=== PATIENT | female | born 1950 | race Caucasian/White ===

== ENCOUNTER 2016-07-26 16:26 | Emergency (ER) | payer MEDICARE ==
[2016-07-26 16:56] VITALS: BP 145/79
--- NOTE | 2016-07-26 18:33 | RAD ---
INDICATION: Nose abrasions after a fall TECHNIQUE: 3 views of the nasal bones were obtained including lateral and Murphy views. FINDINGS: No fracture is seen. Paranasal sinuses appear clear by radiographic standards. IMPRESSION: No evidence of acute fracture.
--- NOTE | 2016-07-26 19:14 | UC ---
Head Injury HPI - HPI Summary HPI Summary: YESTERDAY SLIPPED ON STEPS AND STRUCK LEFT SIDE OF FACE IN GRAVEL, ABRASION TO NOSE, TODAY SWELLING OF NOSE AND BRUISING UNDER LEFT EYE. NO FEVER. NO LOC. NO FACIAL PAIN. NO NECK PAIN. NO DENTAL PAIN. NO VISION CHANGES OR PAIN WITH EYE MOVEMENT. - History Of Current Complaint Chief Complaint: UCHeadInjury Stated Complaint: FACIAL INJURIES FROM FALL Time Seen by Provider: 07/26/16 17:14 Hx Obtained From: Patient Onset/Duration: Sudden Onset, Lasting Hours, Still Present Severity Currently: Moderate Severity Initially: Moderate Pain Intensity: 0 Pain Scale Used: 0-10 Numeric Associated Signs And Symptoms: Negative: LOC (Time In Secs./Mins/Hrs), LOC Duration Unknown, Confusion, Memory Loss, Epistaxis, Dental Malocclusion, Neck Pain, Nausea, Vomiting - Risk Factors SDH Risk Factor: Recent Trauma - Allergies/Home Medications Allergies/Adverse Reactions: Allergies Allergy/AdvReac Type Severity Reaction Status Date / Time Fentanyl Allergy See Comment Verified 02/12/16 13:44 Penicillins Allergy Unknown Verified 07/26/16 16:56 Reaction Details Mirtazapine [From Remeron] AdvReac Severe Hallucinati Verified 02/12/16 13:44 ons Dronabinol [From Marinol] AdvReac Hallucinati Verified 02/12/16 13:44 ons PMH/Surg Hx/FS Hx/Imm Hx Previously Healthy: Yes Endocrine History Of: Denies: Diabetes, Thyroid Disease Cardiovascular History Of: Reports: Hypertension Denies: Cardiac Disorders, Pacemaker/ICD Respiratory History Of: Denies: COPD, Asthma GI/ History Of: Denies: Ulcer, Renal Disease Psychological History Of: Reports: Anxiety, Depression - Surgical History Surgical History: Yes Surgery Procedure, Year, and Place: Right upper lobe of lung removed 2013 in [facility]. - Family History Known Family History: Negative: Blood Disorder - Social History Occupation: Retired Lives: With Family Alcohol Use: None Substance Use Type: None Smoking Status (MU): Former Smoker Type: Cigarettes Have You Smoked in the Last Year: No When Did the Patient Quit Smoking/Using Tobacco: 3 years ago - Immunization History Most Recent Influenza Vaccination: 2015/2016 season Most Recent Tetanus Shot: 2010 Most Recent Pneumonia Vaccination: 2014 Review of Systems Constitutional: Negative Skin: Bruising - LEFT MAXILLARY ASPECT ABRASIONS AND BRUISING, Other - ABRASIONS AND SWELLING TO BRIDGE OF NOSE Eyes: Negative ENT: Negative Respiratory: Negative Cardiovascular: Negative Gastrointestinal: Negative Genitourinary: Negative Motor: Negative Neurovascular: Negative Musculoskeletal: Negative Neurological: Negative Psychological: Negative All Other Systems Reviewed And Are Negative: Yes Physical Exam Triage Information Reviewed: Yes Appearance: Well-Appearing, No Pain Distress, Well-Nourished Vital Signs: Initial Vital Signs Temp 98.7 F 07/26/16 16:44 Pulse 82 07/26/16 16:44 Resp 16 07/26/16 16:44 BP 145/79 07/26/16 16:44 Pulse Ox 99 07/26/16 16:44 Vital Signs Reviewed: Yes Eye Exam: Normal Eyes: Positive: Conjunctiva Clear ENT Exam: Normal ENT: Positive: Normal ENT inspection, Hearing grossly normal, Pharynx normal, TMs normal Dental Exam: Normal Dental: Negative: Percussion Tenderness @, Gross Decay/Caries @, Dental Fracture @ Neck exam: Normal Neck: Positive: Supple, Nontender, No Lymphadenopathy. Negative: Nuchal Rigidity, Tenderness @, Enlarged Nodes @ Respiratory Exam: Normal Respiratory: Positive: Chest non-tender, Lungs clear, Normal breath sounds, No respiratory distress, No accessory muscle use Cardiovascular Exam: Normal Cardiovascular: Positive: RRR, No Murmur, Pulses Normal Abdominal Exam: Normal Abdomen Description: Positive: Nontender, No Organomegaly Musculoskeletal Exam: Normal Musculoskeletal: Positive: Strength Intact, ROM Intact. Negative: Strength Limited @, ROM Limited @ Neurological Exam: Normal Psychological Exam: Normal Psychological: Positive: Normal Response To Family Skin: Positive: Other - BRUISING LEFT MAXILLA/ABRASIONS; ABRASIONS AND EDEMA OF NOSE Head Injury Course/Dx - Differential Dx/Diagnosis Differential Diagnosis/HQI/PQRI: Concussion Without LOC, Contusion, Hematoma, Nasal Fracture Provider Diagnoses: ABRASION TO NOSE. FACIAL CONTUSION RIGHT MAXILLA. HEAD INJURY Discharge - Discharge Plan Condition: Stable Disposition: HOME Prescriptions: Azithromycin TAB* [Zithromax TAB (Z-CARY) 250 mg #6 tabs] 250 mg PO DAILY #6 tab Patient Education Materials: Contusion in Adults (ED), Abrasion (ED) Referrals: Daren Chawla MD [Primary Care Provider] -
== END 2016-07-26 18:51 | disposition home or self-care (01) ==
LOC: UCEAST 16:26
DX: S00.31XA Abrasion of nose, initial encounter (principal); S00.83XA Contusion of other part of head, initial encounter; S09.90XA Unspecified injury of head, initial encounter; W10.9XXA Fall (on) (from) unspecified stairs and steps, initial encounter; Y93.9 Activity, unspecified; Y92.9 Unspecified place or not applicable; Z88.0 Allergy status to penicillin; Z88.8 Allergy status to other drugs, medicaments and biological substances; Z87.891 Personal history of nicotine dependence
CPT/HCPCS: 70160; 99212; G0463

== ENCOUNTER 2017-09-20 22:21 | Inpatient (IN) | payer MEDICARE ==
[2017-09-20] MEDS ORDERED: cefTRIAXone(*) 1 GM in NS 0.9% 50 ML* 50 ML IVPB ONE (22:47)
[2017-09-20] MEDS ORDERED: methylPREDNISolone 125 MG* 2 ML VIAL IV ONE (22:47)
[2017-09-20 23:35] LABS: ABS Basophils 0.1 10^3/ul (0-0.2); ABS Eosinophils 0.1 10^3/ul (0-0.6); ABS Lymphocytes 2.4 10^3/ul (1.0-4.8); ABS Monocytes 0.6 10^3/ul (0-0.8); ABS Neutrophils 2.3 10^3/ul (1.5-7.7); ABS Nucleated RBC 0 10^3/ul; Eosinophil % 1.3 % (0-6); Hematocrit 32 % (35-47); Hemoglobin 10.7 g/dl (12.0-16.0); Lymphocyte % 44.3 % (25-47); Mean Corpuscular HGB Conc 34 g/dl (31-36); Mean Corpuscular Hemoglobin 29 pg (27-31); Mean Corpuscular Volume 86 fL (80-97); Mean Platelet Volume 6.6 um3 (7.4-10.4); Nucleated Red Blood Cells % 0.2; Platelet Count 243 10^3/ul (150-450); Red Blood Count 3.66 10^6/ul (4.0-5.4); Red Cell Distribution Width 17 % (10.5-15); White Blood Count 5.5 10^3/ul (3.5-10.8)
[2017-09-20] MEDS ORDERED: cefTRIAXone(*) 1 GM ADVAN/BAG ONE (23:55)
[2017-09-20 23:56] LABS: EGFR Non-African American 90.6 (>60)
[2017-09-21] MEDS ORDERED: Albuterol 0.5% CONC NEB.SOL* 5 MG/ML 20 ml BOT INH ONE (01:37)
--- NOTE | 2017-09-21 03:58 | ED ---
Faisal Sanchez Julia, scribed for Dar Goss MD on 09/20/17 at 2249 . Shortness of Breath - HPI Summary HPI Summary: This patient is a 67 year old M presenting to [facility] accompanied by her daughter with a chief complaint of the sensation of someone is sitting on chest for the past week with gradually worsening with SOB, mildly productive cough, and wheezing today. Patient denies decreased PO intake, and fever. She used 1.5L of at home O2 at night. She uses albuterol as needed. PMHx of COPD. - History of Current Complaint Chief Complaint: EDShortnessOfBreath Time Seen by Provider: 09/20/17 22:41 Hx Obtained From: Patient Onset/Duration: Gradual Onset, Lasting Weeks Timing: Constant Associated Signs & Symptoms: Cough (Productive), Wheezing Related History: Similar Episode - COPD - Allergy/Home Medications Allergies/Adverse Reactions: Allergies Allergy/AdvReac Type Severity Reaction Status Date / Time dronabinol [From Marinol] Allergy Hallucinati Verified 09/20/17 22:26 ons fentanyl Allergy panic Verified 09/20/17 22:26 attacks, shortness of breath, heart racing mirtazapine [From Remeron] Allergy Hallucinati Verified 09/20/17 22:26 ons Penicillins Allergy Unknown Verified 09/20/17 22:26 Reaction Details Home Medications: Home Medications Metoprolol Tartrate 100 mg PO DAILY 09/21/17 [History Confirmed 09/21/17] PMH/Surg Hx/FS Hx/Imm Hx Endocrine/Hematology History: Denies: Hx Diabetes, Hx Thyroid Disease Cardiovascular History: Reports: Hx Hypertension Denies: Hx Pacemaker/ICD Respiratory History: Reports: Hx Chronic Obstructive Pulmonary Disease (COPD), Other Respiratory Problems/Disorders - Hx of lung cancer Denies: Hx Asthma GI History: Reports: Hx Gastroesophageal Reflux Disease, Other GI Disorders Denies: Hx Ulcer History: Reports: Other Problems/Disorders Denies: Hx Dialysis, Hx Renal Disease Musculoskeletal History: Reports: Hx Back Problems Sensory History: Denies: Hx Contacts or Glasses, Hx Hearing Aid Opthamlomology History: Denies: Hx Contacts or Glasses Psychiatric History: Reports: Hx Anxiety, Hx Depression Denies: Hx Panic Disorder - Cancer History Cancer Type, Location and Year: Esophageal cancer Stage #, chemo and radiation, Right Upper lobe lung removed, Stage 1 Hx Chemotherapy: Yes - ESOPHOGEAL Hx Radiation Therapy: Yes - ESOPHOGEAL Hx Palliative Cancer Treatment: No - Surgical History Surgery Procedure, Year, and Place: Right upper lobe of lung removed [address] [facility]. - Immunization History Immunizations Up to Date: Yes Infectious Disease History: No Infectious Disease History: Denies: Hx Clostridium Difficile, Hx Hepatitis, Hx Human Immunodeficiency Virus (HIV), Hx of Known/Suspected MRSA, Hx Shingles, Hx Tuberculosis, Hx Known/ Suspected VRE, Hx Known/Suspected VRSA, History Other Infectious Disease, Traveled Outside the in Last 30 Days - Family History Known Family History: Negative: Blood Disorder - Social History Alcohol Use: None Substance Use Type: Reports: None Hx Tobacco Use: No Smoking Status (MU): Former Smoker Type: Cigarettes Have You Smoked in the Last Year: No Review of Systems Negative: Fever Positive: Chest Pain Positive: Shortness Of Breath, Cough Positive: Other - decreased PO intake All Other Systems Reviewed And Are Negative: Yes Physical Exam - Summary Physical Exam Summary: Appearance: Well-appearing, Well-nourished, lying in bed comfortably, though tachypneic she can speak in full sentences. Skin: Warm, dry, no obvious rash Eyes: sclera anicteric, no conjunctiva pallor ENT: mucous membranes moist, pharynx appears normal Neck: Supple, nontender Respiratory: Clear to auscultation, no signs of respiratory distress, mild tachypnea, asymmetric lung sounds, possible consolidation with e to a changes on the right lower lung field. Cardiovascular: Normal S1, S2. No murmurs. Normal distal pulses in tibial and radial bilaterally. No tachycardia Abdomen: Soft, nontender, normal active bowel sounds present Musculoskeletal: Normal, Strength/ROM Intact Neurological: A&Ox3, awake and alert, mentation is normal, speech is fluent and appropriate Psychiatric: affect is normal, does not appear anxious or depressed Triage Information Reviewed: Yes Vital Signs On Initial Exam: Initial Vitals Temp Pulse Resp BP Pulse Ox 97.9 F 89 22 153/86 96 09/20/17 22:23 09/20/17 22:23 09/20/17 22:23 09/20/17 22:23 09/20/17 22:23 Vital Signs Reviewed: Yes Diagnostics - Vital Signs Vital Signs Temp Pulse Resp BP Pulse Ox 09/20/17 22:34 84 23 130/86 100 09/20/17 22:23 97.9 F 89 22 153/86 96 - Laboratory Lab Results: Lab Results 09/20/17 09/20/17 09/20/17 Range/Units 23:28 23:28 23:28 WBC 5.5 (3.5-10.8) 10^3/ul RBC 3.66 L (4.0-5.4) 10^6/ul Hgb 10.7 L (12.0-16.0) g/dl Hct 32 L (35-47) % MCV 86 (80-97) fL MCH 29 (27-31) pg MCHC 34 (31-36) g/dl RDW 17 H (10.5-15) % Plt Count 243 (150-450) 10^3/ul MPV 6.6 L (7.4-10.4) um3 Neut % (Auto) 42.3 (38-83) % Lymph % (Auto) 44.3 (25-47) % Bibb % (Auto) 11.0 H (0-7) % Eos % (Auto) 1.3 (0-6) % Baso % (Auto) 1.1 (0-2) % Absolute Neuts (auto) 2.3 (1.5-7.7) 10^3/ul Absolute Lymphs (auto) 2.4 (1.0-4.8) 10^3/ul Absolute Monos (auto) 0.6 (0-0.8) 10^3/ul Absolute Eos (auto) 0.1 (0-0.6) 10^3/ul Absolute Basos (auto) 0.1 (0-0.2) 10^3/ul Absolute Nucleated RBC 0 10^3/ul Nucleated RBC % 0.2 Sodium 131 L (139-145) mmol/L Potassium 4.5 (3.5-5.0) mmol/L Chloride 99 L (101-111) mmol/L Carbon Dioxide 25 (22-32) mmol/L Anion Gap 7 (2-11) mmol/L BUN 11 (6-24) mg/dL Creatinine 0.65 (0.51-0.95) mg/dL Est GFR ( Amer) 116.6 (>60) Est GFR (Non-Af Amer) 90.6 (>60) BUN/Creatinine Ratio 16.9 (8-20) Glucose 85 (70-100) mg/dL Lactic Acid 1.4 (0.5-2.0) mmol/L Calcium 9.2 (8.6-10.3) mg/dL Total Bilirubin 0.40 (0.2-1.0) mg/dL AST 19 (13-39) U/L ALT 10 (7-52) U/L Alkaline Phosphatase 83 (34-104) U/L Troponin I 0.01 (<0.04) ng/mL Total Protein 6.8 (6.4-8.9) g/dL Albumin 3.7 (3.2-5.2) g/dL Globulin 3.1 (2-4) g/dL Albumin/Globulin Ratio 1.2 (1-3) Result Diagrams: 09/20/17 23:28 09/20/17 23:28 Lab Statement: Any lab studies that have been ordered have been reviewed, and results considered in the medical decision making process. - Radiology CXR Xray Interpretation: No Acute Changes Radiology Interpretation Completed By: ED Physician - EKG 2312 Cardiac Rate: NL EKG Rhythm: Sinus Rhythm - at 85 BPM EKG Interpretation: see comparison EKG Comparison: Other - P waves, QRS complex, and T waves are within normal limits, T waves and intervals are normal, no ischemic changes. This is a normal EKG Re-Evaluation - Re-Evaluation First Eval Re-Evaluation Time: 03:43 Change: Unchanged Course/Dx - Course Assessment/Plan: 67 y/o woman with COPD, previously fairly mild, presents with worsening dyspnea and cough typical of COPD flare. She has not improved with usual treatment and will require admission for further treatment. Pt amenable. - Diagnoses Provider Diagnoses: COPD with acute lower respiratory infection, Pneumonia Discharge - Sign-Out/Discharge Documenting (check all that apply): Discharge/Admit/Transfer - Discharge Plan Condition: Guarded Disposition: ADMITTED TO [facility] Referrals: Daren Chawla MD [Primary Care Provider] - - Billing Disposition and Condition Condition: GUARDED [place]position[place] [facility] [place] The documentation as recorded by the Faisal houser Julia accurately reflects the service I personally performed and the decisions made by , Dar Goss MD.
[2017-09-21] MEDS ORDERED: oxyCODONE/Acetamin 5/325 MG* TAB PO PRN (04:24)
[2017-09-21] MEDS ORDERED: Al Hydrox/Mg Hydrox/Simet LIQ* 30 ML UDC PO PRN (04:24)
[2017-09-21] MEDS ORDERED: Senna TAB PO PRN (04:24)
[2017-09-21] MEDS ORDERED: Docusate CAP* 100 MG PO PRN (04:24)
[2017-09-21] MEDS ORDERED: Simethicone TAB* 80 MG TAB.CHEW PO PRN (04:27)
[2017-09-21] MEDS ORDERED: Albuterol 2.5 MG/3 ML NEB.SOL* (0.083%) INH PRN (04:27)
[2017-09-21] MEDS ORDERED: CMCS: Melatonin (NF) 3 MG TAB PO PRN (04:30)
[2017-09-21] MEDS: HYDROmorphone TAB* 2 MG PO PRN ×2 (04:58→10:59)
[2017-09-21] MEDS ORDERED: metroNIDAZOLE IV 500 MG/100ML* 500 MG/100 ML BAG IVPB SCH ×2 (05:00→15:00)
[2017-09-21] MEDS ORDERED: diPHENhydraMINE PO* 25 MG PO ONE (05:01)
[2017-09-21] MEDS ORDERED: Iohexol 350* (CONTRAST) 500 ML MDV IV ONE (05:19)
[2017-09-21] MEDS: NS 0.9% 1000 ML* 1,000 ML IV SCH ×2 (06:47→18:05)
[2017-09-21] MEDS: Heparin VIAL(*) 5000 UNITS/ML VIAL (FIVE THOUSAND) SUBCUT SCH ×3 (06:47→20:51)
--- NOTE | 2017-09-21 07:54 | RAD ---
INDICATION: COPD COMPARISON: May 28, 2016 TECHNIQUE: PA and lateral dual-energy views were obtained. FINDINGS: Bones/Soft Tissues: There are no acute bony findings. Cardiomediastinal: The cardiomediastinal silhouette is normal. Lungs: There is hyperinflation. There is right basilar scarring with tenting of right hemidiaphragm. There are chronic appearing interstitial changes Pleura: There are no pleural effusions. There is right apical scarring Other: None IMPRESSION: HYPERINFLATION WITH CHRONIC INTERSTITIAL CHANGES
--- NOTE | 2017-09-21 08:41 | HP ---
CC: Dr. Chawla HISTORY AND PHYSICAL: DATE OF ADMISSION: 09/21/17 TIME OF EVALUATION: 0400 PRIMARY CARE PHYSICIAN: Dr. Chawla CHIEF COMPLAINT: Chest discomfort and shortness of breath. HISTORY OF PRESENT ILLNESS: This is a 67-year-old female with past medical history of COPD who is on oxygen at bedtime with a recent esophagectomy secondary to esophageal cancer who presents to the emergency room with worsening shortness of breath and stating she has had constant weight on her chest. The patient states she had esophagectomy at [facility] back in April 2017. She has been recovering in her daughter's home in [place], [place]. She states she has had progressively worsening shortness of breath over the past few weeks. It started several weeks ago and has gotten progressively worse over the past week. She had a persistent dry cough and she has a constant feeling of weight on her chest. She does state at night when she lies down, puts the oxygen on, it does feel better. She denies any fevers or chills. She has had abdominal discomfort off and on. She has had diarrhea for the past several weeks up to 4 to 5 times a day. She does have frequent nausea episodes which has been since her surgery and she has lot of issues with swallowing and states she needs her stomaphagus to be dilated. She denies any lower extremity swelling. She just returned back home on , 09/17/17. She states she has been getting around okay. She has lost about 20 pounds since her surgery back in April. She has not followed up with oncology yet. She is not clear if she is considered in remission from her esophageal cancer. Otherwise, review of system is negative. In the emergency room, the patient had labs and imaging. She was given Solu-Medrol 25 mg, ceftriaxone 1 g , and albuterol neb was referred to the hospitalist service for further evaluation. PAST MEDICAL HISTORY: 1. COPD on 1.5 L at bedtime. 2. Hypertension. 3. Chronic pain. 4. History of esophageal cancer, recurrent, had chemo and radiation 5 years ago and then had esophagectomy in April 2017 at [facility], followed by Dr. Vance. 5. History of lung cancer of right lobectomy. 6. History of aspiration pneumonia. 7. History of microscopic colitis. 8. History of stricture of the esophagus. MEDICATIONS: 1. Clonazepam 1 mg at bedtime. 2. Periactin 4 mg p.o. daily. 3. Metoprolol tartrate 100 mg p.o. daily. 4. Albuterol inhaler 2 puffs inhaled q. 6 hours as needed. 5. Calcium carbonate 600 mg p.o. daily as needed. 6. Lexapro 10 mg daily. 7. Lactase 3000 units daily as needed. 8. Hydromorphone 2 mg as needed. 9. Simethicone 80 mg t.i.d. as needed. 10. Lyrica 30 mg p.o. b.i.d. as needed. 11. Multivitamin daily. 12. Melatonin 5 mg at bedtime as needed. ALLERGIES: 1. MARINOL, hallucinations. 2. FENTANYL, shortness of breath. 3. MIRTAZAPINE, hallucinations. 4. PENICILLIN, unknown. FAMILY HISTORY: Father at age 52 from complications of alcohol. Mother at age 90 from congestive heart failure SOCIAL HISTORY: As mentioned the patient has been staying with her daughter in [place], [place], since her surgery in April recently, came home in the past few days. She quit smoking 5 years ago. She states she smokes short amount of time prior to her surgery in April a [id number] history. No alcohol use. No illicit drug use. Her healthcare proxy are her daughters, Urmila Britt and Lenore Crews. Code status is full code. REVIEW OF SYSTEMS: A 14-point review of systems as mentioned in the HPI, otherwise negative. PHYSICAL EXAMINATION GENERAL: In no acute distress. She is tachypneic with some conversational dyspnea. VITAL SIGNS: Temperature 97.9, pulse rate 128, respiratory rate 31, oxygen saturation 98% on room air, and blood pressure 122/71. HEENT: Head is normocephalic. Pupils are equal and reactive. Anicteric. Oropharynx, mucous membranes moist. NECK: Supple. No lymphadenopathy. RESPIRATORY: Rhonchi heard throughout the right lung. No wheezes, rhonchi, and some tachypnea noted with mild increased work of breathing. CARDIAC: Tachycardia. Soft systolic murmur heard throughout. ABDOMEN: Soft, nontender, and nondistended. EXTREMITIES: No clubbing or cyanosis. Possibly some asymmetry with more swelling in her right lower extremity, +2 DPs. NEUROLOGIC: Alert and oriented x3. No gross focal neurologic deficits. LABORATORY DATA: White count 5.5, hemoglobin 10.7, hematocrit 32, and platelets 243. Sodium 131, potassium 4.5, chloride 99, bicarb 25, BUN 11, creatinine 0.65, glucose 85, troponin 0.01. RADIOGRAPHIC DATA: Question of increased opacifications in the right middle lobe. EKG shows sinus rhythm. ASSESSMENT: This is a 67-year-old female with past medical history of chronic obstructive pulmonary disease and recent treatment for esophageal cancer with esophagectomy who presents to the emergency room with progressively worsening shortness of breath and chest discomfort. 1. Shortness of breath and chest discomfort. Assessment: The patient is now tachypneic and tachycardic. Her chest x-ray is concerning for possible aspiration pneumonia given her history. The other possibility is pulmonary embolism with aspiration pneumonia. Less likely healthcare associated pneumonia. She has no white count, no fever. Plan: We will admit her for further evaluation. The patient warrants a CTA of the chest. We will continue on antibiotics. We will add Flagyl for aspiration coverage and continue on ceftriaxone, followup on her troponins. We will also order speech therapy, swallow evaluation. She states she needs to see Dr. Costello for dilation of her stomaphagus, consider follow up with GI while she is here if she is running into abnormalities on her workup. We will follow up on her CTA of the chest. 2. Chronic medical problems: Hypertension. The patient's blood pressure is normal. Metoprolol tartrate will lower this for now to 25 mg b.i.d. as opposed to 100 daily. 3. Chronic pain. Continue on her Dilaudid. Continue Lexapro. Continue on albuterol and switch her to a nebulizer. 4. FEN. Placed her on a regular diet as mentioned with a swallow eval pending with gentle IV fluids. 5. DVT prophylaxis. The patient scores high risk. Place her on heparin subcu t.i.d. 6. Code status. Full code. PATIENT TIME: Greater than 50 minutes spent doing the history and physical, more than half the time spent with patient contact. [id number]/[facility] #: [id number] MARILYNN
--- NOTE | 2017-09-21 08:47 | RAD ---
INDICATION: Chest pain. Short of breath. Evaluate for pulmonary embolus. COMPARISON: PET scan January 01, 2017 TECHNIQUE: Axial source images were obtained from the thoracic inlet to the hemidiaphragms following administration of [address] angiographic technique was utilized. Coronal and sagittal reconstructed images were acquired. CHEST FINDINGS: Neck/thyroid: The visualized neck to include the thyroid appear normal. Chest wall: There are no acute abnormalities of the bony thorax or chest wall. There are thoracotomy changes there is osteopenia with kyphosis and mild compression deformities of the upper thoracic spine There is no supraclavicular, infraclavicular, or axillary lymphadenopathy. Lungs : There is cortical scarring the right upper lobe with volume loss/postsurgical change.. There are small left-sided parenchymal nodules on axial reference images 16, 20, and 26/64 which appear new. These measure up to 6 mm. These are nonspecific and could be inflammatory or neoplastic. There are extensive underlying emphysematous changes. Cardiomediastinal structures: There is no CT evidence of acute pulmonary embolic disease. The heart is normal in size. There is no pericardial effusion. There is no evidence of aortic aneurysm or dissection. There is no mediastinal or hilar adenopathy. There is no overall increase in radiodensity mediastinum which could be related to radiation therapy. There esophagus appears unchanged. There is presumed partial esophagectomy. Pleura : Pleural reactive change or scarring right lung apex is noted above. Other: None. IMPRESSION: 1. No CT evidence of acute pulmonary embolic disease. 2. Right upper lobe lobectomy. Right apical scarring. Underlying emphysema. 3. Subcentimeter left pulmonary parenchymal nodules are nonspecific. Suggest follow-up imaging in 3 months. 4. Stable appearance of the esophagus.
[2017-09-21] MEDS: Pregabalin CAP(*) 50 MG PO SCH ×2 (09:09→20:50)
[2017-09-21] MEDS: Metoprolol Tartrate TAB* 25 MG PO SCH ×2 (09:09→20:49)
[2017-09-21] MEDS: Citalopram TAB* 20 MG PO SCH (09:09)
[2017-09-21] MEDS: Cyproheptadine TAB* 4 MG PO SCH (09:09)
[2017-09-21 10:26] LABS: ABS Basophils 0 10^3/ul (0-0.2); ABS Eosinophils 0 10^3/ul (0-0.6); ABS Lymphocytes 0.3 10^3/ul (1.0-4.8); ABS Monocytes 0.1 10^3/ul (0-0.8); ABS Neutrophils 5.2 10^3/ul (1.5-7.7); ABS Nucleated RBC 0 10^3/ul; Eosinophil % 0 % (0-6); Hematocrit 28 % (35-47); Hemoglobin 9.6 g/dl (12.0-16.0); Lymphocyte % 5.3 % (25-47); Mean Corpuscular HGB Conc 34 g/dl (31-36); Mean Corpuscular Hemoglobin 30 pg (27-31); Mean Corpuscular Volume 88 fL (80-97); Mean Platelet Volume 6.9 um3 (7.4-10.4); Nucleated Red Blood Cells % 0; Platelet Count 192 10^3/ul (150-450); Red Blood Count 3.24 10^6/ul (4.0-5.4); Red Cell Distribution Width 17 % (10.5-15); White Blood Count 5.6 10^3/ul (3.5-10.8)
[2017-09-21] MEDS: methylPREDNISolone 125 MG* 2 ML VIAL IV SCH ×2 (10:54→18:07)
[2017-09-21] MEDS ORDERED: clonazePAM TAB(*) 0.5 MG PO ONE (11:51)
[2017-09-21] MEDS ORDERED: Albuterol/Ipratropium NEB.SOL* Albuterol 2.5 MG/Ipratropium 0.5 MG 3 ML INH SCH (12:00)
[2017-09-21] MEDS: Albuterol/Ipratropium NEB.SOL* Albuterol 2.5 MG/Ipratropium 0.5 MG 3 ML INH SCH ×2 (15:20→18:21)
--- NOTE | 2017-09-21 18:37 | PN ---
Hospitalist Progress Note Date of Service: 09/21/17 Pt seen and examined. Meds and labs reviewed. ROS: Denied LOUIS/dizziness, F/C, N/V, CP, SOB, increased cough, sputum production , abd pain, diarrhea, constipation, dysuria, myalgias, arthralgias, throat pain , and new skin lesions. The rest of the 14 point ROS are unremarkable. PHYSICAL EXAM: GEN APPEARANCE: Awake, not in acute distress HEENT: NC/AT, PERRLA, moist oral mucosa, (-) throat erythema NECK: Soft, supple, (-) cervical LAD, (-)JVD HEART: S1S2 WNL, RRR, No MRG CHEST: Slight wheezing in mid to lower lung field, poor air entry at bases, No R/R ABD: Soft, ND/NT, NABS 4x Q EXT: No C/C/E SKIN: Warm to touch PSYCH: No active psychosis, hallucinations, depression, SI/HI ASSESSMENT AND PLAN: #COPD exacerbation, severe: -Continue Rocephin per GOLD criteria despite absence of PNA -Will D/C Flagyl given absence of infiltrates on imaging and at best may have some pneumonitis but no evidence of nuzhat pneumonia -Will place pt on Solumedrol -Added duonebs to her regimen -R/O for PE #Dysphagia, chronic (S/P esophagectomy in 04/2017): -Will await swallow eval result #Insomnia: -Continue Melatonin #DVTp: -Continue Heparin SQ #Dispo: -For PT eval -As above
[2017-09-21] MEDS: clonazePAM TAB(*) 1 MG PO SCH (20:48)
[2017-09-21] MEDS: cefTRIAXone(*) 1 GM in NS 0.9% 50 ML* 50 ML IVPB SCH (23:25)
[2017-09-22] MEDS: Albuterol/Ipratropium NEB.SOL* Albuterol 2.5 MG/Ipratropium 0.5 MG 3 ML INH SCH ×3 (01:51→13:40)
[2017-09-22] MEDS: methylPREDNISolone 125 MG* 2 ML VIAL IV SCH ×2 (02:03→09:47)
[2017-09-22] MEDS: NS 0.9% 1000 ML* 1,000 ML IV SCH ×3 (04:48→23:35)
[2017-09-22] MEDS: Heparin VIAL(*) 5000 UNITS/ML VIAL (FIVE THOUSAND) SUBCUT SCH ×3 (04:49→21:57)
[2017-09-22 07:40] LABS: Hematocrit 26 % (35-47); Hemoglobin 8.9 g/dl (12.0-16.0); Mean Corpuscular HGB Conc 34 g/dl (31-36); Mean Corpuscular Hemoglobin 30 pg (27-31); Mean Corpuscular Volume 87 fL (80-97); Mean Platelet Volume 6.8 um3 (7.4-10.4); Platelet Count 196 10^3/ul (150-450); Red Blood Count 3.02 10^6/ul (4.0-5.4); Red Cell Distribution Width 17 % (10.5-15)
[2017-09-22 08:01] LABS: EGFR Non-African American 128.6 (>60)
[2017-09-22] MEDS: Metoprolol Tartrate TAB* 25 MG PO SCH ×2 (09:46→21:54)
[2017-09-22] MEDS: Citalopram TAB* 20 MG PO SCH (09:46)
[2017-09-22] MEDS: Pregabalin CAP(*) 50 MG PO SCH ×2 (09:46→21:56)
[2017-09-22] MEDS: Cyproheptadine TAB* 4 MG PO SCH (09:46)
[2017-09-22] MEDS: Acetaminophen TAB* 325 MG PO PRN (09:46)
--- NOTE | 2017-09-22 15:14 | PN ---
Subjective Date of Service: 09/22/17 Interval History: Pt is feeling a little better than compared to admission. She has a minimal cough. No significant sputum. Objective Active Medications: Acetaminophen (Tylenol Tab*) 650 mg PO Q4H PRN PRN Reason: FEVER/PAIN Last Admin: 09/22/17 09:46 Dose: 650 mg Al Hydrox/Mg Hydrox/Simethicone (Maalox Plus*) 30 ml PO Q6H PRN PRN Reason: INDIGESTION Albuterol (Ventolin 2.5 Mg/3 Ml Neb.Cait*) 2.5 mg INH Q4H PRN PRN Reason: SOB/WHEEZING Citalopram Hydrobromide (Celexa Tab*) 20 mg PO DAILY [facility] Last Admin: 09/22/17 09:46 Dose: 20 mg Clonazepam (Klonopin Tab(*)) 1 mg PO BEDTIME [facility] Last Admin: 09/21/17 20:48 Dose: 1 mg Cyproheptadine HCl (Periactin Tab*) 4 mg PO DAILY [facility] Last Admin: 09/22/17 09:46 Dose: 4 mg Docusate Sodium (Colace Cap*) 100 mg PO BID PRN PRN Reason: CONSTIPATION Heparin Sodium (Porcine) (Heparin Vial(*)) 5,000 units SUBCUT Q8HR [facility] Last Admin: 09/22/17 14:17 Dose: 5,000 units Hydromorphone HCl (Dilaudid Tab*) 2 mg PO Q6H PRN PRN Reason: PAIN Last Admin: 09/21/17 10:59 Dose: 2 mg Sodium Chloride (Ns 0.9% 1000 Ml*) 1,000 mls @ 100 mls/hr IV PER RATE [facility] Last Admin: 09/22/17 04:48 Dose: 100 mls/hr Ceftriaxone Sodium 1 gm/ (Sodium Chloride) 50 mls @ 200 mls/hr IVPB Q24H [facility] Last Admin: 09/21/17 23:25 Dose: 200 mls/hr Melatonin (Melatonin (Nf)) 3 mg PO BEDTIME PRN PRN Reason: SLEEP Methylprednisolone Sodium Succinate (Solu-Medrol 125mg *) 60 mg IV Q8H [facility] Last Admin: 09/22/17 09:47 Dose: 60 mg Metoprolol Tartrate (Lopressor Tab*) 25 mg PO BID [facility] Last Admin: 09/22/17 09:46 Dose: 25 mg Ondansetron HCl (Zofran 40 Mg Vial*) 4 mg IV Q4H PRN PRN Reason: NAUSEA/VOMITING Pregabalin (Lyrica Cap(*)) 50 mg PO BID [facility] Last Admin: 09/22/17 09:46 Dose: 50 mg Senna (Senokot Tab*) 1 tab PO BID PRN PRN Reason: CONSTIPATION Simethicone (Mylicon Tab*) 80 mg PO TID PRN PRN Reason: gas Vital Signs - 8 hr 09/22/17 09/22/17 09/22/17 07:16 07:51 07:56 Temperature 98.6 F Pulse Rate 78 77 Respiratory 16 16 16 Rate Blood Pressure 125/61 (mmHg) O2 Sat by Pulse 100 98 Oximetry 09/22/17 09/22/17 09/22/17 09:46 11:27 11:45 Temperature 98.8 F Pulse Rate 77 Respiratory 16 16 16 Rate Blood Pressure 106/46 (mmHg) O2 Sat by Pulse Oximetry Oxygen Devices in Use Now: Nasal Cannula Appearance: Middle aged female lying in bed, NAD Eyes: No Scleral Icterus Ears/Nose/Mouth/Throat: Mucous Membranes Moist Respiratory: Symmetrical Chest Expansion and Respiratory Effort, Clear to Auscultation - few RLL crackles Cardiovascular: NL Sounds; No Murmurs; No JVD, RRR, No Edema Abdominal: NL Sounds; No Tenderness; No Distention Extremities: No Clubbing, Cyanosis Skin: No Nodules or Sclerosis Neurological: Alert and Oriented x 3 Result Diagrams: 09/22/17 07:02 09/22/17 07:02 Additional Lab and Data: Lab Results 09/20/17 09/20/17 09/20/17 Range/Units 23:28 23:28 23:28 WBC 5.5 (3.5-10.8) 10^3/ul RBC 3.66 L (4.0-5.4) 10^6/ul Hgb 10.7 L (12.0-16.0) g/dl Hct 32 L (35-47) % MCV 86 (80-97) fL MCH 29 (27-31) pg MCHC 34 (31-36) g/dl RDW 17 H (10.5-15) % Plt Count 243 (150-450) 10^3/ul MPV 6.6 L (7.4-10.4) um3 Neut % (Auto) 42.3 (38-83) % Lymph % (Auto) 44.3 (25-47) % Bland % (Auto) 11.0 H (0-7) % Eos % (Auto) 1.3 (0-6) % Baso % (Auto) 1.1 (0-2) % Absolute Neuts (auto) 2.3 (1.5-7.7) 10^3/ul Absolute Lymphs (auto) 2.4 (1.0-4.8) 10^3/ul Absolute Monos (auto) 0.6 (0-0.8) 10^3/ul Absolute Eos (auto) 0.1 (0-0.6) 10^3/ul Absolute Basos (auto) 0.1 (0-0.2) 10^3/ul Absolute Nucleated RBC 0 10^3/ul Nucleated RBC % 0.2 Sodium 131 L (139-145) mmol/L Potassium 4.5 (3.5-5.0) mmol/L Chloride 99 L (101-111) mmol/L Carbon Dioxide 25 (22-32) mmol/L Anion Gap 7 (2-11) mmol/L BUN 11 (6-24) mg/dL Creatinine 0.65 (0.51-0.95) mg/dL Est GFR ( Amer) 116.6 (>60) Est GFR (Non-Af Amer) 90.6 (>60) BUN/Creatinine Ratio 16.9 (8-20) Glucose 85 (70-100) mg/dL Lactic Acid 1.4 (0.5-2.0) mmol/L Calcium 9.2 (8.6-10.3) mg/dL Total Bilirubin 0.40 (0.2-1.0) mg/dL AST 19 (13-39) U/L ALT 10 (7-52) U/L Alkaline Phosphatase 83 (34-104) U/L Troponin I 0.01 (<0.04) ng/mL Total Protein 6.8 (6.4-8.9) g/dL Albumin 3.7 (3.2-5.2) g/dL Globulin 3.1 (2-4) g/dL Albumin/Globulin Ratio 1.2 (1-3) Assess/Plan/Problems-Billing Ms Crews is a 67 yo F who has a h/o esophageal cancer s/p esophagectomy 04/2017 , R upper lobe lung cancer s/p lobectomy, COPD, HTN and microscopic colitis who presented to the ER with c/o SOB. - Patient Problems (1) Aspiration pneumonitis Current Visit: Yes Status: Acute Code(s): J69.0 - PNEUMONITIS DUE TO INHALATION OF FOOD AND VOMIT SNOMED Code(s): 306795777 Comment: The patient's dyspnea may be secondary to aspiration pneumonitis. Unlikely pneumonia given no fever, no significant sputum, and no infiltrates on imaging. Continue ceftriaxone for now. Decrease steroids to prednisone 40mg daily starting tomorrow. (2) History of esophagectomy Current Visit: Yes Status: Acute Code(s): Z98.890 - OTHER SPECIFIED POSTPROCEDURAL STATES; Z90.49 - ACQUIRED ABSENCE OF OTHER SPECIFIED PARTS OF DIGESTIVE TRACT SNOMED Code(s): 35357544366123366 Comment: Pt c/o dysphagia. Swallow evaluation done and no change to diet consistency. Follow up with GI office. (3) HTN (hypertension) Current Visit: Yes Status: Acute Code(s): I10 - ESSENTIAL (PRIMARY) HYPERTENSION SNOMED Code(s): 86898909 Comment: BP is under good control. Continue metoprolol. (4) Chronic pain Current Visit: Yes Status: Acute Code(s): G89.29 - OTHER CHRONIC PAIN SNOMED Code(s): 08623293 Comment: Continue hyrdromorphone and lyrica. (5) DVT prophylaxis Current Visit: Yes Status: Acute Code(s): ZFI8016 - SNOMED Code(s): 373797662 Comment: SQ heparin (6) Full code status Current Visit: Yes Status: Acute Code(s): Z78.9 - OTHER SPECIFIED HEALTH STATUS SNOMED Code(s): 722103285
[2017-09-22] MEDS: HYDROmorphone TAB* 2 MG PO PRN ×2 (15:23→22:11)
[2017-09-22] MEDS: clonazePAM TAB(*) 1 MG PO SCH (21:55)
[2017-09-22] MEDS: cefTRIAXone(*) 1 GM in NS 0.9% 50 ML* 50 ML IVPB SCH (23:35)
[2017-09-23] MEDS: Heparin VIAL(*) 5000 UNITS/ML VIAL (FIVE THOUSAND) SUBCUT SCH ×3 (05:51→21:33)
[2017-09-23] MEDS: Ondansetron 40 MG VIAL* 2 MG/ML 20 ML VIAL IV PRN ×2 (07:53→16:25)
[2017-09-23] MEDS: Acetaminophen TAB* 325 MG PO PRN ×2 (08:43→13:56)
[2017-09-23] MEDS: Metoprolol Tartrate TAB* 25 MG PO SCH ×2 (08:43→21:35)
[2017-09-23] MEDS: predniSONE TAB* 20 MG PO SCH (08:44)
[2017-09-23] MEDS: Pregabalin CAP(*) 50 MG PO SCH ×2 (08:44→21:34)
[2017-09-23] MEDS: Cyproheptadine TAB* 4 MG PO SCH (08:44)
[2017-09-23] MEDS: Citalopram TAB* 20 MG PO SCH (08:44)
--- NOTE | 2017-09-23 10:43 | PN ---
Subjective Date of Service: 09/23/17 Interval History: Ms. Crews reports that she is not feeling quite as well yesterday. She reports feeling more short of breath with mobility and having a worsening cough. She denies other complaint at this point though she did have some nausea this morning. Objective Active Medications: Acetaminophen (Tylenol Tab*) 650 mg PO Q4H PRN Al Hydrox/Mg Hydrox/Simethicone (Maalox Plus*) 30 ml PO Q6H PRN Albuterol (Ventolin 2.5 Mg/3 Ml Neb.Cait*) 2.5 mg INH Q4H PRN Citalopram Hydrobromide (Celexa Tab*) 20 mg PO DAILY [facility] Clonazepam (Klonopin Tab(*)) 1 mg PO BEDTIME [facility] Cyproheptadine HCl (Periactin Tab*) 4 mg PO DAILY [facility] Docusate Sodium (Colace Cap*) 100 mg PO BID PRN Heparin Sodium (Porcine) (Heparin Vial(*)) 5,000 units SUBCUT Q8HR [facility] Hydromorphone HCl (Dilaudid Tab*) 2 mg PO Q6H PRN Sodium Chloride (Ns 0.9% 1000 Ml*) 1,000 mls @ 100 mls/hr IV PER RATE [facility] Ceftriaxone Sodium 1 gm/ (Sodium Chloride) 50 mls @ 200 mls/hr IVPB Q24H [facility] Melatonin (Melatonin (Nf)) 3 mg PO BEDTIME PRN Metoprolol Tartrate (Lopressor Tab*) 25 mg PO BID [facility] Ondansetron HCl (Zofran 40 Mg Vial*) 4 mg IV Q4H PRN Prednisone (Deltasone Tab*) 40 mg PO DAILY [facility] Pregabalin (Lyrica Cap(*)) 50 mg PO BID [facility] Senna (Senokot Tab*) 1 tab PO BID PRN Simethicone (Mylicon Tab*) 80 mg PO TID PRN Vital Signs: Temp Pulse Resp BP Pulse Ox 98.7 F 84 16 173/81 96 09/23/17 07:39 09/23/17 07:49 09/23/17 08:44 09/23/17 07:39 09/23/17 07:49 Oxygen Devices in Use Now: Nasal Cannula Appearance: Female lying in bed in NAD Eyes: No Scleral Icterus Ears/Nose/Mouth/Throat: Mucous Membranes Moist Neck: Trachea Midline Respiratory: Symmetrical Chest Expansion and Respiratory Effort, Clear to Auscultation Cardiovascular: NL Sounds; No Murmurs; No JVD, No Edema Abdominal: NL Sounds; No Tenderness; No Distention Extremities: No Edema Skin: No Rash or Ulcers Neurological: Alert and Oriented x 3, NL Muscle Strength and Tone Nutrition: Taking PO's Result Diagrams: 09/22/17 07:02 09/22/17 07:02 Additional Lab and Data: Vital Signs: Temp Pulse Resp BP Pulse Ox 98.7 F 84 16 173/81 96 09/23/17 07:39 09/23/17 07:49 09/23/17 08:44 09/23/17 07:39 09/23/17 07:49 Assess/Plan/Problems-Billing Assessment: Ms Crews is a 67 yo F who has a h/o esophageal cancer s/p esophagectomy 04/2017 , R upper lobe lung cancer s/p lobectomy, COPD, HTN and microscopic colitis who presented to the ER with c/o SOB with concern for aspiration pneumonitis. - Patient Problems (1) Aspiration pneumonitis Comment: - Now on 2L NC (wears 1.5L only at bedtime at home), episode of SOB this AM, now resolved. Reports cough but but lungs CTAB. - The patient's dyspnea may be secondary to aspiration pneumonitis. Unlikely pneumonia given no fever, no significant sputum, and no infiltrates on imaging. - Continue ceftriaxone for now. Decrease steroids to prednisone 40mg daily. (2) Anemia Comment: - Hgb 8.9, normocytic. - Check iron studies, stool occult blood, vit B12, folate. (3) HTN (hypertension) Comment: - BP is under good control. Continue metoprolol. (4) Chronic pain Comment: - Continue hyrdromorphone and lyrica. (5) History of esophagectomy Comment: - Pt c/o dysphagia. Swallow evaluation done and no change to diet consistency. Follow up with GI office. (6) DVT prophylaxis Comment: - SQ heparin (7) Full code status Comment: Status and Disposition: Inpatient. Anticipate discharge to home when medically stable.
[2017-09-23] MEDS: NS 0.9% 1000 ML* 1,000 ML IV SCH (11:25)
[2017-09-23] MEDS: HYDROmorphone TAB* 2 MG PO PRN ×2 (14:03→21:36)
[2017-09-23] MEDS: clonazePAM TAB(*) 1 MG PO SCH (21:35)
[2017-09-24] MEDS: cefTRIAXone(*) 1 GM in NS 0.9% 50 ML* 50 ML IVPB SCH ×2 (00:20→23:38)
[2017-09-24] MEDS: Heparin VIAL(*) 5000 UNITS/ML VIAL (FIVE THOUSAND) SUBCUT SCH ×3 (05:37→21:26)
[2017-09-24 07:13] LABS: ABS Basophils 0 10^3/ul (0-0.2); ABS Eosinophils 0 10^3/ul (0-0.6); ABS Lymphocytes 1.5 10^3/ul (1.0-4.8); ABS Monocytes 0.4 10^3/ul (0-0.8); ABS Neutrophils 3.9 10^3/ul (1.5-7.7); ABS Nucleated RBC 0 10^3/ul; Eosinophil % 0.3 % (0-6); Hematocrit 27 % (35-47); Hemoglobin 9.2 g/dl (12.0-16.0); Lymphocyte % 25.7 % (25-47); Mean Corpuscular HGB Conc 35 g/dl (31-36); Mean Corpuscular Hemoglobin 30 pg (27-31); Mean Corpuscular Volume 87 fL (80-97); Mean Platelet Volume 6.6 um3 (7.4-10.4); Nucleated Red Blood Cells % 0.1; Platelet Count 209 10^3/ul (150-450); Red Blood Count 3.07 10^6/ul (4.0-5.4); Red Cell Distribution Width 18 % (10.5-15); White Blood Count 5.8 10^3/ul (3.5-10.8)
[2017-09-24] MEDS: Cyproheptadine TAB* 4 MG PO SCH (08:28)
[2017-09-24] MEDS: HYDROmorphone TAB* 2 MG PO PRN ×3 (08:29→23:38)
[2017-09-24] MEDS: Metoprolol Tartrate TAB* 25 MG PO SCH ×2 (08:29→21:27)
[2017-09-24] MEDS: predniSONE TAB* 20 MG PO SCH (08:29)
[2017-09-24] MEDS: Citalopram TAB* 20 MG PO SCH (08:29)
[2017-09-24] MEDS: Pregabalin CAP(*) 50 MG PO SCH ×2 (08:29→21:27)
--- NOTE | 2017-09-24 11:29 | PN ---
Subjective Date of Service: 09/24/17 Interval History: Ms. Crews continues to have dyspnea with exertion and is requiring 4L NC with ambulation. She denies other complaint. Objective Active Medications: Acetaminophen (Tylenol Tab*) 650 mg PO Q4H PRN Al Hydrox/Mg Hydrox/Simethicone (Maalox Plus*) 30 ml PO Q6H PRN Albuterol (Ventolin 2.5 Mg/3 Ml Neb.Cait*) 2.5 mg INH Q4H PRN Citalopram Hydrobromide (Celexa Tab*) 20 mg PO DAILY [facility] Clonazepam (Klonopin Tab(*)) 1 mg PO BEDTIME [facility] Cyproheptadine HCl (Periactin Tab*) 4 mg PO DAILY [facility] Docusate Sodium (Colace Cap*) 100 mg PO BID PRN Heparin Sodium (Porcine) (Heparin Vial(*)) 5,000 units SUBCUT Q8HR [facility] Hydromorphone HCl (Dilaudid Tab*) 2 mg PO Q6H PRN Ceftriaxone Sodium 1 gm/ (Sodium Chloride) 50 mls @ 200 mls/hr IVPB Q24H [facility] Melatonin (Melatonin (Nf)) 3 mg PO BEDTIME PRN Metoprolol Tartrate (Lopressor Tab*) 25 mg PO BID [facility] Ondansetron HCl (Zofran 40 Mg Vial*) 4 mg IV Q4H PRN Prednisone (Deltasone Tab*) 40 mg PO DAILY [facility] Pregabalin (Lyrica Cap(*)) 50 mg PO BID [facility] Senna (Senokot Tab*) 1 tab PO BID PRN Simethicone (Mylicon Tab*) 80 mg PO TID PRN Vital Signs: Temp Pulse Resp BP Pulse Ox 98.7 F 70 20 143/64 99 09/24/17 07:50 09/24/17 08:42 09/24/17 08:42 09/24/17 07:50 09/24/17 08:42 Oxygen Devices in Use Now: Nasal Cannula Appearance: Female sitting up in chair in NAD Eyes: No Scleral Icterus Ears/Nose/Mouth/Throat: Mucous Membranes Moist Respiratory: Symmetrical Chest Expansion and Respiratory Effort, Clear to Auscultation Cardiovascular: NL Sounds; No Murmurs; No JVD, No Edema Abdominal: NL Sounds; No Tenderness; No Distention Extremities: No Edema Skin: No Rash or Ulcers Neurological: Alert and Oriented x 3, NL Muscle Strength and Tone Nutrition: Taking PO's Result Diagrams: 09/24/17 06:59 09/22/17 07:02 Additional Lab and Data: . Assess/Plan/Problems-Billing Assessment: Ms Crews is a 67 yo F who has a h/o esophageal cancer s/p esophagectomy 04/2017 , R upper lobe lung cancer s/p lobectomy, COPD, HTN and microscopic colitis who presented to the ER with c/o SOB with concern for aspiration pneumonitis. - Patient Problems (1) Aspiration pneumonitis Comment: - Improving slowly. Now on 2L NC (wears 1.5L only at bedtime at home), but requires 4L with mobility. - The patient's dyspnea may be secondary to aspiration pneumonitis. Unlikely pneumonia given no fever, no significant sputum, and no infiltrates on imaging. - Continue ceftriaxone for now. Decrease steroids to prednisone 40mg daily. (2) Anemia Comment: - Hgb 9.2, normocytic. - Chronic, worsened by hydration. - Iron studies,vit B12, and folate normal. - Needs close follow up with PCP. (3) HTN (hypertension) Comment: - BP is under good control. Continue metoprolol. (4) Chronic pain Comment: - Continue hyrdromorphone and lyrica. (5) History of esophagectomy Comment: - Pt c/o dysphagia. Swallow evaluation done and no change to diet consistency. Follow up with GI office. (6) DVT prophylaxis Comment: - SQ heparin (7) Full code status Comment: Status and Disposition: Inpatient. Anticipate discharge to home when medically stable.
[2017-09-24] MEDS: clonazePAM TAB(*) 1 MG PO SCH (21:27)
[2017-09-25] MEDS: Heparin VIAL(*) 5000 UNITS/ML VIAL (FIVE THOUSAND) SUBCUT SCH (05:23)
[2017-09-25 07:30] VITALS: BP 141/61
[2017-09-25] MEDS: Citalopram TAB* 20 MG PO SCH (09:03)
[2017-09-25] MEDS: Cyproheptadine TAB* 4 MG PO SCH (09:03)
[2017-09-25] MEDS: Metoprolol Tartrate TAB* 25 MG PO SCH (09:03)
[2017-09-25] MEDS: Pregabalin CAP(*) 50 MG PO SCH (09:03)
[2017-09-25] MEDS: predniSONE TAB* 20 MG PO SCH (09:03)
--- NOTE | 2017-09-25 09:35 | PN ---
Subjective Date of Service: 09/25/17 Interval History: Ms. Crews reports that she continues to have some shortness of breath with ambulation but she was able to ambulate the entire unit today with 4L NC. She reports some diarrhea this morning but states this has been a chronic issue for her. Objective Active Medications: Acetaminophen (Tylenol Tab*) 650 mg PO Q4H PRN Al Hydrox/Mg Hydrox/Simethicone (Maalox Plus*) 30 ml PO Q6H PRN Albuterol (Ventolin 2.5 Mg/3 Ml Neb.Cait*) 2.5 mg INH Q4H PRN Citalopram Hydrobromide (Celexa Tab*) 20 mg PO DAILY [facility] Clonazepam (Klonopin Tab(*)) 1 mg PO BEDTIME [facility] Cyproheptadine HCl (Periactin Tab*) 4 mg PO DAILY [facility] Docusate Sodium (Colace Cap*) 100 mg PO BID PRN Heparin Sodium (Porcine) (Heparin Vial(*)) 5,000 units SUBCUT Q8HR [facility] Hydromorphone HCl (Dilaudid Tab*) 2 mg PO Q6H PRN Ceftriaxone Sodium 1 gm/ (Sodium Chloride) 50 mls @ 200 mls/hr IVPB Q24H [facility] Melatonin (Melatonin (Nf)) 3 mg PO BEDTIME PRN Metoprolol Tartrate (Lopressor Tab*) 25 mg PO BID [facility] Ondansetron HCl (Zofran 40 Mg Vial*) 4 mg IV Q4H PRN Prednisone (Deltasone Tab*) 40 mg PO DAILY [facility] Pregabalin (Lyrica Cap(*)) 50 mg PO BID [facility] Senna (Senokot Tab*) 1 tab PO BID PRN Simethicone (Mylicon Tab*) 80 mg PO TID PRN Vital Signs: Temp Pulse Resp BP Pulse Ox 98.1 F 74 18 141/61 99 09/25/17 07:30 09/25/17 07:30 09/25/17 09:03 09/25/17 07:30 09/25/17 07:30 Oxygen Devices in Use Now: Nasal Cannula Appearance: Female sitting up in chair in NAD Eyes: No Scleral Icterus Ears/Nose/Mouth/Throat: Mucous Membranes Moist Neck: Trachea Midline Respiratory: Symmetrical Chest Expansion and Respiratory Effort, Clear to Auscultation Cardiovascular: NL Sounds; No Murmurs; No JVD, No Edema Abdominal: NL Sounds; No Tenderness; No Distention Lymphatic: No Cervical Adenopathy Extremities: No Edema Skin: No Rash or Ulcers Neurological: Alert and Oriented x 3, NL Muscle Strength and Tone Nutrition: Taking PO's Result Diagrams: 09/24/17 06:59 09/22/17 07:02 Additional Lab and Data: . Assess/Plan/Problems-Billing Assessment: Ms Crews is a 67 yo F who has a h/o esophageal cancer s/p esophagectomy 04/2017 , R upper lobe lung cancer s/p lobectomy, COPD, HTN and microscopic colitis who presented to the ER with c/o SOB with concern for aspiration pneumonitis. - Patient Problems (1) Aspiration pneumonitis Comment: - Improving slowly. Now on 2L NC (wears 1.5L only at bedtime at home), but requires 4L with mobility. - The patient's dyspnea may be secondary to aspiration pneumonitis. Unlikely pneumonia given no fever, no significant sputum, and no infiltrates on imaging. Has significant emphysematous changes on CT chest as well as pulmonary nodules which will need follow up outpatient. - Switch to azithromycin and start prednisone taper. (2) Anemia Comment: - Hgb 9.2, normocytic. - Chronic, worsened by hydration. - Iron studies,vit B12, and folate normal. - Needs close follow up with PCP. (3) HTN (hypertension) Comment: - BP is under good control. Continue metoprolol. (4) Chronic pain Comment: - Continue hyrdromorphone and lyrica. (5) History of esophagectomy Comment: - Pt c/o dysphagia. Swallow evaluation done and no change to diet consistency. Follow up with GI office. (6) DVT prophylaxis Comment: - SQ heparin (7) Full code status Comment: Status and Disposition: Inpatient. Discharge to home.
--- NOTE | 2017-09-26 03:12 | DS ---
AMENDED REPORT NOW INCLUDES COSIGNER DESIGNATION CC: Dr. Chawla; Dr. Vance * DISCHARGE SUMMARY: DATE OF ADMISSION: 09/21/17 DATE OF DISCHARGE: 09/25/17 PRIMARY CARE PHYSICIAN: Dr. Chawla. ATTENDING PHYSICIAN: Chetna West MD * (dictation provided by Brittany Sanders NP ) PRIMARY DIAGNOSIS: Suspected aspiration pneumonitis. SECONDARY DIAGNOSES: 1. History of chronic obstructive pulmonary disease, previously on 1.5 L oxygen at bedtime, now on 2 L at rest and 4 L with ambulation. 2. Hypertension. 3. Chronic pain. 4. History of esophageal cancer, recurrent with chemo and radiation 5 years ago and then esophagectomy in April 2017 at [facility], followed by Dr. Vance. 5. History of lung cancer of right lobectomy. 6. History of aspiration pneumonia. 7. History of microscopic colitis. 8. History of stricture of the esophagus. MEDICATIONS AT THE TIME OF DISCHARGE: 1. Prednisone, starting at 40 mg via taper. 2. Clonazepam 1 mg p.o. at bedtime. 3. Periactin 4 mg p.o. daily. 4. Metoprolol tartrate 25 mg p.o. b.i.d. 5. Albuterol 2 puffs inhaled q.6 p.r.n. 6. Calcium carbonate 600 mg p.o. daily as needed. 7. Lexapro 10 mg p.o. daily. 8. Lactase 3000 units daily as needed. 9. Hydromorphone 2 mg as needed. 10. Simethicone 80 mg t.i.d. as needed. 11. Lyrica 30 mg p.o. b.i.d. as needed. 12. Multivitamin daily. 13. Melatonin 5 mg as needed at bedtime. HOSPITAL COURSE: Ms. Crews is a 67-year-old female with a past medical history of esophageal cancer, status post esophagectomy in April 2017 as well as lung cancer with upper right lobectomy, who presented to the hospital on 09/21/17 with shortness of breath. Please see the dictated H and P from Danielle Sands MD for complete details. In brief, the patient had reported progressively worsening shortness of breath over the past few weeks with dry cough and feeling of constant weight on her chest. She also reported episodes of diarrhea up to 4 to 5 times a day with some nausea. She reported that she lost about 20 pounds since her surgery back in April. In the emergency room, Ms. Crews had a chest x-ray, hyperinflation with chronic interstitial changes. She had a chest, thorax CTA, which showed "no CT evidence of acute pulmonary embolic disease, right upper lobe lobectomy, right apical scarring, underlying emphysema, subcentimeter left pulmonary parenchymal nodules are nonspecific, suggest followup imaging in 3 months, stable appearance of the esophagus." The patient's labs showed no leukocytosis. Her C -reactive protein was 9.86. She was afebrile. Ms. Crews was admitted to the hospital with concern perhaps that she had aspiration pneumonitis. She has been treated with ceftriaxone and Solu-Medrol and then transitioned over to prednisone. The other change we made is to decrease her metoprolol from 100 mg daily to 25 mg p.o. b.i.d. and she has tolerated this well with her blood pressure running systolically in the 130s. Ms. Crews is doing well today. She has ambulated around the entire unit. She requires 2 L of oxygen at rest and 4 L with ambulation. She again tolerated full mobility on the unit and is therefore medically stable for discharge. Again, we suspect that her symptoms are perhaps due to aspiration pneumonitis, in the setting of significant chronic underlying emphysematous changes noted on CT scan. Ms. Crews is medically stable for discharge to home. She will need to follow up with Dr. Chawla and Dr. Vance. DISPOSITION: To home. DIET: Regular. ACTIVITY: As tolerated. FOLLOWUP PLANS: 1. Please follow up with Dr. Vance regarding pulmonary nodules noted on CT scan as noted above. 2. Please follow up with Dr. Chawla within the next week regarding ongoing treatment of chronic medical problems. TIME SPENT: Approximately 60 minutes were spent on the discharge of this patient, more than half the time spent with the patient at the bedside reviewing the events leading up to this hospitalization and during this hospitalization, performing the physical examination, and reviewing my plan of care. BRITTANY SANDERS NP [id number]/[facility] #: [id number] MARILYNN
== END 2017-09-25 11:08 | disposition home health service (06) | DRG 179 ==
LOC: ED 22:21 → MEDTELE 09-21 04:24
PROVIDERS: ADMIT Pediatrics; ATTEND Internal Medicine
DX: J69.0 Pneumonitis due to inhalation of food and vomit (principal); J44.9 Chronic obstructive pulmonary disease, unspecified; I10 Essential (primary) hypertension; R91.8 Other nonspecific abnormal finding of lung field; F41.9 Anxiety disorder, unspecified; F32.9 Major depressive disorder, single episode, unspecified; K52.9 Noninfective gastroenteritis and colitis, unspecified; D64.9 Anemia, unspecified; R11.0 Nausea; R13.10 Dysphagia, unspecified; K21.9 Gastro-esophageal reflux disease without esophagitis; G47.00 Insomnia, unspecified; G89.29 Other chronic pain; Z85.01 Personal history of malignant neoplasm of esophagus; Z92.21 Personal history of antineoplastic chemotherapy; Z92.3 Personal history of irradiation; Z85.118 Personal history of other malignant neoplasm of bronchus and lung; Z90.49 Acquired absence of other specified parts of digestive tract; Z90.2 Acquired absence of lung [part of]; Z99.81 Dependence on supplemental oxygen; Z88.8 Allergy status to other drugs, medicaments and biological substances; Z88.0 Allergy status to penicillin; Z88.5 Allergy status to narcotic agent; Z81.1 Family history of alcohol abuse and dependence; Z82.49 Family history of ischemic heart disease and other diseases of the circulatory system; Z87.891 Personal history of nicotine dependence
CPT/HCPCS: 36415; 71046; 71275; 80053; 82272; 82607; 82728; 82746; 83540; 83550; 83605; 83735; 84484; 85025; 85027; 86140; 87040; 93005; 94640; 99285; A9270-GY; G8978-GP-CI; G8979-GP-CI; G8980-GP-CI; J0696; J1644; J2930; J3490; J7512; J7611; Q9967

== ENCOUNTER 2018-01-18 21:29 | Inpatient (IN) | payer MEDICARE ==
[2018-01-18] MEDS ORDERED: NS 0.9% 1000 ML* 1,000 ML IV ONE ×2 (21:36→22:42)
--- OUTSIDE RECORDS SUMMARY | 2018-01-18 21:48 | XMS REPORT ---
:1950 External Reference #:[id number] Author Organization [facility] Address [address] [place] [address] Phone [phone] Care Team Providers Name Role Phone Daren Chalwa MD Primary Care Physician Unavailable Payers Type Date Identification Numbers Payment Provider Subscriber Medicare Primary Policy Number: [id number] Medicare Shanta Rocha PayID: [id number] [address] [place] [address] Medigap Part B Policy Number: [id number] [facility] Shanta Rocha PayID: [id number] [address] [place] [address] Medigap Part B Expires: 2014 Policy Number: [facility] Shanta Rocha [id number] Ppo/Epo PayID: [id number] [address] [place] [address] Problems Date Description Provider Status Onset: 03/27/2014 Benign essential hypertension Daren Chawla M.D. Active Onset: 03/27/2014 Gastroesophageal reflux disease Daren Chawla M.D. Active Onset: 03/27/2014 Generalized anxiety disorder Daren Chawla M.D. Active Onset: 03/27/2014 Disorder of lumbar disc Daren Chawla M.D. Active Onset: 03/27/2014 Anemia Daren Chawla M.D. Active Onset: 03/27/2014 Neoplasm of respiratory tract Daren Chawla M.D. Active Onset: 04/21/2014 Neutropenia Daren Chawla M.D. Active Onset: 07/24/2014 Depressive disorder Daren Chawla M.D. 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 Active Onset: 10/25/2014 Hypo-osmolality and or hyponatremia Daren Chawla M.D. Active Onset: 02/15/2015 Essential hypertension Daren Chawla M.D. Active Onset: 02/15/2015 Thoracic and lumbosacral neuritis Daren Chawla M.D. Active Onset: 10/17/2015 Pain in limb Daren Chawla M.D. Active Onset: 10/17/2015 Disorder of skin AND/OR Daren Chawla M.D. Active subcutaneous tissue Onset: 10/31/2015 Anxiety state Daren Chawla M.D. Active Onset: 05/28/2016 Herpesviral infection, unspecified Daren Chawla M.D. Active Onset: 12/09/2016 Insomnia Daren Chawla M.D. Active Onset: 12/09/2016 Mixed hyperlipidemia Daren Chawla M.D. Active Onset: 02/27/2017 Mild recurrent major depression Daren Chawla M.D. Active Onset: 10/08/2017 Chronic obstructive lung disease Daren Chawla M.D. Active Onset: 09/22/2017 Pneumonitis due to inhalation of Madhuri Buzz, D.O. Active food or vomitus Onset: 09/22/2017 History of malignant neoplasm of Madhuri Buzz, D.O. Active esophagus Onset: 03/27/2014 Diarrhea Daren hCawla M.D. Resolved Resolved: 01/02/2016 Onset: 07/10/2014 Leukopenia Yousuf Cottrell M.D. Resolved Resolved: 01/02/2016 Onset: 07/10/2014 Immunologic Yousuf Cottrell M.D. Resolved Resolved: 01/02/2016 Onset: 07/24/2014 Simple chronic bronchitis Daren Chawla M.D. Resolved Resolved: 01/02/2016 Onset: 04/21/2014 Systemic lupus erythematosus Daren Chawla M.D. Resolved Resolved: 01/02/2016 Onset: 05/31/2014 Urinary tract infectious disease Daren Chawla M.D. Resolved Resolved: 01/02/2016 Onset: 07/10/2014 Cervical disc disorder Yousuf Cottrell M.D. Resolved Resolved: 01/02/2016 Family History Date Family Member(s) Problem(s) Comments General Heart Disease Father Alcoholism Father due to Alcohol Related () Mother Congestive Heart Failure (CHF) Mother due to CHF () Siblings None Social History Type Date Description Comments Marital Status Lives With Alone Occupation Retired Cigarette Use Former Cigarette Smoker ETOH Use Denies alcohol use Smoking quit smoking 05/2013 Recreational Drug Use Denies Drug Use Smoking 05/05 PPD for 40yrs Daily Caffeine Consumes on average 1 cup of regular coffee per day Exercise Type/Frequency Exercises sporadically Allergies, Adverse Reactions, Alerts Date Description Reaction Status Severity Comments 03/27/2014 Penicillin active 05/31/2014 Fentanyl active 09/13/2015 Doxycycline Nausea and Vomiting active Severe 12/31/2015 Remeron Nightmares active 07/18/2016 Marinol active Mild to Moderate Medications Medication Date Status Form Strength Qnty SIG Indications Ordering Provider Dilaudid 11/19 Active Tablets 2mg 60tab 1 tab twice M51.16 s a day Zac Chawla Clonazepam 11/19 Active Tablets 1mg 90tab one tab F41.9 s three times Pachika daily Zac lam needed Escitalopram 11/19 Active Tablets 20mg 30tab 1 by mouth F41.9 [place] Oxalate s every day Zac Chawla Anoro Ellipta 11/12 Active Aerosol 62.5-25mc 60uni 1 Abbey g/Inh ts inhalation Muriel, daily Lyrica 11/09 Active Capsules 50mg 60cap 1 by mouth s twice a day Zac Chawla Cyproheptadine 11/09 Active Tablets 4mg 30tab 1 tab daily Daren HCL s with food Zac Chawla Prednisone 10/27 Active Tablets 5mg 30tab 1 tab by Abbey s mouth every Muriel, day every MD morning Proair HFA 10/08 Active Aerosol 108(90Bas 8.5un 2 puffs ih J44.9 e) its every 4 [place] mcg/Act hours Zac lam needed Lactaid Active Chewtabs 100un 3000units-- Unknown / its 1 tab tid prn Acetaminophen Active Tablets 325mg 2 tablets Unknown by mouth every 6 hours as needed for pain/fever Ipratropium Active Solution 0.5-2.5(3 90ml 1 vial in J44.9 [place]/Albuterol / )mg/3ML nebulizer Muriel, Sulfate q6 hours as MD needed for wheezing Oxygen Active Misc please use R09.02 Abbey / o2 at 2 L Muriel, at rest and MD 4L with ambulation. pls provide with portable o2 concentrato r Multi Vitamin Active Tablets 1 by mouth Unknown every day Melatonin Active Capsules 5mg 1 tablets at bed time as needed Simethicone Active Chewtabs 80mg 1 tab three Unknown times a day as needed bloating Calcium Carb Active Tablets 600 1 by mouth Unknown every day CBD Cream Active Cream Apply topically two times per day Clonazepam 11/02 Hx Tablets 1mg 90tab one tab F41.9 s three times Pachikara - daily as , M.D. 11/22 needed Escitalopram 10/08 Hx Tablets 10mg 30tab 1 by mouth F41.9 Ballwin s every day [place] - ElbaDOpal 11/19 Metoprolol 09/30 Hx Tablets 25mg 1 by mouth [place] Tartrate twice a day [place] Crowley M.D. 10/12 Prednisone 09/25 Hx TBPK 10mg (21) taper - 10/05 Lyrica 09/25 Hx Capsules 25mg 60cap 1 tab twice s a day as Pachikara - needed , M.D. 11/09 Alprazolam 08/10 Hx Tablets 0.5mg 60tab take 1 F41.9 s tablet two Pachikara - times a day , M.D. 10/08 as needed /2017 for anxiety Hydromorphone HCL 07/27 Hx Tablets 2mg 120ta one tab by bs mouth by Pachikara - mouth every , M.D. 11/19 4-6 hours /2017 as needed pain Alprazolam 06/30 Hx Tablets 0.25mg 60tab one by F41.9 s mouth up to Pachikara - two times , M.DOpal 08/10 daily needed for anxiety Escitalopram 06/30 Hx Tablets 5mg 30tab 1 by mouth F32.9 Oxalate s every day Pachjackie - MOpalDOpal 09/30 Oxycodone HCL 06/28 Hx Solution 5mg/5ML 45ml 2.5 mg by Unknown mouth every - 4 hours as 08/03 needed pain Alprazolam 02/27 Hx Tablets 1mg 60tab take 1 F41.9 s tablet 3 Pachikara - times daily , M.DOpal 06/30 as needed Levofloxacin 02/27 Hx Tablets 500mg 14tab once daily J01.10 s [place] - Zac 03/31 Azithromycin 02/27 Hx Tablets 250mg 6tabs 2 tab today and then Pachikara - 1tab daily , M.D. 03/31 Escitalopram 01/15 Hx Tablets 10mg 30tab 1 by mouth F32.9 [place] Oxalate s every day [place] Crowley M.D. 06/30 Sulfamethoxazole/ 01/01 Hx Tablets 800-160mg 20tab 1 by mouth Daren Trimethoprim DS s twice a day [place] Crowley M.D. 03/31 Eszopiclone 12/10 Hx Tablets 2mg 14tab 1 tablet at s bedtime as Pachikara - needed , M.D. 06/30 Escitalopram 12/09 Hx Tablets 5mg 60tab 1 by mouth F32.9 Daren Oxalate s every day x Pachikara - 1 week then , M.D. 01/15 2 tab daily Zolpidem Tartrate 12/09 Hx Tablets 10mg 30tab 1/2 to 1 G47.00 s tab by Pachikara - mouth every , M.D. 12/10 night at bedtime as needed Alprazolam 12/03 Hx Tablets 0.5mg 30tab take 05/05 F41.9 s tablet 12 h Pachikara - as needed , M.D. 02/27 Levofloxacin 10/03 Hx Tablets 500mg 7tabs one by K08.Chen Ronak mouth daily GENIE Pedro - for 7 days 10/10 Chlorhexidine 10/03 Hx Solution 0.12% 473ml swish and K08.Chen Simons Gluconate spit 15 GENIE Pedro - milliliters 06/30 twice a day until resolution of symptoms Clonazepam 08/05 Hx Tablets 1mg 60tab 1 by mouth F41.9 s 12 h as Pachikara - needed , M.DOpal 03/31 Azithromycin 06/09 Hx Tablets 250mg 6tabs 2 tab today J01.90 and then Pachikara - 1tab daily , M.D. 07/18 Alprazolam 06/09 Hx Tablets 0.5mg 30tab take 05/05 F41.9 s tablet 12 h Pachikara - as needed , M.DOpal 08/05 Reclast 01/02 Hx Solution 5mg/100ML Pachikara - MOpalDOpal 06/30 Clonazepam 10/30 Hx Tablets 1mg 60tab 1 tab q12 F41.9 s hours as Pachikara - needed , M.DOpal 11/02 Clindamycin HCL 09/12 Hx Capsules 150mg 28cap 1 cap every s 6 hours Pachjackie - M.DOpal 10/16 Cyproheptadine 09/09 Hx Tablets 4mg 30tab 1 tab by R63.4 Daren HCL s mouth daily Pachikara - M.DOpal 03/31 Doxycycline 09/09 Hx Capsules 100mg 14cap 1 cab twice [place] Hyclate s a day Pachika - ElbaDOpal 09/12 Doxycycline 09/09 Hx Capsules 100mg 14cap 1 cab twice [place] Hyclate s a day Pachjackie - MOpalDOpal 09/12 Xanax 07/11 Hx Tablets 0.5mg 30tab 1/2 tab F41.9 s twice a day [place] - as needed , Zac 10/30 Sertraline HCL 03/02 Hx Tablets 100mg 90tab take 1 s tablet by [place] - mouth every , M.DOpal Remeron 15 Hx Tablets 15mg 30tab 1 tab at F32.9 Jeremy s bedtime [facility] Sutton M.[facility].,[facility] 03/15 Medrol (Parrish) 01/03 Hx Tablets 4mg 21tab take 6 tabs 724.3 s day 1, 5 GENIE Pedro - tabs day 2, 01/12 4 tabs 3, 3 tabs day 4, 2 tabs day 5, and 1 tab day 6. Colace 10/25 Hx Capsules 100mg 60cap 2 cap at bedtime prdebbie Crowley M.D. 06/30 Sertraline HCL 08/17 Hx Tablets 100mg 90tab 1 by mouth s every day [place] Crowley M.D. 02/15 Levofloxacin 06/29 Hx Tablets 500mg 10tab one by 788.1 s mouth daily GENIE Pedro - for 10 days 07/10 Fluconazole 06/29 Hx Tablets 150mg 2tabs one by 465.9 mouth september GENIE Pedro - repeat in 3 07/10 days needed Bactrim DS 06/06 Hx Tablets 800-160mg 20tab twice a day ana Crowley M.D. 06/04 Celebrex 05/31 Hx Capsules 200mg 30cap 1 by mouth 722.93 ana every day [place] Crowley M.D. 07/10 Ciprofloxacin HCL 05/31 Hx Tablets 500mg 14tab twice a day 599.0 ana Crowley M.D. 06/04 Celecoxib 04/21 Hx Tab 100 2 x day [place] Crowley M.D. 01/03 Tarceva Hx Tablets 25mg 4 times Unknown /0000 daily - 04/21 Amlodipine Hx Tablets 5mg 90tab 1 by mouth [place] Besylate /0000 s every day [place] Crowley M.D. 06/[address] 20mg 30tab 2 by mouth Unknown Sodium /0000 s every day - 07/11 Zoloft Hx Tablets 100mg 90tab 1 by mouth [place] /0000 s every day [place] Crowley M.D. 08/17 Clonazepam Hx Tablets 0.25mg 1 by mouth Unknown /0000 Dispers once a day - as needed 10/25 Dilaudid Hx Tablets 2mg 120ta 1 by mouth [place] / bs every 4-6 Pachikara - hours as , Zac 06/30 needed Macrobid Hx Capsules 100mg 90cap 1 tab by [place] /0000 s mouth once Pachikara - a day , Zac 07/24 Ventolin HFA Hx Aerosol 108(90Bas 1unit 2 puffs by [place] /0000 e) s mouth four Pachikara - mcg/Act times a day , Zac 06/30 as needed /2017 Chlordiazepoxide Hx Capsules 5-2.5mg 45cap take 1 Unknown HCL/Clidinium / s capsule by [place] - mouth up to 04/21 8 times day if needed Zofran Hx Tablets 8mg 30tab every 8 Unknown /0000 s hours as - needed 06/30 Carafate Hx Tablets 1gm 120ta 1 by mouth Unknown /0000 bs four times - a day 05/31 Lidoderm Hx Patches 5% 30uni topical 10 Unknown /0000 ts hours - 10/25 Probiotic Hx Gummies 1 by mouth Unknown /0000 every day - prn 06/09 L40-Kqltgx Hx Chewtabs 1mg daily Unknown /0000 - 01/03 Multivitamin Hx Chewtabs 60uni 2 by mouth Unknown Gummies Adult /0000 ts daily - 09/30 Calcium Hx Capsules qd Unknown /0000 - 06/30 Imodium A-D 00/00 Hx Chewtabs 2mg 2 tabs by Unknown /0000 mouth as - needed 07/10 Pepto-Bismol Hx Chewtabs as needed Unknown /0000 - 05/31 Midnight Herbal Hx once a day Unknown /0000 as needed - 06/30 Gas-X Prevention Hx Capsules as needed Unknown /0000 - 06/30 Cyanocobalamin Hx Solution 1000mcg/M 1ml 1 mL Unknown /0000 L intramuscul - ar every Zenpep Hx Caps DR 2012-3723 3 times Unknown /0000 Part 0Unit daily - 05/31 Budesonide ER Hx Caps ER 3mg 2 q am alt Unknown /0000 24HR with 2 q am - 01/03 Vesicare Hx Tablets 5mg 1 by mouth Unknown /0000 every day - 08/21 Estrace Hx Cream 2mg use twice Unknown /0000 weekly - 01/03 Toviaz Hx Tablets ER 4mg 1 by mouth Unknown /0000 24HR every day - 01/03 Tramadol HCL ER 00 Hx Tablets ER 100mg 1 by mouth Unknown (Biphasic) /0000 24HR in evening - 02/15 Gabapentin Hx Capsules 100mg 1-2 po prn Unknown /0000 pain - 01/03 Lidocaine Hx Patches 5% apply patch Unknown /0000 up to 12 - hours once 06/30 a day prn /2017 Lyrica Hx Capsules 50mg 1 capsule Unknown /0000 bid - 03/31 Budesonide ER 00 Hx Caps ER 3mg 3 by mouth Unknown /0000 24HR daily - 05/31 Marinol 0000 Hx Capsules 2.5mg Unknown /0000 - 05/31 Toviaz 00 Hx Tablets ER 4mg 1 by mouth Unknown /0000 24HR every day - 06/30 Estrace 00 Hx Cream 0.1mg/GM 1 Unknown /0000 application - two times 09/09 Klonopin Hx Tablets 1mg 14tab 1/2 by Daren /0000 s mouth daily Pachikara - as needed , M.D. 07/11 Prevacid Hx Capsules 15mg 1 twice a Unknown /0000 DR day per va - 09/09 Budesonide ER Hx Caps ER 3mg 3 tab by Unknown /0000 24HR mouth in - the morning 06/30 Omeprazole Hx Capsules 40mg 1 by mouth Unknown /0000 DR every day - 08/[address] 81mg 1 by mouth Unknown /0000 every day - 03/31 Atorvastatin Hx Tablets 20mg 90tab take 1 Daren Calcium /0000 s tablet at [facility] - bedtime , M.Annette 03/31 Lyrica Hx Capsules 25mg 1 by mouth Unknown /0000 at noon Estrace Hx Cream 4mg using once Unknown /0000 weekly. 1/2 - applicator 06/30 weekly Vitamin D Hx Tablets 2000Unit 1 by mouth Unknown /0000 every day - 06/30 Eye Vitamins Hx Capsules 1 capsule Unknown /0000 a-reds - formula 06/30 Turmeric Hx Capsules 750mg 2 by mouth Unknown /0000 once daily - 06/30 Dexilant Hx Capsules 30mg 1 by mouth Unknown /0000 DR every day - 12/09 Potassium Hx Tablets ER 10Meq 1 by mouth Unknown Chloride Valerie ER /0000 every day - 06/30 Albuterol Sulfate Hx Nebulizer (2.5mg/3M take 3ml Unknown /0000 L) 0.083% via - nebulizer 08/03 tid Cyproheptadine Hx Tablets 4mg 30tab 1 tab daily [place] HCL /0000 s with food [place] - MBrendon 09/30 Diphenhydramine Hx Cream 2-0.1% apply Unknown HCL/Zinc Acetate /0000 topically - tid prn 11/23 itching Guaifenesin Hx Syrup 100mg/5ML take 10ml Unknown /0000 by mouth - every 8 11/23 hours needed for congestion Sodium Chloride Hx Nebulizer 0.9% 3ml via Unknown /0000 nebulizer - tid 08/03 Spiriva Hx Capsules 18mcg 1 unit Unknown Handihaler /0000 inhalation - daily 08/03 Aspirin 00/ Hx Chewtabs 81mg 1 by mouth Unknown / every day - 08/03 Furosemide 00 Hx Tablets 20mg 30tab 1 by mouth [place] /0000 s every day [place] Crowley M.D. 08/18 Melatonin ER 00/ Hx Tablets ER 5mg 1 by mouth Unknown / every night - at bedtime 09/30 Metoprolol Hx Tablets 100mg 60tab take 1 [place] Tartrate /0000 s tablet by [place] - mouth twice , M.DOpal 09/30 a /2017 Lyrica Hx Capsules 50mg 90cap 1 by mouth Zsofia /0000 s three times Michael, - a day [employer] 09/28 Quetiapine Hx Tablets 25mg 30tab 1/2 tabs by Daren Fumarate /0000 s mouth every [place] - night at , Zac 08/03 bedtime Sodium Chloride Hx Tablets 1gm 90tab 1 by mouth Daren /0000 s tid with [place] - Zac roy 08/18 Atorvastatin Hx Tablets 80mg 30tab 1 by mouth [place] Calcium /0000 s every day [place] Crowley M.D. 08/03 Hydromorphone HCL Hx Solution 2mg/ml Unknown / - 07/27 Lexapro 00 Hx Tablets 10mg 1 by mouth Unknown / every day - 10/08 Periactin Hx 4mg 30uni by mouth [place] /0000 ts every day [place] Crowley M.D. 11/09 Immunizations CPT Code Status Date Vaccine Reaction Lot # [id number] Given 02/18/2017 Influenza Virus Vaccine, no immediate reaction, [id number] Quadrivalent, Split, pt tolerated well Preservative Free [id number] Given 03/04/2016 Influenza Virus Vaccine, [id number] Quadrivalent, Split Virus, [place] Use [address] Given 03/15/2015 Influenza Virus Vaccine, no reaction noted [id number] Quadrivalent, Split, Preservative Free 50596 Given 03/15/2015 Pneumococcal Conjugate no reaction noted [id number] Vaccine 13 Valent For Intramuscular Use Vital Signs Date Vital Result Comment 01/13/2018 Height 63 inches 5'3" Weight 114.00 lb Heart Rate 107 /min BP Systolic 131 mmHg BP Diastolic 78 mmHg O2 % BldC Oximetry 99 % BMI (Body Mass Index) 20.2 kg/m2 12/22/2017 Height 63 inches 5'3" Weight 111.00 lb Heart Rate 106 /min BP Systolic Sitting 140 mmHg BP Diastolic Sitting 68 mmHg Body Temperature 96.9 F O2 % BldC Oximetry 99 % BMI (Body Mass Index) 19.7 kg/m2 11/23/2017 Height 63 inches 5'3" Weight 107.00 lb Heart Rate 96 /min BP Systolic Sitting 104 mmHg Lue regular cuff BP Diastolic Sitting 64 mmHg Lue regular cuff Respiratory Rate 16 /min O2 % BldC Oximetry 99 % On 2 LPM BMI (Body Mass Index) 19.0 kg/m2 11/19/2017 Height 63 inches 5'3" Weight 104.00 lb Heart Rate 117 /min BP Systolic Sitting 98 mmHg BP Diastolic Sitting 62 mmHg Body Temperature 97.8 F Pain Level 4 lower back O2 % BldC Oximetry 98 % 2L/min. BMI (Body Mass Index) 18.4 kg/m2 10/23/2017 Height 63 inches 5'3" Weight 105.38 lb Heart Rate 96 /min BP Systolic Sitting 130 mmHg Lue reg cuff BP Diastolic Sitting 80 mmHg Lue reg cuff Respiratory Rate 36 /min O2 % BldC Oximetry 97 % On O2 at 2L, varying between 93 and 97 BMI (Body Mass Index) 18.7 kg/m2 10/19/2017 Height 63 inches 5'3" Weight 105.00 lb Heart Rate 100 /min BP Systolic 110 mmHg BP Diastolic 64 mmHg O2 % BldC Oximetry 98 % BMI (Body Mass Index) 18.6 kg/m2 10/08/2017 Weight 105.00 lb Heart Rate 83 /min BP Systolic Sitting 112 mmHg BP Diastolic Sitting 60 mmHg Body Temperature 97.0 F O2 % BldC Oximetry 99 % On 2L Of O2 08/18/2017 Weight 111.00 lb BP Systolic 110 mmHg BP Diastolic 60 mmHg Body Temperature 97.3 F 08/04/2017 Height 63.5 inches 5'3.50" Weight 114.00 lb Heart Rate 56 /min BP Systolic Sitting 118 mmHg BP Diastolic Sitting 84 mmHg Respiratory Rate 14 /min BMI (Body Mass Index) 19.9 kg/m2 Neck Circumference in inches 13.5 07/07/2017 Weight 118.00 lb Heart Rate 71 /min BP Systolic 123 mmHg BP Diastolic 62 mmHg Body Temperature 97.3 F O2 % BldC Oximetry 99 % 03/31/2017 Weight 119.38 lb Heart Rate 80 /min BP Systolic Sitting 138 mmHg BP Diastolic Sitting 76 mmHg O2 % BldC Oximetry 98 % 02/27/2017 Height 63 inches 5'3" Weight 123.38 lb Heart Rate 97 /min BP Systolic 148 mmHg BP Diastolic 80 mmHg Body Temperature 97.9 F O2 % BldC Oximetry 98 % BMI (Body Mass Index) 21.9 kg/m2 01/15/2017 Height 63 inches 5'3" Weight 125.12 lb Heart Rate 94 /min BP Systolic 132 mmHg BP Diastolic 70 mmHg Body Temperature 97.5 F O2 % BldC Oximetry 97 % BMI (Body Mass Index) 22.2 kg/m2 12/09/2016 Height 63 inches 5'3" Weight 121.00 lb Heart Rate 51 /min BP Systolic 152 mmHg BP Diastolic 80 mmHg Body Temperature 97.8 F O2 % BldC Oximetry 95 % BMI (Body Mass Index) 21.4 kg/m2 10/03/2016 Weight 124.00 lb Heart Rate 82 /min BP Systolic Sitting 138 mmHg BP Diastolic Sitting 70 mmHg Body Temperature 97.9 F O2 % BldC Oximetry 99 % 08/05/2016 Weight 121.25 lb Heart Rate 89 /min BP Systolic Sitting 142 mmHg BP Diastolic Sitting 80 mmHg Body Temperature 97.5 F O2 % BldC Oximetry 98 % 07/18/2016 Weight 121.50 lb Heart Rate 77 /min BP Systolic Sitting 162 mmHg BP Diastolic Sitting 80 mmHg Body Temperature 97.0 F O2 % BldC Oximetry 97 % 06/09/2016 Weight 122.00 lb Heart Rate 121 /min BP Systolic Sitting 148 mmHg BP Diastolic Sitting 78 mmHg Body Temperature 96.2 F O2 % BldC Oximetry 94 % 05/28/2016 Weight 122.00 lb Heart Rate 90 /min BP Systolic Sitting 132 mmHg BP Diastolic Sitting 72 mmHg Body Temperature 96.9 F O2 % BldC Oximetry 97 % 04/07/2016 Height 63 inches 5'3" Weight 119.00 lb Heart Rate 92 /min BP Systolic Sitting 178 mmHg BP Diastolic Sitting 80 mmHg Body Temperature 97.5 F BMI (Body Mass Index) 21.1 kg/m2 03/04/2016 Weight 119.00 lb Heart Rate 91 /min BP Systolic Sitting 178 mmHg BP Diastolic Sitting 82 mmHg Body Temperature 97.3 F O2 % BldC Oximetry 97 % 12/31/2015 Weight 112.50 lb Heart Rate 86 /min BP Systolic Sitting 130 mmHg BP Diastolic Sitting 70 mmHg Body Temperature 97.8 F O2 % BldC Oximetry 98 % 10/31/2015 Height 63 inches 5'3" Weight 107.12 lb Heart Rate 88 /min BP Systolic Sitting 128 mmHg BP Diastolic Sitting 70 mmHg Body Temperature 97.9 F BMI (Body Mass Index) 19.0 kg/m2 10/17/2015 Height 63 inches 5'3" Weight 105.00 lb Heart Rate 94 /min BP Systolic Sitting 142 mmHg BP Diastolic Sitting 78 mmHg Body Temperature 98.0 F O2 % BldC Oximetry 96 % BMI (Body Mass Index) 18.6 kg/m2 09/10/2015 Height 63 inches 5'3" Weight 101.00 lb Heart Rate 100 /min BP Systolic Sitting 128 mmHg BP Diastolic Sitting 68 mmHg Body Temperature 97.0 F O2 % BldC Oximetry 96 % BMI (Body Mass Index) 17.9 kg/m2 07/12/2015 Height 63 inches 5'3" Weight 104.00 lb Heart Rate 74 /min BP Systolic Sitting 132 mmHg BP Diastolic Sitting 79 mmHg Body Temperature 96.5 F O2 % BldC Oximetry 96 % BMI (Body Mass Index) 18.4 kg/m2 05/31/2015 Height 63 inches 5'3" Weight 106.25 lb Heart Rate 104 /min BP Systolic Sitting 138 mmHg BP Diastolic Sitting 88 mmHg Body Temperature 96.7 F O2 % BldC Oximetry 97 % BMI (Body Mass Index) 18.8 kg/m2 03/23/2015 Height 63 inches 5'3" Weight 105.00 lb Pain Level 0 BMI (Body Mass Index) 18.6 kg/m2 03/23/2015 Height 63 inches 5'3" Weight 104.00 lb BMI (Body Mass Index) 18.4 kg/m2 03/15/2015 Height 63 inches 5'3" Weight 104.50 lb Heart Rate 80 /min BP Systolic Sitting 144 mmHg BP Diastolic Sitting 72 mmHg Respiratory Rate 14 /min Body Temperature 97.3 F tympanic Pain Level 2 BMI (Body Mass Index) 18.5 kg/m2 03/02/2015 Height 63 inches 5'3" Weight 105.00 lb Heart Rate 83 /min BP Systolic Sitting 95 mmHg BP Diastolic Sitting 67 mmHg BMI (Body Mass Index) 18.6 kg/m2 02/15/2015 Height 63 inches 5'3" Weight 105.00 lb Heart Rate 79 /min BP Systolic Sitting 134 mmHg BP Diastolic Sitting 76 mmHg Body Temperature 98.3 F O2 % BldC Oximetry 96 % BMI (Body Mass Index) 18.6 kg/m2 01/03/2015 Weight 103.00 lb Heart Rate 91 /min BP Systolic Sitting 147 mmHg BP Diastolic Sitting 82 mmHg Body Temperature 97.6 F 10/25/2014 Height 64 inches 5'4" Weight 105.00 lb Heart Rate 68 /min BP Systolic Sitting 140 mmHg BP Diastolic Sitting 82 mmHg O2 % BldC Oximetry 96 % BMI (Body Mass Index) 18.0 kg/m2 08/21/2014 Height 64 inches 5'4" Weight 109.50 lb Heart Rate 90 /min BP Systolic Sitting 150 mmHg BP Diastolic Sitting 82 mmHg Pain Level 7 O2 % BldC Oximetry 98 % BMI (Body Mass Index) 18.8 kg/m2 07/24/2014 Weight 109.38 lb Heart Rate 96 /min BP Systolic Sitting 140 mmHg BP Diastolic Sitting 70 mmHg Body Temperature 97.0 F O2 % BldC Oximetry 99 % 07/10/2014 Height 64 inches 5'4" Weight 109.00 lb Heart Rate 88 /min BP Systolic Sitting 140 mmHg BP Diastolic Sitting 74 mmHg Pain Level 6 BMI (Body Mass Index) 18.7 kg/m2 06/29/2014 Weight 107.00 lb Heart Rate 82 /min BP Systolic Sitting 116 mmHg BP Diastolic Sitting 68 mmHg Body Temperature 97.5 F 05/31/2014 Weight 106.25 lb Heart Rate 86 /min BP Systolic Sitting 128 mmHg BP Diastolic Sitting 72 mmHg Body Temperature 96.6 F O2 % BldC Oximetry 98 % 04/21/2014 Weight 107.75 lb Heart Rate 72 /min BP Systolic Sitting 124 mmHg BP Diastolic Sitting 66 mmHg 03/27/2014 Weight 105.00 lb Heart Rate 76 /min BP Systolic Sitting 122 mmHg BP Diastolic Sitting 60 mmHg Results Test Date Test Result H/L Range Note CBC Auto Diff 10/09/2017 White Blood Count 7.7 10^3/uL 3.5-10.8 Red Blood Count 4.00 10^6/uL 4.0-5.4 Hemoglobin 12.0 g/dL 12.0-16.0 Hematocrit 35 % 35-47 Mean Corpuscular Volume 89 fL 80-97 Mean Corpuscular Hemoglobin 30 pg 27-31 Mean Corpuscular HGB Conc 34 g/dL 31-36 Red Cell Distribution Width 18 % High 10.5-15 Platelet Count 282 10^3/uL 150-450 Mean Platelet Volume 6.5 um3 Low 7.4-10.4 Abs Neutrophils 6.2 10^3/uL 1.5-7.7 Abs Lymphocytes 1.0 10^3/uL 1.0-4.8 Abs Monocytes 0.4 10^3/uL 0-0.8 Abs Eosinophils 0 10^3/uL 0-0.6 Abs Basophils 0 10^3/uL 0-0.2 Abs Nucleated RBC 0 10^3/uL Granulocyte % 81.0 % 38-83 Lymphocyte % 13.0 % Low 25-47 Monocyte % 5.6 % 0-7 Eosinophil % 0.2 % 0-6 Basophil % 0.2 % 0-2 Nucleated Red Blood Cells % 0.1 Retic Count 10/09/2017 Retic Count 1.3 % 0.5-1.5 Corrected Retic Count 1.0 % 0.5-1.5 Maturation Factor Retic 1.5 Retic Index 0.70 Mean Retic Volume 112.2 Immature Retic Fraction 0.39 RBC Retic Count 4.00 10^6/uL Low 4.6-6.2 Hematocrit for Retic CNT 35 % 35-47 Laboratory test finding 10/09/2017 Erythropoietin 16.9 mIU/mL 2.6 - 18.5 1 Protein Electrophoresis 10/09/2017 Total Protein(Pep) 6.5 g/dL 6.3 - 7.9 Albumin 3.3 g/dL 3.4-4.7 Alpha-1 Globulin 0.2 g/dL 0.1-0.3 Alpha-2 Globulin 1.2 g/dL 0.6-1.0 Beta Globulin 0.9 g/dL 0.7-1.2 Gamma Globulin 1.0 g/dL 0.6-1.6 Albumin/Globulin Ratio 1.00 Impression See Comment 2 Laboratory test finding 10/09/2017 Methylmalonic Acid Mma 1.24 nmol/mL <= 0.40 3 CBC Auto Diff 09/20/2017 White Blood Count 5.5 10^3/uL 3.5-10.8 Red Blood Count 3.66 10^6/uL Low 4.0-5.4 Hemoglobin 10.7 g/dL Low 12.0-16.0 Hematocrit 32 % Low 35-47 Mean Corpuscular Volume 86 fL 80-97 Mean Corpuscular Hemoglobin 29 pg 27-31 Mean Corpuscular HGB Conc 34 g/dL 31-36 Red Cell Distribution Width 17 % High 10.5-15 Platelet Count 243 10^3/uL 150-450 Mean Platelet Volume 6.6 um3 Low 7.4-10.4 Abs Neutrophils 2.3 10^3/uL 1.5-7.7 Abs Lymphocytes 2.4 10^3/uL 1.0-4.8 Abs Monocytes 0.6 10^3/uL 0-0.8 Abs Eosinophils 0.1 10^3/uL 0-0.6 Abs Basophils 0.1 10^3/uL 0-0.2 Abs Nucleated RBC 0 10^3/uL Granulocyte % 42.3 % 38-83 Lymphocyte % 44.3 % 25-47 Monocyte % 11.0 % High 0-7 Eosinophil % 1.3 % 0-6 Basophil % 1.1 % 0-2 Nucleated Red Blood Cells % 0.2 Laboratory test finding 09/20/2017 Lactic Acid 1.4 mmol/L 0.5-2.0 4 Comp Metabolic Panel 09/20/2017 Sodium 131 mmol/L Low 139-145 Potassium 4.5 mmol/L 3.5-5.0 Chloride 99 mmol/L Low 101-111 Co2 Carbon Dioxide 25 mmol/L 22-32 Anion Gap 7 mmol/L 2-11 Glucose 85 mg/dL 70-100 Blood Urea Nitrogen 11 mg/dL 6-24 Creatinine 0.65 mg/dL 0.51-0.95 BUN/Creatinine Ratio 16.9 8-20 Calcium 9.2 mg/dL 8.6-10.3 Total Protein 6.8 g/dL 6.4-8.9 Albumin 3.7 g/dL 3.2-5.2 Globulin 3.1 g/dL 2-4 Albumin/Globulin Ratio 1.2 1-3 Total Bilirubin 0.40 mg/dL 0.2-1.0 Alkaline Phosphatase 83 U/L 34-104 Alt 10 U/L 7-52 Ast 19 U/L 13-39 Egfr Non- 90.6 >60 Egfr 116.6 >60 5 Laboratory test finding 09/20/2017 Troponin-I (TnI) 0.01 ng/mL <0.04 C Reactive Protein 9.86 mg/L High < 5.00 6 Blood Culture SEE RESULT BELOW 7 Lipid Profile (Trig/Chol/HDL) 08/04/2017 Triglycerides 125 mg/dL 8, 9 Cholesterol 143 mg/dL 8, 10 HDL Cholesterol 39.3 mg/dL 8, 11 LDL Cholesterol 79 mg/dL 8, 12 CBC Auto Diff 03/30/2017 White Blood Count 7.9 10^3/uL 3.5-10.8 Red Blood Count 4.23 10^6/uL 4.0-5.4 Hemoglobin 11.9 g/dL Low 12.0-16.0 Hematocrit 36 % 35-47 Mean Corpuscular Volume 85 fL 80-97 Mean Corpuscular Hemoglobin 28 pg 27-31 Mean Corpuscular HGB Conc 33 g/dL 31-36 Red Cell Distribution Width 16 % High 10.5-15 Platelet Count 344 10^3/uL 150-450 Mean Platelet Volume 6 um3 Low 7.4-10.4 Abs Neutrophils 5.6 10^3/uL 1.5-7.7 Abs Lymphocytes 1.5 10^3/uL 1.0-4.8 Abs Monocytes 0.8 10^3/uL 0-0.8 Abs Eosinophils 0 10^3/uL 0-0.6 Abs Basophils 0.1 10^3/uL 0-0.2 Abs Nucleated RBC 0 10^3/uL Granulocyte % 70.4 % 38-83 Lymphocyte % 19.2 % Low 25-47 Monocyte % 9.5 % High 1-9 Eosinophil % 0.1 % 0-6 Basophil % 0.8 % 0-2 Nucleated Red Blood Cells % 0 Inr/Protime 03/30/2017 Inr 0.82 Low 0.89-1.11 Laboratory test finding 03/30/2017 Partial Thrombo Time 35.1 seconds 26.0 -36.3 PTT Fibrinogen 467 mg/dL High 110.8-404.3 Factor 11 Activity 69 % 55 - 150 13 Thrombin Time 14 sec 15 - 23 14 Factor 8 Profile 03/30/2017 Coagulation Factor VIII Activi 165 % 55 - 200 15 von Willebrand Factor Antigen 119 % 55 - 200 16 VonWillibrand Factor Activity 120 % 55 - 200 17 von Willebrand Panel Interp See Comment 18 Factor 13 Qualitative/Reflex 03/30/2017 Coagulation Factor No Lysis No Lysis XIII Factor XIII 1:1 Mix Not Applicable 19 Laboratory test finding 01/01/2017 Point of Care Glucose 83 mg/dL 70-100 20 Urinalysis Profile 12/24/2016 Urine Color [place] Urine Appearance Cloudy Urine Specific [place] 1.017 1.010-1.030 Urine pH 7.0 5-9 Urine Urobilinogen Negative Negative Urine Ketones Trace Negative Urine Protein 1+(30 mg/dL) Negative Urine Leukocytes Trace Negative Urine Blood Negative Negative * * Negative 21 Urine Nitrite Negative Negative Urine Bilirubin Negative Negative Urine Glucose Negative Negative Urine White Blood Cell Trace(0-5/hpf) Absent Urine Red Blood Cell Trace(0-2/hpf) Absent Urine Bacteria 1+ Absent Urine Squamous Epithelial Cell Present Absent Urine Culture And Sensitivities 12/24/2016 Urine Culture SEE RESULT BELOW 22 Lipid Profile (Trig/Chol/HDL) 12/24/2016 Triglycerides 151 mg/dL 23 Cholesterol 194 mg/dL 24 HDL Cholesterol 90.6 mg/dL 25 LDL Cholesterol 73 mg/dL 26 Inr/Protime 12/24/2016 Inr 0.79 Low 0.89-1.11 Laboratory test finding 12/24/2016 Partial Thrombo Time 31.1 seconds 26.0 -36.3 PTT CBC Auto Diff 12/24/2016 White Blood Count 6.6 10^3/uL 3.5-10.8 Red Blood Count 4.15 10^6/uL 4.0-5.4 Hemoglobin 11.8 g/dL Low 12.0-16.0 Hematocrit 35 % 35-47 Mean Corpuscular Volume 85 fL 80-97 Mean Corpuscular Hemoglobin 28 pg 27-31 Mean Corpuscular HGB Conc 33 g/dL 31-36 Red Cell Distribution Width 16 % High 10.5-15 Platelet Count 293 10^3/uL 150-450 Mean Platelet Volume 6 um3 Low 7.4-10.4 Abs Neutrophils 4.1 10^3/uL 1.5-7.7 Abs Lymphocytes 1.7 10^3/uL 1.0-4.8 Abs Monocytes 0.7 10^3/uL 0-0.8 Abs Eosinophils 0 10^3/uL 0-0.6 Abs Basophils 0 10^3/uL 0-0.2 Abs Nucleated RBC 0 10^3/uL Granulocyte % 63.0 % 38-83 Lymphocyte % 26.0 % 25-47 Monocyte % 10.0 % High 1-9 Eosinophil % 0.3 % 0-6 Basophil % 0.7 % 0-2 Nucleated Red Blood Cells % 0 Laboratory test finding 12/24/2016 Erythrocyte Sed Rate 19 mm/Hr 0-40 Rheumatoid Factor <15 IU/mL <15 27 Anti Nuclear Antibody 5.4 U 28 Laboratory test finding 12/12/2016 Fungal Cult Other SEE RESULT BELOW 29, 30 Sources Laboratory test finding 12/12/2016 Fungal Cult Other SEE RESULT BELOW 29, 31 Sources Laboratory test finding 12/12/2016 Fungal Cult Other SEE RESULT BELOW 29, 32 Sources Laboratory test finding 12/12/2016 Fungal Cult Other SEE RESULT BELOW 29, 33 Sources Laboratory test finding 12/12/2016 Surgical Interface SEE RESULT BELOW 34, 35 Order Laboratory test finding 12/12/2016 Surgical Pathology SEE RESULT BELOW 34, 36 Urinalysis Profile 12/09/2016 Urine Color Yellow 37 Urine Appearance Clear 37 Urine Specific [place] 1.005 Low 1.010-1.030 37 Urine pH 7.0 5-9 37 Urine Urobilinogen Negative Negative 37 Urine Ketones Negative Negative 37 Urine Protein Negative Negative 37 Urine Leukocytes Negative Negative 37 Urine Blood Negative Negative 37 Urine Nitrite Negative Negative 37 Urine Bilirubin Negative Negative 37 Urine Glucose Negative Negative 37 Inr/Protime 11/11/2016 Inr 0.81 Low 0.89-1.11 Laboratory test finding 11/11/2016 Partial Thrombo Time 33.4 seconds 26.0 -36.3 PTT CBC Auto Diff 11/11/2016 White Blood Count 3.9 10^3/uL 3.5-10.8 Red Blood Count 3.72 10^6/uL Low 4.0-5.4 Hemoglobin 10.7 g/dL Low 12.0-16.0 Hematocrit 32 % Low 35-47 Mean Corpuscular Volume 87 fL 80-97 Mean Corpuscular Hemoglobin 29 pg 27-31 Mean Corpuscular HGB Conc 33 g/dL 31-36 Red Cell Distribution Width 15 % 10.5-15 Platelet Count 200 10^3/uL 150-450 Mean Platelet Volume 6 um3 Low 7.4-10.4 Abs Neutrophils 2.1 10^3/uL 1.5-7.7 Abs Lymphocytes 1.3 10^3/uL 1.0-4.8 Abs Monocytes 0.4 10^3/uL 0-0.8 Abs Eosinophils 0 10^3/uL 0-0.6 Abs Basophils 0 10^3/uL 0-0.2 Abs Nucleated RBC 0 10^3/uL Granulocyte % 55.1 % 38-83 Lymphocyte % 32.4 % 25-47 Monocyte % 11.5 % High 1-9 Eosinophil % 0.4 % 0-6 Basophil % 0.6 % 0-2 Nucleated Red Blood Cells % 0 Comp Metabolic Panel 11/11/2016 Sodium 130 mmol/L Low 133-145 Potassium 3.3 mmol/L Low 3.5-5.0 Chloride 98 mmol/L Low 101-111 Co2 Carbon Dioxide 27 mmol/L 22-32 Anion Gap 5 mmol/L 2-11 Glucose 96 mg/dL 70-100 Blood Urea Nitrogen 6 mg/dL 6-24 Creatinine 0.69 mg/dL 0.51-0.95 BUN/Creatinine Ratio 8.7 8-20 Calcium 8.9 mg/dL 8.6-10.3 Total Protein 6.5 g/dL 6.4-8.9 Albumin 3.9 g/dL 3.2-5.2 Globulin 2.6 g/dL 2-4 Albumin/Globulin Ratio 1.5 1-3 Total Bilirubin 0.30 mg/dL 0.2-1.0 Alkaline Phosphatase 49 U/L 34-104 Alt 8 U/L 7-52 Ast 14 U/L 13-39 Egfr Non- 84.9 >60 Egfr 109.1 >60 38 Inr/Protime 10/03/2016 Inr 0.83 Low 0.89-1.11 Laboratory test finding 10/03/2016 Erythrocyte Sed Rate 24 mm/Hr 0-40 C Reactive Protein 2.46 mg/L < 5.00 39 CBC Auto Diff 09/17/2016 White Blood Count 5.1 10^3/uL 3.5-10.8 Red Blood Count 3.96 10^6/uL Low 4.0-5.4 Hemoglobin 11.1 g/dL Low 12.0-16.0 Hematocrit 34 % Low 35-47 Mean Corpuscular Volume 85 fL 80-97 Mean Corpuscular Hemoglobin 28 pg 27-31 Mean Corpuscular HGB Conc 33 g/dL 31-36 Red Cell Distribution Width 15 % 10.5-15 Platelet Count 217 10^3/uL 150-450 Mean Platelet Volume 7 um3 Low 7.4-10.4 Abs Neutrophils 2.8 10^3/uL 1.5-7.7 Abs Lymphocytes 1.7 10^3/uL 1.0-4.8 Abs Monocytes 0.5 10^3/uL 0-0.8 Abs Eosinophils 0 10^3/uL 0-0.6 Abs Basophils 0 10^3/uL 0-0.2 Abs Nucleated RBC 0.01 10^3/uL Granulocyte % 55.5 % 38-83 Lymphocyte % 32.6 % 25-47 Monocyte % 10.4 % High 1-9 Eosinophil % 0.5 % 0-6 Basophil % 1.0 % 0-2 Nucleated Red Blood Cells % 0.1 Comp Metabolic Panel 09/17/2016 Sodium 129 mmol/L Low 133-145 Potassium 3.5 mmol/L 3.5-5.0 Chloride 97 mmol/L Low 101-111 Co2 Carbon Dioxide 26 mmol/L 22-32 Anion Gap 6 mmol/L 2-11 Glucose 114 mg/dL High 70-100 Blood Urea Nitrogen 7 mg/dL 6-24 Creatinine 0.75 mg/dL 0.51-0.95 BUN/Creatinine Ratio 9.3 8-20 Calcium 8.8 mg/dL 8.6-10.3 Total Protein 6.8 g/dL 6.4-8.9 Albumin 3.9 g/dL 3.2-5.2 Globulin 2.9 g/dL 2-4 Albumin/Globulin Ratio 1.3 1-3 Total Bilirubin 0.40 mg/dL 0.2-1.0 Alkaline Phosphatase 47 U/L 34-104 Alt 8 U/L 7-52 Ast 13 U/L 13-39 Egfr Non- 77.1 >60 Egfr 99.1 >60 40 Laboratory test finding 09/17/2016 Magnesium 1.8 mg/dL Low 1.9-2.7 Thyroxine 6.48 g/mL 6.09-12.23 TSH (Thyroid Stim Horm) 1.46 mcIU/mL 0.34-5.60 Ferritin 10.2 ng/mL Low 11-307 T3 Total 0.74 ng/mL Low 0.87-1.78 CBC Auto Diff 05/28/2016 White Blood Count 6.1 10^3/uL 3.5-10.8 Red Blood Count 3.76 10^6/uL Low 4.0-5.4 Hemoglobin 10.6 g/dL Low 12.0-16.0 Hematocrit 32 % Low 35-47 Mean Corpuscular Volume 85 fL 80-97 Mean Corpuscular Hemoglobin 28 pg 27-31 Mean Corpuscular HGB Conc 33 g/dL 31-36 Red Cell Distribution Width 14 % 10.5-15 Platelet Count 224 10^3/uL 150-450 Mean Platelet Volume 7 um3 Low 7.4-10.4 Abs Neutrophils 4.1 10^3/uL 1.5-7.7 Abs Lymphocytes 1.1 10^3/uL 1.0-4.8 Abs Monocytes 0.8 10^3/uL 0-0.8 Abs Eosinophils 0 10^3/uL 0-0.6 Abs Basophils 0 10^3/uL 0-0.2 Abs Nucleated RBC 0 10^3/uL Granulocyte % 68.2 % 38-83 Lymphocyte % 17.7 % Low 25-47 Monocyte % 13.2 % High 1-9 Eosinophil % 0.4 % 0-6 Basophil % 0.5 % 0-2 Nucleated Red Blood Cells % 0 Comp Metabolic Panel 05/28/2016 Sodium 129 mmol/L Low 133-145 Potassium 3.9 mmol/L 3.5-5.0 Chloride 93 mmol/L Low 101-111 Co2 Carbon Dioxide 27 mmol/L 22-32 Anion Gap 9 mmol/L 2-11 Glucose 92 mg/dL 70-100 Blood Urea Nitrogen 8 mg/dL 6-24 Creatinine 0.70 mg/dL 0.51-0.95 BUN/Creatinine Ratio 11.4 8-20 Calcium 9.2 mg/dL 8.6-10.3 Total Protein 6.7 g/dL 6.4-8.9 Albumin 4.0 g/dL 3.2-5.2 Globulin 2.7 g/dL 2-4 Albumin/Globulin Ratio 1.5 1-3 Total Bilirubin 0.40 mg/dL 0.2-1.0 Alkaline Phosphatase 51 U/L 34-104 Alt 7 U/L 7-52 Ast 13 U/L 13-39 Egfr Non- 83.5 >60 Egfr 107.3 >60 41 Laboratory test finding 05/28/2016 TSH (Thyroid Stim Horm) 1.60 mcIU/mL 0.34-5.60 Urinalysis Profile 05/28/2016 Urine Color Yellow Urine Appearance Clear Urine Specific [place] 1.012 1.010-1.030 Urine pH 7.0 5-9 Urine Urobilinogen Negative Negative Urine Ketones Negative Negative Urine Protein Negative Negative Urine Leukocytes Negative Negative Urine Blood Negative Negative * * Negative 42 Urine Nitrite Negative Negative Urine Bilirubin Negative Negative Urine Glucose Negative Negative Laboratory test finding 05/28/2016 Lyme Disease Serology Negative Negative 43 Comp Metabolic Panel 03/01/2016 Sodium 132 mmol/L Low 133-145 Potassium 3.4 mmol/L Low 3.5-5.0 Chloride 96 mmol/L Low 101-111 Co2 Carbon Dioxide 30 mmol/L 22-32 Anion Gap 6 mmol/L 2-11 Glucose 90 mg/dL 70-100 Blood Urea Nitrogen 6 mg/dL 6-24 Creatinine 0.66 mg/dL 0.51-0.95 BUN/Creatinine Ratio 9.1 8-20 Calcium 8.8 mg/dL 8.6-10.3 Total Protein 6.8 g/dL 6.4-8.9 Albumin 4.2 g/dL 3.2-5.2 Globulin 2.6 g/dL 2-4 Albumin/Globulin Ratio 1.6 1-3 Total Bilirubin 0.50 mg/dL 0.2-1.0 Alkaline Phosphatase 50 U/L 34-104 Alt 8 U/L 7-52 Ast 16 U/L 13-39 Egfr Non- 89.6 >60 Egfr 115.2 >60 44 Lipid Profile (Trig/Chol/HDL) 03/01/2016 Triglycerides 74 mg/dL 45 Cholesterol 176 mg/dL 46 HDL Cholesterol 100.2 mg/dL 47 LDL Cholesterol 61 mg/dL 48 Laboratory test 01/10/2016 Surgical Pathology SEE RESULT BELOW 49 finding Laboratory test 01/10/2016 Fungal Cult Other SEE RESULT BELOW 50, 51 finding Sources CBC Auto Diff 11/22/2015 White Blood Count 5.2 10^3/uL 3.5-10.8 Red Blood Count 3.77 10^6/uL Low 4.0-5.4 Hemoglobin 11.1 g/dL Low 12.0-16.0 Hematocrit 33 % Low 35-47 Mean Corpuscular Volume 89 fL 80-97 Mean Corpuscular Hemoglobin 30 pg 27-31 Mean Corpuscular HGB Conc 33 g/dL 31-36 Red Cell Distribution Width 14 % 10.5-15 Platelet Count 197 10^3/uL 150-450 Mean Platelet Volume 7 um3 Low 7.4-10.4 Abs Neutrophils 3.5 10^3/uL 1.5-7.7 Abs Lymphocytes 1.1 10^3/uL 1.0-4.8 Abs Monocytes 0.6 10^3/uL 0-0.8 Abs Eosinophils 0 10^3/uL 0-0.6 Abs Basophils 0 10^3/uL 0-0.2 Abs Nucleated RBC 0 10^3/uL Granulocyte % 66.7 % 38-83 Lymphocyte % 20.8 % Low 25-47 Monocyte % 11.7 % High 1-9 Eosinophil % 0.3 % 0-6 Basophil % 0.5 % 0-2 Nucleated Red Blood Cells % 0.1 Comp Metabolic Panel 11/22/2015 Sodium 128 mmol/L Low 133-145 Chloride 95 mmol/L Low 101-111 Co2 Carbon Dioxide 26 mmol/L 22-32 Glucose 95 mg/dL 70-100 Blood Urea Nitrogen 6 mg/dL 6-24 Creatinine 0.62 mg/dL 0.51-0.95 BUN/Creatinine Ratio 9.7 8-20 Calcium 9.2 mg/dL 8.6-10.3 Total Protein 6.7 g/dL 6.4-8.9 Albumin 3.9 g/dL 3.2-5.2 Globulin 2.8 g/dL 2-4 Albumin/Globulin Ratio 1.4 1-3 Total Bilirubin 0.40 mg/dL 0.2-1.0 Alkaline Phosphatase 54 U/L 34-104 Alt 9 U/L 7-52 Egfr Non- 96.3 >60 Egfr 123.9 >60 52 Potassium 3.8 mmol/L 3.5-5.0 Anion Gap 7 mmol/L 2-11 Ast 18 U/L 13-39 Laboratory test finding 11/22/2015 Magnesium 1.7 mg/dL Low 1.9-2.7 Vitamin D, 1,25 Dihydroxy 54 pg/mL 18-78 53 CBC Auto Diff 11/07/2015 White Blood Count 4.4 10^3/uL 3.5-10.8 Red Blood Count 3.80 10^6/uL Low 4.0-5.4 Hemoglobin 11.4 g/dL Low 12.0-16.0 Hematocrit 34 % Low 35-47 Mean Corpuscular Volume 89 fL 80-97 Mean Corpuscular Hemoglobin 30 pg 27-31 Mean Corpuscular HGB Conc 34 g/dL 31-36 Red Cell Distribution Width 13 % 10.5-15 Platelet Count 230 10^3/uL 150-450 Mean Platelet Volume 6 um3 Low 7.4-10.4 Abs Neutrophils 2.4 10^3/uL 1.5-7.7 Abs Lymphocytes 1.3 10^3/uL 1.0-4.8 Abs Monocytes 0.6 10^3/uL 0-0.8 Abs Eosinophils 0 10^3/uL 0-0.6 Abs Basophils 0 10^3/uL 0-0.2 Abs Nucleated RBC 0 10^3/uL Granulocyte % 55.9 % 38-83 Lymphocyte % 29.3 % 25-47 Monocyte % 13.8 % High 1-9 Eosinophil % 0.1 % 0-6 Basophil % 0.9 % 0-2 Nucleated Red Blood Cells % 0.1 Comp Metabolic Panel 11/07/2015 Sodium 129 mmol/L Low 133-145 Potassium 3.7 mmol/L 3.5-5.0 Chloride 96 mmol/L Low 101-111 Co2 Carbon Dioxide 27 mmol/L 22-32 Anion Gap 6 mmol/L 2-11 Glucose 79 mg/dL 70-100 Blood Urea Nitrogen 8 mg/dL 6-24 Creatinine 0.66 mg/dL 0.51-0.95 BUN/Creatinine Ratio 12.1 8-20 Calcium 9.3 mg/dL 8.6-10.3 Total Protein 7.0 g/dL 6.4-8.9 Albumin 3.8 g/dL 3.2-5.2 Globulin 3.2 g/dL 2-4 Albumin/Globulin Ratio 1.2 1-3 Total Bilirubin 0.40 mg/dL 0.2-1.0 Alkaline Phosphatase 63 U/L 34-104 Alt 9 U/L 7-52 Ast 16 U/L 13-39 Egfr Non- 89.6 >60 Egfr 115.2 >60 54 Laboratory test finding 11/07/2015 Magnesium 1.8 mg/dL Low 1.9-2.7 Drug Abuse 20 Urine 09/10/2015 Urine Amphetamine Negative ng/mL 55 Urine Barbiturates Negative ng/mL 56 Urine Benzodiazepines Negative ng/mL 57 Urine Cocaine Negative ng/mL 58 Urine Methadone Negative ng/mL 59 Urine Opiates Presumptive Posi <SEE NOTE> ng/mL 60 Urine Phencyclidine Negative ng/mL Cutoff: 25 Urine Tetrahydrocannabinol Negative ng/mL Cutoff: 50 61 Urine Oxycodone Negative ng/mL 62 Confirm Opiates (GC/MS) 09/10/2015 Urine Codeine Confirmation Negative ng/ mL 63 Urine Hydrocodone Confirm Negative ng/mL 64 Urine Hydromorphone Confirm 4827 ng/mL 65 Urine Morphine Confirm Negative ng/mL 66 Urine Oxymorphone Confirm Negative ng/mL 67 Urine Oxycodone Confirm Negative ng/mL 68 Urine Opiates Interpretation Positive. 69 Inr/Protime 08/17/2015 Inr 0.95 0.89-1.11 CBC Auto Diff 08/17/2015 White Blood Count 4.0 10^3/uL 3.5-10.8 Red Blood Count 3.66 10^6/uL Low 4.0-5.4 Hemoglobin 11.2 g/dL Low 12.0-16.0 Hematocrit 34 % Low 35-47 Mean Corpuscular Volume 94 fL 80-97 Mean Corpuscular Hemoglobin 31 pg 27-31 Mean Corpuscular HGB Conc 33 g/dL 31-36 Red Cell Distribution Width 14 % 10.5-15 Platelet Count 197 10^3/uL 150-450 Mean Platelet Volume 7 um3 Low 7.4-10.4 Abs Neutrophils 3.2 10^3/uL 1.5-7.7 Abs Lymphocytes 0.5 10^3/uL Low 1.0-4.8 Abs Monocytes 0.3 10^3/uL 0-0.8 Abs Eosinophils 0 10^3/uL 0-0.6 Abs Basophils 0 10^3/uL 0-0.2 Abs Nucleated RBC 0 10^3/uL Granulocyte % 78.7 % 38-83 Lymphocyte % 13.5 % Low 25-47 Monocyte % 7.1 % 1-9 Eosinophil % 0.1 % 0-6 Basophil % 0.6 % 0-2 Nucleated Red Blood Cells % 0 Laboratory test finding 08/17/2015 Troponin-I (TnI) 0.00 ng/mL <0.03 70 Comp Metabolic Panel 08/17/2015 Sodium 130 mmol/L Low 133-145 Potassium 3.7 mmol/L 3.5-5.0 Chloride 97 mmol/L Low 101-111 Co2 Carbon Dioxide 28 mmol/L 22-32 Anion Gap 5 mmol/L 2-11 Glucose 126 mg/dL High 70-100 Blood Urea Nitrogen 10 mg/dL 6-24 Creatinine 0.74 mg/dL 0.51-0.95 BUN/Creatinine Ratio 13.5 8-20 Calcium 8.9 mg/dL 8.6-10.3 Total Protein 6.6 g/dL 6.4-8.9 Albumin 4.1 g/dL 3.2-5.2 Globulin 2.5 g/dL 2-4 Albumin/Globulin Ratio 1.6 1-3 Total Bilirubin 0.40 mg/dL 0.2-1.0 Alkaline Phosphatase 51 U/L 34-104 Alt 6 U/L Low 7-52 Ast 13 U/L 13-39 Egfr Non- 78.5 >60 Egfr 101.0 >60 71 Comp Metabolic Panel 07/04/2015 Sodium 129 mmol/L Low 133-145 Potassium 3.7 mmol/L 3.5-5.0 Chloride 92 mmol/L Low 101-111 Co2 Carbon Dioxide 31 mmol/L 22-32 Anion Gap 6 mmol/L 2-11 Glucose 88 mg/dL 70-100 Blood Urea Nitrogen 6 mg/dL 6-24 Creatinine 0.65 mg/dL 0.51-0.95 BUN/Creatinine Ratio 9.2 8-20 Calcium 9.2 mg/dL 8.6-10.3 Total Protein 6.7 g/dL 6.4-8.9 Albumin 4.2 g/dL 3.2-5.2 Globulin 2.5 g/dL 2-4 Albumin/Globulin Ratio 1.7 1-3 Total Bilirubin 0.40 mg/dL 0.2-1.0 Alkaline Phosphatase 59 U/L 34-104 Alt 5 U/L Low 7-52 Ast 13 U/L 13-39 Egfr Non- 91.2 >60 Egfr 117.3 >60 72 CBC Auto Diff 01/10/2015 White Blood Count 4.2 10^3/uL Low 4.8-10.8 Red Blood Count 3.74 10^6/uL Low 4.0-5.4 Hemoglobin 11.2 g/dL Low 12.0-16.0 Hematocrit 35 % 35-47 Mean Corpuscular Volume 94 fL 80-97 Mean Corpuscular Hemoglobin 30 pg 27-31 Mean Corpuscular HGB Conc 32 g/dL 31-36 Red Cell Distribution Width 13 % 10.5-15 Platelet Count 303 10^3/uL 150-450 Mean Platelet Volume 7 um3 Low 7.4-10.4 Abs Neutrophils 2.7 10^3/uL 1.5-7.7 Abs Lymphocytes 0.8 10^3/uL Low 1.0-4.8 Abs Monocytes 0.7 10^3/uL 0-0.8 Abs Eosinophils 0 10^3/uL 0-0.6 Abs Basophils 0 10^3/uL 0-0.2 Abs Nucleated RBC 0 10^3/uL Granulocyte % 64.5 % 38-83 Lymphocyte % 18.9 % Low 25-47 Monocyte % 15.5 % High 1-9 Eosinophil % 0.1 % 0-6 Basophil % 1.0 % 0-2 Nucleated Red Blood Cells % 0 Laboratory test finding 01/10/2015 Vitamin B12 500 pg/mL 180-914 73 Laboratory test finding 10/25/2014 Osmolality Serum 277 mOsm/kg 275-295 Urine Osmolality 243 mOsm/kg 150-1150 Urine Random Sodium 47 mmol/L Comp Metabolic Panel 10/25/2014 Sodium 132 mmol/L Low 133-145 Potassium 3.5 mmol/L 3.5-5.0 Chloride 97 mmol/L Low 101-111 Co2 Carbon Dioxide 29 mmol/L 22-32 Anion Gap 6 mmol/L 2-11 Glucose 89 mg/dL 70-100 Blood Urea Nitrogen 6 mg/dL 6-24 Creatinine 0.60 mg/dL 0.51-0.95 BUN/Creatinine Ratio 10.0 8-20 Calcium 9.2 mg/dL 8.6-10.3 Total Protein 6.9 g/dL 6.4-8.9 Albumin 4.5 g/dL 3.2-5.2 Globulin 2.4 g/dL 2-4 Albumin/Globulin Ratio 1.9 1-3 Total Bilirubin 0.50 mg/dL 0.2-1.0 Alkaline Phosphatase 57 U/L 34-104 Alt 5 U/L Low 7-52 Ast 14 U/L 13-39 Egfr Non- 100.3 >60 Egfr 129.0 >60 74 Urinalysis Profile 10/23/2014 Urine Color Yellow Urine Appearance Clear Urine Specific [place] 1.012 1.010-1.030 Urine pH 7.0 5-9 Urine Urobilinogen Negative Negative Urine Ketones Negative Negative Urine Protein Negative Negative Urine Leukocytes Negative Negative Urine Blood Negative Negative Urine Nitrite Negative Negative Urine Bilirubin Negative Negative Urine Glucose Negative Negative Laboratory test finding 10/23/2014 Lipase 8 U/L Low 11.0-82.0 C Reactive Protein < 1.00 mg/L < 5.00 75 Lactic Acid 1.4 mmol/L 0.5-2.2 CBC Auto Diff 10/23/2014 White Blood Count 10.0 10^3/uL 4.8-10.8 Red Blood Count 4.12 10^6/uL 4.0-5.4 Hemoglobin 12.9 g/dL 12.0-16.0 Hematocrit 39 % 35-47 Mean Corpuscular Volume 94 fL 80-97 Mean Corpuscular Hemoglobin 31 pg 27-31 Mean Corpuscular HGB Conc 34 g/dL 31-36 Red Cell Distribution Width 14 % 10.5-15 Platelet Count 230 10^3/uL 150-450 Mean Platelet Volume 7 um3 Low 7.4-10.4 Abs Neutrophils 8.8 10^3/uL High 1.5-7.7 Abs Lymphocytes 0.5 10^3/uL Low 1.0-4.8 Abs Monocytes 0.6 10^3/uL 0-0.8 Abs Eosinophils 0 10^3/uL 0-0.6 Abs Basophils 0 10^3/uL 0-0.2 Abs Nucleated RBC 0 10^3/uL Granulocyte % 88.2 % High 38-83 Lymphocyte % 5.3 % Low 25-47 Monocyte % 6.1 % 1-9 Eosinophil % 0 % 0-6 Basophil % 0.4 % 0-2 Nucleated Red Blood Cells % 0 Comp Metabolic Panel 10/23/2014 Sodium 126 mmol/L Low 133-145 Potassium 3.2 mmol/L Low 3.5-5.0 Chloride 90 mmol/L Low 101-111 Co2 Carbon Dioxide 27 mmol/L 22-32 Anion Gap 9 mmol/L 2-11 Glucose 112 mg/dL High 70-100 Blood Urea Nitrogen 12 mg/dL 6-24 Creatinine 0.77 mg/dL 0.51-0.95 BUN/Creatinine Ratio 15.6 8-20 Calcium 9.8 mg/dL 8.6-10.3 Total Protein 7.6 g/dL 6.4-8.9 Albumin 4.8 g/dL 3.2-5.2 Globulin 2.8 g/dL 2-4 Albumin/Globulin Ratio 1.7 1-3 Total Bilirubin 0.60 mg/dL 0.2-1.0 Alkaline Phosphatase 61 U/L 34-104 Alt 7 U/L 7-52 Ast 15 U/L 13-39 Egfr Non- 75.2 >60 Egfr 96.8 >60 76 Sharon Hep-2 07/11/2014 Sharon Pattern Centromere Negative Sharon Titer 1:5120 <1:80 Sharon Reviewed By MD Chioma Valdivia 77 Laboratory test finding 07/11/2014 Reference Lab Test See Comment 78 Comp Metabolic Panel 07/11/2014 Sodium 134 mmol/L 133-145 Potassium 3.4 mmol/L Low 3.5-5.0 Chloride 98 mmol/L Low 101-111 Co2 Carbon Dioxide 30 mmol/L 22-32 Anion Gap 6 mmol/L 2-11 Glucose 61 mg/dL Low 70-100 Blood Urea Nitrogen 11 mg/dL 6-24 Creatinine 0.71 mg/dL 0.51-0.95 BUN/Creatinine Ratio 15.5 8-20 Calcium 9.4 mg/dL 8.6-10.3 Total Protein 6.6 g/dL 6.4-8.9 Albumin 4.2 g/dL 3.2-5.2 Globulin 2.4 g/dL 2-4 Albumin/Globulin Ratio 1.8 1-3 Total Bilirubin 0.50 mg/dL 0.2-1.0 Alkaline Phosphatase 54 U/L 34-104 Alt 4 U/L Low 7-52 Ast 12 U/L Low 13-39 Egfr Non- 82.6 >60 Egfr 106.3 >60 79 Urinalysis Profile 07/11/2014 Urine Color Yellow Urine Appearance Clear Urine Specific [place] 1.014 1.010-1.030 Urine pH 6.0 5-9 Urine Urobilinogen Negative Negative Urine Ketones Negative Negative Urine Protein Negative Negative Urine Leukocytes Negative Negative Urine Blood Negative Negative * * Negative 80 Urine Nitrite Negative Negative Urine Bilirubin Negative Negative Urine Glucose Negative Negative Laboratory test finding 07/11/2014 C Reactive Protein 1.80 mg/L < 5.00 81 Erythrocyte Sed Rate 18 mm/Hr 0-40 Sharon (Anti-Nuclear AB) Screen Reflexed to FA Negative Cristal Screen Negative Negative 82 Anti Double Stranded Dna Positive Negative CBC Auto Diff 07/11/2014 White Blood Count 2.8 10^3/uL Low 4.8-10.8 Red Blood Count 3.77 10^6/uL Low 4.0-5.4 Hemoglobin 12.0 g/dL 12.0-16.0 Hematocrit 36 % 35-47 Mean Corpuscular Volume 95 fL 80-97 Mean Corpuscular Hemoglobin 32 pg High 27-31 Mean Corpuscular HGB Conc 34 g/dL 31-36 Red Cell Distribution Width 14 % 10.5-15 Platelet Count 202 10^3/uL 150-450 Mean Platelet Volume 6 um3 Low 7.4-10.4 Abs Neutrophils 1.7 10^3/uL 1.5-7.7 Abs Lymphocytes 0.6 10^3/uL Low 1.0-4.8 Abs Monocytes 0.4 10^3/uL 0-0.8 Abs Eosinophils 0 10^3/uL 0-0.6 Abs Basophils 0 10^3/uL 0-0.2 Abs Nucleated RBC 0 10^3/uL Granulocyte % 62.6 % 38-83 Lymphocyte % 20.5 % Low 25-47 Monocyte % 16.0 % High 1-9 Eosinophil % 0.2 % 0-6 Basophil % 0.7 % 0-2 Nucleated Red Blood Cells % 0.1 Ua Routine 06/29/2014 Ua Specific [place] 1.030 Ua PH 5.0 Ua Color yellow Ua Appera clear Ua WBC trace Ua Protein 30 Ua Glucose neg Ua Ketones neg Ua Urobilinogen neg Ua Nitrite pos Ua Occult Blood small Urine Culture And Sensitivities 06/27/2014 Urine Culture (SEE NOTE) 83 Ua Routine 05/31/2014 Ua Specific [place] 1.005 Ua PH 5 Ua Color dark yellow/orae Ua Appera clear Ua WBC trace Ua Protein ++ Ua Glucose neg Ua Ketones trace Ua Bilirubin small Ua Urobilinogen normal Ua Nitrite + Ua Occult Blood ++ Urine Culture And 05/31/2014 Urine Culture (SEE NOTE) 84 Sensitivities Surgical Pathology 04/18/2014 S RUN DATE: <SEE NOTE> CBC Auto Diff 04/13/2014 White Blood Count 2.8 10^3/uL Low 4.8-10.8 Red Blood Count 3.82 10^6/uL Low 4.0-5.4 Hemoglobin 11.7 g/dL Low 12.0-16.0 Hematocrit 35 % 35-47 Mean Corpuscular Volume 92 fL 80-97 Mean Corpuscular Hemoglobin 31 pg 27-31 Mean Corpuscular HGB Conc 33 g/dL 31-36 Red Cell Distribution Width 14 % 10.5-15 Platelet Count 241 10^3/uL 150-450 Mean Platelet Volume 7 um3 Low 7.4-10.4 Abs Neutrophils 1.7 10^3/uL 1.5-7.7 Abs Lymphocytes 0.7 10^3/uL Low 1.0-4.8 Abs Monocytes 0.3 10^3/uL 0-0.8 Abs Eosinophils 0 10^3/uL 0-0.6 Abs Basophils 0 10^3/uL 0-0.2 Abs Nucleated RBC 0.01 10^3/uL Granulocyte % 62.0 % 38-83 Lymphocyte % 25.6 % 25-47 Monocyte % 11.3 % High 1-9 Eosinophil % 0.3 % 0-6 Basophil % 0.8 % 0-2 Nucleated Red Blood Cells % 0.2 Iron & Iron Binding Capacity 04/13/2014 Iron 61 g/dL 50-212 Unsaturated Iron Binding 295 g/dL Total Iron Binding Capacity 356 g/dL 250-450 % Iron Saturation 17 % 15-55 Laboratory test finding 04/13/2014 Pathologist Review (SEE NOTE) 86 Erythrocyte Sed Rate 18 mm/Hr 0-30 Sharon (Anti-Nuclear AB) Screen Reflexed to FA Negative Laboratory test finding 04/13/2014 Ferritin 36.5 ng/mL 11-307 Vitamin B12 963 pg/mL High 180-914 87 Sharon Hep-2 04/13/2014 Sharon Pattern Centromere Negative Sharon Titer 1:2560 <1:80 Sharon Reviewed By MD Chioma Valdivia 88 Comp Metabolic Panel 04/13/2014 Sodium 135 mmol/L 133-145 Potassium 4.1 mmol/L 3.5-5.0 Chloride 101 mmol/L 101-111 Co2 Carbon Dioxide 28 mmol/L 22-32 Anion Gap 6 mmol/L 2-11 Glucose 101 mg/dL High 70-100 Blood Urea Nitrogen 9 mg/dL 6-24 Creatinine 0.68 mg/dL 0.51-0.95 BUN/Creatinine Ratio 13.2 8-20 Calcium 9.2 mg/dL 8.6-10.3 Total Protein 6.7 g/dL 6.4-8.9 Albumin 4.2 g/dL 3.2-5.2 Globulin 2.5 g/dL 2-4 Albumin/Globulin Ratio 1.7 1-3 Total Bilirubin 0.60 mg/dL 0.2-1.0 Alkaline Phosphatase 65 U/L 34-104 Alt 6 U/L Low 7-52 Ast 15 U/L 13-39 Egfr Non- 87.1 >60 Egfr 112.0 >60 89 Laboratory test finding 04/13/2014 Anti Double Stranded Dna Negative Negative Comp Metabolic Panel 03/27/2014 Sodium 135 mmol/L 133-145 Potassium 4.2 mmol/L 3.5-5.0 90 Chloride 101 mmol/L 101-111 Co2 Carbon Dioxide 29 mmol/L 22-32 Anion Gap 5 mmol/L 2-11 Glucose 80 mg/dL 70-100 Blood Urea Nitrogen 11 mg/dL 6-24 Creatinine 0.69 mg/dL 0.51-0.95 BUN/Creatinine Ratio 15.9 8-20 Calcium 9.2 mg/dL 8.6-10.3 Total Protein 6.6 g/dL 6.4-8.9 Albumin 4.4 g/dL 3.2-5.2 Globulin 2.2 g/dL 2-4 Albumin/Globulin Ratio 2.0 1-3 Total Bilirubin 0.50 mg/dL 0.2-1.0 Alkaline Phosphatase 69 U/L 34-104 Alt 7 U/L 7-52 Ast 16 U/L 13-39 Egfr Non- 85.7 >60 Egfr 110.2 >60 91 Laboratory test finding 03/27/2014 TSH (Thyroid 1.25 IU/mL 0.34-5.60 Stimulating Horm) CBC Auto Diff 03/27/2014 White Blood Count 2.6 10^3/uL Low 4.8-10.8 Red Blood Count 3.82 10^6/uL Low 4.0-5.4 Hemoglobin 11.7 g/dL Low 12.0-16.0 Hematocrit 35 % 35-47 Mean Corpuscular Volume 91 fL 80-97 Mean Corpuscular Hemoglobin 31 pg 27-31 Mean Corpuscular HGB Conc 34 g/dL 31-36 Red Cell Distribution Width 14 % 10.5-15 Platelet Count 231 10^3/uL 150-450 Mean Platelet Volume 7 um3 Low 7.4-10.4 Abs Neutrophils 1.5 10^3/uL 1.5-7.7 Abs Lymphocytes 0.7 10^3/uL Low 1.0-4.8 Abs Monocytes 0.3 10^3/uL 0-0.8 Abs Eosinophils 0 10^3/uL 0-0.6 Abs Basophils 0 10^3/uL 0-0.2 Abs Nucleated RBC 0 10^3/uL Granulocyte % 59.0 % 38-83 Lymphocyte % 27.5 % 25-47 Monocyte % 12.2 % High 1-9 Eosinophil % 0.3 % 0-6 Basophil % 1.0 % 0-2 Nucleated Red Blood Cells % 0.1 Vitamin B12 And Folate Serum 03/27/2014 Vitamin B12 683 pg/mL 180-914 92 Folate > 20.00 ng/mL >3.99 Laboratory test finding 12/02/2011 Surgical Pathology SEE RESULT BELOW 93 1 Test Performed by: [facility] [address] [id number] RESULT: No apparent monoclonal protein on serum electrophoresis. Test Performed by: [facility] - [place] [id number] 3 In this sample, the concentration of methylmalonic acid (MMA) was elevated. This finding is likely related to vitamin B12 deficiency. ADDITIONAL INFORMATION This test was developed and its performance characteristics determined by [facility] in a manner consistent with CLIA requirements. This test has not been cleared or approved by the U.S. Food and Drug Administration. Test Performed by: [facility] - [place] [id number] 4 [facility] Severe Sepsis and Septic Shock Management Bundle Measure requires all lactic acids initially measuring >2.0 mmol/L be repeated. 5 Because ethnic data is not always readily available, this report includes an eGFR for both -Americans and non- Americans. The National Kidney Disease Education Program (NKDEP) does not endorse the use of the MDRD equation for patients that are not between the ages of 18 and 70, are , have extremes of body size, muscle mass, or nutritional status, or are non- or non-. According to the National Kidney Foundation, irrespective of diagnosis, the stage of the disease is based on the level of kidney function: Stage Description GFR(mL/min/1.73 m(2)) 1 Kidney damage with normal or decreased GFR 90 2 Kidney damage with mild decrease in GFR 60-89 3 Moderate decrease in GFR 30-59 4 Severe decrease in GFR 15-29 5 Kidney failure <15 (or dialysis) 6 Acute inflammation: >10.00 7 SEE RESULT BELOW Name: SHANTA ROCHA : [address]: Chetna Mohr MD Acct: [id number] Unit: [id number] AGE: 67 Location: [place] [address] Re09/21/17 Dis: 09/25/17 SEX: F Status: DIS IN SPEC: [id number] BARB: 09/20/17-[address] [facility] [address]: Dar Goss MD REQ: [id number] RECD: 09/20/17 STATUS: BERNARDA DE JESUS DR: Daren Chawla MD _ SOURCE: BLOOD,VENO SPDESC: ORDERED: Blood Cult Procedure Result Reported Site Aerobic Culture Bottle Final 09/25/17- 2302 ML No Growth Day 5 Anaerobic Culture Bottle Final 09/25/17- 2302 ML No Growth Day 5 * ML - Main Lab . END OF REPORT DEPARTMENT OF PATHOLOGY, [address] [place] [address] Martín Garcia M.D. Director [facility] # [id number] PT NOT FASTING AND WANTED TESTING TO BE DONE [id number] Desirable: <150 Borderline High: 150-199 High: 200-499 Very High: >500 10 Desirable: <200 Borderline High: 200-239 High: >239 11 Low: <40 Desirable: 40-60 High: >60 12 Desirable: <100 Near Optimal: 100-129 Borderline High: 130-159 High: 160-189 Very High: >189 13 ADDITIONAL INFORMATION This test has been modified from the site leasing agent's instructions. Its performance characteristics were determined by [facility] in a manner consistent with CLIA requirements. This test has not been cleared or approved by the U.S. Food and Drug Administration. Test Performed by: [facility] - [address] [address] 14 ADDITIONAL INFORMATION This test has been modified from the site leasing agent's instructions. Its performance characteristics were determined by [facility] in a manner consistent with CLIA requirements. This test has not been cleared or approved by the U.S. Food and Drug Administration. Test Performed by: [facility] [address] [place] [address] 15 ADDITIONAL INFORMATION This test has been modified from the site leasing agent's instructions. Its performance characteristics were determined by [facility] in a manner consistent with CLIA requirements. This test has not been cleared or approved by the U.S. Food and Drug Administration. 16 ADDITIONAL INFORMATION This test has been modified from the site leasing agent's instructions. Its performance characteristics were determined by [facility] in a manner consistent with CLIA requirements. This test has not been cleared or approved by the U.S. Food and Drug Administration. 17 ADDITIONAL INFORMATION This test has been modified from the site leasing agent's instructions. Its performance characteristics were determined by [facility] in a manner consistent with CLIA requirements. This test has not been cleared or approved by the U.S. Food and Drug Administration. 18 No laboratory evidence of von Willebrand's disease based on normal results of factor VIII activity, von Willebrand factor activity, and von Willebrand factor antigen. Note: von Willebrand factor antigen and activity and/or factor VIII may be increased above baseline levels by acute or chronic inflammation, stress or adrenergic stimuli, or estrogen and oral contraceptive therapy, or liver disease. Recent administration of desmopressin or von Willebrand factor concentrate may mask the diagnosis of von Willebrand's disease. Suggest clinical correlation. Interpretation not reviewed by physician. Test Performed by: [facility] - [address] [id number] 19 Clot lysis was not observed in the qualitative factor XIII screening test. This pattern suggests that severe factor XIII deficiency is not present. However, this test does not identify mild or moderate deficiency, treated deficient patients, or patients with weak inhibitors that do not decrease factor XIII activity to less than 1% of normal. In this test, clot lysis only occurs in samples with severe factor XIII deficiency (less than approximately 1% of normal activity). Severe deficiency may be inherited or acquired (typically due to a factor XIII antibody). Performed by [facility], [address] [place], [place] [id number] [email or web address], Jass Camp MD - Lab. Director Test Performed by: [facility] [address] [place] [address] 20 Coal Tower Operator: [id number] 21 *Ascorbic acid is present which may interfere with detection of blood. 22 SEE RESULT BELOW Name: SHANTA ROCHA : [address]: Serafin Vance MD Acct: [id number] Unit: [id number] AGE: 66 Location: LAB Re12/24/16 SEX: F Status: REG REF SPEC: [id number] BARB: 12/24/[address]: Daren Chawla MD REQ: [id number] RECD: 12/24/16 STATUS: COMP [facility] DR: Serafin Vance MD _ SOURCE: URINE SPDESC: ORDERED: Urine Culture Procedure Result Reported Site Urine Culture Final 12/25/16- 1411 ML Few Enterobacteriacae; possible contamination. * ML - MAIN LAB ([facility]) . END OF REPORT * ML=Testing performed at Main Lab DEPARTMENT OF PATHOLOGY, [address] [place] [address] Martín Garcia M.D. Director [facility] # [id number] 23 Desirable <150 Borderline high 150-199 High 200-499 Very High >500 24 Desirable <200 Borderline high 200-239 High >239 25 Low <40 Desirable: 40-60 High: >60 26 Desirable: <100 mg/dL Near Optimal: 100-129 mg/dL Borderline High: 130-159 mg/dL High: 160-189 mg/dL Very High: >189 mg/dL 27 Test Performed by: [address] [id number] 28 Interpretation: Positive (3.0-5.9) REFERENCE VALUE <=1.0 (Negative) Test Performed by: [place] [address] [facility], [place] [address] 29 [id number] 30 SEE RESULT BELOW Name: SHANTA ROCHA : [address]: Damon Webb MD Acct: [id number] Unit: [id number] AGE: 66 Location: [facility] Re12/12/16 SEX: F Status: DEP REF SPEC: [id number] BARB: 12/12/16-1240 [facility] [address]: Damon Webb MD REQ: [id number] RECD: 12/12/16-160 STATUS: RES OTHR DR: Daren Chawla MD _ SOURCE: [facility] [place] [place] SPDESC:OTHER ORDERED: Fungal - Other COMMENTS: [id number] Procedure Result Reported Site Fungal Cult - Other Sources Preliminary 12/16/16- 1342 ML Organism 1 JENNIE ALBICANS * ML - MAIN LAB ([facility]) . END OF REPORT * ML=Testing performed at Main Lab DEPARTMENT OF PATHOLOGY, [address] [place] [address] Martín Garcia M.D. Director [facility] # [id number] 31 SEE RESULT BELOW Name: SHANTA ROCHA : [address]: Damon Webb MD Acct: [id number] Unit: [id number] AGE: 66 Location: [facility] Re12/12/16 SEX: F Status: DEP REF SPEC: [id number] BARB: 12/12/16-1240 [facility] [address]: Damon Webb MD REQ: [id number] RECD: 12/12/16 STATUS: RES OTHR DR: Daren Chawla MD _ SOURCE: [facility] [place] [place] SPDESC:OTHER ORDERED: Fungal - Other COMMENTS: [id number] Procedure Result Reported Site Fungal Cult - Other Sources Preliminary 12/30/16- 1348 ML Organism 1 JENNIE ALBICANS * ML - MAIN LAB ([facility]) . END OF REPORT * ML=Testing performed at Main Lab DEPARTMENT OF PATHOLOGY, [address] [place] [address] Martín Garcia M.D. Director [facility] # [id number] 32 SEE RESULT BELOW Name: SHANTA ROCHA : [address]: Damon Webb MD Acct: [id number] Unit: [id number] AGE: 66 Location: [facility] Re12/12/16 SEX: F Status: DEP REF SPEC: [id number] BARB: 12/12/16-[address] [facility] [address]: Damon Webb MD REQ: [id number] RECD: 12/12/16160 STATUS: RES DANIELHR DR: Daren Chawla MD _ SOURCE: [facility] SPDESC:OTHER ORDERED: Fungal - Other COMMENTS: [id number] Procedure Result Reported Site Fungal Cult - Other Sources Preliminary 01/05/17- 1403 ML Organism 1 JENNIE ALBICANS * ML - MAIN LAB ([facility]) . END OF REPORT * ML=Testing performed at Main Lab DEPARTMENT OF PATHOLOGY, [address] [place] [address] Martín Garcia M.D. Director [facility] # [id number] 33 SEE RESULT BELOW Name: SHANTA ROCHA : [address]: Damon Webb MD Acct: [id number] Unit: [id number] AGE: 66 Location: [facility] Re12/12/16 SEX: F Status: DEP REF SPEC: [id number] BARB: 12/12/16-[address]: Damon Webb MD REQ: [id number] RECD: 12/12/161616 STATUS: BERNARDA DE JESUS DR: Daren Chawla MD _ SOURCE: [facility] [place] [place] SPDESC:OTHER ORDERED: Fungal - Other COMMENTS: [id number] Procedure Result Reported Site Fungal Cult - Other Sources Final 01/12/17- 1026 ML Organism 1 JENNIE ALBICANS * ML - MAIN LAB ([facility]) . END OF REPORT * ML=Testing performed at Main Lab DEPARTMENT OF PATHOLOGY, [address] [place] [address] Martín Garcia M.D. Director [facility] # [id number] 34 [id number] 35 SEE RESULT BELOW Name: SHANTA ROCHA : [address]: Damon Webb MD Acct: [id number] Unit: [id number] AGE: 66 Location: ENDOC Re12/12/16 SEX: F Status: DEP REF SPEC: [id number] BARB: 12/12/16-[address]: Damon Webb MD REQ: [id number] RECD: 12/12/16-1549 STATUS: AMY DE JESUS DR: Daren Vance MD _ ORDERED: LEVEL 4, SPEC STAIN ORG COMMENTS: [id number] FINAL DIAGNOSIS Esophagus, mid, biopsy: -- Well-differentiated squamous cell carcinoma, at least superficially invasive. See comment. -- Secondary superficial candidiasis. Comment: The biopsies demonstrate 2 fragments and squamous debris. One well oriented fragments demonstrates a well-differentiated squamous proliferation with marked cytologic atypia and exuberant mitotic rate. The tumor appears to be proliferating into the underlying soft tissue in the form of angulated projections with accompanying stromal reaction indicative of invasion. There is some acute inflammation in the superficial layers of the tumor with degenerated squamous cells. A fungal stain (GMS) performed with appropriate controls demonstrates some superficial candidiasis also involving the detached fragment of squamous debris. The morphologic features seen here are similar, if not more atypical than that seen in the patient's original diagnostic material from [facility] from 2011 (please see [facility] case S1 7-7 8 2 8). While a history of prior resection and radiation therapy is noted, we feel that the degree of morphologic atypia, architectural features indicative of invasion and active proliferation rate is not consistent with radiation change and is indicative of recurrent carcinoma. Dr. Valdivia has reviewed this case and concurs. CONTINUED ON NEXT PAGE * ML=Testing performed at Main Lab DEPARTMENT OF PATHOLOGY, [address] [place] [address] Martín Garcia M.D. Director [facility] # [id number] RUN DATE: 12/31/16 [facility] LAB LIVE PAGE 2 Patient: SHANTA ROCHA [id number] (Continued) CLINICAL HISTORY (Continued) CLINICAL HISTORY History of esophageal carcinoma/status post resection POST-OPERATIVE DIAGNOSIS Esophagus - biopsied. Radiation stricture (dilated), exudate (brushed), nodular changes in mid-distal. Gastric mucosa - normal, Duodenum bulb to 2nd portion. Conclusion : nodular changes (biopsied), probable Jennie esophagitis, radiation stricture - dilated GROSS DESCRIPTION The specimen is received in formalin labeled, Biopsy Mid Esophagus, and consists of a 0.6 x 0.4 x 0.2 cm aggregate of blanc-pink irregular soft tissue fragments which is submitted entirely in one cassette. Signed (signature on file) Martín Garcia MD 1559 END OF REPORT * ML=Testing performed at Main Lab DEPARTMENT OF PATHOLOGY, [address] [place] [address] Martín Garcia M.D. Director [facility] # [id number] 36 SEE RESULT BELOW Name: SHANTA ROCHA : [address]: Damon Webb MD Acct: [id number] Unit: [id number] AGE: 66 Location: ENDOC Re12/12/16 SEX: F Status: DEP REF SPEC: [id number] BARB: 12/12/16-[address]: Damon Webb MD REQ: [id number] RECD: 12/12/165509 STATUS: AMY DE JESUS DR: Daren Vance MD _ ORDERED: [facility], LEVEL 4, SPEC STAIN ORG COMMENTS: [id number] Addendum: This case was reviewed and outside consultation by [facility] ( see separate report). The reviewers felt that the material in this biopsy represented reactive rather than neoplastic material. We however, based on reviewed not only of this biopsy in isolation but having examined the patient's original diagnostic material ( see original comment) as well as several subsequent clearly benign biopsies feels strongly that the current biopsy represents a neoplastic squamous proliferation morphologically identical to the patient's initial well-differentiated squamous cell carcinoma. The outside material from [facility] as well as the additional intervening biopsies from [facility] were not available to the [facility] pathologists for review. In isolation this represents a very challenging case and a reactive diagnosis can be entertained, however in the context of the historical material we still feel strongly that this represents recurrent neoplasm. Should additional consultation be pursued it would be prudent that such consults evidence be given access to all of the prior materials including the original diagnostic case. Addendum Signed (signature on file) Martín Garcia MD 1611 FINAL DIAGNOSIS Esophagus, mid, biopsy: -- Well-differentiated squamous cell carcinoma, at least superficially invasive. See comment. -- Secondary superficial candidiasis. Comment: The biopsies demonstrate 2 fragments and squamous debris. One well oriented fragments demonstrates a well-differentiated squamous proliferation with marked cytologic atypia and exuberant mitotic rate. The tumor appears to be proliferating into the underlying soft tissue in the form of angulated projections with accompanying stromal reaction indicative of invasion. There is some acute CONTINUED ON NEXT PAGE * ML=Testing performed at Main Lab DEPARTMENT OF PATHOLOGY, [address] [place] [address] Martín Garcia M.D. Director [facility] # [id number] RUN DATE: 01/15/17 [facility] LAB LIVE PAGE 2 Patient: SHANTA ROCHA [id number] (Continued) SPECIMEN COMMENTS (Continued) inflammation in the superficial layers of the tumor with degenerated squamous cells. A fungal stain (GMS) performed with appropriate controls demonstrates some superficial candidiasis also involving the detached fragment of squamous debris. The morphologic features seen here are similar, if not more atypical than that seen in the patient's original diagnostic material from [facility] from 2011 (please see [facility] case S1 7-7 8 2 8). While a history of prior resection and radiation therapy is noted, we feel that the degree of morphologic atypia, architectural features indicative of invasion and active proliferation rate is not consistent with radiation change and is indicative of recurrent carcinoma. Dr. Valdivia has reviewed this case and concurs. CLINICAL HISTORY History of esophageal carcinoma/status post resection POST-OPERATIVE DIAGNOSIS Esophagus - biopsied. Radiation stricture (dilated), exudate (brushed), nodular changes in mid-distal. Gastric mucosa - normal, Duodenum bulb to 2nd portion. Conclusion : nodular changes (biopsied), probable Jennie esophagitis, radiation stricture - dilated GROSS DESCRIPTION The specimen is received in formalin labeled, Biopsy Mid Esophagus, and consists of a 0.6 x 0.4 x 0.2 cm aggregate of blanc-pink irregular soft tissue fragments which is submitted entirely in one cassette. Signed (signature on file) Martín Garcia MD 1559 END OF REPORT * ML=Testing performed at Main Lab DEPARTMENT OF PATHOLOGY, [address] [place] [address] Martín Garcia M.D. Director [facility] # [id number] 37 [id number] 38 Because ethnic data is not always readily available, this report includes an eGFR for both -Americans and non- Americans. The National Kidney Disease Education Program (NKDEP) does not endorse the use of the MDRD equation for patients that are not between the ages of 18 and 70, are , have extremes of body size, muscle mass, or nutritional status, or are non- or non-. According to the National Kidney Foundation, irrespective of diagnosis, the stage of the disease is based on the level of kidney function: Stage Description GFR(mL/min/1.73 m(2)) 1 Kidney damage with normal or decreased GFR 90 2 Kidney damage with mild decrease in GFR 60-89 3 Moderate decrease in GFR 30-59 4 Severe decrease in GFR 15-29 5 Kidney failure <15 (or dialysis) 39 Acute inflammation: >10.00 40 Because ethnic data is not always readily available, this report includes an eGFR for both -Americans and non- Americans. The National Kidney Disease Education Program (NKDEP) does not endorse the use of the MDRD equation for patients that are not between the ages of 18 and 70, are , have extremes of body size, muscle mass, or nutritional status, or are non- or non-. According to the National Kidney Foundation, irrespective of diagnosis, the stage of the disease is based on the level of kidney function: Stage Description GFR(mL/min/1.73 m(2)) 1 Kidney damage with normal or decreased GFR 90 2 Kidney damage with mild decrease in GFR 60-89 3 Moderate decrease in GFR 30-59 4 Severe decrease in GFR 15-29 5 Kidney failure <15 (or dialysis) 41 Because ethnic data is not always readily available, this report includes an eGFR for both -Americans and non- Americans. The National Kidney Disease Education Program (NKDEP) does not endorse the use of the MDRD equation for patients that are not between the ages of 18 and 70, are , have extremes of body size, muscle mass, or nutritional status, or are non- or non-. According to the National Kidney Foundation, irrespective of diagnosis, the stage of the disease is based on the level of kidney function: Stage Description GFR(mL/min/1.73 m(2)) 1 Kidney damage with normal or decreased GFR 90 2 Kidney damage with mild decrease in GFR 60-89 3 Moderate decrease in GFR 30-59 4 Severe decrease in GFR 15-29 5 Kidney failure <15 (or dialysis) 42 *Ascorbic acid is present which may interfere with detection of blood. 43 Serologic response to B. burgdorferi infection is not detected, but cannot rule out early infection during which low or undetectable antibody levels to B. burgdorferi may be present. If clinically indicated, a new serum specimen should be submitted in 7-14 days. Test Performed by: [place] [address] Mining Detail Draftsperson: Sixto Barragan II, M.D., Ph.D. 44 Because ethnic data is not always readily available, this report includes an eGFR for both -Americans and non- Americans. The National Kidney Disease Education Program (NKDEP) does not endorse the use of the MDRD equation for patients that are not between the ages of 18 and 70, are , have extremes of body size, muscle mass, or nutritional status, or are non- or non-. According to the National Kid[employer] Foundation, irrespective of diagnosis, the stage of the disease is based on the level of kidney function: Stage Description GFR(mL/min/1.73 m(2)) 1 Kidney damage with normal or decreased GFR 90 2 Kidney damage with mild decrease in GFR 60-89 3 Moderate decrease in GFR 30-59 4 Severe decrease in GFR 15-29 5 Kidney failure <15 (or dialysis) 45 Desirable <150 Borderline high 150-199 High 200-499 Very High >500 46 Desirable <200 Borderline high 200-239 High >239 47 Low <40 Desirable: 40-60 High: >60 48 Desirable: <100 mg/dL Near Optimal: 100-129 mg/dL Borderline High: 130-159 mg/dL High: 160-189 mg/dL Very High: >189 mg/dL 49 SEE RESULT BELOW Name: SHANTA ROCHA Batsheva : [address]: Damon Webb MD Acct: [id number] Unit: [id number] AGE: 65 Location: ENDO Re01/10/16 SEX: F Status: REG REF SPEC: [id number] BARB: 01/10/16-1113 [facility] [address]: Damon Webb MD REQ: [id number] RECD: 01/10/16-2995 STATUS: AMY DE JESUS DR: Daren Vance MD _ ORDERED: GMSS, LEVEL IV FINAL DIAGNOSIS Esophagus, 32 cm, biopsy: -- Fungal esophagitis with marked acute inflammation. COMMENT: A GMS stain, with appropriately reacting controls, is positive for budding yeast with pseudohyphae, morphologically compatible with Jennie species. Dr. Garcia reviewed this case in intradepartmental consultation and agrees with the diagnosis. CLINICAL HISTORY Esophageal cancer/history of radiation stricture; history of dysphagia POST-OPERATIVE DIAGNOSIS Esophagus - stricture at 2.5 cm. (smooth) dilated, exudate in distal esophagus brushed, thickening/nodular changes in distal esophagus biopsied; stomach - normal, no gastritis/ulcer; duodenum - normal bulb to third portion. Conclusions/Plan: Esophageal stricture, dilated. ? Jennie esophagitis; thickening in distal esophagus biopsied GROSS DESCRIPTION The specimen is received in formalin labeled, Biopsy Esophagus at 32 Cm, and consists of a 0.7 x 0.6 x 0.2 cm aggregate of blanc-white irregular soft tissue fragments, which is submitted entirely in one cassette. Signed (signature on file) Bettina Valdivia MD 0913 END OF REPORT * ML=Testing performed at Main Lab DEPARTMENT OF PATHOLOGY, [address] [place] [address] Martín Garcia M.D. Director [facility] # [id number] 50 Comment: ESOPHAGEAL BRUSHING 51 SEE RESULT BELOW Name: AJWINSOME RAMIREZRA Herman : [address]: Damon Webb MD Acct: [id number] Unit: [id number] AGE: 65 Location: ENDO Re01/10/16 SEX: F Status: DEP REF SPEC: [id number] BARB: 01/10/16 [facility] [address]: Damon Webb MD REQ: [id number] RECD: 01/10/16 STATUS: COMP [facility] DR: Daren Vance MD _ SOURCE: [facility] SPDESC: ORDERED: Fungal - Other COMMENTS: Comment: ESOPHAGEAL BRUSHING Procedure Result Reported Site Fungal Cult - Other Sources Final 02/04/16- 1218 ML Organism 1 JENNIE ALBICANS * ML - MAIN LAB ([facility]) . END OF REPORT * ML=Testing performed at Main Lab DEPARTMENT OF PATHOLOGY, [address] [place] [address] Martín Garcia M.D. Director [facility] # [id number] 52 Because ethnic data is not always readily available, this report includes an eGFR for both -Americans and non- Americans. The National Kidney Disease Education Program (NKDEP) does not endorse the use of the MDRD equation for patients that are not between the ages of 18 and 70, are , have extremes of body size, muscle mass, or nutritional status, or are non- or non-. According to the National Kidney Foundation, irrespective of diagnosis, the stage of the disease is based on the level of kidney function: Stage Description GFR(mL/min/1.73 m(2)) 1 Kidney damage with normal or decreased GFR 90 2 Kidney damage with mild decrease in GFR 60-89 3 Moderate decrease in GFR 30-59 4 Severe decrease in GFR 15-29 5 Kidney failure <15 (or dialysis) 53 Test Performed by: [place] [address] [employer] Draftsperson: Sixto Barragan II, M.D., Ph.D. 54 Because ethnic data is not always readily available, this report includes an eGFR for both -Americans and non- Americans. The National Kidney Disease Education Program (NKDEP) does not endorse the use of the MDRD equation for patients that are not between the ages of 18 and 70, are , have extremes of body size, muscle mass, or nutritional status, or are non- or non-. According to the National Kidney Foundation, irrespective of diagnosis, the stage of the disease is based on the level of kidney function: Stage Description GFR(mL/min/1.73 m(2)) 1 Kidney damage with normal or decreased GFR 90 2 Kidney damage with mild decrease in GFR 60-89 3 Moderate decrease in GFR 30-59 4 Severe decrease in GFR 15-29 5 Kidney failure <15 (or dialysis) 55 REFERENCE VALUE Cutoff: 500 56 REFERENCE VALUE Cutoff: 200 57 REFERENCE VALUE Cutoff: 100 58 REFERENCE VALUE Cutoff: 150 59 REFERENCE VALUE Cutoff: 300 60 Presumptive Positive Drug confirmation to follow. Presumptive Positive means that the screening method is positive, but the test needs to be run by a confirmatory method before being finalized. REFERENCE VALUE Cutoff: 300 61 ADDITIONAL INFORMATION This report is intended for use in clinical monitoring or management of patients. It is not intended for use in employment-related testing. 62 REFERENCE VALUE Cutoff: 100 ADDITIONAL INFORMATION This report is intended for use in clinical monitoring or management of patients. It is not intended for use in employment-related testing. Test Performed by: [facility] [address] [address] [employer] Draftsperson: Sixto Barragan II, M.D., Ph.D. 63 REFERENCE VALUE Cutoff: 100 64 REFERENCE VALUE Cutoff: 100 65 REFERENCE VALUE Cutoff: 100 66 REFERENCE VALUE Cutoff: 100 67 REFERENCE VALUE Cutoff: 100 68 REFERENCE VALUE Cutoff: 100 69 ADDITIONAL INFORMATION This report is intended for use in clinical monitoring and management of patients. It is not intended for use in employment-related testing. Test Performed by: [facility] [place] [address] [employer] Draftsperson: Sixto Barragan II, M.D., Ph.D. 70 Reference Range and Interpretation: TnI (ng/mL) Interpretation Less Than 0.03 ng/mL Not supportive of diagnosis of MS 0.03 - 0.50 ng/mL Indeterminate: suggest serial studies if clinically indicated. Greater than 0.5 ng/mL Consistent with diagnosis of MS 71 Because ethnic data is not always readily available, this report includes an eGFR for both -Americans and non- Americans. The National Kidney Disease Education Program (NKDEP) does not endorse the use of the MDRD equation for patients that are not between the ages of 18 and 70, are , have extremes of body size, muscle mass, or nutritional status, or are non- or non-. According to the National Kidney Foundation, irrespective of diagnosis, the stage of the disease is based on the level of kidney function: Stage Description GFR(mL/min/1.73 m(2)) 1 Kidney damage with normal or decreased GFR 90 2 Kidney damage with mild decrease in GFR 60-89 3 Moderate decrease in GFR 30-59 4 Severe decrease in GFR 15-29 5 Kidney failure <15 (or dialysis) 72 Because ethnic data is not always readily available, this report includes an eGFR for both -Americans and non- Americans. The National Kidney Disease Education Program (NKDEP) does not endorse the use of the MDRD equation for patients that are not between the ages of 18 and 70, are , have extremes of body size, muscle mass, or nutritional status, or are non- or non-. According to the National Kidney Foundation, irrespective of diagnosis, the stage of the disease is based on the level of kidney function: Stage Description GFR(mL/min/1.73 m(2)) 1 Kidney damage with normal or decreased GFR 90 2 Kidney damage with mild decrease in GFR 60-89 3 Moderate decrease in GFR 30-59 4 Severe decrease in GFR 15-29 5 Kidney failure <15 (or dialysis) 73 Normal Range 180 to 914 Indeterminate Range 145 to 180 Deficient Range <145 74 Because ethnic data is not always readily available, this report includes an eGFR for both -Americans and non- Americans. The National Kidney Disease Education Program (NKDEP) does not endorse the use of the MDRD equation for patients that are not between the ages of 18 and 70, are , have extremes of body size, muscle mass, or nutritional status, or are non- or non-. According to the National Kidney Foundation, irrespective of diagnosis, the stage of the disease is based on the level of kidney function: Stage Description GFR(mL/min/1.73 m(2)) 1 Kidney damage with normal or decreased GFR 90 2 Kidney damage with mild decrease in GFR 60-89 3 Moderate decrease in GFR 30-59 4 Severe decrease in GFR 15-29 5 Kidney failure <15 (or dialysis) 75 Acute inflammation: >10.00 76 Because ethnic data is not always readily available, this report includes an eGFR for both -Americans and non- Americans. The National Kidney Disease Education Program (NKDEP) does not endorse the use of the MDRD equation for patients that are not between the ages of 18 and 70, are , have extremes of body size, muscle mass, or nutritional status, or are non- or non-. According to the National Kidney Foundation, irrespective of diagnosis, the stage of the disease is based on the level of kidney function: Stage Description GFR(mL/min/1.73 m(2)) 1 Kidney damage with normal or decreased GFR 90 2 Kidney damage with mild decrease in GFR 60-89 3 Moderate decrease in GFR 30-59 4 Severe decrease in GFR 15-29 5 Kidney failure <15 (or dialysis) 77 Chioma Valdivia 78 Test Result Flag Unit RefValue DNA Double-Stranded Ab, <12.3 IU/mL IgG, S REFERENCE VALUE <30.0 (Negative) Test Performed by: [address] [address] [employer] Draftsperson: Sixto Barragan II, M.D., Ph.D. 79 Because ethnic data is not always readily available, this report includes an eGFR for both -Americans and non- Americans. The National Kidney Disease Education Program (NKDEP) does not endorse the use of the MDRD equation for patients that are not between the ages of 18 and 70, are , have extremes of body size, muscle mass, or nutritional status, or are non- or non-. According to the National Kidney Foundation, irrespective of diagnosis, the stage of the disease is based on the level of kidney function: Stage Description GFR(mL/min/1.73 m(2)) 1 Kidney damage with normal or decreased GFR 90 2 Kidney damage with mild decrease in GFR 60-89 3 Moderate decrease in GFR 30-59 4 Severe decrease in GFR 15-29 5 Kidney failure <15 (or dialysis) 80 *Ascorbic acid is present which may interfere with detection of blood. 81 Acute inflammation: >10.00 82 The above CRISTAL screen is designed for the detection of antibodies to extractable nuclear antigen (CRISTAL) in human serum. It is a combination test for the detection of antibodies to ACID RETORT OPERATOR, Sm, SS-A (Ro), and SS-B (La) nuclear antigens. 83 RUN DATE: 07/02/14 [facility] LAB LIVE PAGE 1 RUN TIME: 1041 [address] [place], [place] [address] Specimen Inquiry Name: SHANTA ROCHA : [address]: Ronak Pedro NP Acct: [id number] Unit: [id number] AGE: 64 Location: [facility] Re06/27/14 SEX: F Status: REG REF SPEC: [id number] BARB: 06/27/14-[address]: Ronak Pedro NP REQ: [id number] RECD: 02 STATUS: COMP _ SOURCE: URINE SPDESC: ORDERED: Urine Culture QUERIES: Provider Requisition # [id number] Procedure Result Verified Site Urine Culture Final 07/02/14- 1041 ML No Growth Day 2 (<1,000 CFU/mL) END OF REPORT * ML=Testing performed at Main Lab DEPARTMENT OF PATHOLOGY, [facility] [employer] [place], [place] [address] Martín Garcia M.D. Director [facility] # [id number] 84 RUN DATE: 06/02/14 [facility] LAB LIVE PAGE 1 RUN TIME: 5850 [facility] [employer] [place], [place] [address] Specimen Inquiry Name: SHANTA ROCHA : [address]: Daren Chawla MD Acct: [id number] Unit: [id number] AGE: 64 Location: [facility] Re05/31/14 SEX: F Status: REG REF SPEC: [id number] BARB: 05/31/14-[address]: Daren Chawla MD REQ: [id number] RECD: 05/31/14 STATUS: COMP _ SOURCE: URINE SPDESC: ORDERED: Urine Culture QUERIES: Provider Requisition # [id number] Procedure Result Verified Site Urine Culture Final 06/02/14- 1115 ML No Growth Day 2 (<1,000 CFU/mL) END OF REPORT * ML=Testing performed at Main Lab DEPARTMENT OF PATHOLOGY, [employer] [place], [place] [address] Martín Garcia M.D. Director [facility] # [id number] 85 RUN DATE: 04/19/14 [facility] LAB LIVE PAGE 1 RUN TIME: 1505 [employer] [place], [place] [address] Specimen Inquiry Name: SHANTA ROCHA : [address]: Joe Velasquez MD Acct: [id number] Unit: [id number] AGE: 63 Location: ENDO Re04/18/14 SEX: F Status: REG REF SPEC: [id number] BARB: 04/18/[address]: Joe Velasquez MD REQ: [id number] RECD: 04/18/14-1229 STATUS: AMY DE JESUS DR: Daren Chawla MD _ ORDERED: LEVEL IV/5 FINAL DIAGNOSIS 1. Colon, random, biopsies: -- Lymphocytic colitis. 2. Duodenum, second portion, biopsy: -- Benign duodenal mucosa with no significant pathologic abnormalities. -- No evidence of villous blunting or increased intraepithelial lymphocytes. 3. Duodenum, bulb, biopsy: -- Benign duodenal mucosa with no significant pathologic abnormalities. -- No evidence of villous blunting or increased intraepithelial lymphocytes. 4. Esophagus, distal, biopsy: -- Benign squamous mucosa with chronic inflammation and reactive epithelial changes, including parakeratosis. -- No columnar component present for evaluation. -- No evidence of malignancy. 5. Esophagus, at 25 cm, biopsy: -- Benign squamous mucosa with no significant pathologic abnormalities. -- No columnar component present for evaluation. CLINICAL HISTORY Esophageal carcinoma for EGD, Chronic diarrhea for screening colonoscopy. POST-OPERATIVE DIAGNOSIS EGD - U.C. crico negative, body of esophagus - radiation effect, mild esophageal stricture, dilated to 12 mm x 90. The scope passed, distal esophageal inflammatory exudate - biopsy mild distal stricture. Stomach normal, pylorus and duodenum normal. Duodenal biopsy. Esophageal biopsy - distal and at 25 cm. CONTINUED ON NEXT PAGE * ML=Testing performed at Main Lab DEPARTMENT OF PATHOLOGY, [facility] [employer] [place] [address] Martín Garcia M.D. Director [facility] # [id number] RUN DATE: 04/19/14 [facility] LAB LIVE PAGE 2 RUN TIME: 1505 [facility] [employer] [place], [place] [address] Specimen Inquiry Patient: SHANTA ROCHA Batsheva [id number] (Continued) POST-OPERATIVE DIAGNOSIS (Continued) POST-OPERATIVE DIAGNOSIS (Continued) Screening colonoscopy to terminal ileum, very good prep. Mild to moderate sigmoid diverticulosis with nonspecific superficial inflammation. No IBD, polyps, mass, ICU, appy orifice normal. Photo, random colon biopsy above sigmoid. Hemorrhoid tags only. GROSS DESCRIPTION 1. The specimen is received in formalin labeled, Random Colon Biopsies, and consists of a 0.7 x 0.5 x 0.2 cm aggregate of multiple blanc irregular soft tissue fragments , which is submitted entirely in one cassette. 2. The specimen is received in formalin labeled, Second Portion Duodenal Biopsy, and consists of a 0.7 x 0.5 x 0.2 cm aggregate of multiple blanc irregular soft tissue fragments, which is submitted entirely in one cassette. 3. The specimen is received in formalin labeled, Biopsies Duodenal Bulb, and consists of two blanc-white irregular soft tissue fragments averaging 0.3 x 0.2 x 0.2 cm, which are submitted entirely in one cassette. 4. The specimen is received in formalin labeled, Distal Esophagus Biopsies , and consists of a 1.1 x 0.9 x 0.2 cm aggregate of multiple blanc-white irregular soft tissue fragments, which is submitted entirely in one cassette. 5. The specimen is received in formalin labeled, Esophageal at 25 cm Biopsies, and consists of a 0.5 x 0.4 x 0.1 cm aggregate of multiple barnes-white irregular soft tissue fragments, which is submitted entirely in one cassette. Signed (signature on file) Bettina Valdivia MD 1505 END OF REPORT * ML=Testing performed at Main Lab DEPARTMENT OF PATHOLOGY, [address] [place] [address] Martín Garcia M.D. Director [facility] # [id number] 86 Reviewed by Bettina Valdivia MD RARE SCHISTOCYTES 87 Normal Range 180 to 914 Indeterminate Range 145 to 180 Deficient Range <145 88 Chioma Valdivia 89 Because ethnic data is not always readily available, this report includes an eGFR for both -Americans and non- Americans. The National Kidney Disease Education Program (NKDEP) does not endorse the use of the MDRD equation for patients that are not between the ages of 18 and 70, are , have extremes of body size, muscle mass, or nutritional status, or are non- or non-. According to the National Kidney Foundation, irrespective of diagnosis, the stage of the disease is based on the level of kidney function: Stage Description GFR(mL/min/1.73 m(2)) 1 Kidney damage with normal or decreased GFR 90 2 Kidney damage with mild decrease in GFR 60-89 3 Moderate decrease in GFR 30-59 4 Severe decrease in GFR 15-29 5 Kidney failure <15 (or dialysis) 90 Potassium reference range changed effective 03/05/14 91 Because ethnic data is not always readily available, this report includes an eGFR for both -Americans and non- Americans. The National Kidney Disease Education Program (NKDEP) does not endorse the use of the MDRD equation for patients that are not between the ages of 18 and 70, are , have extremes of body size, muscle mass, or nutritional status, or are non- or non-. According to the National Kidney Foundation, irrespective of diagnosis, the stage of the disease is based on the level of kidney function: Stage Description GFR(mL/min/1.73 m(2)) 1 Kidney damage with normal or decreased GFR 90 2 Kidney damage with mild decrease in GFR 60-89 3 Moderate decrease in GFR 30-59 4 Severe decrease in GFR 15-29 5 Kidney failure <15 (or dialysis) 92 Normal Range 180 to 914 Indeterminate Range 145 to 180 Deficient Range <145 93 SEE RESULT BELOW Name: SHANTA ROCHA : [address]: Martín Garcia MD Acct: [id number] Unit: [id number] AGE: 66 Location: [facility] Re12/31/16 SEX: F Status: REG REF SPEC: [id number] BARB: 12/02/11- SUBM DR: Martín Garcia MD REQ: [id number] RECD: 12/31/16-1146 STATUS: AMY DE JESUS DR: Daren Chawla MD _ ORDERED: CONSULT SLIDES Comment: Dr. Valdivia has reviewed this case and concurs. Addendum Signed (signature on file) Martín Garcia MD 1011 FINAL DIAGNOSIS 1. Esophagus, fine-needle aspiration biopsy: -- Keratinizing well-differentiated squamous cell carcinoma. 2. Esophagus, mid, mass, biopsy: -- Well-differentiated squamous cell carcinoma, at least superficially invasive. PRE-OPERATIVE DIAGNOSIS Well differentiated keratinizing squamous cell carcinoma GROSS DESCRIPTION Received are 3 glass slides labeled with the patient's name. 2 slides are labeled C 48-2 542 (1 Pap stain ThinPrep and 1 H E stain cell block) and 1 labeled S 10-5 4876. Accompanying the slides are pathology reports with corresponding accession number as both from [facility] Department of laboratories, [place] [address] [address] D[address]. Jose Rafael Donohue and Fany Llanos respectively. Signed (signature on file) Martín Garcia MD 1604 END OF REPORT * ML=Testing performed at Main Lab DEPARTMENT OF PATHOLOGY, [address] [place] [address] Martín Garcia M.D. Director [facility] # [id number] Procedures Date CPT Code Description Status Comment 12/28/2017 Bone Mineral Density Test Completed 12/24/2017 14876 Diffusing Capacity Completed 12/24/2017 56237 Plethysmography Determination Completed Lung Volumes & Per Airway Resist 12/24/2017 88551 Pulmonary Stress Testing[facility] Inc Completed Measurement Heart Rate, Oximetry 02/18/2016 Diabetic Retinal Eye Exam Completed Document: 02/18/16 - Consult Ophthalmology/[place] 08/19/2015 53938 ECHO Transthorasic Realtime 2D W Completed Doppler & Color Flow Hosp 08/18/2015 39049 EKG, Interpretation Only Completed 06/05/2015 35087 Pulmonary Function><Bronchodil Completed 09/13/2014 Bone Mineral Density Test Completed 04/20/2014 Colonoscopy Completed 04/18/2014 Colonoscopy Completed Encounters Type Date Location Provider CPT E/M Dx Office Visit 12/22/2017 1:40p [facility] Internal Medicine Daren Chawla, [address] F41.9 - [place] Ez[place]iel Frank N95.9 Office Visit 11/23/2017 2:00p [facility] Nelda Yang, 09790 J44.9 [facility] N.P. Z99.81 Office Visit 11/19/2017 1:20p [facility] Internal Medicine Daren Chawla M.D. [address] [address] [address] F41.9 J44.9 M51.16 Office Visit 10/23/2017 2:30p [facility] [place] [address] R06.02 [facility] JPlacido.9 R09.02 Z85.01 C34.90 Office Visit 10/19/2017 4:20p [facility] Internal Daren Chawla, 85810 K52.832 Medicine - [place] Ezequiel Frank Office Visit 10/08/2017 1:20p [facility] Internal Daren Chawla, 98845 M51.16 Medicine - [place] Ezequiel Frank F41.9 J44.9 Office Visit 09/25/2017 12:11p [facility], Brittany Sanders, N.P. 03500 J69.0 Hospitalists I10 J44.9 Z85.01 Office Visit 09/24/2017 12:11p [facility], Brittany Sanders, N.P. 84894 J69.0 Hospitalists I10 J44.9 Z85.01 Office Visit 09/23/2017 12:10p [facility], Brittany Sanders N.P. 39235 J69.0 Hospitalists I10 J44.9 Z85.01 Office Visit 09/22/2017 12:08p [facility], Madhuri Gerber, 46200 J44.9 Hospitalists D.O. J69.0 I10 Z85.01 Office Visit 09/21/2017 12:09p [facility], [place] [address] J44.9 Hospitalists J69.0 I10 Z85.01 Office Visit 08/18/2017 3:00p [facility] Internal Daren Chawla M.D. 77649 E87.1 Medicine - [address] E78.2 M51.16 Office Visit 08/04/2017 2:30p [facility] [place] [address] J44.9 [facility] R09.02 C34.90 Office Visit 07/07/2017 3:00p [facility] Internal Medicine Daren Chawla M.D. 70253 [address] - [address] G47.00 F33.0 E87.1 Office Visit 03/31/2017 1:00p [facility] Internal Medicine Daren Chawla M.D. 47757 I[address] - [address] K21.9 E78.2 Office Visit 02/27/2017 1:20p [facility] Internal Daren Chawla 66015 J01.10 Medicine - [place]equ[place] Frank F41.9 F33.0 Office Visit 01/15/2017 1:40p [facility] Internal Daren Chawla M.D. 96300 F32.9 Medicine - [address] Office Visit 12/09/2016 1:20p [facility] Rosie Chawla M.D. 61357 F32.9 Medicine - [address] G47.00 E78.2 N39.0 Office Visit 10/03/2016 2:00p [facility] [place] [address] F41.9 Isaiah R23.3 R51 K08.89 Office Visit 08/05/2016 1:20p [facility] Internal Medicine Daren Chawla M.D. 66912 [address] - [address] K21.9 F41.9 E87.1 Office Visit 07/18/2016 1:00p [facility] [place] [address] J06.9 - [address] Office Visit 06/09/2016 1:40p [facility] Internal Medicine Daren Chawla [address] I10 - [place] Ezequiel Frank J01.90 E87.1 K21.9 F41.9 Office Visit 05/28/2016 4:00p [facility] Internal Daren Chawla 75220 R53.83 Jazz Colon M.D. R06.02 B00.9 Office Visit 04/07/2016 1:40p [facility] Internal Daren Chawla 11371 M50.10 Medicine - [place] Ezequiel Frank I10 Office Visit 03/04/2016 1:20p [facility] Internal Jazz Chawla M.D. 37722 Z23 - [address] M50.10 R63.4 M51.16 Office Visit 12/31/2015 3:00p [facility] Internal Medicine Daren Chawla M.D. 21379 I[address] - [address] M51.16 F41.9 E78.2 Office Visit 10/31/2015 3:40p [facility] Internal Daren Chawla, 45378 M51.16 Medicine - [address] Zac M79.671 F41.9 Office Visit 10/17/2015 1:40p [facility] Internal Daren Chawla, 12879 M79.671 Medicine - [address] Zac L98.9 M51.16 Office Visit 09/10/2015 1:40p [facility] Internal Medicine Daren Chawla M.D. 58776 [address] - [address] M51.16 K21.9 R63.4 G45.3 Office Visit 08/19/2015 9:29a [facility] [facility], Narayan Ko, [address]14[address] G45.9 Hospitalists M.DOpal C34.90 I10 Office Visit 08/17/2015 3:18p [facility] Zuly Grayson, 50071 G45.3 M.DOpal Office Visit 08/17/2015 9:28a [facility], Torsten Castano, 98306 G45.9 Hospitalists N.P. C34.90 I10 Office Visit 08/16/2015 3:16p [facility] Zuly Grayson, 14838 G45.3 M.DOpal C34.90 R63.4 Office Visit 05/31/2015 2:40p [facility] Internal Medicine Daren Chawla M.D. 00078 I10 - [address] K21.9 F32.9 M51.16 E87.1 J44.9 Office Visit 03/23/2015 2:50p Orthopedic Services Eran Abernathy, 88505 S93.402D Of Silvio Frank Office Visit 03/15/2015 1:00p [facility] Internal Medicine Daren Chawla 05175 F33.0 - [address] Zac Z23 E87.1 Office Visit 03/02/2015 2:20p Orthopedic Services Eran Abernathy, 60170 S93.402A Of Silvio Frank Office Visit 02/15/2015 3:00p [facility] Internal Medicine Daren Chawla 32662 I10 - [address] Ezequile Frank K21.9 F32.9 M51.16 Office Visit 01/03/2015 1:00p [facility] [place] [address] 724.3 Brandon 724.2 Office Visit 10/25/2014 1:40p [facility] Internal Medicine Daren Chawla 37640 401.1 - Isaiah Frank 530.81 311 276.1 722.93 722.10 Office Visit 08/21/2014 2:00p Rheumatology Services Yousuf Cottrell M.D. 21424 710.0 Of [facility] 288.50 373.34 722.91 722.93 Office Visit 07/24/2014 2:40p [facility] Internal Daren Chawla M.D. 89558 401.1 Medicine - [address] 722.93 530.81 311 491.0 Office Visit 07/10/2014 1:00p Rheumatology Services Yousuf Cottrell M.D. 68736 710.0 Of [facility] 288.50 795.79 722.91 722.93 Office Visit 06/29/2014 3:30p [facility] [place] [address] 465.9 Brandon 599.70 Office Visit 05/31/2014 11:20a [facility] Internal Medicine Daren Chawla 81418 599.0 - [place] Frank 788.1 722.93 Office Visit 04/21/2014 11:00a [facility] Internal Medicine Daren Chawla 88357 401.1 - Isaiah Frank 285.9 288.00 710.0 Office Visit 03/27/2014 1:00p [facility] Internal Medicine Daren Chawla 88640 401.1 - [address] Frank 530.81 300.02 722.93 787.91 285.9 239.1 Plan of Care Future Appointment(s):01/20/2018 1:20 pm - Daren Chawla M.D. at [facility] Internal Medicine - [address]93/24/2018 1:40 pm - Daren Chawla M.D. at [facility] Internal Medicine - [address]/29/2018 3:30 pm - Abbey Llamas MD at [facility]01/13/2018 - Daren Chawla M.D.R51 HeadacheNew Xrays:CT Brain W/WoFollow up:1 week/ CT brain stat hold and call
--- OUTSIDE RECORDS SUMMARY | 2018-01-18 21:50 | XMS REPORT ---
:1950 External Reference #:[id number] Author Organization [facility] Address [address] [place] [address] Phone [phone] Care Team Providers Name Role Phone Daren Chawla MD Primary Care Physician Unavailable Payers Type Date Identification Numbers Payment Provider Subscriber Medicare Primary Policy Number: [id number] Medicare Shanta Rocha PayID: [id number] [address] [place] [address] Medigap Part B Policy Number: [id number] [facility] Shanta Rocha PayID: [id number] [address] [place] [address] Medigap Part B Expires: 2014 Policy Number: [facility] Ins Shanta Rocha [id number] Ppo/Epo PayID: [id number] [address] [place] [address] Problems Date Description Provider Status Onset: 03/27/2014 [...] D.O. Active esophagus Onset: 03/27/2014 Diarrhea Daren Chawla M.D. Resolved Resolved: 01/02/2016 Onset: 07/10/2014 Leukopenia [...] 11/19 Active Tablets 2mg 60tab 1 tab bid M51.16 s Zac Chawla Clonazepam 11/19 Active Tablets 1mg 90tab one tab F41.9 s three times Pachika daily Zac lam needed Escitalopram 11/19 Active Tablets 20mg 30tab 1 by mouth F41.9 Oxalate s every day Zac Chawla Anoro [...] lam needed Lactaid Active Chewtabs 100un 3000units-- / its 1 tab tid prn Acetaminophen Active Tablets 325mg 2 tablets Unknown by mouth every 6 hours as needed for pain/fever Ipratropium Active Solution 0.5-2.5(3 90ml 1 vial in J44.9 [place]/Albuterol / )mg/3ML nebulizer Muriel, Sulfate q6 hours as MD needed for wheezing Oxygen Active Misc please use R09.02 Abbey o2 at 2 L Muriel, at rest and MD 4L with ambulation. pls provide with portable o2 concentrato r Multi Vitamin Active Tablets 1 by mouth every day Melatonin Active Capsules 5mg 1 tablets at bed time as needed Simethicone Active Chewtabs 80mg 1 tab three Unknown times a day as needed bloating Calcium Carb Active Tablets 600 1 by mouth every day CBD Cream Active Cream Apply topically two times per day Clonazepam 11/02 Hx Tablets 1mg 90tab one tab F41.9 s three times Pachikara - daily as , M.D. 11/22 needed Escitalopram 10/08 Hx Tablets 10mg 30tab 1 by mouth F41.9 [place] Oxalate s every day [place] - ElbaDOpal 11/19 Metoprolol 09/30 Hx Tablets 25mg 1 by mouth [place] Tartrate twice a day [place] - Zac 10/12 Prednisone 09/25 Hx TBPK 10mg (21) [...] mouth every , M.D. 11/19 4-6 hours /2018 as needed pain Alprazolam 06/30 Hx Tablets 0.25mg 60tab one by F41.9 s mouth up to Pachikara - two times , M.DOpal 08/10 daily needed for anxiety Escitalopram 06/30 Hx Tablets 5mg 30tab 1 by mouth F32.9 Oxalate s every day PachElba mirandaDOpal 09/30 Oxycodone HCL 06/28 Hx Solution 5mg/5ML 45ml 2.5 mg by Unknown mouth every - 4 hours as 08/03 needed pain Alprazolam 02/27 Hx Tablets 1mg 60tab take 1 F41.9 s tablet 3 Pachikara - times daily , M.DOpal 06/30 as needed Levofloxacin 02/27 Hx Tablets 500mg 14tab once daily J01.10 s Elba Da SilvaDOpal 03/31 Azithromycin 02/27 Hx Tablets 250mg 6tabs 2 tab today and then Pachikara - 1tab daily , M.D. 03/31 Escitalopram 01/15 Hx Tablets 10mg 30tab 1 by mouth F32.9 Daren Oxalate s every day [place] Crowley M.D. 06/30 Sulfamethoxazole/ 01/01 Hx Tablets 800-160mg 20tab 1 by mouth [place] Trimethoprim DS s twice a day [place] Crowley M.D. 03/31 Eszopiclone 12/10 Hx Tablets 2mg 14tab 1 tablet at s bedtime as Shaheedika - needed , M.DOpal 06/30 Escitalopram 12/09 Hx Tablets 5mg 60tab 1 by mouth F32.9 Daern Oxalate s every day x Pachikara - 1 week then , M.DOpal 01/15 2 tab daily Zolpidem Tartrate 12/09 Hx Tablets 10mg 30tab / to 1 G47.00 s tab by Pachika - mouth every , M.D. 12/10 night at bedtime as needed Alprazolam 12/03 Hx Tablets 0.5mg 30tab take 05/05 F41.9 s tablet 12 h Pachikara - as needed , M.DOpal 02/27 Levofloxacin 10/03 Hx Tablets 500mg 7tabs one by K08.Chen Silvaph mouth daily GENIE Pedro - for 7 days 10/10 Chlorhexidine 10/03 Hx Solution 0.12% 473ml swish and K08.89 Ronak Gluconate spit 15 GENIE Pedro - milliliters [...] 28cap 1 cap every s 6 hours [place]enton - MOpalDOpal 10/16 Cyproheptadine 09/09 Hx Tablets 4mg 30tab 1 tab by R63.4 Daren HCL s mouth daily Pachika - MOpalDOpal 03/31 Doxycycline 09/09 Hx Capsules 100mg 14cap 1 cab twice [place] Hyclate s a day [place] - ElbaDOpal 09/12 Doxycycline 09/09 Hx Capsules 100mg 14cap 1 cab twice [place] Hyclate s a day Pachjackie - ElbaDOpal 09/12 Xanax 07/11 Hx Tablets 0.5mg 30tab 1/2 tab F41.9 s twice a day [place] Crowley as needed , Zac 10/30 Sertraline HCL 03/02 Hx Tablets 100mg 90tab take 1 s tablet by [place] - mouth every , M.DOpal Remeron 02/15 Hx Tablets 15mg 30tab 1 tab at F32.9 Jeremy s bedtime Carline Sutton M.D.,[facility] 03/15 Medrol (Parrish) 01/03 Hx Tablets 4mg 21tab take 6 tabs 724.3 s day 1, 5 GENIE Pedro - tabs day 2, 01/12 4 tabs 3, 3 tabs day 4, 2 tabs day 5, and 1 tab day 6. Colace 10/25 Hx Capsules 100mg 60cap 2 cap at bedtime prn [place] Crowley M.D. 06/30 Sertraline HCL 08/17 Hx [...] Hx Tablets 5mg 90tab 1 by mouth Daren Besylate /0000 s every day [place] Crowley M.D. 06/[address] 20mg 30tab 2 by mouth Unknown Sodium /0000 s every day - 07/11 Zoloft Hx Tablets 100mg 90tab 1 by mouth Daren /0000 s every day [place] Crowley M.D. 08/17 Clonazepam Hx Tablets 0.25mg 1 by mouth Unknown /0000 Dispers once a day - as needed 10/25 Dilaudid Hx Tablets 2mg 120ta 1 by mouth [place] /0000 bs every 4-6 Pachikara - hours as , Zac 06/30 needed /2017 Macrobid Hx Capsules 100mg 90cap 1 tab by Daren /0000 s mouth once Pachikara - a day , Zac 07/24 Ventolin HFA Hx Aerosol 108(90Bas 1unit 2 puffs by Daren /0000 e) s mouth four Pachikara - mcg/Act times a day , MBrendon 06/30 as needed /2017 Chlordiazepoxide Hx Capsules 5-2.5mg 45cap take 1 Unknown HCL/Clidinium /0000 s capsule by [place] - mouth up to 04/21 8 times [...] Unknown /0000 every day - prn 06/09 K61-Ylmdof Hx Chewtabs 1mg daily Unknown /0000 - 01/03 Multivitamin Hx Chewtabs 60uni 2 by mouth Unknown Gummies Adult /0000 ts daily - 09/30 Calcium Hx Capsules qd Unknown /0000 - 06/30 Imodium A-D Hx Chewtabs 2mg 2 tabs by Unknown /0000 mouth as - needed 07/10 Pepto-Bismol 00 Hx Chewtabs as needed Unknown /0000 - 05/31 Midnight Herbal 00 Hx once a day Unknown /0000 as needed - 06/30 Gas-X Prevention Hx Capsules as needed Unknown /0000 - 06/30 Cyanocobalamin Hx Solution 1000mcg/M 1ml 1 mL Unknown /0000 L intramuscul - ar every Zenpep [address] 7982-3579 3 times Unknown /0000 Part 0Unit daily - 05/31 Budesonide ER 00/ Hx Caps ER 3mg 2 q am alt Unknown /0000 24HR with 2 q am - 01/03 Vesicare 00 Hx Tablets 5mg 1 by mouth Unknown /0000 every day - 08/21 Estrace 00 Hx Cream 2mg use twice Unknown /0000 weekly - 01/03 Toviaz Hx Tablets ER 4mg 1 by mouth Unknown /0000 24HR every day - 01/03 Tramadol HCL ER 0000 Hx Tablets ER 100mg 1 by mouth Unknown (Biphasic) /0000 24HR in evening - 02/15 Gabapentin Hx Capsules 100mg 1-2 po prn Unknown /0000 pain - 01/03 Lidocaine Hx Patches 5% apply patch Unknown /0000 up to 12 - hours once 06/30 a day prn /2017 Lyrica Hx Capsules 50mg 1 capsule Unknown /0000 bid - 03/31 Budesonide ER 0000 Hx Caps ER 3mg 3 by mouth Unknown /0000 24HR daily - 05/31 Marinol 0000 Hx Capsules 2.5mg Unknown /0000 - 05/31 Toviaz 00 Hx Tablets ER 4mg 1 by mouth Unknown /0000 24HR every day - 06/30 Estrace 00 Hx Cream 0.1mg/GM 1 Unknown /0000 application - two times 09/09 Klonopin 00 Hx Tablets 1mg 14tab 1/2 by Daren /0000 s mouth daily Pachikara - as needed , M.D. 07/11 Prevacid Hx Capsules 15mg 1 twice a Unknown /0000 DR day per va - 09/09 Budesonide ER 00 Hx Caps ER 3mg 3 tab by Unknown /0000 24HR mouth in - the morning 06/30 Omeprazole Hx Capsules 40mg 1 by mouth Unknown /0000 DR every day - 08/[address] 81mg 1 by mouth Unknown /0000 every day - 03/31 Atorvastatin Hx Tablets 20mg 90tab take 1 Daren Calcium /0000 s tablet at [facility] - bedvida MBrendon 03/31 Lyrica Hx Capsules 25mg 1 by [...] Hx Tablets 4mg 30tab 1 tab daily [place] HCL /0000 s with food Denton - [...] Handihaler /0000 inhalation - daily 08/03 Aspirin 00/00 Hx Chewtabs 81mg 1 by mouth Unknown /0000 every day - 08/03 Furosemide 00 Hx Tablets 20mg 30tab 1 by mouth Daren /0000 s every day [place] Crowley M.D. 08/18 Melatonin ER 00/ Hx Tablets ER 5mg 1 by mouth Unknown /0000 every night - at bedtime 09/30 Metoprolol Hx Tablets 100mg 60tab take 1 Daren Tartrate /0000 s tablet by Shaheedika - mouth twice , M.DOpal 09/30 a /2017 Lyrica Hx Capsules 50mg 90cap 1 by mouth Zsofia /0000 s three times Michael, - a day [employer] 09/28 Quetiapine Hx Tablets 25mg 30tab 1/2 tabs by [place] Fumarate /0000 s mouth every Shaheedika - night at , Zac 08/03 bed Sodium Chloride Hx Tablets 1gm 90tab 1 by mouth [place] /0000 s tid with [place]enton - Zac roy 08/18 Atorvastatin Hx Tablets 80mg 30tab 1 by mouth Daren Calcium /0000 s every day [place] Crowley M.D. 08/03 Hydromorphone HCL Hx Solution 2mg/ml Unknown / - 07/27 Lexapro 00 Hx Tablets 10mg 1 by mouth Unknown / every day - 10/08 Periactin Hx 4mg 30uni by mouth [place] /0000 ts every day [place] Crowley M.D. 11/09 Immunizations CPT Code Status Date Vaccine Reaction Lot # [id number] Given 02/18/2017 Influenza Virus Vaccine, no immediate reaction, [id number] Quadrivalent, Split, pt tolerated well Preservative Free 24555 Given 03/04/2016 Influenza Virus Vaccine, [id number] Quadrivalent, Split Virus, [place] Use [id number] Given 03/15/2015 Influenza Virus Vaccine, no reaction noted [id number] Quadrivalent, Split, Preservative Free 80788 Given 03/15/2015 Pneumococcal Conjugate no reaction noted [id number] Vaccine 13 Valent For Intramuscular Use Vital Signs Date Vital Result Comment 12/22/2017 Height 63 inches 5'3" Weight 111.00 [...] Test Date Test Result H/L Range Note Laboratory test 10/09/2017 Methylmalonic Acid Mma 1.24 nmol/mL <=0.40 1 finding CBC Auto Diff 10/09/2017 White Blood Count [...] Hematocrit for Retic CNT 35 % 35-47 Protein Electrophoresis 10/09/2017 Total Protein(Pep) 6.5 g/dL 6.3 - 7.9 Albumin 3.3 g/dL 3.4-4.7 Alpha-1 Globulin 0.2 g/dL 0.1-0.3 Alpha-2 Globulin 1.2 g/dL 0.6-1.0 Beta Globulin 0.9 g/dL 0.7-1.2 Gamma Globulin 1.0 g/dL 0.6-1.6 Albumin/Globulin Ratio 1.00 Impression See Comment 2 Laboratory test finding 10/09/2017 Erythropoietin 16.9 mIU/mL 2.6 - 18.5 3 Laboratory test finding 09/20/2017 Troponin-I (TnI) 0.01 ng/mL <0.04 C Reactive Protein 9.86 mg/L High < 5.00 4 Blood Culture SEE RESULT BELOW 5 CBC Auto Diff 09/20/2017 White Blood Count [...] finding 09/20/2017 Lactic Acid 1.4 mmol/L 0.5-2.0 6 Comp Metabolic Panel 09/20/2017 Sodium 131 mmol/L [...] Egfr Non- 90.6 >60 Egfr 116.6 >60 7 Lipid Profile (Trig/Chol/HDL) 08/04/2017 Triglycerides 125 [...] Color Nayeli Urine Appearance Cloudy Urine Specific [place] 1.017 1.010-1.030 Urine pH 7.0 5-9 Urine [...] 37 Urine Appearance Clear 37 Urine Specific [place] 1.005 Low 1.010-1.030 37 Urine pH 7.0 [...] 0-2 Nucleated Red Blood Cells % 0.1 Laboratory test finding 09/17/2016 Magnesium 1.8 mg/dL Low 1.9-2.7 Thyroxine 6.48 g/mL 6.09-12.23 TSH (Thyroid Stim Horm) 1.46 mcIU/mL 0.34-5.60 Ferritin 10.2 ng/mL Low 11-307 T3 Total 0.74 ng/mL Low 0.87-1.78 Comp Metabolic Panel 09/17/2016 Sodium 129 mmol/L [...] Non- 77.1 >60 Egfr 99.1 >60 40 Urinalysis Profile 05/28/2016 Urine Color Yellow Urine Appearance Clear Urine Specific [place] 1.012 1.010-1.030 Urine pH 7.0 5-9 Urine Urobilinogen Negative Negative Urine Ketones Negative Negative Urine Protein Negative Negative Urine Leukocytes Negative Negative Urine Blood Negative Negative * * Negative 41 Urine Nitrite Negative Negative Urine Bilirubin Negative Negative Urine Glucose Negative Negative CBC Auto Diff 05/28/2016 White Blood Count [...] Blood Cells % 0 Laboratory test finding 05/28/2016 TSH (Thyroid Stim 1.60 mcIU/mL 0.34- 5.60 Horm) Comp Metabolic Panel 05/28/2016 Sodium 129 mmol/L [...] Egfr Non- 83.5 >60 Egfr 107.3 >60 42 Laboratory test finding 05/28/2016 Lyme Disease Serology Negative Negative 43 Lipid Profile 03/01/2016 Triglycerides 74 mg/dL 44 (Trig/Chol/HDL) Cholesterol 176 mg/dL 45 HDL Cholesterol 100.2 mg/dL 46 LDL Cholesterol 61 mg/dL 47 Comp Metabolic Panel 03/01/2016 Sodium 132 mmol/L [...] Egfr Non- 89.6 >60 Egfr 115.2 >60 48 Laboratory test 01/10/2016 Surgical Pathology SEE [...] D, 1,25 Dihydroxy 54 pg/mL 18-78 53 Comp Metabolic Panel 11/07/2015 Sodium 129 mmol/L [...] Non- 89.6 >60 Egfr 115.2 >60 54 CBC Auto Diff 11/07/2015 White Blood Count [...] 0-2 Nucleated Red Blood Cells % 0.1 Laboratory test finding 11/07/2015 Magnesium 1.8 mg/dL [...] ng/mL 68 Urine Opiates Interpretation Positive. 69 Laboratory test finding 08/17/2015 Troponin-I (TnI) 0.00 [...] Non- 78.5 >60 Egfr 101.0 >60 71 Inr/Protime 08/17/2015 Inr 0.95 0.89-1.11 CBC Auto [...] Blood Cells % 0 Comp Metabolic Panel 07/04/2015 Sodium 129 mmol/L [...] Non- 100.3 >60 Egfr 129.0 >60 74 Laboratory test finding 10/23/2014 Lipase 8 U/L Low 11.0-82.0 C Reactive Protein < 1.00 mg/L < 5.00 75 Lactic Acid 1.4 mmol/L 0.5-2.2 Urinalysis Profile 10/23/2014 Urine Color Yellow Urine Appearance Clear Urine Specific [place] 1.012 1.010-1.030 Urine pH 7.0 5-9 Urine Urobilinogen Negative Negative Urine Ketones Negative Negative Urine Protein Negative Negative Urine Leukocytes Negative Negative Urine Blood Negative Negative Urine Nitrite Negative Negative Urine Bilirubin Negative Negative Urine Glucose Negative Negative CBC Auto Diff 10/23/2014 White Blood Count [...] Non- 75.2 >60 Egfr 96.8 >60 76 Urinalysis Profile 07/11/2014 Urine Color Yellow Urine Appearance Clear Urine Specific [place] 1.014 1.010-1.030 Urine pH 6.0 5-9 Urine Urobilinogen Negative Negative Urine Ketones Negative Negative Urine Protein Negative Negative Urine Leukocytes Negative Negative Urine Blood Negative Negative * * Negative 77 Urine Nitrite Negative Negative Urine Bilirubin Negative Negative Urine Glucose Negative Negative Laboratory test finding 07/11/2014 Reference Lab Test See Comment 78 Sharon Hep-2 07/11/2014 Sharon Pattern Centromere Negative Sharno Titer 1:5120 <1:80 Sharon Reviewed By MD Chioma Valdivia 79 CBC Auto Diff 07/11/2014 White Blood Count [...] Blood Cells % 0.1 Comp Metabolic Panel 07/11/2014 Sodium 134 mmol/L [...] Egfr Non- 82.6 >60 Egfr 106.3 >60 80 Laboratory test finding 07/11/2014 C Reactive Protein 1.80 mg/L < 5.00 81 Erythrocyte Sed Rate 18 mm/Hr 0-40 Sharon (Anti-Nuclear AB) Screen Reflexed to FA Negative Cristal Screen Negative Negative 82 Anti Double Stranded Dna Positive Negative Ua Routine 06/29/2014 Ua Specific [place] 1.030 Ua PH 5.0 Ua Color yellow Ua Appera clear Ua WBC trace Ua Protein 30 Ua Glucose neg Ua Ketones neg Ua Urobilinogen neg Ua Nitrite pos Ua Occult Blood small Urine Culture And Sensitivities 06/27/2014 Urine Culture (SEE NOTE) 83 Urine Culture And Sensitivities 05/31/2014 Urine Culture (SEE NOTE) 84 Ua Routine 05/31/2014 Ua Specific [place] 1.005 Ua PH 5 Ua Color dark yellow/orae Ua Appera clear Ua WBC trace Ua Protein ++ Ua Glucose neg Ua Ketones trace Ua Bilirubin small Ua Urobilinogen normal Ua Nitrite + Ua Occult Blood ++ Surgical Pathology 04/18/2014 S RUN DATE: 04/19/ <SEE NOTE> 85 Comp Metabolic Panel 04/13/2014 Sodium 135 mmol/L [...] Egfr Non- 87.1 >60 Egfr 112.0 >60 86 Iron & Iron Binding Capacity 04/13/2014 Iron 61 g/dL 50-212 Unsaturated Iron Binding 295 g/dL Total Iron Binding Capacity 356 g/dL 250-450 % Iron Saturation 17 % 15-55 Laboratory test finding 04/13/2014 Ferritin 36.5 ng/mL 11-307 Vitamin B12 963 pg/mL High 180-914 87 CBC Auto Diff 04/13/2014 White Blood Count [...] Blood Cells % 0.2 Laboratory test finding 04/13/2014 Pathologist Review (SEE NOTE) 88 Erythrocyte Sed Rate 18 mm/Hr 0-30 Sharon (Anti-Nuclear AB) Screen Reflexed to FA Negative Sharon Hep-2 04/13/2014 Sharon Pattern Centromere Negative Sharon Titer 1:2560 <1:80 Sharon Reviewed By MD Chioma Valdivia 89 Laboratory test finding 04/13/2014 Anti Double [...] Surgical Pathology SEE RESULT BELOW 93 1 In this sample, the concentration of methylmalonic acid (MMA) was elevated. This finding is likely related to vitamin B12 deficiency. ADDITIONAL INFORMATION This test was developed and its performance characteristics determined by [facility] in a manner consistent with CLIA requirements. This test has not been cleared or approved by the U.S. Food and Drug Administration. Test Performed by: [facility] [place] [address] 2 RESULT: No apparent monoclonal protein on serum electrophoresis. Test Performed by: [facility] [place] [address] 3 Test Performed by: [facility] - [facility] [address] [place] [address] 4 Acute inflammation: >10.00 5 SEE RESULT BELOW Name: SHANTA ROCHA : [address]: Chetna Mohr MD Acct: [id number] Unit: [id number] AGE: 67 Location: [place] [address] Re09/21/17 Dis: 09/25/17 SEX: F Status: DIS IN SPEC: [id number] BARB: 09/20/[address] [facility] [address]: Dar Goss MD REQ: [id number] RECD: 09/20/17 STATUS: BERNARDA DE JESUS DR: Daren Chawla MD _ SOURCE: BLOOD,VENO SPDES: ORDERED: Blood Cult Procedure Result Reported Site Aerobic Culture Bottle Final 09/25/172301 ML No Growth Day 5 Anaerobic Culture Bottle Final 09/25/172301 ML No Growth Day 5 * ML - Main Lab . END OF REPORT DEPARTMENT OF PATHOLOGY, [address] [place] [address] Martín Garcia M.D. Director [facility] # [id number] 6 [facility] Severe Sepsis and Septic Shock Management Bundle Measure requires all lactic acids initially measuring >2.0 mmol/L be repeated. 7 Because ethnic data is not always readily [...] 15-29 5 Kidney failure <15 (or dialysis) 8 PT NOT FASTING AND WANTED TESTING TO BE DONE [id number] Desirable: <150 Borderline High: 150-199 High: 200-499 Very High: >500 10 Desirable: <200 Borderline High: 200-239 High: >239 11 Low: <40 Desirable: 40-60 High: >60 12 Desirable: <100 Near Optimal: 100-129 Borderline High: 130-159 High: 160-189 Very High: >189 13 ADDITIONAL INFORMATION This test has been modified from the field representative's instructions. Its performance characteristics were determined by [facility] in a manner consistent with CLIA requirements. This test has not been cleared or approved by the U.S. Food and Drug Administration. Test Performed by: [facility] - [address] [address] 14 ADDITIONAL INFORMATION This test has been modified from the field representative's instructions. Its performance characteristics were determined by [facility] in a manner consistent with CLIA requirements. This test has not been cleared or approved by the U.S. Food and Drug Administration. Test Performed by: [facility] - [address] [address] 15 ADDITIONAL INFORMATION This test has been modified from the field representative's instructions. Its performance characteristics were determined by [facility] in a manner consistent with CLIA requirements. This test has not been cleared or approved by the U.S. Food and Drug Administration. 16 ADDITIONAL INFORMATION This test has been modified from the field representative's instructions. Its performance characteristics were determined by [facility] in a manner consistent with CLIA requirements. This test has not been cleared or approved by the U.S. Food and Drug Administration. 17 ADDITIONAL INFORMATION This test has been modified from the field representative's instructions. Its performance characteristics were determined by [facility] in a manner consistent with CLIA requirements. [...] not reviewed by physician. Test Performed by: [facility] - [address] [address] 19 Clot lysis was not observed in [...] to a factor XIII antibody). Performed by [facility], [address] [place] [address] [email or web address], Jass Camp MD - Lab. Director Test Performed by: [facility] [address] [place] [address] 20 [employer]: [id number] 21 *Ascorbic acid is present which may interfere with detection of blood. 22 SEE RESULT BELOW Name: SHANTA ROCHA : [address]: Serafin Vance MD Acct: [id number] Unit: [id number] AGE: 66 Location: LAB Re12/24/16 SEX: F Status: REG REF SPEC: [id number] BARB: 12/24/[address] [facility] [address]: Daren Chalwa MD REQ: [id number] RECD: 12/24/16 STATUS: BERNARDA DE JESUS DR: Serafin Vance MD _ [facility] ORDERED: Urine Culture Procedure Result Reported Site Urine Culture Final 12/25/16- 1411 ML Few Enterobacteriacae; possible contamination. * ML - MAIN LAB ([facility]) . END OF REPORT * ML=Testing performed at Main Lab DEPARTMENT OF PATHOLOGY, [address] [place] [address] Martín Garcia M.D. Director [facility] # [id number] 23 Desirable <150 Borderline high 150-199 High 200-499 Very High >500 24 Desirable <200 Borderline high 200-239 High >239 25 Low <40 Desirable: 40-60 High: >60 26 Desirable: <100 mg/dL Near Optimal: 100-129 mg/dL Borderline High: 130-159 mg/dL High: 160-189 mg/dL Very High: >189 mg/dL 27 Test Performed by: [address] [address] 13 Interpretation: Positive (3.0-5.9) REFERENCE VALUE <=1.0 (Negative) Test Performed by: [address] [address] 29 [id number] 30 SEE RESULT BELOW Name: SHANTA ROCHA : [address]: Damon Webb MD Acct: [id number] Unit: [id number] AGE: 66 Location: [facility] Re12/12/16 SEX: F Status: DEP REF SPEC: [id number] BARB: 12/12/16-[address] [facility] [address]: Damon Webb MD REQ: [id number] RECD: 12/12/16160 STATUS: RES NEAL DR: Daren Chawla MD _ SOURCE: [facility] [place] [facility] SPDESC:OTHER ORDERED: Fungal - Other COMMENTS: [id number] Procedure Result Reported Site Fungal Cult - Other Sources Preliminary 12/16/16- 1342 ML Organism 1 JENNIE ALBICANS * ML - MAIN LAB ([facility]) . END OF REPORT * ML=Testing performed at Main Lab DEPARTMENT OF PATHOLOGY, [address] [place] [address] Martín Garcia M.D. Director [facility] # [id number] 31 SEE RESULT BELOW Name: SHANTA ROCHA : [address]: Damon Webb MD Acct: [id number] Unit: [id number] AGE: 66 Location: [facility] Re12/12/16 SEX: F Status: DEP REF SPEC: [id number] BARB: 12/12/16-[address]: Damon Webb MD REQ: [id number] RECD: 12/12/16160 STATUS: RES [facility] DR: Daren Chawla MD _ SOURCE: [facility] SPDESC:OTHER ORDERED: Fungal - Other COMMENTS: [id number] Procedure Result Reported Site Fungal Cult - Other Sources Preliminary 12/30/16- 1346 ML Organism 1 JENNIE ALBICANS * ML - MAIN LAB ([facility]) . END OF REPORT * ML=Testing performed at Main Lab DEPARTMENT OF PATHOLOGY, [address] [place] [address] Martín Garcia M.D. Director ALANNA # [id number] 32 SEE RESULT BELOW Name: SHANTA ROCHA : [address]: Damon Webb MD Acct: [id number] Unit: [id number] AGE: 66 Location: [facility] Re12/12/16 SEX: F Status: DEP REF SPEC: [id number] BARB: 12/12/16-[address] [facility] [address]: Damon Webb MD REQ: [id number] RECD: 12/12/16 STATUS: RES NEAL DR: Daren Chawla MD _ SOURCE: [facility] SPDESC:OTHER ORDERED: Fungal - Other COMMENTS: [id number] Procedure Result Reported Site Fungal Cult - Other Sources Preliminary 01/05/17- 1403 ML Organism 1 JENNIE ALBICANS * ML - MAIN LAB ([facility]) . END OF REPORT * ML=Testing performed at Main Lab DEPARTMENT OF PATHOLOGY, [address] [place] [address] Martín Garcia M.D. Director [facility] # [id number] 33 SEE RESULT BELOW Name: SHANTA ROCHA : [address]: Damon Webb MD Acct: [id number] Unit: [id number] AGE: 66 Location: [facility] Re12/12/16 SEX: F Status: DEP REF SPEC: [id number] BARB: 12/12/16-[address] [facility] [address]: Damon Webb MD REQ: [id number] RECD: 12/12/16160 STATUS: BERNARDA DE JESUS DR: Daren Chawla MD _ SOURCE: [facility] SPDESC:OTHER ORDERED: Fungal - Other COMMENTS: [id number] Procedure Result Reported Site Fungal Cult - Other Sources Final 01/12/17- 1026 ML Organism 1 JENNIE ALBICANS * ML - MAIN LAB ([facility]) . END OF REPORT * ML=Testing performed at Main Lab DEPARTMENT OF PATHOLOGY, [address] [place] [address] Martín Garcia M.D. Director [facility] # [id number] SEE RESULT BELOW Name: AJSHANTA : [address]: Damon Webb MD Acct: [id number] Unit: [id number] AGE: 66 Location: [facility] Re12/12/16 SEX: F Status: DEP REF SPEC: [id number] BARB: 12/12/16-[address] [facility] [address]: Damon Webb MD REQ: [id number] RECD: 12/12/16-1549 STATUS: AMY DE JESUS DR: Daren Vance MD _ ORDERED: LEVEL 4, SPEC STAIN ORG COMMENTS: [id number] FINAL DIAGNOSIS Esophagus, mid, biopsy: -- Well-differentiated [...] in the patient's original diagnostic material from [facility] from 2011 (please see [facility] case S1 7-7 8 2 8). While [...] performed at Main Lab DEPARTMENT OF PATHOLOGY, [address] [place] [address] Martín Garcia M.D. Director [facility] # [id number] RUN DATE: 12/31/16 [facility] LAB LIVE PAGE 2 Patient: SHANTA ROCHA [id number] (Continued) CLINICAL HISTORY (Continued) CLINICAL HISTORY History [...] performed at Main Lab DEPARTMENT OF PATHOLOGY, [address] [place] [address] Martín Garcia M.D. Director [facility] # [id number] 36 SEE RESULT BELOW Name: SHANTA ROCHA : [address]: Damon Webb MD Acct: [id number] Unit: [id number] AGE: 66 Location: [facility] Re12/12/16 SEX: F Status: DEP REF SPEC: [id number] BARB: 12/12/16-[address] [facility] [address]: Damon Webb MD REQ: [id number] RECD: 12/12/167539 STATUS: AMY DE JESUS DR: Daren Vance MD _ ORDERED: TURK CONSULT, LEVEL 4, SPEC STAIN ORG COMMENTS: [id number] Addendum: This case was reviewed and outside consultation by [facility] ( see separate report). The reviewers felt [...] squamous cell carcinoma. The outside material from [facility] as well as the additional intervening biopsies from [facility] were not available to the [facility] pathologists for review. In isolation this represents [...] performed at Main Lab DEPARTMENT OF PATHOLOGY, [address] [place] [address] Martín Garcia M.D. Director [facility] # [id number] RUN DATE: 01/15/17 [facility] LAB LIVE PAGE 2 Patient: SHANTA ROCHA [id number] (Continued) SPECIMEN COMMENTS (Continued) inflammation in the superficial layers of the tumor with degenerated squamous cells. A fungal stain (GMS) performed with appropriate controls demonstrates some superficial candidiasis also involving the detached fragment of squamous debris. The morphologic features seen here are similar, if not more atypical than that seen in the patient's original diagnostic material from [facility] from 2011 (please see [facility] case S1 7-7 8 2 8). While [...] portion. Conclusion : nodular changes (biopsied), probable Ejnnie esophagitis, radiation stricture - dilated GROSS DESCRIPTION The specimen is received in formalin labeled, Biopsy Mid Esophagus, and consists of a 0.6 x 0.4 x 0.2 cm aggregate of blanc-pink irregular soft tissue fragments which is submitted entirely in one cassette. Signed (signature on file) Martín Garcia MD 1559 END OF REPORT * ML=Testing performed at Main Lab DEPARTMENT OF PATHOLOGY, [address] [place] [address] Martín Garcia M.D. Director [facility] # [id number] 38 Because ethnic data is not always [...] 5 Kidney failure <15 (or dialysis) 41 *Ascorbic acid is present which may interfere with detection of blood. 42 Because ethnic data is not always readily [...] 15-29 5 Kidney failure <15 (or dialysis) 43 Serologic response to B. burgdorferi infection is not detected, but cannot rule out early infection during which low or undetectable antibody levels to B. burgdorferi may be present. If clinically indicated, a new serum specimen should be submitted in 7-14 days. Test Performed by: [place] [address] [employer] Reclaimer: Sixto Barragan II, M.D., Ph.D. 44 Desirable <150 Borderline high 150-199 High 200-499 Very High >500 45 Desirable <200 Borderline high 200-239 High >239 46 Low <40 Desirable: 40-60 High: >60 47 Desirable: <100 mg/dL Near Optimal: 100-129 mg/dL Borderline High: 130-159 mg/dL High: 160-189 mg/dL Very High: >189 mg/dL 48 Because ethnic data is not always readily [...] 15-29 5 Kidney failure <15 (or dialysis) 49 SEE RESULT BELOW Name: SHANTA ROCHA : [address]: Damon Webb MD Acct: [id number] Unit: [id number] AGE: 65 Location: ENDO Re01/10/16 SEX: F Status: REG REF SPEC: [id number] BARB: 01/10/16-[address]: Damon Webb MD REQ: [id number] RECD: 01/10/162811 STATUS: AMY DE JESUS DR: Daren Vance [...] performed at Main Lab DEPARTMENT OF PATHOLOGY, [address] [place] [address] Martín Garcia M.D. Director [facility] # [id number] 50 Comment: ESOPHAGEAL BRUSHING 51 SEE RESULT BELOW Name: SHANTA ROCHA : [address]: Damon Webb MD Acct: [id number] Unit: [id number] AGE: 65 Location: ENDO Re01/10/16 SEX: F Status: DEP REF SPEC: [id number] BARB: 01/10/16-[address]: Damon Webb MD REQ: [id number] RECD: 01/10/16 STATUS: BERNARDA DE JESUS DR: Daren Vance MD _ SOURCE: [facility] SPDESC: ORDERED: Fungal - Other COMMENTS: Comment: ESOPHAGEAL BRUSHING Procedure Result Reported Site Fungal Cult - Other Sources Final 02/04/16- 1218 ML Organism 1 JENNIE ALBICANS * ML - MAIN LAB ([facility]) . END OF REPORT * ML=Testing performed at Main Lab DEPARTMENT OF PATHOLOGY, [address] [place] [address] Martín Garcia M.D. Director [facility] # [id number] 52 Because ethnic data is not always [...] <15 (or dialysis) 53 Test Performed by: [place] [address] [employer] Reclaimer: Sixto Barragan II, M.D., Ph.D. 54 Because [...] use in employment-related testing. Test Performed by: [facility] - [address] [address] [employer] Solution Reclaimer: Sixto Barragan II, M.D., Ph.D. 63 REFERENCE VALUE Cutoff: 100 64 REFERENCE VALUE Cutoff: 100 65 REFERENCE VALUE Cutoff: 100 66 REFERENCE VALUE Cutoff: 100 67 REFERENCE VALUE Cutoff: 100 68 REFERENCE VALUE Cutoff: 100 69 ADDITIONAL INFORMATION This report is intended for use in clinical monitoring and management of patients. It is not intended for use in employment-related testing. Test Performed by: [place] [address] [employer] Reclaimer: Sixto Barragan II, M.D., Ph.D. 70 Reference Range and Interpretation: TnI (ng/mL) Interpretation Less Than 0.03 ng/mL Not supportive of diagnosis of IA 0.03 - 0.50 ng/mL Indeterminate: suggest serial studies if clinically indicated. Greater than 0.5 ng/mL Consistent with diagnosis of IA 71 Because ethnic data is not always [...] 5 Kidney failure <15 (or dialysis) 77 *Ascorbic acid is present which may interfere with detection of blood. 78 Test Result Flag Unit RefValue DNA Double-Stranded Ab, <12.3 IU/mL IgG, S REFERENCE VALUE <30.0 (Negative) Test Performed by: [place] [address] [employer] Reclaimer: Sixto Barragan II, M.D., Ph.D. 79 Chioma Valdivia 80 Because ethnic data is not always readily [...] 15-29 5 Kidney failure <15 (or dialysis) 81 Acute inflammation: >10.00 82 The above CRISTAL screen is designed for the detection of antibodies to extractable nuclear antigen (CRISTAL) in human serum. It is a combination test for the detection of antibodies to PHOTOCOMPOSING MACHINE OPERATOR, Sm, SS-A (Ro), and SS-B (La) nuclear antigens. 83 RUN DATE: 07/02/14 [facility] LAB LIVE PAGE 1 RUN TIME: [address] [place] [address] Specimen Inquiry Name: SHANTA ROCHA : [address]: Ronak Pedro NP Acct: [id number] Unit: [id number] AGE: 64 Location: [facility] Re06/27/14 SEX: F Status: REG REF SPEC: [id number] BARB: 06/27/14-[address]: Ronak Pedro FOREST AIDE REQ: [id number] RECD: 06/30/14 STATUS: COMP _ SOURCE: URINE SPDESC: ORDERED: Urine Culture QUERIES: Provider Requisition # [id number] Procedure Result Verified Site Urine Culture Final 07/02/14- 1041 ML No Growth Day 2 (<1,000 CFU/mL) END OF REPORT * ML=Testing performed at Main Lab DEPARTMENT OF PATHOLOGY, [facility] [place] [address] Martín Garcia M.D. Director [facility] # [id number] 84 RUN DATE: 06/02/14 [facility] LAB LIVE PAGE 1 RUN TIME: 1903 [facility] [employer] [place], [place] [address] Specimen Inquiry Name: SHANTA ROCHA : [address]: Daren Chawla MD Acct: [id number] Unit: [id number] AGE: 64 Location: [facility] Re05/31/14 SEX: F Status: REG REF SPEC: [id number] BARB: 05/31/14-[address]: Daren Chawla MD REQ: [id number] RECD: 05/31/14 STATUS: COMP _ SOURCE: URINE SPDESC: ORDERED: Urine Culture QUERIES: Provider Requisition # [id number] Procedure Result Verified Site Urine Culture Final 06/02/14- 1115 ML No Growth Day 2 (<1,000 CFU/mL) END OF REPORT * ML=Testing performed at Main Lab DEPARTMENT OF PATHOLOGY, [facility] [place], [place] [address] Martín Garcia M.D. Director [facility] # [id number] 85 RUN DATE: 04/19/14 [facility] LAB LIVE PAGE 1 RUN TIME: 1505 [facility] [employer] [place], [place] [address] Specimen Inquiry Name: SHANTA ROCHA : [address]: Joe Velasquez MD Acct: [id number] Unit: [id number] AGE: 63 Location: ENDO Re04/18/14 SEX: F Status: REG REF SPEC: [id number] BARB: 04/18/[address] [facility] [address]: Joe Velasquez MD REQ: [id number] RECD: 04/18/141229 STATUS: AMY DE JESUS DR: Daren Chawla [...] performed at Main Lab DEPARTMENT OF PATHOLOGY, [facility] [place] [address] Martín Garcia M.D. Director [facility] # [id number] RUN DATE: 04/19/14 [facility] LAB LIVE PAGE 2 RUN TIME: 1505 [facility] [employer] [place], [place] [address] Specimen Inquiry Patient: SHANTA ROCHA Batsheva [id number] (Continued) POST-OPERATIVE DIAGNOSIS (Continued) POST-OPERATIVE DIAGNOSIS (Continued) [...] performed at Main Lab DEPARTMENT OF PATHOLOGY, [address] [place] [address] Martín Garcia M.D. Director [facility] # [id number] 86 Because ethnic data is not always readily [...] 15-29 5 Kidney failure <15 (or dialysis) 87 Normal Range 180 to 914 Indeterminate Range 145 to 180 Deficient Range <145 88 Reviewed by Bettina Valdivia MD RARE SCHISTOCYTES 89 Chioma Valdivia 90 Potassium reference range changed effective 03/05/14 [...] [address]: Martín Garcia MD Acct: [id number] Unit: [id number] AGE: 66 Location: [facility] Re12/31/16 SEX: F Status: REG REF SPEC: [id number] BARB: 12/02/11- SUBM DR: Martín Garcia MD REQ: [id number] RECD: 12/31/161146 STATUS: AMY DE JESUS DR: Daren Chawla [...] patient's name. 2 slides are labeled C [id number] (1 Pap stain ThinPrep and 1 H E stain cell block) and 1 labeled S [id number]. Accompanying the slides are pathology reports with corresponding accession number as both from [facility] Department of laboratories, [place] [address] signed by Drs. Jose Rafael Donohue and Fany Llanos respectively. Signed (signature on file) Martín Garcia MD 1604 END OF REPORT * ML=Testing performed at Main Lab DEPARTMENT OF PATHOLOGY, [address] [place] [address] Martín Garcia M.D. Director [facility] # [id number] Procedures Date CPT Code Description Status Comment 02/18/2016 Diabetic Retinal Eye Exam Completed Document: 02/18/16 - Consult Ophthalmology/[place] 08/19/2015 05396 ECHO Transthorasic Realtime 2D Completed W Doppler & Color Flow Hosp 08/18/2015 63484 EKG, Interpretation Only Completed 06/05/2015 49218 Pulmonary Function><Bronchodil Completed 09/13/2014 Bone Mineral Density Test Completed 04/20/2014 Colonoscopy Completed 04/18/2014 Colonoscopy Completed Encounters Type Date Location Provider CPT E/M Dx Office Visit 11/23/2017 Pulmonology And Sleep Nelda Yang, [address] J44.9 2:00p [facility] N.POpal Z99.81 Office Visit 11/19/2017 1:20p [facility] Internal Medicine Daren Chawla M.D. [address] F41.9 J44.9 M51.16 Office Visit 10/23/2017 2:30p [facility] [place] [address] R06.02 [facility] J44.9 R09.02 Z85.01 C34.90 Office Visit 10/19/2017 4:20p [facility] Internal Daren Chawla, 98243 K52.832 Medicine - [address] Zac Office Visit 10/08/2017 1:20p [facility] Internal Daren Chawla, 61403 M51.16 Medicine - [address] Zac F41.9 J44.9 Office Visit 09/25/2017 12:11p [facility], Brittany Sanders, N.P. 63923 J69.0 Hospitalists I10 J44.9 Z85.01 Office Visit 09/24/2017 12:11p [facility],pc Brittany Sanders, N.P. 31864 J69.0 Hospitalists I10 J44.9 Z85.01 Office Visit 09/23/2017 12:10p [facility], Brittany Sanders, N.P. 66452 J69.0 Hospitalists I10 J44.9 Z85.01 Office Visit 09/22/2017 12:08p [facility], Madhuri Gerber, [address]80 J44.9 Hospitalists D.O. J69.0 I10 Z85.01 Office Visit 09/21/2017 12:09p [facility],[place] [address] J44.9 Hospitalists J69.0 I10 Z85.01 Office Visit 08/18/2017 3:00p [facility] Internal Daren Chawla M.D. 29266 E87.1 Medicine - [address] E78.2 M51.16 Office Visit 08/04/2017 2:30p Pulmonology [place] [address] J44.9 [facility] R09.02 C34.90 Office Visit 07/07/2017 3:00p [facility] Internal Medicine Daren Chawla M.D. [address] [address] G47.00 F33.0 E87.1 Office Visit 03/31/2017 1:00p [facility] Internal Medicine Daren Chawla M.D. 72368 [address] K21.9 E78.2 Office Visit 02/27/2017 1:20p [facility] Internal Daren Chawla, 65402 J01.10 Medicine - [place] Ezequiel Frank F41.9 F33.0 Office Visit 01/15/2017 1:40p [facility] Internal Daren Chawla M.D. 12123 F32.9 Medicine - [address] Office Visit 12/09/2016 1:20p [facility] Internal Daren Chawla M.D. 07215 F32.9 Medicine - [address] G47.00 E78.2 N39.0 Office Visit 10/03/2016 2:00p [facility] [place] [address] F41.9 [place] R23.3 R51 K08.89 Office Visit 08/05/2016 1:20p [facility] Internal Medicine Daren Chawla M.D. 60266 [address] K21.9 F41.9 E87.1 Office Visit 07/18/2016 1:00p [facility] [place] [address] J06.9 - [address] Office Visit 06/09/2016 1:40p [facility] Internal Medicine Daren Chawla 14463 I[address] - [address] Zac J01.90 E87.1 K21.9 F41.9 Office Visit 05/28/2016 4:00p [facility] Internal Daren Chawla 72141 R53.83 Jazz Colon M.D. R06.02 B00.9 Office Visit 04/07/2016 1:40p [facility] Internal Daren Chawla 60090 M50.10 Medicine - [address] Zac I10 Office Visit 03/04/2016 1:20p [facility] Internal Medicine Daren Chawla M.D. 84111 Z23 - [address] M50.10 R63.4 M51.16 Office Visit 12/31/2015 3:00p [facility] Internal Medicine Daren Chawla M.D. 43030 I[address] - [address] M51.16 F41.9 E78.2 Office Visit 10/31/2015 3:40p [facility] Internal Daren Chawla 85921 M51.16 Medicine - [address] Zac M79.671 F41.9 Office Visit 10/17/2015 1:40p [facility] Internal Daren Chawla 78914 M79.671 Medicine - [address] Zac L98.9 M51.16 Office Visit 09/10/2015 1:40p [facility] Internal Medicine Daren Chawla M.D. 28635 [address] - [address] M51.16 K21.9 R63.4 G45.3 Office Visit 08/19/2015 9:29a [facility], Narayan Ko, 67810 G45.9 Hospitalists M.DOpal C34.90 I10 Office Visit 08/17/2015 3:18p [facility] Zuly Grayson, 09050 G45.3 M.D. Office Visit 08/17/2015 9:28a [facility], Torsten Eyad, 72458 G45.9 Hospitalists N.P. C34.90 I10 Office Visit 08/16/2015 3:16p [facility] Zuly Grayson, 28724 G45.3 M.DOpal C34.90 R63.4 Office Visit 05/31/2015 2:40p [facility] Internal Medicine Daren Chawla M.D. 11264 [address] K21.9 F32.9 M51.16 E87.1 J44.9 Office Visit 03/23/2015 2:50p Orthopedic Services Eran Abernathy 60787 S93.402D Of Silvio Frank Office Visit 03/15/2015 1:00p [facility] Internal Medicine Daren Chawla 40105 F33.0 - [place] Ezequiel Frank Z23 E87.1 Office Visit 03/02/2015 2:20p Orthopedic Services Eran Abernathy 24325 S93.402A Of Silvio Frank Office Visit 02/15/2015 3:00p [facility] Internal Medicine Daren Chawla 82127 I10 - [place] Ezequiel Frank K21.9 F32.9 M51.16 Office Visit 01/03/2015 1:00p [facility] [place] [address] 724.3 [place] 724.2 Office Visit 10/25/2014 1:40p [facility] Internal Medicine Daren Chawla 34014 401.1 - Isaiah Frank 530.81 311 276.1 722.93 722.10 Office Visit 08/21/2014 2:00p Rheumatology Services Yousuf Cottrell M.D. 04385 710.0 [facility] 288.50 373.34 722.91 722.93 Office Visit 07/24/2014 2:40p [facility] Internal Daren Chawla M.D. 97593 401.1 Medicine - [address] 722.93 530.81 311 491.0 Office Visit 07/10/2014 1:00p Rheumatology Services Yousuf Cottrell M.D. 56682 710.0 [facility] 288.50 795.79 722.91 722.93 Office Visit 06/29/2014 3:30p [facility] [place] [address] 465.9 [place] 599.70 Office Visit 05/31/2014 11:20a [facility] Internal Medicine Daren Chawla 53297 599.0 - Isaiah Frank 788.1 722.93 Office Visit 04/21/2014 11:00a [facility] Internal Medicine Daren Chawla 39307 401.1 - Isaiah Frank 285.9 288.00 710.0 Office Visit 03/27/2014 1:00p [facility] Internal Medicine Daren Chawla 10915 401.1 - Isaiah Frank 530.81 300.02 722.93 787.91 285.9 239.1 Plan of Care Future Appointment(s):01/25/2018 1:40 pm - Daren Chawla M.D. at [facility] Internal Medicine - [address]03/29/2018 3:30 pm - Abbey Llamas MD at [facility]ology [facility]12/22/2017 - Daren Chawla M.D.F41.9 Anxiety disorder, unspecifiedFollow up:1 jrspwH98.9 Unspecified menopausal and perimenopausal disorder
[2018-01-18 22:12] LABS: ABS Basophils 0 10^3/ul (0-0.2); ABS Eosinophils 0 10^3/ul (0-0.6); ABS Monocytes 0.5 10^3/ul (0-0.8); ABS Neutrophils 4.9 10^3/ul (1.5-7.7); ABS Nucleated RBC 0 10^3/ul; Eosinophil % 0.1 % (0-6); Hematocrit 38 % (35-47); Lymphocyte % 15.1 % (25-47); Mean Corpuscular HGB Conc 34 g/dl (31-36); Mean Corpuscular Hemoglobin 30 pg (27-31); Mean Corpuscular Volume 88 fL (80-97); Mean Platelet Volume 6.6 um3 (7.4-10.4); Nucleated Red Blood Cells % 0.1; Platelet Count 379 10^3/ul (150-450); Red Blood Count 4.31 10^6/ul (4.00-5.40); Red Cell Distribution Width 14 % (10.5-15); White Blood Count 6.4 10^3/ul (3.5-10.8)
[2018-01-18 22:20] LABS: INR 0.92 (0.77-1.02)
--- NOTE | 2018-01-18 22:30 | ED ---
Altered Mental Status - HPI Summary HPI Summary: Pt is a 67 y/o female BIBA who presents to the ED c/o CP. As per EMS, the pt said it feels like someone is sitting on her chest. Pt is also tachypneic and was given ASA and NTG by EMS, which relieved some HTN. She also c/o SOB, and oxygen helps with this symptom. Pt is a level 5 caveat due to her AMS. She answers only basic questions and is not oriented. - History Of Current Complaint Stated Complaint: CHEST PAIN Time Seen by Provider: 01/18/18 21:30 Hx Obtained From: EMS Hx From Patient Unobtainable Due To: Altered Mental Status Onset/Duration: Unknown Timing: Constant Character: Confusion Aggravating Factor(s): Unknown Alleviating Factor(s): Unknown - Allergies/Home Medications Allergies/Adverse Reactions: Allergies Allergy/AdvReac Type Severity Reaction Status Date / Time doxycycline Allergy Unknown Verified 01/19/18 02:51 Reaction Details dronabinol [From Marinol] Allergy Hallucinati Verified 01/19/18 02:51 ons fentanyl Allergy panic Verified 01/19/18 02:51 attacks, shortness of breath, heart racing lactose Allergy GI Upset Verified 01/19/18 02:51 mirtazapine [From Remeron] Allergy Hallucinati Verified 01/19/18 02:51 ons Penicillins Allergy Unknown Verified 01/19/18 02:51 Reaction Details Home Medications: Home Medications Acetaminophen TAB* [Tylenol TAB*] 650 mg PO Q4H PRN 01/19/18 [History Confirmed 01/19/18] Ipratropium/Albuterol Sulfate [Iprat-Albut 0.5-3(2.5) mg/3 ml] 1 vial INH Q6H PRN 01/19/18 [History Confirmed 01/19/18] PMH/Surg Hx/FS Hx/Imm Hx Endocrine/Hematology History: Denies: Hx Diabetes, Hx Thyroid Disease Cardiovascular History: Denies: Hx Hypertension, Hx Pacemaker/ICD Respiratory History: Reports: Hx Chronic Obstructive Pulmonary Disease (COPD), Other Respiratory Problems/Disorders - Hx of lung cancer R lobectomy Denies: Hx Asthma GI History: Reports: Hx Gastroesophageal Reflux Disease, Other GI Disorders - esophagus removal Denies: Hx Ulcer History: Reports: Other Problems/Disorders Denies: Hx Dialysis, Hx Renal Disease Musculoskeletal History: Reports: Hx Back Problems Sensory History: Denies: Hx Contacts or Glasses, Hx Hearing Aid Opthamlomology History: Denies: Hx Contacts or Glasses Neurological History: Denies: Hx Dementia, Hx Nerve Disease, Hx Seizures, Hx Spinal Cord Injury, Hx Transient Ischemic Attacks (TIA) Psychiatric History: Reports: Hx Anxiety, Hx Depression Denies: Hx Panic Disorder - Cancer History Cancer Type, Location and Year: Esophageal cancer Stage #, chemo and radiation, Right Upper lobe lung removed, Stage 1 Hx Chemotherapy: Yes - ESOPHOGEAL Hx Radiation Therapy: Yes - ESOPHOGEAL Hx Palliative Cancer Treatment: No - Surgical History Surgery Procedure, Year, and Place: Right upper lobe of lung removed 2014 in [facility]. Infectious Disease History: No Infectious Disease History: Denies: Hx Clostridium Difficile, Hx Hepatitis, Hx Human Immunodeficiency Virus (HIV), Hx of Known/Suspected MRSA, Hx Shingles, Hx Tuberculosis, Hx Known/ Suspected VRE, Hx Known/Suspected VRSA, History Other Infectious Disease, Traveled Outside the in Last 30 Days - Family History Known Family History: Negative: Blood Disorder - Social History Alcohol Use: None Hx Substance Use: No Substance Use Type: Reports: None Hx Tobacco Use: No Smoking Status (MU): Former Smoker Type: Cigarettes Have You Smoked in the Last Year: No Review of Systems Positive: Chest Pain Positive: Shortness Of Breath Neurological: Other - Confusion All Other Systems Reviewed And Are Negative: No Physical Exam - Summary Physical Exam Summary: Appearance: Well appearing, no pain distress Skin: warm, dry, reflects adequate perfusion, non-palpable pinpoint purpura on LE Head/face: normal Eyes: EOMI, MATTHEW ENT: normal Neck: supple, non-tender Respiratory: CTA, tachypneic Cardiovascular: tachycardic, pulses symmetrical, no LE edema Abdomen: non-tender, soft Bowel Sounds: present Musculoskeletal: normal, strength/ROM intact Neuro: sensory motor intact, alert but not oriented GCS: 14 Triage Information Reviewed: Yes Vital Signs On Initial Exam: Initial Vitals Pulse Resp BP Pulse Ox 120 50 140/98 100 01/18/18 21:33 01/18/18 21:33 01/18/18 21:33 01/18/18 21:33 Vital Signs Reviewed: Yes Diagnostics - Vital Signs Vital Signs Temp Pulse Resp BP Pulse Ox 01/18/18 21:36 97.1 F 121 47 140/98 100 01/18/18 21:33 120 50 140/98 100 - Laboratory Lab Results: Lab Results 01/18/18 01/18/18 Range/Units 22:02 22:02 WBC 6.4 (3.5-10.8) 10^3/ul RBC 4.31 (4.00-5.40) 10^6/ul Hgb 13.0 (12.0-16.0) g/dl Hct 38 (35-47) % MCV 88 (80-97) fL MCH 30 (27-31) pg MCHC 34 (31-36) g/dl RDW 14 (10.5-15) % Plt Count 379 (150-450) 10^3/ul MPV 6.6 L (7.4-10.4) um3 Neut % (Auto) 75.9 (38-83) % Lymph % (Auto) 15.1 L (25-47) % Smith % (Auto) 8.4 H (0-7) % Eos % (Auto) 0.1 (0-6) % Baso % (Auto) 0.5 (0-2) % Absolute Neuts (auto) 4.9 (1.5-7.7) 10^3/ul Absolute Lymphs (auto) 1.0 (1.0-4.8) 10^3/ul Absolute Monos (auto) 0.5 (0-0.8) 10^3/ul Absolute Eos (auto) 0 (0-0.6) 10^3/ul Absolute Basos (auto) 0 (0-0.2) 10^3/ul Absolute Nucleated RBC 0 10^3/ul Nucleated RBC % 0.1 INR (Anticoag Therapy) 0.92 (0.77-1.02) APTT 42.0 H (26.0-36.3) seconds Result Diagrams: 01/18/18 22:02 01/18/18 22:02 Lab Statement: Any lab studies that have been ordered have been reviewed, and results considered in the medical decision making process. - Radiology CXR Xray Interpretation: Positive (See Comments) - Linear atelectasis vs. infiltrate right base. Pending official radiology report. Radiology Interpretation Completed By: ED Physician - CT Brain CT CT Interpretation: No Acute Changes - No acute findings. ED physician reviewed radiology report. CT Interpretation Completed By: Radiologist Chest/Thorax CTA CT Interpretation: Positive (See Comments) - 1. No evidence of pulmonary embolic disease. 2. Enlarging left hilar mass/lymph nodes with multiple smaller nodules/lymph nodes following left upper lung pulmonary vessel. This is associated with a new pleural-based nodule located in the periphery of the left lower lung. Suggest further evaluation with consideration of a PET CT study. The patient has a history of cancer and this may represent a progression of the patient's primary cancer. ED physician reviewed radiology report. CT Interpretation Completed By: Radiologist - EKG 21:28 Cardiac Rate: Tachycardia - 120 bpm EKG Rhythm: Sinus Rhythm ST Segment: Non-Specific EKG Interpretation: Nl axis National Institutes Of Health - NIH Scale Level of Consciousness: Alert/Keenly Responsive - Able to answer only simple questions Ask Patient the Month and His/Her Age: Neither Correct/Aphasic Ask Pt to Open/Close Eyes and Supervisor Dyer/Release Non-Paretic Hand: Both Correctly Best Gaze (Only Horizontal Eye Movement): Normal Visual Field Testing: No Visual Loss Facial Paresis-Pt to Smile & Close Eyes or Grimace Symmetry: Normal/Symmetrical Motor Function - Right Arm: No Drift-Holds 10 Seconds Motor Function - Left Arm: No Drift-Holds 10 Seconds Motor Function - Right Leg: No Drift-Holds 10 Seconds Motor Function - Left Leg: No Drift-Holds 10 Seconds Limb Ataxia-Must be out of Proportion to Weakness Present: Absent Sensory (Use Pinprick to Test Arms/Legs/Trunk/Face): Normal Best Language (Describe Picture, Name Items): No Aphasia Dysarthria (Read Several Words): Normal Extinction and Inattention: No Abnormality Total Score: 2 Altered Mental Statu Course/Dx - Course Course Of Treatment: Patient presented by ambulance with extreme confusion and history of cancer for which she is not currently being treated. She is very tachypneic, tachycardic but could relate to us no other productive history. Given her cancer history is CT scan to rule out pulmonary embolism was performed and was negative. She does have evidence of worsening cancer on that. There is no pleural effusion, pericardial effusion. EKG shows tachycardia. Troponin is nonelevated. There is no evidence for sepsis. She is very alkalotic and was hydrated, given Ativan for possible overbreathing. This did very little. Her laboratories are fairly unremarkable otherwise aside from sodium. There is a feeling that perhaps this could be compressive or that she could have carcinomatosis of the brain and meninges. I discussed the case with the hospitalist who has evaluated and feels the same. She will admit for further. - Diagnoses Differential Diagnosis/HQI/PQRI: CVA, Hypoglycemia, Hyperthermia, Hypothermia, Hypoxia, Intoxication, Intracranial Bleed, Medication Reaction, Metabolic Disorder, Postictal State, Sepsis, Seizure, TIA Provider Diagnoses: Hyponatremia, Altered mental status, Esophageal cancer - Provider Notifications Discussed Care Of Patient With: Danielle Sands Time Discussed With Above Provider: 01:00 Instructed by Provider To: Admit As Inpatient - Critical Care Time Critical Care Time: 30-74 min - critical care time is exclusive of separately billable procedures Discharge - Sign-Out/Discharge Documenting (check all that apply): Patient Departure - Admit - Discharge Plan Condition: Guarded Disposition: ADMITTED TO [facility] - Billing Disposition and Condition Condition: GUARDED Disposition: Admitted to [facility] - Attestation Statements Document Initiated by Scribe: Yes Documenting Scribe: Michelle Gaspar Provider For Whom Scribe is Documenting (Include Credential): Popeye yL MD Scribe Attestation: IMichelle, scribed for Popeye Ly MD on 01/19/18 at 0651. Scribe Documentation Reviewed: Yes Provider Attestation: The documentation as recorded by the scribeMichelle accurately reflects the service I personally performed and the decisions made by me, Popeye Ly MD
[2018-01-18 22:34] LABS: EGFR Non-African American 99.4 (>60)
[2018-01-18] MEDS ORDERED: Iohexol 350* (CONTRAST) 500 ML MDV IV ONE (22:43)
--- NOTE | 2018-01-18 23:43 | RAD ---
EXAM: CT Head Without Intravenous Contrast CLINICAL HISTORY: 67 years old, female; Signs and symptoms; Altered mental status/memory loss; Additional info: Confusion, SOB, HX of cancer TECHNIQUE: Axial computed tomography images of the head/brain without intravenous contrast. All CT scans at this facility use at least one of these dose optimization techniques: automated exposure control; mA and/or kV adjustment per patient size (includes targeted exams where dose is matched to clinical indication); or iterative reconstruction. COMPARISON: BRAIN [facility] CT BRAIN W/WO 01/13/2018 5:26 PM FINDINGS: Brain: No evidence of intracranial hemorrhage. No intracranial mass or mass effect. Areas of decreased density in the subcortical and periventricular white matter which may represent a microvascular leukoencephalopathy. In reviewing the CT scan of 01/13/2018, no evidence of enhancing mass was seen. The appearance of the barnes matter is normal. Ventricles: No obstructive hydrocephalus. Bones/joints: Unremarkable. No acute fracture. Soft tissues: Unremarkable. Vasculature: Vascular calcification. Sinuses: Unremarkable as visualized. No acute sinusitis. Mastoid air cells: Unremarkable as visualized. No mastoid effusion. IMPRESSION: No acute findings.
--- NOTE | 2018-01-19 00:21 | RAD ---
EXAM: CT Angiography Chest With Intravenous Contrast CLINICAL HISTORY: 67 years old, female; Pain; Chest pain; Type not specified; Additional info: Cancer HX, short of breath TECHNIQUE: Axial computed tomographic angiography images of the chest with intravenous contrast using pulmonary embolism protocol. All CT scans at this facility use at least one of these dose optimization techniques: automated exposure control; mA and/or kV adjustment per patient size (includes targeted exams where dose is matched to clinical indication); or iterative reconstruction. MIP reconstructed images were created and reviewed. Coronal and sagittal reformatted images were created and reviewed. CONTRAST: 58 mL of OMNI administered intravenously. COMPARISON: CTA CHEST CTA CHEST 09/21/2017 6:08 AM FINDINGS: Pulmonary arteries: No evidence of acute pulmonary embolic disease. Aorta: Atheromatous changes involving the thoracic aorta. No aneurysmal dilatation of the thoracic aorta. No evidence of a dissection. Lungs: Centrilobular pulmonary emphysema involving the mid to upper lung. There filled cyst located in the lower lungs of varying sizes. Dilated bronchus located in the medial aspect of the right upper lung. New pleural-based nodule located in the right lower lung measuring about a centimeter in size. This was not seen on prior CT study of 09/21/2017. Pleural space: No significant effusion. No pneumothorax. Heart: The heart is of normal size. No paracardial thickening or effusion. Moderate coronary calcification. No evidence of RV dysfunction. Mediastinum: The esophagus is distended. Bones/joints: Anterior wedge compression fracture of the upper thoracic vertebral bodies. This was seen on the prior CT study and is unchanged. No dislocation. Soft tissues: Unremarkable. Lymph nodes: Since the prior CT study of 09/21/2017, there is an enlarged lymph node located just superior to the left proximal pulmonary artery. This lymph node measures 3.2 cm in oblique length, 1.5 cm in maximum width. This lymph node or mass was seen on the prior CT study measured 2.3 cm in AP length and 1.4 cm in width. There are also a series of lymph node which follows a vessel located in the left upper lung best seen on series 2 image 41. These lymph nodes or nodules were not seen on the prior CT study multiple nodules are seen following the course of this pulmonary vessel. Also noted is a new pleural-based nodule located in the periphery of the left lower lung. This is best seen on series 2 image 79. This measures 1.1 cm in AP length and 6.5 mm in width. There are some calcified mediastinal lymph nodes. Linear opacities within the lung bases which may represent areas of atelectasis and/or scarring. IMPRESSION: 1. No evidence of pulmonary embolic disease. 2. Enlarging left hilar mass/lymph nodes with multiple smaller nodules/lymph nodes following left upper lung pulmonary vessel. This is associated with a new pleural-based nodule located in the periphery of the left lower lung. Suggest further evaluation with consideration of a PET CT study. The patient has a history of cancer and this may represent a progression of the patient's primary cancer.
[2018-01-19 01:27] LABS: Urine Appearance Clear; Urine Blood 1+ (Negative); Urine Color Straw; Urine Ketones 2+ (Negative); Urine Protein 2+(100 mg/dL) (Negative); Urine Red Blood Cell 1+(3-5/hpf) (Absent); Urine Specific Gravity 1.019 (1.010-1.030); Urine Urobilinogen Negative (Negative); Urine White Blood Cell Trace(0-5/hpf) (Absent)
[2018-01-19] MEDS ORDERED: Ondansetron INJ* 2 MG/ML VIAL IV PRN (02:01)
[2018-01-19] MEDS ORDERED: NS 0.9% 1000 ML* 1,000 ML IV SCH (02:15)
[2018-01-19] MEDS ORDERED: Aspirin TAB* 325 MG PO ONE (02:26)
--- NOTE | 2018-01-19 03:53 | HP ---
CC: Dr. Chawla * HISTORY AND PHYSICAL: DATE OF ADMISSION: 01/19/18 TIME OF EVALUATION: 0200 PRIMARY CARE PHYSICIAN: Dr. Chawla. CHIEF COMPLAINT: Shortness of breath. HISTORY OF PRESENT ILLNESS: This is a 67-year-old female with past medical history of COPD, on oxygen with also history of esophageal cancer, status post esophagectomy, who presented to the emergency room with complaints of shortness of breath, chest pain, complaints of somebody has been sitting on my chest. The history is limited as the patient clearly has word finding difficulty. She is visibly tachypnea. She does answer questions appropriately, but is delayed in her response or is unable to respond at all. She remembers me from her admission in September. She denies being confused. Denies having issues with word finding. She does admit that she is short of breath. Denies any cough. No fevers. No nausea, vomiting. No diarrhea. No abdominal pain. No urinary symptoms. She denies any weakness or any confusion or vision changes. Otherwise review of systems is limited due to patient's inability to articulate and communicate. I did speak with her daughter, who states she went to urgent care on 01/13/18 for headache. She had a CAT scan done at that time and unremarkable workup. The daughter states she has been having complaints for headache, but her daughter states she was last seen well on 01/16/18. In the emergency room, the patient had labs and imaging. She was given 2 L of fluid and referred to the hospitalist service for further evaluation. PAST MEDICAL HISTORY: 1. COPD, on oxygen, unclear how much. 2. Hypertension. 3. Chronic pain. 4. History of esophageal cancer, recurrent status post chemo and radiation now with esophagectomy in April 2017 at [facility] followed by Dr. Vance. 5. History of lung cancer, status post right lobectomy. 6. History of aspiration pneumonia. 7. History of microscopic colitis. 8. History of stricture of the esophagus, status post dilatation every 2 weeks. MEDICATIONS: Unknown. ALLERGIES: 1. MARINOL, hallucinations. 2. FENTANYL, shortness of breath. 3. MIRTAZAPINE, hallucination. 4. PENICILLIN, unknown. FAMILY HISTORY: Father at age 52 with complications of alcohol. Mother at age 98 from congestive heart failure. SOCIAL HISTORY: Unable to obtain. Per prior H and P it appears that the patient does live alone, independent of ADLs. She quit smoking 5 years ago. Does have a 40-pack year history. No alcohol use and no illicit drug use. Her health-care proxy are daughters, Urmila and Lenore Crews. CODE STATUS: Full code. REVIEW OF SYSTEMS: Limited due to patient's inability to communicate. PHYSICAL EXAMINATION GENERAL: The patient is tachypneic with limited ability to communicate. VITAL SIGNS: Temp rectal 98.7, pulse rate 109, respiratory rate ranges from 20 to 40, oxygen saturation 100% on room air, blood pressure 190/94. HEENT: Head: Normocephalic. Pupils equal and reactive, anicteric. Oropharynx : Mucous membranes are moist. NECK: Supple. No lymphadenopathy. RESPIRATORY: Diminished breath sounds. Rhonchi heard in the left middle lobe. Increased work of breathing noted. CARDIAC: Tachycardia, soft systolic murmur heard throughout. ABDOMEN: Positive bowel sounds, soft, nontender, nondistended. EXTREMITIES: No clubbing, cyanosis, or edema. +1 DPs. NEUROLOGIC: The patient is alert and oriented x3. She clearly has expressive aphasia, word finding difficulty. Upper and lower muscle strength are equal and symmetric. LABORATORY DATA: White count 6.4, hemoglobin 13, hematocrit 38, platelets 379. INR is 0.92. Blood gas, pH 7.51, pCO2 19, oxygen is 121. Sodium 123, potassium 3.4, chloride 90, bicarb 17, anion gap of 16, BUN 8, creatinine 0.6, glucose 143. Troponin 0.01. BNP 184. CRP is 7.15. Urine shows +2 ketones. RADIOGRAPHIC DATA: Chest CTA, no evidence for PE, enlarging left hilar mass, lymph nodes with multiple smaller nodule lymph nodes following left upper lung pulmonary vessels associated with new pleural based nodule located in the periphery of the left lower lung suggest further evaluation with PET-CT study, the patient has history of cancer. Head CT, no acute findings. EKG shows sinus tachycardia, QTc of 479. ASSESSMENT: This is a 67-year-old female with past medical history of esophageal cancer and lung cancer, who presents to the emergency room with shortness of breath, found to have expressive aphasia. 1. Shortness of breath. Assessment: The patient is tachypneic. She does not have pulmonary embolism. Her blood gas shows a mixed respiratory alkalosis, metabolic acidosis. No white count. No findings for infection. I wonder if this tachypnea is an underlying neurologic process driving her tachypnea could be salicylate toxicity. I am waiting for the levels to return. It does not appear to be withdrawal but also potential concern for an underlying malignancy such as carcinomatosis with meningeal involvement. Plan: I am going to admit her to the ICU for close monitoring. We will continue her inhalers and follow up with the campus safety officer for further evaluation. 2. Expressive aphasia. Assessment: The patient is not confused but having a difficulty with word finding. She was last seen normal on 01/16/18. She has been complaining of headaches, again as mentioned above concern for malignant process. Plan: We will continue neuro checks, order MRI with and without, consider oncology and neurology involvement. We will give her an aspirin for possible stroke but less likely given this situation. We will order swallow evaluation and keep her n.p.o. in the setting of her tachypnea. Depending on the results, we will also get speech therapy involved. 3. Chronic medical problems: The patient is unable to provide a medication list. I also do not think she is safe to swallow, take p.o. in the setting of her respiratory tachypnea and her neurologic process. Keep her n.p.o. for now. 4. FEN. IV fluids. 5. DVT prophylaxis. The patient scores high risk. We will place her on heparin subcu t.i.d. 6. Code status, full code. TIME SPENT: Greater than 60 minutes was spent doing the history and physical; more than half the time was spent in direct patient contact. [id number]/[facility] #: [id number] [facility] CENTERBaldev
[2018-01-19] MEDS ORDERED: Heparin VIAL(*) 5000 UNITS/ML VIAL (FIVE THOUSAND) SUBCUT SCH (06:00)
[2018-01-19 08:39] LABS: ABS Basophils 0 10^3/ul (0-0.2); ABS Eosinophils 0 10^3/ul (0-0.6); ABS Lymphocytes 1.1 10^3/ul (1.0-4.8); ABS Monocytes 0.8 10^3/ul (0-0.8); ABS Neutrophils 3.2 10^3/ul (1.5-7.7); ABS Nucleated RBC 0 10^3/ul; Eosinophil % 0.1 % (0-6); Hematocrit 31 % (35-47); Hemoglobin 10.5 g/dl (12.0-16.0); Lymphocyte % 21.3 % (25-47); Mean Corpuscular HGB Conc 34 g/dl (31-36); Mean Corpuscular Hemoglobin 30 pg (27-31); Mean Corpuscular Volume 88 fL (80-97); Mean Platelet Volume 6.3 um3 (7.4-10.4); Nucleated Red Blood Cells % 0; Platelet Count 289 10^3/ul (150-450); Red Blood Count 3.51 10^6/ul (4.00-5.40); Red Cell Distribution Width 14 % (10.5-15); White Blood Count 5.1 10^3/ul (3.5-10.8)
--- NOTE | 2018-01-19 08:40 | RAD ---
Indication: Shortness of breath. Single frontal view of the chest performed at 2145 hours was reviewed. Comparison is made with previous exam dated September 20, 2017. Hyperinflated lung shi are noted. COPD is noted. No alveolar consolidation is noted. IMPRESSION: COPD WITH CHRONIC INTERSTITIAL DISEASE WITHOUT CHANGE SINCE SEPTEMBER 20, 2017. R0
--- NOTE | 2018-01-19 08:46 | PN ---
Date of Service: 01/19/18 Critical Care Services: 67F with htn, chronic pain, copd on home o2, h/o lung ca s/p lobectomy, h/o esophageal cancer s/p esophagectomy presents with ams. 01/19: Oriented x 2. Restless. Vital Signs: Temp Pulse Resp BP SpO2 FiO2 98.5 F 107 21 147/74 100 01/19/18 08:36 01/19/18 08:00 01/19/18 08:00 01/19/18 08:00 01/19/18 08:00 Physical Exam: Gen - awake, restless HEENT - ncat, eomi Neck - no jvd CV - s1/s2, tachy Lungs - cta, coare breath sounds Abd - soft, nt Ext - no edema Neuro - confused, oriented x 2. follows commands. some difficulty word finding Fluid Balance (Past 24 Hours): I= O= Net Intake & Output 01/17/18 01/18/18 01/19/18 01/20/18 06:59 06:59 06:59 06:59 Intake Total 1268 Output Total 1450 330 Balance -182 -330 Weight 54.3 kg Intake: IV Fluids 1268 NS (0.9%) 268 Output: [place] 1450 330 Labs: Laboratory Results - last 24 hr 01/18/18 01/18/18 01/18/18 22:02 22:02 22:02 WBC 6.4 RBC 4.31 Hgb 13.0 Hct 38 MCV 88 MCH 30 MCHC 34 RDW 14 Plt Count 379 MPV 6.6 L Neut % (Auto) 75.9 Lymph % (Auto) 15.1 L Colbert % (Auto) 8.4 H Eos % (Auto) 0.1 Baso % (Auto) 0.5 Absolute Neuts (auto) 4.9 Absolute Lymphs (auto) 1.0 Absolute Monos (auto) 0.5 Absolute Eos (auto) 0 Absolute Basos (auto) 0 Absolute Nucleated RBC 0 Nucleated RBC % 0.1 INR (Anticoag Therapy) APTT ABG pH ABG pCO2 ABG pO2 ABG HCO3 ABG O2 Saturation ABG Base Excess Sodium 123 L Potassium 3.4 L Chloride 90 L Carbon Dioxide 17 L Anion Gap 16 H BUN 8 Creatinine 0.60 Est GFR ( Amer) 120.3 Est GFR (Non-Af Amer) 99.4 BUN/Creatinine Ratio 13.3 Glucose 143 H Lactic Acid 1.6 Calcium 9.2 Total Bilirubin 0.50 AST 24 ALT 9 Alkaline Phosphatase 80 Ammonia Total Creatine Kinase 52 Troponin I 0.01 C-Reactive Protein 7.15 B-Natriuretic Peptide Total Protein 7.2 Albumin 4.2 Globulin 3.0 Albumin/Globulin Ratio 1.4 Prealbumin TSH Urine Color Urine Appearance Urine pH Ur Specific [place] Urine Protein Urine Ketones Urine Blood Urine Nitrate Urine Bilirubin Urine Urobilinogen Ur Leukocyte Esterase Urine WBC (Auto) Urine RBC (Auto) Urine Bacteria Urine Glucose Salicylates Cancelled Acetaminophen Cancelled 01/18/18 01/18/18 01/18/18 22:02 22:02 22:15 WBC RBC Hgb Hct MCV MCH MCHC RDW Plt Count MPV Neut % (Auto) Lymph % (Auto) Colbert % (Auto) Eos % (Auto) Baso % (Auto) Absolute Neuts (auto) Absolute Lymphs (auto) Absolute Monos (auto) Absolute Eos (auto) Absolute Basos (auto) Absolute Nucleated RBC Nucleated RBC % INR (Anticoag Therapy) 0.92 APTT 42.0 H ABG pH 7.51 H ABG pCO2 19 L ABG pO2 121 H ABG HCO3 20.6 ABG O2 Saturation 99.5 H ABG Base Excess -5.6 L Sodium Potassium Chloride Carbon Dioxide Anion Gap BUN Creatinine Est GFR ( Amer) Est GFR (Non-Af Amer) BUN/Creatinine Ratio Glucose Lactic Acid Calcium Total Bilirubin AST ALT Alkaline Phosphatase Ammonia Total Creatine Kinase Troponin I C-Reactive Protein B-Natriuretic Peptide 184 H Total Protein Albumin Globulin Albumin/Globulin Ratio Prealbumin TSH Urine Color Urine Appearance Urine pH Ur Specific [place] Urine Protein Urine Ketones Urine Blood Urine Nitrate Urine Bilirubin Urine Urobilinogen Ur Leukocyte Esterase Urine WBC (Auto) Urine RBC (Auto) Urine Bacteria Urine Glucose Salicylates Acetaminophen 01/19/18 01/19/18 01/19/18 00:55 03:30 03:30 WBC RBC Hgb Hct MCV MCH MCHC RDW Plt Count MPV Neut % (Auto) Lymph % (Auto) Colbert % (Auto) Eos % (Auto) Baso % (Auto) Absolute Neuts (auto) Absolute Lymphs (auto) Absolute Monos (auto) Absolute Eos (auto) Absolute Basos (auto) Absolute Nucleated RBC Nucleated RBC % INR (Anticoag Therapy) APTT ABG pH ABG pCO2 ABG pO2 ABG HCO3 ABG O2 Saturation ABG Base Excess Sodium Potassium Chloride Carbon Dioxide Anion Gap BUN Creatinine Est GFR ( Amer) Est GFR (Non-Af Amer) BUN/Creatinine Ratio Glucose Lactic Acid Calcium Total Bilirubin AST ALT Alkaline Phosphatase Ammonia 34 Total Creatine Kinase Troponin I 0.01 C-Reactive Protein B-Natriuretic Peptide Total Protein Albumin Globulin Albumin/Globulin Ratio Prealbumin 9 L TSH 0.65 Urine Color Straw Urine Appearance Clear Urine pH 6.0 Ur Specific [place] 1.019 Urine Protein 2+(100 mg/dl) A Urine Ketones 2+ A Urine Blood 1+ A Urine Nitrate Negative Urine Bilirubin Negative Urine Urobilinogen Negative Ur Leukocyte Esterase Negative Urine WBC (Auto) Trace(0-5/hpf) Urine RBC (Auto) 1+(3-5/hpf) A Urine Bacteria Absent Urine Glucose Negative Salicylates < 2.50 Acetaminophen < 15 01/19/18 08:28 WBC 5.1 RBC 3.51 L Hgb 10.5 L Hct 31 L MCV 88 MCH 30 MCHC 34 RDW 14 Plt Count 289 MPV 6.3 L Neut % (Auto) 63.5 Lymph % (Auto) 21.3 L Colbert % (Auto) 14.7 H Eos % (Auto) 0.1 Baso % (Auto) 0.4 Absolute Neuts (auto) 3.2 Absolute Lymphs (auto) 1.1 Absolute Monos (auto) 0.8 Absolute Eos (auto) 0 Absolute Basos (auto) 0 Absolute Nucleated RBC 0 Nucleated RBC % 0 INR (Anticoag Therapy) APTT ABG pH ABG pCO2 ABG pO2 ABG HCO3 ABG O2 Saturation ABG Base Excess Sodium Potassium Chloride Carbon Dioxide Anion Gap BUN Creatinine Est GFR ( Amer) Est GFR (Non-Af Amer) BUN/Creatinine Ratio Glucose Lactic Acid Calcium Total Bilirubin AST ALT Alkaline Phosphatase Ammonia Total Creatine Kinase Troponin I C-Reactive Protein B-Natriuretic Peptide Total Protein Albumin Globulin Albumin/Globulin Ratio Prealbumin TSH Urine Color Urine Appearance Urine pH Ur Specific [place] Urine Protein Urine Ketones Urine Blood Urine Nitrate Urine Bilirubin Urine Urobilinogen Ur Leukocyte Esterase Urine WBC (Auto) Urine RBC (Auto) Urine Bacteria Urine Glucose Salicylates Acetaminophen Studies: CXR 01/18/18 IMPRESSION: COPD WITH CHRONIC INTERSTITIAL DISEASE WITHOUT CHANGE SINCE SEPTEMBER 20, 2017. CTA Chest 01/18/18 IMPRESSION: 1. No evidence of pulmonary embolic disease. 2. Enlarging left hilar mass/lymph nodes with multiple smaller nodules/lymph nodes following left upper lung pulmonary vessel. This is associated with a new pleural-based nodule located in the periphery of the left lower lung. Suggest further evaluation with consideration of a PET CT study. The patient has a history of cancer and this may represent a progression of the patient's primary cancer. Brain CT 01/18/18 IMPRESSION: No acute findings. Impression: 67F with htn, chronic pain, copd on home o2, h/o lung ca s/p lobectomy, h/o esophageal cancer s/p esophagectomy presents with ams. 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 ID - afebrile - normal wbc - lactate normal - no indication for abx at this time GI - malnutrition - nutrition consult Renal - hyponatremia - 2/2 dehydration? - check urine lytes - monitor i/o Heme - esophageal cancer, lung cancer - new left hilar mass - will discuss with oncology about MRI and possible biopsy of lung mass Endo - check tsh, cortisol Lines - piv, bolton PPx - gi/dvt Full Code Critical Care Time: 50 mins
[2018-01-19 08:57] LABS: EGFR Non-African American 119.9 (>60)
[2018-01-19] MEDS ORDERED: Aspirin 81 mg CHEW TAB* 81 MG TAB.CHEW PO SCH (09:00)
[2018-01-19] MEDS: Enoxaparin(*) 40 MG/0.4 ML SYR SUBCUT SCH (09:40)
--- NOTE | 2018-01-19 11:48 | OP ---
Operative Report - Blank - Operative Report Date of Operation: 01/19/18 Note: Lumbar Puncture Date: 01/19/18 Time: 1130am Indication: Altered Mental Status Attending: Daphne Pandey time-out was completed verifying correct patient, procedure, site, positioning , and special equipment if applicable. The patient was placed in the LEFT> lateral decubitus position in a semi- position with help from the nursing staff. The area was cleansed and draped in usual sterile fashion. 1% lidocaine was used anesthetize the surrounding skin area. A 20-gauge 3.5-inch spinal needle was placed in the L4-L5 interspace. Clear cerebral spinal fluid was obtained and the opening pressure was noted to be 13cm>. Four tubes were filled with 3 mL of CSF. These were sent for the usual tests, including 1 tube to be held for further analysis if needed. Estimated Blood Loss: None The patient tolerated the procedure well and there were no complications.
[2018-01-19] MEDS ORDERED: Magnesium Sulfate IV* 3 GM in NS 0.9% 100 ML* 100 ML IVPB ONE (11:50)
[2018-01-19] MEDS ORDERED: HYDROmorphone INJ1* 1 MG/ML SYRINGE IV SLOW PU PRN (11:51)
[2018-01-19 12:01] LABS: Body Fluid Source Cerebral Spinal
[2018-01-19] MEDS: Potassium Chlor TAB* 20 MEQ TAB.ER PO SCH ×3 (12:07→17:19)
[2018-01-19] MEDS: KCL 10 MEQ/50 ML IVPREMIX* 10 MEQ/50 ML BAG IV SCH ×3 (12:07→14:54)
[2018-01-19] MEDS ORDERED: LORazepam INJ* 2 MG/ML 1 ML VIAL IV PUSH ONE (15:00)
[2018-01-19] MEDS ORDERED: LORazepam INJ* 2 MG/ML 1 ML VIAL ONE (15:02)
[2018-01-19] MEDS ORDERED: Gadoteridol* (CONTRAST) 279.3 MG/ML 10 ML IV ONE (15:47)
[2018-01-19] MEDS: LORazepam INJ* 2 MG/ML 1 ML VIAL IV PUSH PRN (16:03)
--- NOTE | 2018-01-19 16:20 | RAD ---
HISTORY: altered mental status, history of esophageal cancer COMPARISONS: Head CT dated January 18, 2018, MRI of the brain dated August 17, 2015 TECHNIQUE: The following sequences were obtained of the head: Sagittal T1-weighted images, axial T2-weighted images, axial FLAIR images, axial susceptibility weighted images, axial T1-weighted images. Additionally, axial diffusion-weighted images were obtained with calculated apparent diffusion coefficients. Additionally, sagittal, coronal, and axial T1-weighted images were obtained after contrast enhancement with a gadolinium-based intravenous contrast agent. FINDINGS: HEMORRHAGE/INFARCT: There is no hemorrhage or acute infarct. MASSES/SHIFT: There is no mass or shift. EXTRA-AXIAL SPACES/MENINGES: There are no extra-axial fluid collections. SULCI AND VENTRICLES: The sulci and ventricles are normal in size and position for the patient's stated age. CEREBRUM: There has been interval development of a patchy pattern of elevated T2/FLAIR signal within the cortical and subcortical pattern within a parasagittal distribution of the frontal and parietal lobes bilaterally extending to the occipital and posterior temporal lobes bilaterally. BRAINSTEM: There are no focal parenchymal abnormalities. CEREBELLUM: There is elevated T2/FLAIR signal within the cerebral hemispheres bilaterally. The cerebellar tonsils are normal in size and position. SELLA: The sella is normal. PINEAL: The pineal region is clear. CP ANGLE/TEMPORAL BONES: The labyrinthine structures are grossly normal. VESSELS: Normal flow-voids are noted within the visualized vertebral vasculature. DIFFUSION ABNORMALITIES: There are no diffusion abnormalities. PARANASAL SINUSES/MASTOIDS: The paranasal sinuses are clear. ORBITS: The orbits are unremarkable. BONES AND SOFT TISSUE: No bone or soft tissue abnormalities are noted. OTHER: There is no abnormal enhancement. IMPRESSION: THERE IS A PATTERN OF CORTICAL AND SUBCORTICAL ABNORMAL SIGNAL OF THE CEREBRAL HEMISPHERES AND CEREBELLUM BILATERALLY SUGGESTIVE OF POSTERIOR REVERSIBLE ENCEPHALOPATHY SYNDROME IN THE CORRECT CLINICAL SETTING.
--- NOTE | 2018-01-19 16:33 | PN ---
Progress Note - Progress Note Date of Service: 01/19/18 Note: MRI Brain consistent with PRES. EEG ordered. Neurology consult called. Norvasc and lisinopril started.
[2018-01-19] MEDS: Lisinopril TAB* 10 MG PO SCH (16:49)
[2018-01-19] MEDS: amLODIPine TAB* 5 MG PO SCH (16:49)
[2018-01-19 17:11] LABS: EGFR Non-African American 131.8 (>60)
[2018-01-19] MEDS: niCARdipine 0.1MG/ML IVPREMIX* 20 MG/200 ML BAG IV SCH (17:25)
[2018-01-19] MEDS ORDERED: Potassium Chlor TAB* 20 MEQ TAB.ER PO ONE ×2 (19:30→23:30)
[2018-01-19] MEDS: KCL premix 10MEQ/50 ML x 2 BAGS IV SCH ×2 (19:41→21:29)
[2018-01-19] MEDS ORDERED: Sodium Phosphate INJ* 15 MMOLE in NS 0.9% 250 ML* 250 ML IVPB ONE (20:00)
[2018-01-19] MEDS ORDERED: Metoprolol Tartrate IV* 1 MG/ML 5 ML VIAL IV PRN (20:48)
--- NOTE | 2018-01-19 20:49 | PN ---
Progress Note - Progress Note Date of Service: 01/19/18 Note: Paged - Patient choked and aspirated on her dinner this evening. Coughing but otherwise no respiratory distress. Will hold her PO evening meds. Lopressor IV prn ordered.
[2018-01-19] MEDS: Metoprolol Tartrate TAB* 25 MG PO SCH (20:51)
[2018-01-19] MEDS: Pregabalin CAP(*) 25 MG PO SCH (20:51)
--- NOTE | 2018-01-19 22:14 | CONS ---
PULMONARY CONSULTATION REPORT: DATE OF CONSULT: 01/19/18 CONSULTATION REQUESTED BY: Dr. Serna. REASON FOR CONSULT: Evaluation of abnormal CT chest. HISTORY OF PRESENT ILLNESS: The patient is a 67-year-old female, former smoker , with significant smoking history, quit recently, known to me from prior outpatient evaluations, with history of esophageal cancer diagnosed in 2011, status post chemoradiation, surgery and revision surgery for recurrence in April of 2017 with complicated postop course with respiratory failure requiring intubation, pseudomonal pneumonia and sepsis. The patient also with right upper lobe non-small cell lung cancer, adenocarcinoma, status post right upper lobectomy in 2013; hypertension; lymphocytic colitis; degenerative joint disease; chronic back pain; COPD; anxiety; AFib with RVR; and empyema of the left chest requiring VATS on 04/30/17, has been having complicated course since that time with worsening shortness of breath, also with hospitalizations for worsening shortness of breath. The patient has been living with her daughter. She was noted to be having altered mental status recently and was brought into the hospital for further evaluation. The patient has been confused on admission. Has been reporting shortness of breath, but denies significant cough , fevers, nausea, vomiting, diarrhea, or abdominal pain. She denies any urinary complaints. The patient has been having headaches at home as per the daughter. The patient had first evaluation for altered mental status including CT of the brain, which did not reveal any acute pathology. The patient given headache and altered mental status underwent lumbar puncture, which was negative for malignant cells. Cultures have been negative so far. With evidence of traumatic tap, there was evidence of 67 RBCs with 75 monocytes and 15 lymphocytes. The CSF glucose was within normal limits. Protein was increased at 57. Cell count differential is pending at this time. The patient also had blood gas analysis, which showed evidence of respiratory alkalosis with a pCO2 of 19, pH of 7.51, bicarb of 20.6, normal O2 sats. Sodium was decreased at 123 on admission, improved to 132. She is also hypokalemic with potassium of 2.9. Her serum bicarb was found to be low with elevated anion gap at 13. Serum osmolality was low. Lactic acid within normal limits. BNP is slightly elevated. Troponin within normal limits. Ammonia is normal. No significant white count seen. Monocytes are elevated. Urine osmolality was within normal limits. Urine sodium was within normal limits, glucose was negative with evidence of 2+ protein, 2+ ketones, 1+ blood, and 1+ rbc's on high -power field. Serum albumin was within normal limits. The patient seen and examined at bedside. The patient is lying in bed, in no apparent distress. The patient reports significant shortness of breath, has been complaining of shortness of breath even at rest and lying down. She has been using accessory muscles of respiration. Her O2 requirements have been at 2 L per minute. PAST MEDICAL HISTORY: As described above with: 1. Esophageal cancer in 2011. 2. Lung cancer in 2013, status post upper lobectomy. 3. Hypertension. 4. Lymphocytic colitis. 5. Degenerative joint disease. 6. Chronic back pain. 7. COPD, on O2. 8. Anxiety. 9. Prior history of respiratory failure. 10. Pseudomonal pneumonia and sepsis. 11. Non-STEMI, status post PARs. 12. AFib with RVR. 13. Empyema of the left chest requiring VATS. 14. Esophageal stricture, status post dilation every 2 weeks. MEDICATIONS AT HOME: On admission include: 1. Klonopin 1 mg p.o. b.i.d. 2. Simethicone 80 mg p.o. t.i.d. 3. Lyrica 25 b.i.d. 4. Multivitamin 1 capsule p.o. daily. 5. Metoprolol 25 mg p.o. b.i.d. 6. Melatonin 5 mg at bedtime. 7. Lactase 3000 units t.i.d. p.r.n. 8. DuoNeb 1 unit q.6 hours p.r.n. 9. Dilaudid 2 mg p.o. q.4 hours. 10. Lexapro 10 mg daily. 11. Cyproheptadine 4 mg daily. 12. Calcium carbonate 600 mg daily p.r.n. 13. Albuterol 2 puffs q.4 hours. 14. Acetaminophen 650 mg p.r.n. ALLERGIES: DOXYCYCLINE, DRONABINOL, FENTANYL, MIRTAZAPINE, PENICILLIN. FAMILY HISTORY: Father at age 52 with alcohol-related complications. Mother at 98 from congestive heart failure. SOCIAL HISTORY: The patient lives alone, daughter lives close by and is helping with activities of daily living. Prior [id number] smoking history, quit 5 years ago. REVIEW OF SYSTEMS: All 14-point systems reviewed and as per HPI. PHYSICAL EXAM: The patient is lying in bed, in no apparent distress, alert, awake, oriented x2. Lungs: Using accessory muscles of respiration, coarse breath sounds. Abdomen: Soft, nontender, nondistended. Bowel sounds present. Cardiovascular: S1, S2 present, tachycardic. Extremities: Normal range of motion. No edema. Neuro: No focal deficits. DIAGNOSTIC STUDIES/LAB DATA: WBC count 5.1, hemoglobin 10.5, hematocrit 31, platelet count 289. Sodium 132, potassium 2.9, chloride 103, bicarb 16 with elevated anion gap at 13, BUN and creatinine within normal limits. Serum osmolality and urine osmolality within normal limits. Calcium 7.9, magnesium 1.4. BNP elevated at 184. Cortisol and TSH within normal limits. CSF showed evidence of 75 monocytes. Cytology is negative. Protein is significantly elevated at 57, glucose within normal limits. CSF culture is negative to date. CTA of the chest was personally reviewed by me. The patient with enlarging left hilar mass along with multiple smaller nodules. The patient also with pleural- based nodule in the periphery of the left lower lung, which was seen on prior scan with slight interval increase in size. IMPRESSION AND RECOMMENDATIONS: 67-year-old female with significant smoking history with prior history of lung cancer and esophageal cancer with complicated course recently with multiple hospitalizations and admissions, admitted with worsening shortness of breath and altered mental status. The patient found to have evidence of hyponatremia with no CT evidence of acute intracranial disease. Lumbar puncture showed elevated protein with normal glucose and few RBCs and monocytes and lymphocytes, likely traumatic tap. Cytology from CSF has been negative. The patient also has complaint of headaches prior to admission. She also has evidence of interval progression of hilar opacity, unclear if it is lymph node or primary lung lesion. Also has peripheral lesion in the left lung in subpleural location with interval increase in size. Her last CT scan was done on 01/01/18, which has shown evidence of pulmonary nodule in the left upper lobe multiple in numbers that have interval increase in size. The patient also noted to have a 6 mm pleural-based pulmonary nodule that is currently increased on current scan. She also was noted to have dilated esophagus with debris that was also seen on the current scan. Above findings are highly concerning for malignancy either recurrence or primary malignancy of the lung. Given the peripheral subpleural location, this might be amenable to ultrasound or CT-guided biopsy. If it could not be reached through CT-guided approach, would need further evaluation with endobronchial ultrasound-guided aspiration, which the patient would be high risk for anesthesia given multiple comorbidities and her significant shortness of breath. Will discuss with interventional radiologist. Rest of the management as per primary team. Altered mental status could be ? secondary to hyponatremia, which seems to be improving now. MRI brain pending She also has hypokalemia and metabolic acidosis. Oxygenation status is stable, not requiring increased O2. Had a PET scan in December of 2016, that did not reveal any uptake in the lungs, so these lesions seem to be more acute. Further recommendations pending review by Interventional Radiology for CT- guided or ultrasound-guided biopsy. Discussed with Dr. Serna. [id number]/[facility] #: [id number] MARILYNN
--- NOTE | 2018-01-20 01:31 | CONS ---
NEUROLOGY CONSULTATION REPORT: DATE OF CONSULT: 01/19/18 CONSULTING PROVIDER: Ritchie Serna DO REASON FOR CONSULT: Abnormal MRI. CHIEF COMPLAINT: Confusion and word-finding difficulty. HISTORY OF PRESENT ILLNESS: Mrs. Shanta Crews is a pleasant 67-year-old right - handed female, who has a complicated medical history including esophageal cancer with chemotherapy done more than 5 years ago in [place]; esophagectomy in April of 2017 at [facility]; history of lung cancer, status post lobectomy; hypertension; chronic low back pain; COPD, on oxygen at home, who was having headaches for approximately 1 to 2 weeks. The history was mostly obtained by Urmila via telephone. Urmila is the patient's daughter who lives across the street from the patient. The patient is unable to provide any medical history due to aphasia and confusion. According to Urmila, the patient was last seen normal on Thursday evening. The patient had requested to have her laundry done, which she typically has done on weekly basis. Urmila informed the patient to leave the laundry outside the door, which the patient did. Urmila went to check up on the patient and gather the laundry on Thursday and she saw the patient laying in bed comfortably with her oxygen on. Urmila did not want to wake the patient so she took the laundry and left. The patient typically watches Urmila's kids on Thursday night, but at 8 p.m., the patient never showed up to babysit. The patient's granddaughter went to check up on her when the patient did open the door, but laid on the couch confused and was unable to communicate. The granddaughter ran back and alerted the patient's son-in- law, who immediately assessed the patient and contacted EMS. Approximately 1 week ago, the patient came into the ED to be evaluated for headache. She had a CT of the head, which was reported as normal. This was done on 01/13/18. The patient was then sent back home. Currently, the patient is lying in bed in the ICU. She has elevated blood pressure that fluctuates between the 130 to 140 systolic and jumps up to the 180 to 190 systolic. The patient had a lumbar puncture done with the following cerebrospinal fluid analysis: WBC of 0, RBC 67, total cell count 20, glucose of 58, and total protein 57. PAST MEDICAL HISTORY: History of stricture of esophagus, colitis, aspiration pneumonia, lung cancer status post right lobectomy, esophageal cancer recurrent with chemo and radiation 5 years ago and then esophagectomy in April 2017. Urmila did not know what chemotherapy the patient received during that time. Chronic pain, hypertension, COPD, on home oxygen. MEDICATIONS: 1. Hydromorphone 2 mg p.o. every 4 hours as needed. 2. Calcium. 3. Melatonin. 4. Albuterol. 5. Cyproheptadine 4 mg p.o. daily. 6. Multivitamins. 7. Pregabalin 25 mg p.o. b.i.d. 8. Clonazepam 1 mg p.o. b.i.d. 9. Citalopram 10 mg p.o. daily. 10. Simethicone 80 mg p.o. t.i.d. p.r.n. 11. Lactase 3000 units p.o. t.i.d. p.r.n. 12. Metoprolol 25 mg p.o. b.i.d. 13. Ipratropium/albuterol 1 vial inhaled every 6 hours. 14. Acetaminophen tablet 650 mg p.o. every 4 hours as needed. ALLERGIES: PENICILLIN, MIRTAZAPINE, LACTOSE, FENTANYL, DRONABINOL, DOXYCYCLINE. FAMILY HISTORY: No family history of stroke or seizures. REVIEW OF SYSTEMS: The patient is unable to provide a review of systems due to aphasia and confusion. PHYSICAL EXAM: Vitals: Temperature 98.1, heart rate of 105, respiratory rate of 47, oxygen saturation of 100, blood pressure 134/75. Reviewing the patient' s blood pressure, she has had readings up into the 190s over the last 24 hours. General: Ill-appearing female, who is in no acute distress. She appears older than stated age. Head: Atraumatic, normocephalic without any obvious abnormality. Eyes: Conjunctivae/corneas are clear. Neck is supple and symmetrical with no carotid bruits. Lungs: Diminished lung sound bilaterally and slightly tachypneic. Cardiovascular: Regular rhythm with normal S1, S2. Extremities: Normal range of motion with no cyanosis. Skin: No skin lesions or laceration. Psych: Not applicable. Neurological Examination: Mental status, the patient is awake. She is alert to self, but not oriented to person , place, time, but I think this is related mostly due to expressive aphasia. She has trouble repeating, naming, and does not comprehend complex commands. She was able to open and close her eyes and stick out her thumb on command. Cranial nerves: Normal comprehension testing bilaterally. Pupils are mid ranging and reactive to light. Sensation is intact in her forehead, cheeks, and jaw region bilaterally. No facial droop. She is able to hear throughout the history process. Tongue is symmetrical and midline with no atrophy. Motor Examination: No abnormal movement. No pronator drift. She does not have any hyporeflexia or spasticity. She was able to elevate all 4 extremities to command and against mild resistance. No lateralizing sign on examination. Reflexes: Right/left, brachioradialis 2/2, biceps 2/2, triceps 2/2, patella 3/3 , ankle 2/2, plantar mute/mute. Sensation is intact to light touch and pinprick bilaterally. Coordination: Not applicable as the patient was unable to follow command. Gait: Not assessed as the patient is in the ED. LABS/IMAGING/OTHER RADIOLOGICAL TESTING: I reviewed the CT head without contrast completed on 01/13/18. There was no acute intracranial abnormality or hypodensity seen in the study. There are areas of calcification in the basal ganglia regions bilaterally. I did review the CT head that was completed on . On this CT, there are evidence of bilateral cerebellar and left parietooccipital hypodensity that was not seen on the previous CAT scan. An MRI of the brain with and without contrast was obtained to evaluate for any metastatic disease, which showed diffuse posterior predominant as well as involving the watershed area bilaterally. There are T2 hyperintensities without any DWI changes, which is consistent with posterior reversible encephalitis. WBC was 6.4, hemoglobin is 13, hematocrit of 38, platelets of 379. INR 0.92. Sodium of 123, potassium 3.4, chloride of 90. Upon presentation, the sodium did increase to 132 within 12 hours. Magnesium level 1.4. TSH of 0.65. Cortisol 17.86. C-reactive protein 7.15. ASSESSMENT AND RECOMMENDATIONS: Mrs. Shanta Crews is a 67-year-old female who presented with aphasia and confusion in the setting of hypertensive urgency. The patient was found to have diffuse T2 hyperintensities mostly involving the posterior region, but also the anterior watershed distribution on MRI and she had hypodensity seen on the CAT scan. Neurological examination suggests aphasia with encephalopathy. 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 The latter is less likely since her exposure to chemotherapy was more than 5 years ago. We have ruled out any metastatic disease given the normal postcontrast T1 study on MRI. Other differential diagnoses such as watershed infarcts or stroke are unlikely given the normal DWI findings. I do not suspect this is vasculitis since the patient has a normal C-reactive protein and her presentation was acute-subacute. I do not suspect she has viral or bacterial meningo-encephalitis given the normal CSF analysis. Treatment consists of decreasing her blood pressure by 25% in the first 4 hours. I would recommend starting nicardipine drip to decrease the blood pressure at least with systolic blood pressure goal of between 120 to less than 150. She has not had any seizures, but seizures are the second most common presentation in this case after headaches. Please treat headaches with IV magnesium 1 to 2 g x1, this will also help with the presentation of hypomagnesemia that has been already corrected. I agree with the seizure precaution and placing pads at the bedside. She will need repeat MRI in 14 days to make the cerebral edema has resolved. Please order an EEG to evaluate for epileptiform discharges or nonconvulsive status epilepticus. I will continue to follow. I discussed these recommendations with Dr. Serna. TIME SPENT: I spent a total of 60 critical care minutes and greater than 50% of that was spent directly reviewing the medical chart, obtaining history, examining the patient, discussing the case on the phone with the patient's daughter since the patient is unable to participate with the medical history due to aphasia and confusion and discussing the treatment plan with the family and the primary team as mentioned above. [id number]/[facility] #: [id number] MARILYNN
[2018-01-20 02:32] LABS: ABS Basophils 0.1 10^3/ul (0-0.2); ABS Eosinophils 0 10^3/ul (0-0.6); ABS Lymphocytes 1.5 10^3/ul (1.0-4.8); ABS Monocytes 0.9 10^3/ul (0-0.8); ABS Neutrophils 4.7 10^3/ul (1.5-7.7); ABS Nucleated RBC 0 10^3/ul; Eosinophil % 0.1 % (0-6); Hematocrit 33 % (35-47); Hemoglobin 11.1 g/dl (12.0-16.0); Lymphocyte % 21.4 % (25-47); Mean Corpuscular HGB Conc 34 g/dl (31-36); Mean Corpuscular Hemoglobin 30 pg (27-31); Mean Corpuscular Volume 88 fL (80-97); Mean Platelet Volume 6.3 um3 (7.4-10.4); Nucleated Red Blood Cells % 0; Platelet Count 319 10^3/ul (150-450); Red Blood Count 3.73 10^6/ul (4.00-5.40); Red Cell Distribution Width 14 % (10.5-15); White Blood Count 7.2 10^3/ul (3.5-10.8)
[2018-01-20 02:56] LABS: EGFR Non-African American 138.6 (>60)
[2018-01-20] MEDS: niCARdipine 0.1MG/ML IVPREMIX* 20 MG/200 ML BAG IV SCH (06:02)
[2018-01-20] MEDS: Pregabalin CAP(*) 25 MG PO SCH ×2 (07:27→21:25)
[2018-01-20] MEDS: Metoprolol Tartrate TAB* 25 MG PO SCH (07:27)
[2018-01-20] MEDS: amLODIPine TAB* 5 MG PO SCH (07:28)
[2018-01-20] MEDS: Lisinopril TAB* 10 MG PO SCH (07:28)
[2018-01-20] MEDS: ESCITALOPRAM 5 MG PO SCH (07:30)
[2018-01-20] MEDS: clonazePAM TAB(*) 1 MG PO PRN ×2 (08:05→16:30)
[2018-01-20] MEDS: HYDROmorphone TAB* 2 MG PO PRN (08:05)
[2018-01-20] MEDS ORDERED: Multivitamins/Minerals TAB PO SCH (09:00)
--- NOTE | 2018-01-20 09:08 | PN ---
Date of Service: 01/20/18 Critical Care Services: 67F with htn, chronic pain, copd on home o2, h/o lung ca s/p lobectomy, h/o esophageal cancer s/p esophagectomy presents with ams. 01/19: Oriented x 2. Restless. 01/20: MRI consistent with PRES. BP now improved. Remains confused. Aspirated on dinner yesterday. Persistent metabolic acidosis and respiratory alkalosis. Vital Signs: Temp Pulse Resp BP SpO2 FiO2 98.6 F 96 58 129/72 100 01/20/18 04:12 01/20/18 08:00 01/20/18 08:05 01/20/18 07:45 01/20/18 08:00 Physical Exam: Gen - awake, restless HEENT - ncat, eomi Neck - no jvd CV - s1/s2, tachy Lungs - cta, coare breath sounds Abd - soft, nt Ext - no edema Neuro - confused, oriented x 2. follows commands. some difficulty word finding Fluid Balance (Past 24 Hours): I= O= Net Intake & Output 01/18/18 01/19/18 01/20/18 01/21/18 06:59 06:59 06:59 06:59 Intake Total 1268 3248 50 Output Total 1450 3105 205 Balance -182 143 -155 Weight 54.3 kg 53.07 kg Intake: IV Fluids 1268 2740 KCL 155 LR 2585 NS (0.9%) 268 IVPB 315 KCL 215 Magnesium 100 Medicated IV 193 CC - Nicarpidine/Cardene 193 Oral 50 Output: Urine 0 [place] 1450 3105 205 Labs: Laboratory Results - last 24 hr 01/19/18 01/19/18 01/19/18 03:30 08:28 09:33 WBC RBC Hgb Hct MCV MCH MCHC RDW Plt Count MPV Neut % (Auto) Lymph % (Auto) Amelia % (Auto) Eos % (Auto) Baso % (Auto) Absolute Neuts (auto) Absolute Lymphs (auto) Absolute Monos (auto) Absolute Eos (auto) Absolute Basos (auto) Absolute Nucleated RBC Nucleated RBC % Sodium 132 L D Potassium 2.9 L Chloride 103 Carbon Dioxide 16 L Anion Gap 13 H BUN 6 Creatinine 0.51 Est GFR ( Amer) 145.1 Est GFR (Non-Af Amer) 119.9 BUN/Creatinine Ratio 11.8 Glucose 95 Serum Osmolality 270 L Calcium 7.9 L Phosphorus Magnesium 1.4 L Total Bilirubin 0.40 Direct Bilirubin 0.10 Indirect Bilirubin 0.3 AST 20 ALT 7 Alkaline Phosphatase 68 Total Protein 5.7 L Albumin 3.4 Globulin 2.3 Albumin/Globulin Ratio 1.5 Cortisol 17.86 Urine Osmolality 307 Ur Random Creatinine Ur Random Sodium Fluid Source Fluid Volume Fluid Color Fluid Appearance Fluid WBC Fluid RBC Fluid Tot Cell Count Fluid Neutrophils Fluid Lymphocytes Fluid Monocytes Fluid Comment CSF Cell Count Tube # CSF Glucose CSF Total Protein 01/19/18 01/19/18 01/19/18 09:33 11:46 11:46 WBC RBC Hgb Hct MCV MCH MCHC RDW Plt Count MPV Neut % (Auto) Lymph % (Auto) Amelia % (Auto) Eos % (Auto) Baso % (Auto) Absolute Neuts (auto) Absolute Lymphs (auto) Absolute Monos (auto) Absolute Eos (auto) Absolute Basos (auto) Absolute Nucleated RBC Nucleated RBC % Sodium Potassium Chloride Carbon Dioxide Anion Gap BUN Creatinine Est GFR ( Amer) Est GFR (Non-Af Amer) BUN/Creatinine Ratio Glucose Serum Osmolality Calcium Phosphorus Magnesium Total Bilirubin Direct Bilirubin Indirect Bilirubin AST ALT Alkaline Phosphatase Total Protein Albumin Globulin Albumin/Globulin Ratio Cortisol Urine Osmolality Ur Random Creatinine 32.08 Ur Random Sodium 76 Fluid Source Cerebral spinal Fluid Volume 2.5 Fluid Color Colorless Fluid Appearance Clear Fluid WBC 0 Fluid RBC 67 Fluid Tot Cell Count 20 Fluid Neutrophils 10 Fluid Lymphocytes 15 Fluid Monocytes 75 Fluid Comment CSF Cell Count Tube # 4 CSF Glucose 58 CSF Total Protein 57 H 01/19/18 01/20/18 01/20/18 16:45 02:23 02:23 WBC 7.2 RBC 3.73 L Hgb 11.1 L Hct 33 L MCV 88 MCH 30 MCHC 34 RDW 14 Plt Count 319 MPV 6.3 L Neut % (Auto) 65.8 Lymph % (Auto) 21.4 L Amelia % (Auto) 11.9 H Eos % (Auto) 0.1 Baso % (Auto) 0.8 Absolute Neuts (auto) 4.7 Absolute Lymphs (auto) 1.5 Absolute Monos (auto) 0.9 H Absolute Eos (auto) 0 Absolute Basos (auto) 0.1 Absolute Nucleated RBC 0 Nucleated RBC % 0 Sodium 129 L 133 L Potassium 3.2 L 3.8 Chloride 101 105 Carbon Dioxide 16 L 15 L Anion Gap 12 H 13 H BUN 5 L 4 L Creatinine 0.47 L 0.45 L Est GFR ( Amer) 159.5 167.7 Est GFR (Non-Af Amer) 131.8 138.6 BUN/Creatinine Ratio 10.6 8.9 Glucose 116 H 100 Serum Osmolality Calcium 8.4 L 8.6 Phosphorus 1.6 L 2.0 L Magnesium 2.3 Total Bilirubin Direct Bilirubin Indirect Bilirubin AST ALT Alkaline Phosphatase Total Protein Albumin Globulin Albumin/Globulin Ratio Cortisol Urine Osmolality Ur Random Creatinine Ur Random Sodium Fluid Source Fluid Volume Fluid Color Fluid Appearance Fluid WBC Fluid RBC Fluid Tot Cell Count Fluid Neutrophils Fluid Lymphocytes Fluid Monocytes Fluid Comment CSF Cell Count Tube # CSF Glucose CSF Total Protein Studies: MRI Brain w/wo 01/19 IMPRESSION: THERE IS A PATTERN OF CORTICAL AND SUBCORTICAL ABNORMAL SIGNAL OF THE CEREBRAL HEMISPHERES AND CEREBELLUM BILATERALLY SUGGESTIVE OF POSTERIOR REVERSIBLE ENCEPHALOPATHY SYNDROME IN THE CORRECT CLINICAL SETTING. CXR 01/18/18 IMPRESSION: COPD WITH CHRONIC INTERSTITIAL DISEASE WITHOUT CHANGE SINCE SEPTEMBER 20, 2017. CTA Chest 01/18/18 IMPRESSION: 1. No evidence of pulmonary embolic disease. 2. Enlarging left hilar mass/lymph nodes with multiple smaller nodules/lymph nodes following left upper lung pulmonary vessel. This is associated with a new pleural-based nodule located in the periphery of the left lower lung. Suggest further evaluation with consideration of a PET CT study. The patient has a history of cancer and this may represent a progression of the patient's primary cancer. Brain CT 01/18/18 IMPRESSION: No acute findings. Impression: 67F with htn, chronic pain, copd on home o2, h/o lung ca s/p lobectomy, h/o esophageal cancer s/p esophagectomy presents with ams. Respiratory alkalosis. Metabolic acidosis, PRES. Plan: Neuro - AMS - MRI consistent with PRES - eeg with diffuse slowing - LP negative - neuro following CV - tachycardia - improved with resumed betablocker Pulm - copd on home o2, respiratory alkalosis - respiratory alkalosis 2/2 PRES? - repeat abg today ID - afebrile - normal wbc - lactate normal - no indication for abx at this time GI - malnutrition, aspiration - nutrition consult - swallow eval Renal - hyponatremia, metabolic acidosis, hypokalemia - metabolic acidosis compensation from primary respiratory alkalosis vs RTA - slow correction of hyponatremia - replete potassium - renin/dean levels sent to eval for conn syndrome Heme - esophageal cancer, lung cancer - new left hilar mass - EBUS vs IR biopsy of lung mass Endo - TSH and cortisol normal Lines - piv, bolton PPx - gi/dvt Full Code Critical Care Time: 65 mins
[2018-01-20] MEDS: Metoprolol Tartrate TAB* 50 mg PO SCH ×2 (09:12→21:25)
[2018-01-20] MEDS: Enoxaparin(*) 40 MG/0.4 ML SYR SUBCUT SCH (09:12)
--- NOTE | 2018-01-20 10:36 | PN ---
Subjective Date of Service: 01/20/18 Length of Stay: 1 Days Neurology is following Mrs. Crews for the evaluation and management of reversible posterior leukoencephalopathy syndrome. Interval History: She continues to have 9/10 headache, mostly involving the frontal and radiating to the occipital region. She follows commands appropriately. She is aphasic. There has been no change in the aphasia. She was on the nicardipine gtt for BP but that has been weaned off. BP is within a normal range. She is hyperventilating. She has not had any reported seizures. She has no visual problems. She had an episode where she was choking on food. She is at high risk for aspiration. Review of Systems: Denied CP, SOB, or palpitations. Objective Active Medications: Acetaminophen (Tylenol Tab*) 650 mg PO Q4H PRN PRN Reason: FEVER/PAIN Albuterol (Ventolin 2.5 Mg/3 Ml Neb.Cait*) 2.5 mg INH Q4H PRN PRN Reason: SOB/WHEEZING Amlodipine Besylate (Norvasc Tab*) 10 mg PO DAILY [facility] Last Admin: 01/20/18 07:28 Dose: 10 mg Clonazepam (Klonopin Tab(*)) 1 mg PO BID PRN PRN Reason: ANXIETY Last Admin: 01/20/18 08:05 Dose: 1 mg Enoxaparin Sodium (Lovenox(*)) 40 mg SUBCUT Q24H [facility] Last Admin: 01/20/18 09:12 Dose: 40 mg Escitalopram Oxalate (Lexapro (Nf)) 10 mg PO DAILY [facility] Last Admin: 01/20/18 07:30 Dose: 10 mg Hydromorphone HCl (Dilaudid Tab*) 2 mg PO Q6H PRN PRN Reason: PAIN Last Admin: 01/20/18 08:05 Dose: 2 mg Lactated Ringer's (Lactated Ringers 1000 Ml Bag*) 1,000 mls @ 125 mls/hr IV PER RATE [facility] Last Admin: 01/20/18 04:55 Dose: 125 mls/hr Lisinopril (Prinivil Tab*) 10 mg PO DAILY [facility] Last Admin: 01/20/18 07:28 Dose: 10 mg Lorazepam (Ativan Inj*) 1 mg IV PUSH UC ONCE PRN PRN Reason: AGITATION Stop: 01/20/18 15:00 Last Admin: 01/19/18 16:03 Dose: 1 mg Metoprolol Tartrate (Lopressor Tab*) 50 mg PO BID [facility] Last Admin: 01/20/18 09:12 Dose: 25 mg Multivitamins/Minerals (Theragran/Minerals Tab*) 1 tab PO DAILY [facility] Last Admin: 01/20/18 07:28 Dose: 1 tab Ondansetron HCl (Zofran Inj*) 4 mg IV Q4H PRN PRN Reason: NAUSEA/VOMITING Pregabalin (Lyrica Cap(*)) 25 mg PO BID [facility] Last Admin: 01/20/18 07:27 Dose: 25 mg Vital Signs 01/20/18 01/20/18 01/20/18 09:30 09:32 09:46 Temperature Pulse Rate 86 100 Respiratory 28 52 56 Rate Blood Pressure 132/68 125/72 (mmHg) O2 Sat by Pulse 100 93 Oximetry 01/20/18 01/20/18 09:56 10:00 Temperature Pulse Rate 94 Respiratory 28 33 Rate Blood Pressure 117/60 (mmHg) O2 Sat by Pulse 100 Oximetry Intake and Output Last 24 Hours 01/18/18 01/19/18 01/20/18 01/21/18 06:59 06:59 06:59 06:59 Intake Total 1268 3248 50 Output Total 1450 3105 310 Balance -182 143 -260 Weight 119 lb 11.376 oz 117 lb Intake: IV Fluids 1268 2740 KCL 155 LR 2585 NS (0.9%) 268 IVPB 315 KCL 215 Magnesium 100 Medicated IV 193 CC - Nicarpidine/Cardene 193 Oral 50 Output: Urine 0 [place] 1450 3105 310 Oxygen Devices in Use Now: None Neurology Exam: General: ill appearing female who is laying upright in bed with eyes closed. HEENT: normocephalic, without obvious abnormality. Conjunctivae/corneas clear. Lungs: tachynea with rate in the 30's. No wheezing or rhonchi. CV: regular rate and rhythm, radial pulses 2+ symmetric. Psych: affect-broad and normal mood. Neurological examination: Mental status: awake; alert and oriented to person, but not place or time but mostly due to expressive aphasia. She has no difficulty naming but does have trouble with fluency and repetition. Cranial nerves: PERRL, EOM-I, no facial asymmetry. Motor (R/L): no abnormal movements, no pronator drift. Slight increase in tone in the upper extremities bilaterally. Reflexes: symmetric 2+ throughout with flexor plantar response. Sensation is intact to light touch throughout. Coordination: slow but symmetric finger to nose. Gait & Station: n/a Result Diagrams: 01/20/18 02:23 01/20/18 02:23 Additional Lab and Data: Lab Results 01/18/18 01/18/18 Range/Units 22:02 22:02 WBC 6.4 (3.5-10.8) 10^3/ul RBC 4.31 (4.00-5.40) 10^6/ul Hgb 13.0 (12.0-16.0) g/dl Hct 38 (35-47) % MCV 88 (80-97) fL MCH 30 (27-31) pg MCHC 34 (31-36) g/dl RDW 14 (10.5-15) % Plt Count 379 (150-450) 10^3/ul MPV 6.6 L (7.4-10.4) um3 Neut % (Auto) 75.9 (38-83) % Lymph % (Auto) 15.1 L (25-47) % Waldo % (Auto) 8.4 H (0-7) % Eos % (Auto) 0.1 (0-6) % Baso % (Auto) 0.5 (0-2) % Absolute Neuts (auto) 4.9 (1.5-7.7) 10^3/ul Absolute Lymphs (auto) 1.0 (1.0-4.8) 10^3/ul Absolute Monos (auto) 0.5 (0-0.8) 10^3/ul Absolute Eos (auto) 0 (0-0.6) 10^3/ul Absolute Basos (auto) 0 (0-0.2) 10^3/ul Absolute Nucleated RBC 0 10^3/ul Nucleated RBC % 0.1 INR (Anticoag Therapy) 0.92 (0.77-1.02) APTT 42.0 H (26.0-36.3) seconds Microbiology and Other Data: Microbiology 01/19/18 00:55 Urine Culture - Final Urine No Growth (<1,000 CFU/mL) 01/18/18 23:10 Aerobic Blood Culture - Preliminary Blood Venous No Growth Day 1 Anaerobic Blood Culture - Preliminary No Growth Day 1 01/18/18 22:02 Aerobic Blood Culture - Preliminary Blood Venous No Growth Day 1 Anaerobic Blood Culture - Preliminary No Growth Day 1 01/19/18 11:46 CSF Gram Stain (Tube 3) - Final Cerebral Spinal Fluid 01/19/18 03:26 Nasal Screen MRSA (PCR) - Final Nasal Mrsa Not Detected Diagnostic Imaging: CTA chest: enlarged left hilar mass/lymph nodes, with multiple smaller nodules of upper lung. New pleural based nodule located in the peripheral of left lower lung. Assessment/Plan Ms. Shanta Crews is a 67-year-old female who presented with headache and aphasia. She was found to have diffuse subcortical edema without infarction consistent with reversible posterior leukoencephalopathy in the setting of acute isolated hypertension. It is unclear why she developed acute hypertension but could be related to an autonomic dysfunction due to a secondary cause. MRI brain w/wo contrast showed no evidence of metastatic disease. The patient has headaches being treated with Dilaudid. She is also hyperventilating and as a result has respiratory alkalosis. It's unclear to why she is hyperventilating but it was thought that it could be a compensatory mechanism to reduce the ICP by causing cerebral vasoconstriction related to low PaCo2. Renal driven metabolic acidosis with respiratory alkalosis was also considered by the primary team. Nephrology was consulted. The patient also has a new pleural based nodule located in the periphery of left lung. Recommendations: Keep SBP between 120-<150 mmHg [employer] consultation and carefully advancing diet as tolerated Seizure precautions. No AED therapy is recommended since she has not had any seizures. Neuro checks every 4 hours Repeat EEG on Thursday, or if the patient develops any seizure activity Repeat MRI brain on 02/02/2018 to evaluate for resolution of edema. Supportive care
[2018-01-20] MEDS: LORazepam INJ* 2 MG/ML 1 ML VIAL IV PUSH PRN (10:54)
--- NOTE | 2018-01-20 15:35 | EEG ---
ELECTROENCEPHALOGRAPHY: DATE OF SERVICE: 01/19/18 DATE READ: 01/19/18 ORDERING PROVIDER: Dr. Ritchie Serna. DURATION OF STUDY: 1711 - 1737. MEDICATIONS: 1. Amlodipine 2. Lisinopril. 3. Klor-Con. 4. Metoprolol. 5. Pregabalin 6. Escitalopram. 7. Theragran. 8. Enoxaparin. 9. Acetaminophen 10. Ventolin. 11. Clonazepam. 12. Hydromorphone. 13. Lorazepam. CLINICAL PROBLEM: Ms. Crews a 67-year-old female with history of headaches and confusion, who was found to have posterior reversal encephalopathy. This EEG was obtained to evaluate for epileptiform abnormalities or electrographic seizures. STATE: Awake and sleep. REPORT: The background lacked organization for clearly defined anterior posterior voltage and frequency gradients. There were a few epochs showing some discernible posterior dominant rhythm with a frequency of 6 Hz, but the remaining of the recording showed a background consisted of mixed frequency slowing in the delta and theta range with a frequency of 4-6 Hz. At times, the delta slowing became semirhythmic and was seen mostly in the central and parietal regions bilaterally, but at times diffusely with delta 3 to 4 Hz delta slowing frequency. There were no clear electrographic seizures. Attenuation of the occipital background was seen during drowsiness and there were small sleep spindles seen in the central region during stage II sleep. Reactivity was seen throughout the recording. Hyperventilation and photic stimulation were not performed. CLINICAL IMPRESSION: This is an abnormal awake and sleep EEG due to the presence of diffuse semirhythmic slowing that was reactive with no electrographic seizures. These findings are suggestive of a mild-moderate diffuse encephalopathy, which can be seen in the setting of PRES. Clinical correlation is recommended. I do recommend repeating the EEG in 72 hours or if the patient develops any seizure-like activity. [id number]/[facility] #: [id number] MARILYNN
--- NOTE | 2018-01-20 17:45 | CONS ---
CC: Dr. Chawla; Dr. Vance * MEDICAL ONCOLOGY CONSULTATION REPORT: DATE OF CONSULT: 01/19/18 REASON FOR CONSULT: Likely progressive disease/carcinoma in a patient with known underlying lung cancer and esophageal cancer. HISTORY OF PRESENT ILLNESS: Shanta Crews is a 67-year-old female, who presented to [facility] on 01/13/18. At that time, she was complaining of a headache. A CT scan was done with and without contrast and was unremarkable. Speaking to the patient today, she reports she is having a headache for about 2 weeks, describes it as being behind both orbits. She denies any associated visual changes, tingling, numbness or weakness of her extremities. She is having problems with word finding, although she does not recognize this herself by her report. She does recognize that she is confused. She lives in an apartment above her daughter and son-in-law's garage and usually functions independently. Her family had not heard from her in sometime and found her being extremely confused, problems with word finding and dyspneic. They then brought her to the hospital. There was no associated fever or signs of infection. By the time I am seeing her the following morning, she is somewhat better, she is able to remember, being somewhat lethargic and confused, does remember falling several days ago but denies having been injured or striking her head. She does report the headaches to me at this point. At the time of admission, several notable findings include hyponatremia with a sodium level of 123, it should be noted that her baseline is approximately 130 on multiple readings over the past several years. Only occasionally has she been higher; although she was 134 on 01/13/18 when seen at Urgent Care. In addition, vital signs in the emergency room did reveal significantly elevated blood pressures with multiple readings in the 160/105 up to 190/107 range. Isolated blood pressure which may not be real of 173/122. Associated with his, her pulse rates have been slightly tachycardic mostly in the 110 to 120 range. Since in the hospital, she is, as noted above, slightly better. Multiple studies have been done since admission. These include a noncontrast CT of the brain which does not show any bleed, a CTA of the chest. This reveals that the pulmonary nodules which previously have been seen are slightly larger. In addition, there is a significant mass just superior to the left proximal pulmonary artery measuring 3.[address] scan in September, this was 2.3 cm, other enlarged lymph nodes are also noted, some of which have also increased in size. Most recent CT before this, was a CT of the chest done without contrast on 01/01/18, done by Dr. Vance enlarged pulmonary nodules. This revealed that her pulmonary nodules had increased slightly in size from September of 2017 until December of 2017. The patient was most recently seen by Dr. Vance in the office on 01/08/18. At that time, it was elected given the size of these nodules, to follow him knowing that these very well represent recurrent carcinoma, most likely esophageal recurrence, though nodules were felt to be too small to biopsy. 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 This was a T3N2M0 by EUS and PET scan. The patient received chemotherapy and radiation therapy, but no surgery. Chemotherapy was carboplatin and Taxol, which was completed in February 2012. She received Tarceva from 2011 to 2013 and then was discontinued. She has had no further therapy for this until 2017. She did have a PET scan, which revealed activity in the distal esophagus but no other disease. Surgery was performed for T3N2M0 esophageal carcinoma in April of 2017. The patient also had lung cancer in May of 2013. She was found to have adenocarcinoma of the right lung in February 2013 on bronchoscopy and she underwent lobectomy in May 2013 for [id number] cancer which was 3.1 cm in greatest diameter. Level 4 and level 10 lymph nodes were negative. 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 MEDICATIONS: As of 01/08/18, included: 1. Ventolin p.r.n. 2. Prednisone 5 mg daily. 3. Melatonin 5 mg at h.s. 4. Lyrica 1 to 3 capsules b.i.d., 50 mg each p.r.n. 5. Lipitor 10 mg daily. 6. Estrace vaginal cream once a week. 7. Escitalopram 10 mg daily. 8. Dilaudid 2 mg q.4 hours p.r.n. 9. Anoro Ellipta 1 puff daily. 10. Tylenol p.r.n. ALLERGIES: To FENTANYL, OXYCODONE, PENICILLIN, and REMERON. FAMILY HISTORY: No cancer. SOCIAL HISTORY: She is . She smoked in the past but has stopped in 2018. She moved to [place] to be with her daughter, lives in an apartment above the garage over daughter's house. Minimal alcohol. She is a retired. REVIEW OF SYSTEMS: As discussed above. The patient does report headaches, does report confusion, recent fall, reports some significant shortness of breath from chest pain but better at the present time. Other symptoms are hard to elicit given her confusion. PHYSICAL EXAM: A 67-year-old female, in no acute distress, uncomfortable in the bed in the ICU. Vital Signs: Blood pressure 173/91 at this point, although higher earlier. Pulse of 110 to 120, regular rhythm. T-max of 98.7. HEENT: PERRL, EOMI. No erythema or exudates. No palpable cervical, supraclavicular, or axillary adenopathy. Lungs: Decreased breath sounds with rhonchi on multiple occasions, is using some accessory muscles at times, O2 is on. Heart: Tachycardic, 1-2/6 systolic ejection murmur. Abdomen: Soft, nontender without masses or organomegaly. Extremities: No clubbing, cyanosis, or edema. Back: No CVA or spinal tenderness. Neurologic Exam: The patient is alert, is oriented to person, to place, is not oriented to year. She has some expressive aphasia and word- finding difficulties. Motor is 5/5 throughout. DIAGNOSTIC STUDIES/LAB DATA: White count 6400, hematocrit 38, hemoglobin 13, platelet count 379,000. Chemistry study is remarkable for sodium 123, potassium 3.4, bicarb 17. LFTs are normal. Glucose 143. Troponin 0.01. BNP 184. CTA as discussed above. IMPRESSION/PLAN: 1. A 67-year-old female with recent a shortness of breath. This is somewhat better at the present on oxygen. There does not appear to be any underlying cardiac component. This certainly could be related to the enlarging mass in the left upper chest, at least in part. There is no evidence for any pneumonia. There is no evidence for pulmonary emboli. Her blood gas pattern shows mixed respiratory alkalosis and metabolic acidosis. To further work up whether or not her malignancy has recurred and if so which one, she will need an EBUS study or potentially a CT- guided lung biopsy. 2. Neurologic issues with confusion and aphasia. The patient has had a noncontrast CT, will require an MRI of the brain along with a lumbar puncture especially in light of the headaches recently. This does not appear to be significantly a stroke situation as best as I can see, but we are getting Neuro to be involved and their inputs which will be helpful. Hopefully, as her sodium level comes up and she improves from a metabolic basis as well as show signs of improvement. 3. Low sodium, this is already correcting as she is receiving IV fluids. 4. History of esophageal and lung cancer. The patient has had in 2011, the esophageal cancer with recurrence in 2016; lung cancer in 2013. She has had nodules in her lung, which are growing in size between September and December of 2017. This is highly suspicious for recurrence. Per Dr. Vance, he has discussed with the patient whether or not she would warrant further therapy for these and it sounds as though she is not inclined to do so from his last office visit of 01/08/18. However, better defining the situation would be valuable. Obtaining EBUS or CT-guided biopsy would certainly be helpful. The esophageal cancer would seem to be more likely recurrence. 5. Chronic obstructive pulmonary disease, being treated by the sheriff's officer/ hospitalist service. 6. DVT prophylaxis, on subcu heparin. [id number]/[facility] #: [id number] [facility] HOSPITALBaldev
[2018-01-21] MEDS ORDERED: hydrALAZINE IV* 20 MG/ML VIAL IV SLOW PU PRN (00:05)
[2018-01-21] MEDS ORDERED: hydrALAZINE IV* 20 MG/ML VIAL ONE (00:13)
[2018-01-21 06:05] LABS: ABS Basophils 0 10^3/ul (0-0.2); ABS Eosinophils 0 10^3/ul (0-0.6); ABS Lymphocytes 1.1 10^3/ul (1.0-4.8); ABS Monocytes 0.7 10^3/ul (0-0.8); ABS Neutrophils 3.1 10^3/ul (1.5-7.7); ABS Nucleated RBC 0 10^3/ul; Eosinophil % 0.4 % (0-6); Hematocrit 30 % (35-47); Hemoglobin 10.5 g/dl (12.0-16.0); Lymphocyte % 22.1 % (25-47); Mean Corpuscular HGB Conc 35 g/dl (31-36); Mean Corpuscular Hemoglobin 31 pg (27-31); Mean Corpuscular Volume 88 fL (80-97); Mean Platelet Volume 6.4 um3 (7.4-10.4); Nucleated Red Blood Cells % 0; Platelet Count 299 10^3/ul (150-450); Red Blood Count 3.43 10^6/ul (4.00-5.40); Red Cell Distribution Width 14 % (10.5-15)
[2018-01-21 06:14] LABS: INR 1.01 (0.77-1.02)
[2018-01-21 06:24] LABS: EGFR Non-African American 154.3 (>60)
--- NOTE | 2018-01-21 08:58 | PN ---
Subjective Date of Service: 01/21/18 Length of Stay: 2 Days Neurology is following Ms. Crews for the evaluation and management of PRES. Interval History: She is resting in bed comfortable. She is requesting to be fed. She still has word finding difficulty. She is asking if we figured out what is causing her language problem. She was having small conversations regarding her old job, daughters, and grand-daughters. She is complaining of diarrhea, shortness of breath, and dizziness. The dizziness was described as lightheadedness. She denied vertigo, tinnitus, or hearing loss. She denied any focal weakness or paresthesia. She has been off the nicardipine gtt for 24 hours. Her SBP has been averaging below 150 mmHg, which is the goal range. She was a one person assist to use the commode overnight. She did take a few steps alone according to the overnight nurse. Review of Systems: Denied CP, SOB, or palpitations. Objective Active Medications: Acetaminophen (Tylenol Tab*) 650 mg PO Q4H PRN PRN Reason: FEVER/PAIN Albuterol (Ventolin 2.5 Mg/3 Ml Neb.Cait*) 2.5 mg INH Q4H PRN PRN Reason: SOB/WHEEZING Amlodipine Besylate (Norvasc Tab*) 10 mg PO DAILY [facility] Last Admin: 01/20/18 07:28 Dose: 10 mg Clonazepam (Klonopin Tab(*)) 1 mg PO BID PRN PRN Reason: ANXIETY Last Admin: 01/20/18 16:30 Dose: 1 mg Enoxaparin Sodium (Lovenox(*)) 40 mg SUBCUT Q24H [facility] Last Admin: 01/20/18 09:12 Dose: 40 mg Escitalopram Oxalate (Lexapro (Nf)) 10 mg PO DAILY [facility] Last Admin: 01/20/18 07:30 Dose: 10 mg Hydralazine HCl (Apresoline Iv*) 5 mg IV SLOW PU Q6H PRN PRN Reason: BLOOD PRESSURE Last Admin: 01/21/18 00:20 Dose: 5 mg Hydromorphone HCl (Dilaudid Tab*) 2 mg PO Q6H PRN PRN Reason: PAIN Last Admin: 01/20/18 08:05 Dose: 2 mg Lactated Ringer's (Lactated Ringers 1000 Ml Bag*) 1,000 mls @ 125 mls/hr IV PER RATE [facility] Last Admin: 01/21/18 05:15 Dose: 125 mls/hr Metoprolol Tartrate (Lopressor Tab*) 50 mg PO BID [facility] Last Admin: 01/20/18 21:25 Dose: 50 mg Multivitamins (Theragran W/Minerals Liq*) 15 ml PO DAILY [facility] Ondansetron HCl (Zofran Inj*) 4 mg IV Q4H PRN PRN Reason: NAUSEA/VOMITING Pregabalin (Lyrica Cap(*)) 25 mg PO BID [facility] Last Admin: 01/20/18 21:25 Dose: 25 mg Vital Signs 01/20/18 01/20/18 01/20/18 09:00 09:06 09:15 Temperature 99.1 F Pulse Rate 90 93 Respiratory 59 50 Rate Blood Pressure 138/75 133/88 (mmHg) O2 Sat by Pulse 99 100 Oximetry 01/20/18 01/20/18 01/20/18 09:22 09:30 09:32 Temperature 97.8 F Pulse Rate 86 100 Respiratory 28 52 Rate Blood Pressure 132/68 (mmHg) O2 Sat by Pulse 100 93 Oximetry 01/20/18 01/20/18 01/20/18 09:46 09:56 10:00 Temperature Pulse Rate 94 Respiratory 56 28 33 Rate Blood Pressure 125/72 117/60 (mmHg) O2 Sat by Pulse 100 Oximetry 01/20/18 01/20/18 01/20/18 10:30 10:54 11:00 Temperature Pulse Rate 83 95 Respiratory 19 26 25 Rate Blood Pressure 110/57 (mmHg) O2 Sat by Pulse 99 100 Oximetry 01/20/18 01/20/18 01/20/18 11:30 12:00 12:31 Temperature 98.5 F Pulse Rate 79 98 72 Respiratory 23 39 19 Rate Blood Pressure 114/63 141/69 87/48 (mmHg) O2 Sat by Pulse 100 100 98 Oximetry 01/20/18 01/20/18 01/20/18 13:00 13:30 13:32 Temperature 98.5 F Pulse Rate 69 66 Respiratory 19 20 Rate Blood Pressure 89/40 98/37 (mmHg) O2 Sat by Pulse 98 99 Oximetry 01/20/18 01/20/18 01/20/18 14:00 14:30 15:00 Temperature Pulse Rate 72 73 73 Respiratory 19 21 19 Rate Blood Pressure 109/49 122/50 113/50 (mmHg) O2 Sat by Pulse 99 99 99 Oximetry 01/20/18 01/20/18 01/20/18 15:31 16:00 16:31 Temperature 100.5 F Pulse Rate 103 110 97 Respiratory 40 34 51 Rate Blood Pressure 155/96 162/77 113/96 (mmHg) O2 Sat by Pulse 99 97 95 Oximetry 01/20/18 01/20/18 01/20/18 17:00 17:31 18:00 Temperature Pulse Rate 82 98 77 Respiratory 27 23 24 Rate Blood Pressure 152/83 121/66 (mmHg) O2 Sat by Pulse 96 99 97 Oximetry 01/20/18 01/20/18 01/20/18 18:30 19:00 19:31 Temperature Pulse Rate 77 78 97 Respiratory 23 23 44 Rate Blood Pressure 105/58 114/60 158/79 (mmHg) O2 Sat by Pulse 97 96 97 Oximetry 01/20/18 01/20/18 01/20/18 20:00 20:30 21:00 Temperature 99.6 F Pulse Rate 101 88 97 Respiratory 27 25 31 Rate Blood Pressure 153/76 135/66 163/73 (mmHg) O2 Sat by Pulse 99 96 97 Oximetry 01/20/18 01/20/18 01/20/18 21:31 22:00 23:00 Temperature Pulse Rate 96 90 83 Respiratory 48 35 27 Rate Blood Pressure 159/77 145/65 153/85 (mmHg) O2 Sat by Pulse 98 98 100 Oximetry 01/20/18 01/21/18 01/21/18 23:30 00:00 00:06 Temperature 99.1 F Pulse Rate 82 89 Respiratory 20 25 25 Rate Blood Pressure 144/72 158/79 (mmHg) O2 Sat by Pulse 99 98 Oximetry 01/21/18 01/21/18 01/21/18 00:13 00:30 01:00 Temperature Pulse Rate 87 89 Respiratory 23 34 21 Rate Blood Pressure 162/69 141/62 (mmHg) O2 Sat by Pulse 98 98 Oximetry 01/21/18 01/21/18 01/21/18 01:30 02:00 02:30 Temperature Pulse Rate 93 93 Respiratory 37 35 27 Rate Blood Pressure 138/75 139/63 (mmHg) O2 Sat by Pulse 100 98 Oximetry 01/21/18 01/21/18 01/21/18 03:00 03:20 03:34 Temperature Pulse Rate 88 90 Respiratory 29 28 37 Rate Blood Pressure 124/74 138/75 (mmHg) O2 Sat by Pulse 99 99 Oximetry 01/21/18 01/21/18 01/21/18 04:00 04:21 04:31 Temperature 98.9 F Pulse Rate 90 91 89 Respiratory 35 26 32 Rate Blood Pressure 153/70 148/71 141/74 (mmHg) O2 Sat by Pulse 99 99 99 Oximetry 01/21/18 01/21/18 01/21/18 04:56 05:00 05:03 Temperature Pulse Rate 82 88 Respiratory 20 26 29 Rate Blood Pressure 119/75 (mmHg) O2 Sat by Pulse 99 98 Oximetry 01/21/18 01/21/18 01/21/18 05:30 06:00 06:30 Temperature Pulse Rate 86 90 90 Respiratory 23 33 25 Rate Blood Pressure 135/69 149/75 130/59 (mmHg) O2 Sat by Pulse 98 99 98 Oximetry 01/21/18 01/21/18 01/21/18 07:00 07:30 07:58 Temperature 99.6 F Pulse Rate 91 86 Respiratory 35 25 Rate Blood Pressure 130/63 105/57 (mmHg) O2 Sat by Pulse 99 98 Oximetry Intake and Output Last 24 Hours 01/19/18 01/20/18 01/21/18 01/22/18 06:59 06:59 06:59 06:59 Intake Total 1268 3248 3167.7 Output Total 1450 3105 2532 Balance -182 143 635.7 Weight 119 lb 11.376 oz 117 lb 113 lb Intake: IV Fluids 1268 2740 3072 KCL 155 LR 2585 3072 NS (0.9%) 268 IVPB 315 KCL 215 Magnesium 100 Medicated IV 193 45.7 CC - Nicarpidine/Cardene 193 45.7 Oral 50 Output: Urine 0 Rosales 1450 3105 2532 Other: Date of Last Bowel 01/20/2018 Movement # Bowel Movements 1 Oxygen Devices in Use Now: None Neurology Exam: General: ill appearing female who is laying upright in bed in no acute distress. HEENT: normocephalic, without obvious abnormality. Conjunctivae/corneas clear. Lungs: tachynea with rate in the 30's. No wheezing or rhonchi. CV: regular rate and rhythm, radial pulses 2+ symmetric. Psych: affect-broad and normal mood. Neurological examination: Mental status: awake; alert and oriented to person, but not place or time but mostly due to expressive aphasia. Naming intact. She does have trouble with fluency and repetition. She has trouble following 2 step commands. Cranial nerves: PERRL, EOM-I, no facial asymmetry. Motor (R/L): no abnormal movements, no pronator drift. Slight increase in tone in the upper extremities bilaterally. Reflexes: symmetric 3+ throughout with flexor plantar responses bilaterally. Sensation is intact to light touch to light-touch and temperature sensation. Coordination: slow but symmetric finger to nose. Gait & Station: n/a Result Diagrams: 01/21/18 05:38 01/21/18 05:38 Additional Lab and Data: Lab Results 01/18/18 01/18/18 Range/Units 22:02 22:02 WBC 6.4 (3.5-10.8) 10^3/ul RBC 4.31 (4.00-5.40) 10^6/ul Hgb 13.0 (12.0-16.0) g/dl Hct 38 (35-47) % MCV 88 (80-97) fL MCH 30 (27-31) pg MCHC 34 (31-36) g/dl RDW 14 (10.5-15) % Plt Count 379 (150-450) 10^3/ul MPV 6.6 L (7.4-10.4) um3 Neut % (Auto) 75.9 (38-83) % Lymph % (Auto) 15.1 L (25-47) % [place] % (Auto) 8.4 H (0-7) % Eos % (Auto) 0.1 (0-6) % Baso % (Auto) 0.5 (0-2) % Absolute Neuts (auto) 4.9 (1.5-7.7) 10^3/ul Absolute Lymphs (auto) 1.0 (1.0-4.8) 10^3/ul Absolute Monos (auto) 0.5 (0-0.8) 10^3/ul Absolute Eos (auto) 0 (0-0.6) 10^3/ul Absolute Basos (auto) 0 (0-0.2) 10^3/ul Absolute Nucleated RBC 0 10^3/ul Nucleated RBC % 0.1 INR (Anticoag Therapy) 0.92 (0.77-1.02) APTT 42.0 H (26.0-36.3) seconds Microbiology and Other Data: Microbiology 01/19/18 00:55 Urine Culture - Final Urine No Growth (<1,000 CFU/mL) 01/18/18 23:10 Aerobic Blood Culture - Preliminary Blood Venous No Growth Day 1 Anaerobic Blood Culture - Preliminary No Growth Day 1 01/18/18 22:02 Aerobic Blood Culture - Preliminary Blood Venous No Growth Day 1 Anaerobic Blood Culture - Preliminary No Growth Day 1 01/19/18 11:46 CSF Gram Stain (Tube 3) - Final Cerebral Spinal Fluid 01/19/18 03:26 Nasal Screen MRSA (PCR) - Final Nasal Mrsa Not Detected Diagnostic Imaging: CTA chest: enlarged left hilar mass/lymph nodes, with multiple smaller nodules of upper lung. New pleural based nodule located in the peripheral of left lower lung. MRI brain with/without contrast - diffuse patchy T2 hyperintensities in bilateral cerebellum, and bilateral watershed regions. Assessment/Plan Ms. Shanta Crews is a 67-year-old female who presented with headache and aphasia. She was found to have diffuse subcortical edema without infarction consistent with reversible posterior leukoencephalopathy in the setting of acute isolated hypertension. It is unclear why she developed acute hypertension but could be related to an autonomic dysfunction due to a secondary cause. MRI brain w/wo contrast showed no evidence of metastatic disease. The patient has headaches being treated with Dilaudid. She is also hyperventilating and as a result has respiratory alkalosis. It's unclear to why she is hyperventilating but it was thought that it could be a compensatory mechanism to reduce the ICP by causing cerebral vasoconstriction related to low PaCo2. Renal driven process was ruled out by nephrology. The patient also has a new pleural based lung nodule and will need further evaluation. She has lightheadedness this morning. I suspect this is related to dehydration , reduced oral intake, and from the anti-hypertensive agents she has been receiving over the last few days. Recommendations: - Keep SBP between 120-<150 mmHg - Repeat EEG on Thursday, or if the patient develops any seizure activity - Repeat MRI brain on 02/02/2018 to evaluate for resolution of edema. - Diet has been advanced - Please get her out of bed to chair three times a day. She is ready to transfer out of the ICU once deemed stable by the primary team. - Consult PT to evaluate and treat - Seizure precautions. No AED therapy is recommended since she has not had any seizures. - Neuro checks every 4 hours - Supportive care Neurology will continue to follow. Time spent: 25 minutes examining the patient and discussing the above mentioned recommendation with the primary team. D/w Dr. Leggett and bedside nurse.
[2018-01-21] MEDS: Pregabalin CAP(*) 25 MG PO SCH ×2 (09:30→20:37)
[2018-01-21] MEDS: ESCITALOPRAM 5 MG PO SCH (09:30)
[2018-01-21] MEDS: Metoprolol Tartrate TAB* 50 mg PO SCH ×2 (09:30→20:53)
[2018-01-21] MEDS: Multivitamins ADULT w/MIN LIQ* 15 ML UDC PO SCH (09:30)
[2018-01-21] MEDS: amLODIPine TAB* 5 MG PO SCH (09:30)
[2018-01-21] MEDS ORDERED: Magnesium Sulfate 3 GM IV IVPB ONE ×2 (11:00)
[2018-01-21] MEDS ORDERED: KCL 20 MEQ/100 ML IVPREMIX* 20 MEQ/100 ML BAG ONE ×2 (12:16→14:22)
[2018-01-21] MEDS: KCL 20 MEQ/100 ML IVPREMIX* 20 MEQ/100 ML BAG IV SCH ×2 (12:20→14:20)
[2018-01-21] MEDS: Enoxaparin(*) 40 MG/0.4 ML SYR SUBCUT SCH (19:05)
[2018-01-21] MEDS: HYDROmorphone TAB* 2 MG PO PRN (20:38)
[2018-01-22] MEDS: clonazePAM TAB(*) 1 MG PO PRN (01:11)
[2018-01-22] MEDS ORDERED: LORazepam INJ* 2 MG/ML 1 ML VIAL IV PUSH ONE (03:58)
--- NOTE | 2018-01-22 04:57 | PN ---
Hospitalist Progress Note Date of Service: 01/22/18 called to bedside for sob. Note that throughout hospital stay patient resp rate note to be in the 30's at times. Pt examine denies sob. Is trying to get out of bed. No accessory muscles being used. Lungs on exam wheezing in the right base. Not aspiration event on night of . Will check cxr, and abg, will give albuterol. O2 sats 98 percent. will follow closely
[2018-01-22] MEDS: Albuterol 2.5 MG/3 ML NEB.SOL* (0.083%) INH PRN (05:18)
--- NOTE | 2018-01-22 08:06 | RAD ---
Indication: Shortness of breath. Single frontal view of the chest performed at 0505 hours was reviewed. Comparison is made with previous exam dated January 18, 2018 hyperinflated. Hyperinflated lung [place] are noted. Scarring is noted in the right lung base. No alveolar consolidation is noted. IMPRESSION: HYPERINFLATED LUNG [place] WITH SCARRING IN RIGHT LUNG BASE. NO PNEUMONIA IS IDENTIFIED. HEALING RIB FRACTURE IS NOTED IN THE RIGHT SIXTH RIB.
[2018-01-22] MEDS: HYDROmorphone TAB* 2 MG PO PRN ×2 (09:55→21:35)
[2018-01-22] MEDS: Metoprolol Tartrate TAB* 50 mg PO SCH ×2 (10:24→21:34)
[2018-01-22] MEDS: Pregabalin CAP(*) 25 MG PO SCH ×2 (10:24→21:34)
[2018-01-22] MEDS: amLODIPine TAB* 5 MG PO SCH (10:24)
[2018-01-22] MEDS: Multivitamins ADULT w/MIN LIQ* 15 ML UDC PO SCH (10:25)
[2018-01-22] MEDS: ESCITALOPRAM 5 MG PO SCH (10:26)
[2018-01-22] MEDS: Enoxaparin(*) 40 MG/0.4 ML SYR SUBCUT SCH (10:32)
--- NOTE | 2018-01-22 12:49 | PN ---
Subjective Date of Service: 01/22/18 Length of Stay: 3 Days Neurology is following Ms. Crews for the evaluation and management of PRES. Interval History: She moved out of the ICU. We found out that the patient has history of SLE and has not been on Plaquenil for 20 years. She was taking steroids in the interim when she has a flare-up. She sounds extremely better today. She is feeding her self. Her aphasia has significantly improved. She feels that the left side has decreased in sensation when compared to the right. She denied any headache, visual disturbance, or swallowing difficulty. There has been no report of any choking events. There is a sitter at bedside watching her eat in case she develops any choking events. Review of Systems: No CP or palpitations. Objective Active Medications: Acetaminophen (Tylenol Tab*) 650 mg PO Q4H PRN PRN Reason: FEVER/PAIN Albuterol (Ventolin 2.5 Mg/3 Ml Neb.Cait*) 2.5 mg INH Q4H PRN PRN Reason: SOB/WHEEZING Last Admin: 01/22/18 05:18 Dose: 2.5 mg Amlodipine Besylate (Norvasc Tab*) 10 mg PO DAILY [facility] Last Admin: 01/22/18 10:24 Dose: 10 mg Clonazepam (Klonopin Tab(*)) 1 mg PO BID PRN PRN Reason: ANXIETY Last Admin: 01/22/18 01:11 Dose: 1 mg Enoxaparin Sodium (Lovenox(*)) 40 mg SUBCUT Q24H [facility] Last Admin: 01/22/18 10:32 Dose: 40 mg Escitalopram Oxalate (Lexapro (Nf)) 10 mg PO DAILY [facility] Last Admin: 01/22/18 10:26 Dose: 10 mg Hydralazine HCl (Apresoline Iv*) 5 mg IV SLOW PU Q6H PRN PRN Reason: BLOOD PRESSURE Last Admin: 01/21/18 00:20 Dose: 5 mg Hydromorphone HCl (Dilaudid Tab*) 2 mg PO Q6H PRN PRN Reason: PAIN Last Admin: 01/22/18 09:55 Dose: 2 mg Lactated Ringer's (Lactated Ringers 1000 Ml Bag*) 1,000 mls @ 75 mls/hr IV PER RATE [facility] Metoprolol Tartrate (Lopressor Tab*) 50 mg PO BID [facility] Last Admin: 01/22/18 10:24 Dose: 50 mg Multivitamins (Theragran W/Minerals Liq*) 15 ml PO DAILY [facility] Last Admin: 01/22/18 10:25 Dose: 15 ml Ondansetron HCl (Zofran Inj*) 4 mg IV Q4H PRN PRN Reason: NAUSEA/VOMITING Pregabalin (Lyrica Cap(*)) 25 mg PO BID [facility] Last Admin: 01/22/18 10:24 Dose: 25 mg Vital Signs 01/22/18 01/22/18 01/22/18 09:55 10:24 10:35 Temperature Pulse Rate Respiratory 18 20 16 Rate Blood Pressure (mmHg) O2 Sat by Pulse Oximetry 01/22/18 01/22/18 10:56 11:30 Temperature 98.4 F Pulse Rate 88 Respiratory 29 14 Rate Blood Pressure 108/55 (mmHg) O2 Sat by Pulse 98 Oximetry Intake and Output Last 24 Hours 01/20/18 01/21/18 01/22/18 01/23/18 06:59 06:59 06:59 06:59 Intake Total 3248 3167.7 200 120 Output Total 3105 2532 2592 275 Balance 143 635.7 -2392 -155 Weight 117 lb 113 lb Intake: IV Fluids 2740 3072 KCL 155 LR 2585 3072 IVPB 315 KCL 215 Magnesium 100 Medicated IV 193 45.7 CC - Nicarpidine/Cardene 193 45.7 Oral 50 200 120 Output: Urine 0 275 Rosales 3105 2532 2592 Other: Date of Last Bowel 01/20/2018 Movement # Bowel Movements 1 0 Oxygen Devices in Use Now: None Neurology Exam: General: ill appearing female who is laying upright in bed in no acute distress. HEENT: normocephalic, without obvious abnormality. Conjunctivae/corneas clear. Lungs: tachypnea improved. CTA bilaterally. CV: regular rate and rhythm, radial pulses 2+ symmetric. Psych: affect-broad and normal mood. Neurological examination: Mental status: awake; alert and oriented to person, place but not time. She was able to repeat short sentences, name, and comprehend to two step command. She has had improvement in her language function since yesterday. Cranial nerves: PERRL, EOM-I, no facial asymmetry. Motor (R/L): no abnormal movements, no pronator drift. Slight increase in tone in the upper extremities bilaterally. Reflexes: symmetric 3+ throughout with flexor plantar responses bilaterally. Sensation is intact to light touch to light-touch and temperature sensation. Coordination: slow but symmetric finger to nose. Gait & Station: she is able to stand with assist. She uses a walker. Result Diagrams: 01/21/18 05:38 01/21/18 05:38 Additional Lab and Data: Lab Results 01/18/18 01/18/18 Range/Units 22:02 22:02 WBC 6.4 (3.5-10.8) 10^3/ul RBC 4.31 (4.00-5.40) 10^6/ul Hgb 13.0 (12.0-16.0) g/dl Hct 38 (35-47) % MCV 88 (80-97) fL MCH 30 (27-31) pg MCHC 34 (31-36) g/dl RDW 14 (10.5-15) % Plt Count 379 (150-450) 10^3/ul MPV 6.6 L (7.4-10.4) um3 Neut % (Auto) 75.9 (38-83) % Lymph % (Auto) 15.1 L (25-47) % Haakon % (Auto) 8.4 H (0-7) % Eos % (Auto) 0.1 (0-6) % Baso % (Auto) 0.5 (0-2) % Absolute Neuts (auto) 4.9 (1.5-7.7) 10^3/ul Absolute Lymphs (auto) 1.0 (1.0-4.8) 10^3/ul Absolute Monos (auto) 0.5 (0-0.8) 10^3/ul Absolute Eos (auto) 0 (0-0.6) 10^3/ul Absolute Basos (auto) 0 (0-0.2) 10^3/ul Absolute Nucleated RBC 0 10^3/ul Nucleated RBC % 0.1 INR (Anticoag Therapy) 0.92 (0.77-1.02) APTT 42.0 H (26.0-36.3) seconds Microbiology and Other Data: Microbiology 01/19/18 00:55 Urine Culture - Final Urine No Growth (<1,000 CFU/mL) 01/18/18 23:10 Aerobic Blood Culture - Preliminary Blood Venous No Growth Day 1 Anaerobic Blood Culture - Preliminary No Growth Day 1 01/18/18 22:02 Aerobic Blood Culture - Preliminary Blood Venous No Growth Day 1 Anaerobic Blood Culture - Preliminary No Growth Day 1 01/19/18 11:46 CSF Gram Stain (Tube 3) - Final Cerebral Spinal Fluid 01/19/18 03:26 Nasal Screen MRSA (PCR) - Final Nasal Mrsa Not Detected Diagnostic Imaging: CTA chest: enlarged left hilar mass/lymph nodes, with multiple smaller nodules of upper lung. New pleural based nodule located in the peripheral of left lower lung. MRI brain with/without contrast - diffuse patchy T2 hyperintensities in bilateral cerebellum, and bilateral watershed regions. Assessment/Plan Ms. Shanta Crews is a 67-year-old female who presented with headache and aphasia. She was found to have diffuse subcortical edema without infarction consistent with reversible posterior leukoencephalopathy in the setting of acute isolated hypertension. It is unclear why she developed acute hypertension but could be related to an autonomic dysfunction due to a secondary cause. It was discovered yesterday that the patient has history of untreated SLE. She stopped Plaquenil 20 years ago. She is not on any treatment at this point. SLE is also another risk factor for PRES, especially in the setting of active autoimmune disease. We have not obtained any autoimmune markers to evaluate for disease activity. However, given that the LP did not show any evidence of inflammatory cells, and the CRP is normal, I don't think she has SLE cerebritis. Plus, she is improving once her BP was reduced to normal range. MRI brain w/wo contrast showed no evidence of metastatic disease. The patient has headaches being treated with Dilaudid. She is also hyperventilating and as a result has respiratory alkalosis. It's unclear to why she is hyperventilating but it was thought that it could be a compensatory mechanism to reduce the ICP by causing cerebral vasoconstriction related to low PaCo2. Renal driven process was ruled out by nephrology. The patient also has a new pleural based lung nodule and will need further evaluation. Recommendations: - Keep SBP between 120-<150 mmHg - Ordered ESR, C3, C4, and DsDNA - Defer treatment of her SLE to the primary team. She may need evaluation by rheumatology - We don't need a repeat EEG since the patient is awake and answering questions appropriately now. - Repeat MRI brain on 02/02/2018 to evaluate for resolution of edema. - Diet has been advanced. She has no reported episodes of choking. - Continue PT/OT treatment. She will likely need acute rehabilitation. - Seizure precautions. No AED therapy is recommended since she has not had any seizures. - Neuro checks every 4 hours - Supportive care Neurology will continue to follow. Time spent: 25 minutes examining the patient and discussing the above mentioned recommendation with the primary team. Dr. Banda will be covering the neurology service starting tomorrow.
[2018-01-22] MEDS ORDERED: Potassium Chlor TAB* 20 MEQ TAB.ER PO ONE (13:32)
[2018-01-22] MEDS: KCL 20 MEQ/100 ML IVPREMIX* 20 MEQ/100 ML BAG IV SCH ×2 (14:09→19:34)
[2018-01-22] MEDS ORDERED: Magnesium Sulfate IV* 3 GM in NS 0.9% 100 ML* 100 ML IVPB ONE (14:12)
[2018-01-22] MEDS ORDERED: Senna TAB PO PRN (14:51)
[2018-01-22] MEDS ORDERED: Senna TAB PO ONE (14:51)
[2018-01-22] MEDS ORDERED: Polyethylene Glycol 3350* 17 GM PACKET PO PRN (14:51)
[2018-01-22] MEDS ORDERED: Magnesium Hydroxide LIQ* 30 ML UDC PO PRN (14:51)
[2018-01-22] MEDS ORDERED: Magnesium CITRATE* 300 ML BTL PO ONE (14:51)
[2018-01-22] MEDS: Docusate CAP* 100 MG PO PRN (15:18)
[2018-01-22] MEDS: Acetaminophen TAB* 325 MG PO PRN (15:18)
--- NOTE | 2018-01-22 18:50 | PN ---
Progress Note - Progress Note Date of Service: 01/22/18 - Pulmonary f/u note Note: Pt seen and examined at bedside. Pt reports feeling better. Mental status improved. No significant aphasia. Headache resolved Active Medications Generic Name Dose Route Start Last Admin Trade Name Freq PRN Reason Stop Dose Admin Acetaminophen 650 mg 01/19/18 02:01 01/22/18 15:18 Tylenol Tab* PO 650 mg Q4H PRN Administration FEVER/PAIN Albuterol 2.5 mg 01/19/18 02:28 01/22/18 05:18 Ventolin 2.5 Mg/3 Ml Neb.Cait* INH 2.5 mg Q4H PRN Administration SOB/WHEEZING Amlodipine Besylate 10 mg 01/19/18 17:00 01/22/18 10:24 Norvasc Tab* PO 10 mg DAILY [facility] Administration Clonazepam 1 mg 01/19/18 16:03 01/22/18 01:11 Klonopin Tab(*) PO 1 mg BID PRN Administration ANXIETY Docusate Sodium 100 mg 01/22/18 14:51 01/22/18 15:18 Colace Cap* PO 100 mg BID PRN Administration CONSTIPATION Enoxaparin Sodium 40 mg 01/19/18 10:00 01/22/18 10:32 Lovenox(*) SUBCUT 40 mg Q24H [facility] Administration Escitalopram Oxalate 10 mg 01/20/18 09:00 01/22/18 10:26 Lexapro (Nf) PO 10 mg DAILY [facility] Administration Hydralazine HCl 5 mg 01/21/18 00:05 01/21/18 00:20 Apresoline Iv* IV SLOW PU 5 mg Q6H PRN Administration BLOOD PRESSURE Hydromorphone HCl 2 mg 01/19/18 16:03 01/22/18 09:55 Dilaudid Tab* PO 2 mg Q6H PRN Administration PAIN Lactated Ringer's 1,000 mls @ 75 mls/hr 01/22/18 04:54 01/22/18 14:09 Lactated Ringers 1000 Ml Bag* IV 75 mls/hr PER RATE [facility] Administration Magnesium Hydroxide 30 ml 01/22/18 14:51 01/22/18 15:18 Milk Of Magnesia Liq* PO 30 ml Q4H PRN Administration CONSTIPATION Metoprolol Tartrate 50 mg 01/20/18 09:00 01/22/18 10:24 Lopressor Tab* PO 50 mg BID [facility] Administration Multivitamins 15 ml 01/21/18 09:00 01/22/18 10:25 Theragran W/Minerals Liq* PO 15 ml DAILY [facility] Administration Ondansetron HCl 4 mg 01/19/18 02:01 Zofran Inj* IV Q4H PRN NAUSEA/VOMITING Polyethylene Glycol/Electrolytes 17 gm 01/22/18 14:51 Miralax* PO DAILY PRN [facility] Pregabalin 25 mg 01/19/18 21:00 01/22/18 10:24 Lyrica Cap(*) PO 25 mg BID [facility] Administration Senna 1 tab 01/22/18 14:51 Senokot Tab* PO DAILY PRN CONSTIP[facility] Vital Signs Temp Pulse Resp BP Pulse Ox 97.9 F 77 18 137/61 97 01/22/18 15:16 01/22/18 15:16 01/22/18 15:16 01/22/18 15:16 01/22/18 15:16 O/E: Pt in NAD, lying in bed HEENT: PERRLA, No JVD Lungs: Diminished air entry, no wheeze CVS: S1, S2+, regular Abd: Soft, Bs+ Skin: No rash Laboratory Results - last 24 hr 01/19/18 01/22/18 01/22/18 17:26 05:15 12:15 ESR ABG pH 7.53 H ABG pCO2 29 L ABG pO2 80 ABG HCO3 26.5 ABG O2 Saturation 98.5 H ABG Base Excess 2.0 Sodium 132 L Potassium 3.1 L Chloride 99 L Carbon Dioxide 24 Anion Gap 9 BUN 4 L Creatinine 0.43 L Est GFR ( Amer) 176.7 Est GFR (Non-Af Amer) 146.0 BUN/Creatinine Ratio 9.3 Glucose 109 H Calcium 8.5 L Phosphorus 3.0 Magnesium 1.6 L Total Bilirubin 0.30 AST 14 ALT 7 Alkaline Phosphatase 60 Total Protein 5.4 L Albumin 3.2 Globulin 2.2 Albumin/Globulin Ratio 1.5 Renin 1.7 Aldosterone <4.0 01/22/18 14:14 ESR 24 ABG pH ABG pCO2 ABG pO2 ABG HCO3 ABG O2 Saturation ABG Base Excess Sodium Potassium Chloride Carbon Dioxide Anion Gap BUN Creatinine Est GFR ( Amer) Est GFR (Non-Af Amer) BUN/Creatinine Ratio Glucose Calcium Phosphorus Magnesium Total Bilirubin AST ALT Alkaline Phosphatase Total Protein Albumin Globulin Albumin/Globulin Ratio Renin Aldosterone I/R: 67 yo f former smoker with h/o COPD, lung cancer, esophageal cancer a/w headache and aphasia, attributed to reversible posterior leuco-encephalopathy, also found to have progressive increase in size of subpleural pulm nodule and left hilar lesion concerning for recurrence of malignancy Pt had U/S for evaluation of feasibility of biopsy of subpleural nodule either through U/S or CT guided approached Central lesion is accessible to bronchoscopy/EBUS however she would have to go under [facility] Awaiting IR review C/w current management for COPD Neuro status improving Will f/u with radiology on Thursday Rest of management as per primary team
--- NOTE | 2018-01-22 20:06 | PN ---
Subjective Date of Service: 01/22/18 Interval History: . saw patient earlier today; no c/o - walking from BR to bed with aide. denies pain still with some aphasia, but better than previously reported. expressed desire to go home and not to STR. . Family History: Unchanged from Admission Social History: Unchanged from Admission Past Medical History: Unchanged from Admission Objective Active Medications: . Acetaminophen (Tylenol Tab*) 650 mg PO Q4H PRN PRN Reason: FEVER/PAIN Last Admin: 01/22/18 15:18 Dose: 650 mg Albuterol (Ventolin 2.5 Mg/3 Ml Neb.Cait*) 2.5 mg INH Q4H PRN PRN Reason: SOB/WHEEZING Last Admin: 01/22/18 05:18 Dose: 2.5 mg Amlodipine Besylate (Norvasc Tab*) 10 mg PO DAILY [facility] Last Admin: 01/22/18 10:24 Dose: 10 mg Clonazepam (Klonopin Tab(*)) 1 mg PO BID PRN PRN Reason: ANXIETY Last Admin: 01/22/18 01:11 Dose: 1 mg Docusate Sodium (Colace Cap*) 100 mg PO BID PRN PRN Reason: CONSTIPATION Last Admin: 01/22/18 15:18 Dose: 100 mg Enoxaparin Sodium (Lovenox(*)) 40 mg SUBCUT Q24H [facility] Last Admin: 01/22/18 10:32 Dose: 40 mg Escitalopram Oxalate (Lexapro (Nf)) 10 mg PO DAILY [facility] Last Admin: 01/22/18 10:26 Dose: 10 mg Hydralazine HCl (Apresoline Iv*) 5 mg IV SLOW PU Q6H PRN PRN Reason: BLOOD PRESSURE Last Admin: 01/21/18 00:20 Dose: 5 mg Hydromorphone HCl (Dilaudid Tab*) 2 mg PO Q6H PRN PRN Reason: PAIN Last Admin: 01/22/18 09:55 Dose: 2 mg Lactated Ringer's (Lactated Ringers 1000 Ml Bag*) 1,000 mls @ 75 mls/hr IV PER RATE [facility] Last Admin: 01/22/18 14:09 Dose: 75 mls/hr Magnesium Hydroxide (Milk Of Magnesia Liq*) 30 ml PO Q4H PRN PRN Reason: CONSTIPATION Last Admin: 01/22/18 15:18 Dose: 30 ml Metoprolol Tartrate (Lopressor Tab*) 50 mg PO BID [facility] Last Admin: 01/22/18 10:24 Dose: 50 mg Multivitamins (Theragran W/Minerals Liq*) 15 ml PO DAILY [facility] Last Admin: 01/22/18 10:25 Dose: 15 ml Ondansetron HCl (Zofran Inj*) 4 mg IV Q4H PRN PRN Reason: NAUSEA/VOMITING Polyethylene Glycol/Electrolytes (Miralax*) 17 gm PO DAILY PRN PRN Reason: CONSTIPATION Pregabalin (Lyrica Cap(*)) 25 mg PO BID [facility] Last Admin: 01/22/18 10:24 Dose: 25 mg Senna (Senokot Tab*) 1 tab PO DAILY PRN PRN Reason: CONSTIPATION Vital Signs - 8 hr 01/22/18 01/22/18 12:45 15:16 Temperature 97.9 F Pulse Rate 77 Respiratory 22 18 Rate Blood Pressure 137/61 (mmHg) O2 Sat by Pulse 97 Oximetry Oxygen Devices in Use Now: None Appearance: NAD; elderly and frail Eyes: No Scleral Icterus Ears/Nose/Mouth/Throat: Clear Oropharnyx Neck: Trachea Midline Respiratory: Symmetrical Chest Expansion and Respiratory Effort Cardiovascular: NL Sounds; No Murmurs; No JVD Abdominal: NL Sounds; No Tenderness; No Distention Lymphatic: No Cervical Adenopathy Extremities: No Edema Skin: No Rash or Ulcers Neurological: Alert and Oriented x 3, - - mild aphasia Lines/Tubes/Other Access: Clean, Dry and Intact Peripheral IV Nutrition: Taking PO's Result Diagrams: 01/21/18 05:38 01/22/18 12:15 Additional Lab and Data: . Microbiology and Other Data: . Diagnostic Imaging: CTA chest: enlarged left hilar mass/lymph nodes, with multiple smaller nodules of upper lung. New pleural based nodule located in the peripheral of left lower lung. MRI brain with/without contrast - diffuse patchy T2 hyperintensities in bilateral cerebellum, and bilateral watershed regions. Assess/Plan/Problems-Billing . Assessment: Ms. Shanta Crews is a 67-year-old female who presented with headache and aphasia. She was found to have diffuse subcortical edema without infarction consistent with reversible posterior Leukoencephalopathy in the setting of acute isolated hypertension. Also, pulmonary nodule and h/o lung cancer => considerations underway for bx. - Patient Problems (1) PRES (posterior reversible encephalopathy syndrome) Current Visit: Yes Status: Acute Priority: High Code(s): I67.83 - POSTERIOR REVERSIBLE ENCEPHALOPATHY SYNDROME Comment: Noted Neurology recommendations (appreciated): - Keep SBP between 120-<150 mmHg - Ordered ESR, C3, C4, and dsDNA (pending) - Consider outpatient SLE evaluation - Repeat MRI brain on 02/02/2018 to evaluate for resolution of edema. - regular diet - Continue PT/OT ; pt does not want STR but she may need it. - Seizure precautions. No AED therapy. - Neuro checks & supportive care (2) Pulmonary nodule Current Visit: Yes Status: Acute Priority: High Code(s): R91.1 - SOLITARY PULMONARY NODULE Comment: - pulmonary note reviewed and appreciate - former smoker with h/o COPD, lung cancer, esophageal cancer
[2018-01-23] MEDS: clonazePAM TAB(*) 1 MG PO PRN ×2 (00:39→19:41)
[2018-01-23] MEDS: LORazepam INJ* 2 MG/ML 1 ML VIAL IV PUSH PRN (03:20)
[2018-01-23] MEDS: ESCITALOPRAM 5 MG PO SCH (07:41)
[2018-01-23] MEDS: Metoprolol Tartrate TAB* 50 mg PO SCH ×2 (07:43→19:42)
[2018-01-23] MEDS: amLODIPine TAB* 5 MG PO SCH (07:44)
[2018-01-23] MEDS: Pregabalin CAP(*) 25 MG PO SCH ×2 (07:45→19:42)
[2018-01-23] MEDS: Multivitamins ADULT w/MIN LIQ* 15 ML UDC PO SCH (07:46)
[2018-01-23] MEDS: Enoxaparin(*) 40 MG/0.4 ML SYR SUBCUT SCH (09:17)
--- NOTE | 2018-01-23 10:47 | RAD ---
INDICATION: To further characterize a subpleural nodule seen on CT examination dated January 18, 2018 COMPARISON: CT of the chest January 18, 2018 TECHNIQUE: Real time ultrasound images of the left lateral hemithorax were acquired with gaspar scale and Doppler color flow imaging. FINDINGS: Original sonography of the lateral left hemithorax acquired January 19, 2018 did not reveal a pulmonary nodule. The following day a second attempt was made identifying a pleural-based pulmonary nodule at the left lateral pleura. This corresponds to the nodule seen on the prior CT examination. IMPRESSION: Subpleural nodule at the left lateral chest wall is identified with ultrasound corresponding to recent CT of the chest.
[2018-01-23 12:43] LABS: EGFR Non-African American 114.7 (>60)
[2018-01-23] MEDS: HYDROmorphone TAB* 2 MG PO PRN ×2 (14:52→21:18)
--- NOTE | 2018-01-23 15:02 | PN ---
Subjective Date of Service: 01/23/18 Interval History: Patient has improved, feels less confused, fuzzy. Daughter in room, she feels she is mentating better. Has some headache today. She has walked w/ walker to the BR. Eating OK. Reports on O2 at home, for COPD. Has not required O2 in hospital. Family History: Unchanged from Admission Social History: Unchanged from Admission Past Medical History: Unchanged from Admission Objective Active Medications: Acetaminophen (Tylenol Tab*) 650 mg PO Q4H PRN PRN Reason: FEVER/PAIN Last Admin: 01/22/18 15:18 Dose: 650 mg Albuterol (Ventolin 2.5 Mg/3 Ml Neb.Cait*) 2.5 mg INH Q4H PRN PRN Reason: SOB/WHEEZING Last Admin: 01/22/18 05:18 Dose: 2.5 mg Amlodipine Besylate (Norvasc Tab*) 10 mg PO DAILY [facility] Last Admin: 01/23/18 07:44 Dose: 10 mg Clonazepam (Klonopin Tab(*)) 1 mg PO BID PRN PRN Reason: ANXIETY Last Admin: 01/23/18 00:39 Dose: 1 mg Docusate Sodium (Colace Cap*) 100 mg PO BID PRN PRN Reason: CONSTIPATION Last Admin: 01/22/18 15:18 Dose: 100 mg Enoxaparin Sodium (Lovenox(*)) 40 mg SUBCUT Q24H [facility] Last Admin: 01/23/18 09:17 Dose: 40 mg Escitalopram Oxalate (Lexapro (Nf)) 10 mg PO DAILY [facility] Last Admin: 01/23/18 07:41 Dose: 10 mg Hydralazine HCl (Apresoline Iv*) 5 mg IV SLOW PU Q6H PRN PRN Reason: BLOOD PRESSURE Last Admin: 01/21/18 00:20 Dose: 5 mg Hydromorphone HCl (Dilaudid Tab*) 2 mg PO Q6H PRN PRN Reason: PAIN Last Admin: 01/23/18 14:52 Dose: 2 mg Lactated Ringer's (Lactated Ringers 1000 Ml Bag*) 1,000 mls @ 75 mls/hr IV PER RATE [facility] Last Admin: 01/23/18 06:23 Dose: 75 mls/hr Lorazepam (Ativan Inj*) 0.5 mg IV PUSH Q4H PRN PRN Reason: ANXIETY Last Admin: 01/23/18 03:20 Dose: 0.5 mg Magnesium Hydroxide (Milk Of Magnesia Liq*) 30 ml PO Q4H PRN PRN Reason: CONSTIPATION Last Admin: 01/22/18 15:18 Dose: 30 ml Magnesium Oxide (Magox 400 Tab*) 400 mg PO BID [facility] Metoprolol Tartrate (Lopressor Tab*) 50 mg PO BID [facility] Last Admin: 01/23/18 07:43 Dose: 50 mg Multivitamins (Theragran W/Minerals Liq*) 15 ml PO DAILY [facility] Last Admin: 01/23/18 07:46 Dose: Not Given Ondansetron HCl (Zofran Inj*) 4 mg IV Q4H PRN PRN Reason: NAUSEA/VOMITING Polyethylene Glycol/Electrolytes (Miralax*) 17 gm PO DAILY PRN PRN Reason: CONSTIPATION Pregabalin (Lyrica Cap(*)) 25 mg PO BID [facility] Last Admin: 01/23/18 07:45 Dose: 25 mg Senna (Senokot Tab*) 1 tab PO DAILY PRN PRN Reason: CONSTIPATION Vital Signs - 8 hr 01/23/18 01/23/18 01/23/18 07:08 07:33 07:45 Temperature 36.6 C Pulse Rate 79 Respiratory 18 21 18 Rate Blood Pressure 160/61 (mmHg) O2 Sat by Pulse 100 Oximetry 01/23/18 01/23/18 01/23/18 11:17 12:58 12:59 Temperature 36.7 C Pulse Rate 71 Respiratory 18 18 18 Rate Blood Pressure 126/44 (mmHg) O2 Sat by Pulse 98 Oximetry Oxygen Devices in Use Now: None Appearance: alert, no distress Neck: NL Appearance and Movements; NL JVP, Trachea Midline Respiratory: Clear to Auscultation Abdominal: NL Sounds; No Tenderness; No Distention Lymphatic: No Cervical Adenopathy Extremities: No Edema Neurological: - - alert, oriented to place, person, situation Lines/Tubes/Other Access: Clean, Dry and Intact Peripheral IV Nutrition: Taking PO's Result Diagrams: 01/21/18 05:38 01/23/18 12:19 Additional Lab and Data: Laboratory Tests 01/21/18 01/22/18 01/23/18 05:38 12:15 12:19 Sodium 132 L Magnesium 1.3 L 1.6 L 1.8 L Microbiology and Other Data: Microbiology 01/19/18 11:46 Cerebral Spinal Fluid CSF Gram Stain (Tube 3) - Final 01/19/18 11:46 Cerebral Spinal Fluid CSF Culture - Final No Growth Day 4 01/19/18 03:26 Nasal Nasal Screen MRSA (PCR) - Final Mrsa Not Detected 01/19/18 00:55 Urine Urine Culture - Final No Growth (<1,000 CFU/mL) 01/18/18 23:10 Blood Venous Aerobic Blood Culture - Preliminary 01/18/18 23:10 Blood Venous Anaerobic Blood Culture - Preliminary No Growth Day 4 No Growth Day 4 01/18/18 22:02 Blood Venous Aerobic Blood Culture - Preliminary 01/18/18 22:02 Blood Venous Anaerobic Blood Culture - Preliminary No Growth Day 4 No Growth Day 4 Diagnostic Imaging: CTA chest: enlarged left hilar mass/lymph nodes, with multiple smaller nodules of upper lung. New pleural based nodule located in the peripheral of left lower lung. MRI brain with/without contrast - diffuse patchy T2 hyperintensities in bilateral cerebellum, and bilateral watershed regions. Assess/Plan/Problems-Billing Assessment: Ms. Shanta Crews is a 67-year-old female who presented with headache and aphasia. She was found to have diffuse subcortical edema without infarction consistent with reversible posterior leukoencephalopathy in the setting of acute isolated hypertension. 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 - Seizure precautions. No AED therapy. (2) Pulmonary nodule Current Visit: Yes Status: Acute Priority: Medium Code(s): R91.1 - SOLITARY PULMONARY NODULE SNOMED Code(s): 222195077 Comment: - pulmonary note reviewed and appreciated - former smoker with h/o COPD, lung cancer, esophageal cancer - will plan outpatient lung biopsy when stable (3) Hyponatremia Current Visit: Yes Status: Acute Priority: Medium Code(s): E87.1 - HYPO- OSMOLALITY AND HYPONATREMIA SNOMED Code(s): 94198065 Comment: -hyponatremia mild, will follow BMP (4) Hypomagnesemia Current Visit: Yes Status: Acute Priority: Medium Code(s): E83.42 - HYPOMAGNESEMIA SNOMED Code(s): 545528347 Comment: -has improved w/ IV supplementatin -Continue PO supplements (5) DVT prophylaxis Current Visit: No Status: Acute Priority: Low Code(s): IHF4252 - SNOMED Code(s): 207784164 Comment: - SQ heparin (6) HTN (hypertension) Current Visit: No Status: Acute Priority: Medium Code(s): I10 - ESSENTIAL (PRIMARY) HYPERTENSION SNOMED Code(s): 82170653 Comment: - BP is under good control. Continue metoprolol. Status and Disposition: Continued inpatient stay. May need MARYJO, vs home w/ VNS when improved, more alert and ambulatory
[2018-01-23] MEDS: Magnesium Oxide TAB* 400 MG PO SCH (19:42)
--- NOTE | 2018-01-23 22:21 | CONS ---
NEUROLOGY FOLLOWUP NOTE: DATE OF FOLLOWUP: 01/23/18 LOCATION: She is in room 403. HOSPITALIST: Dr. Morfin. CHIEF COMPLAINT: Confusion, headache. INTERVAL HISTORY: Since yesterday, Ms. Crews feels confused. In speaking with her daughter, she sa ys she is better each day. The patient currently does admit to some headache, which is bifrontal and mild. She denies any visual changes. I went over the history with her and she took steroids about 3 weeks ago for "pneumonitis." In going over her history of lupus, I asked if there were any organs besides skin involved, she would get a malar rash and treated with steroids 20 years ago. 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 MEDICATIONS: Reviewed and she is currently on: 1. Albuterol 2.5 mg inhaled q.4 hours as needed. 2. Amlodipine 10 mg p.o. q. day. 3. Clonazepam 1 mg p.o. b.i.d. p.r.n. anxiety, last dose early this morning. 4. Colace 100 mg p.o. b.i.d. 5. Lovenox 40 mg subcutaneous q.24 hours. 6. Lexapro 10 mg p.o. q. day. 7. Hydralazine 5 mg IV q.6 hours p.r.n. blood pressure parameters. 8. Hydromorphone 2 mg p.o. q.6 hours as needed for pain, last dose last evening. 9. Lorazepam 0.5 mg IV q.4 hours as needed for anxiety, last dose 03:20 this morning. 10. Metoprolol 50 mg p.o. b.i.d. 11. Lyrica 25 mg p.o. b.i.d. REVIEW OF SYSTEMS: Currently negative for change in vision, she feels a bit disoriented and finds it hard to come up with names, she has chronic back pain. PHYSICAL EXAM: She currently appears well hydrated and reasonably well nourished. Last temperature 9 8.1 orally, blood pressure 126/44, heart rate in the 70s and seems regular. Respiratory rate 18, oxy gen saturation is 98% on room air. Neurologically, pupils are slightly unequal with the right being about 0.5 mm smaller than the left a nd both reacting to light from about 2.5 down to 2 mm. Eye movements are full and visual shi are full to confrontation. Funduscopic exam reveals sharp discs and mild hypertensive changes bilaterall y, but I do not see any hemorrhages. Facial musculature is symmetric. Speech is clear. She has ant igravity motor strength in her limbs. There is a mild sustention tremor in both hands symmetrically. She is oriented to person and place. She loses her train of thought very easily. She has difficul ty with coming up with words at times. LABORATORY DATA: Notable for CBC from 01/21/18 with white count of 5.0 and hemoglobin 10.5. Platele t count 299,000. Chemistry profile from today notable for sodium of 132, which is stable. Chemistry profile is otherwise unremarkable. Serum osmolality when she came in was low at 270. IMPRESSION AND PLAN: Impression is that of posterior reversible encephalopathy syndrome of unclear e tiology. She was hypertensive when she came in and that has been brought down. There is no clear in dication that there are any new medications or change in medications that triggered it. She has a hi story of lupus, but it sounds to be discoid lupus and her inflammatory markers here are unremarkable. I agree with Dr. Howard to repeat her MRI of the brain next week. Depending upon her degree of clinic al recovery, she may need a rehab stay somewhere. I will follow her along with you. [id number]/[facility] #: [id number]
[2018-01-23] MEDS: Albuterol 2.5 MG/3 ML NEB.SOL* (0.083%) INH PRN (23:10)
[2018-01-24] MEDS: Docusate CAP* 100 MG PO PRN (04:21)
[2018-01-24 06:39] LABS: ABS Basophils 0 10^3/ul (0-0.2); ABS Eosinophils 0.1 10^3/ul (0-0.6); ABS Lymphocytes 1.5 10^3/ul (1.0-4.8); ABS Monocytes 0.5 10^3/ul (0-0.8); ABS Neutrophils 1.7 10^3/ul (1.5-7.7); ABS Nucleated RBC 0 10^3/ul; Eosinophil % 2.8 % (0-6); Hematocrit 28 % (35-47); Hemoglobin 9.7 g/dl (12.0-16.0); Lymphocyte % 38.1 % (25-47); Mean Corpuscular HGB Conc 34 g/dl (31-36); Mean Corpuscular Hemoglobin 30 pg (27-31); Mean Corpuscular Volume 88 fL (80-97); Mean Platelet Volume 6.5 um3 (7.4-10.4); Nucleated Red Blood Cells % 0; Platelet Count 280 10^3/ul (150-450); Red Blood Count 3.23 10^6/ul (4.00-5.40); Red Cell Distribution Width 14 % (10.5-15); White Blood Count 3.9 10^3/ul (3.5-10.8)
[2018-01-24 06:59] LABS: EGFR Non-African American 125.6 (>60)
--- NOTE | 2018-01-24 09:23 | PN ---
Subjective Date of Service: 01/24/18 Interval History: Ms. Crews denies any complaint today. Her speech is clear and fluent. She reports feeling tired and nursing staff report that she was awake throughout the night. She denies headache, chest pain, SOB, nausea, or abdominal pain. Family History: Unchanged from Admission Social History: Unchanged from Admission Past Medical History: Unchanged from Admission Objective Active Medications: Acetaminophen (Tylenol Tab*) 650 mg PO Q4H PRN Albuterol (Ventolin 2.5 Mg/3 Ml Neb.Cait*) 2.5 mg INH Q4H PRN Amlodipine Besylate (Norvasc Tab*) 10 mg PO DAILY [facility] Clonazepam (Klonopin Tab(*)) 1 mg PO BID PRN Docusate Sodium (Colace Cap*) 100 mg PO BID PRN Enoxaparin Sodium (Lovenox(*)) 40 mg SUBCUT Q24H [facility] Escitalopram Oxalate (Lexapro (Nf)) 10 mg PO DAILY [facility] Hydralazine HCl (Apresoline Iv*) 5 mg IV SLOW PU Q6H PRN Hydromorphone HCl (Dilaudid Tab*) 2 mg PO Q6H PRN Lactated Ringer's (Lactated Ringers 1000 Ml Bag*) 1,000 mls @ 75 mls/hr IV PER RATE VICK Lorazepam (Ativan Inj*) 0.5 mg IV PUSH Q4H PRN Magnesium Hydroxide (Milk Of Magnesia Liq*) 30 ml PO Q4H PRN Magnesium Oxide (Magox 400 Tab*) 400 mg PO BID VICK Metoprolol Tartrate (Lopressor Tab*) 50 mg PO BID VICK Multivitamins (Theragran W/Minerals Liq*) 15 ml PO DAILY [facility]ICK Ondansetron HCl (Zofran Inj*) 4 mg IV Q4H PRN Polyethylene Glycol/Electrolytes (Miralax*) 17 gm PO DAILY PRN Pregabalin (Lyrica Cap(*)) 25 mg PO BID VICK Senna (Senokot Tab*) 1 tab PO DAILY PRN Vital Signs: Temp Pulse Resp BP Pulse Ox 98.4 F 77 20 112/45 97 01/24/18 07:27 01/24/18 07:27 01/24/18 07:27 01/24/18 07:27 01/24/18 07:27 Oxygen Devices in Use Now: None Appearance: Female lying in bed sleeping, awaken easily to voice Eyes: No Scleral Icterus Ears/Nose/Mouth/Throat: Mucous Membranes Moist Neck: Trachea Midline Respiratory: Symmetrical Chest Expansion and Respiratory Effort, Clear to Auscultation Cardiovascular: NL Sounds; No Murmurs; No JVD, No Edema Abdominal: NL Sounds; No Tenderness; No Distention Extremities: No Edema Skin: No Rash or Ulcers Neurological: NL Muscle Strength and Tone, - - Drowsy but awakens easily, oriented x 3, follows commands, speech fluent Nutrition: Taking PO's Result Diagrams: 01/24/18 06:10 01/24/18 06:10 Additional Lab and Data: . Microbiology and Other Data: . Diagnostic Imaging: . Assess/Plan/Problems-Billing Assessment: Ms. Shanta Crews is a 67-year-old female who presented with headache and aphasia. She was found to have diffuse subcortical edema without infarction consistent with reversible posterior leukoencephalopathy in the setting of acute isolated hypertension. - Patient Problems (1) PRES (posterior reversible encephalopathy syndrome) Comment: - Asymptomatic this AM. - Appreciate neurology recommendations. - Maintaing BP on target. - C3, C4, and dsDNA pending. - No need for SLE evaluation, had discoid lupus. - Repeat MRI brain on 02/02/2018 to evaluate for resolution of edema. - Seizure precautions. No AED therapy. (2) Lung cancer Comment: - Hx of lung cancer, esophageal cancer and COPD. Now with growing left hilar mass and subpleural pulmonary nodule, PET scan recommended by radiology. - Appreciate Dr. Llamas input. Central lesion amenable to EBUS, awaiting IR input on feasibility of biopsying subpleural nodule. Anticipate biopsies outpatient when patient stable. (3) Hypomagnesemia Comment: - Mag 1.6 this AM. - Continue PO supplementation, IV supplementation x 1 today. (4) Anemia Current Visit: No Status: Acute Code(s): D64.9 - ANEMIA, UNSPECIFIED SNOMED Code(s): 211167543 Comment: - Hgb 9.7, normocytic. - Iron studies,vit B12, and folate normal. - Suspect anemia of chronic disease. (5) Chronic pain Comment: - Continue hyrdromorphone and lyrica. (6) DVT prophylaxis Comment: - SQ heparin (7) Full code status Comment: Status and Disposition: Continued inpatient stay. May need MARYJO, vs home w/ VNS when improved. PT following.
[2018-01-24] MEDS ORDERED: Magnesium Sulfate IV* 2 GM in NS 0.9% 100 ML* 100 ML IVPB ONE (09:24)
[2018-01-24] MEDS: Enoxaparin(*) 40 MG/0.4 ML SYR SUBCUT SCH (11:06)
[2018-01-24] MEDS: amLODIPine TAB* 5 MG PO SCH (11:07)
[2018-01-24] MEDS: ESCITALOPRAM 5 MG PO SCH (11:07)
[2018-01-24] MEDS: Multivitamins ADULT w/MIN LIQ* 15 ML UDC PO SCH (11:07)
[2018-01-24] MEDS: Magnesium Oxide TAB* 400 MG PO SCH ×2 (11:07→20:15)
[2018-01-24] MEDS: Pregabalin CAP(*) 25 MG PO SCH ×2 (11:07→20:15)
[2018-01-24] MEDS: Metoprolol Tartrate TAB* 50 mg PO SCH ×2 (11:08→20:15)
[2018-01-24] MEDS: HYDROmorphone TAB* 2 MG PO PRN ×3 (11:29→22:53)
[2018-01-24] MEDS: Acetaminophen TAB* 325 MG PO PRN (17:05)
[2018-01-24] MEDS: LORazepam INJ* 2 MG/ML 1 ML VIAL IV PUSH PRN (20:14)
[2018-01-24] MEDS: clonazePAM TAB(*) 1 MG PO PRN (20:15)
[2018-01-25 07:26] LABS: ABS Basophils 0 10^3/ul (0-0.2); ABS Eosinophils 0.1 10^3/ul (0-0.6); ABS Lymphocytes 1.5 10^3/ul (1.0-4.8); ABS Monocytes 0.5 10^3/ul (0-0.8); ABS Neutrophils 1.2 10^3/ul (1.5-7.7); ABS Nucleated RBC 0 10^3/ul; Eosinophil % 4.2 % (0-6); Hematocrit 29 % (35-47); Hemoglobin 9.9 g/dl (12.0-16.0); Lymphocyte % 45.3 % (25-47); Mean Corpuscular HGB Conc 34 g/dl (31-36); Mean Corpuscular Hemoglobin 30 pg (27-31); Mean Corpuscular Volume 88 fL (80-97); Mean Platelet Volume 6.7 um3 (7.4-10.4); Nucleated Red Blood Cells % 0.1; Platelet Count 292 10^3/ul (150-450); Red Blood Count 3.31 10^6/ul (4.00-5.40); Red Cell Distribution Width 14 % (10.5-15); White Blood Count 3.4 10^3/ul (3.5-10.8)
--- NOTE | 2018-01-25 07:51 | PN ---
Subjective Date of Service: 01/25/18 Interval History: Ms. Crews reports feeling better today. She reports being very unsteady on her feet and feeling that her thinking is not normal. She denies other complaint including chest pain, SOB, nausea, or abdominal pain. Family History: Unchanged from Admission Social History: Unchanged from Admission Past Medical History: Unchanged from Admission Objective Active Medications: Acetaminophen (Tylenol Tab*) 650 mg PO Q4H PRN Albuterol (Ventolin 2.5 Mg/3 Ml Neb.Cait*) 2.5 mg INH Q4H PRN Amlodipine Besylate (Norvasc Tab*) 10 mg PO DAILY [facility]ICK Clonazepam (Klonopin Tab(*)) 1 mg PO BID PRN Docusate Sodium (Colace Cap*) 100 mg PO BID PRN Enoxaparin Sodium (Lovenox(*)) 40 mg SUBCUT Q24H VICK Escitalopram Oxalate (Lexapro (Nf)) 10 mg PO DAILY [facility]ICK Hydralazine HCl (Apresoline Iv*) 5 mg IV SLOW PU Q6H PRN Hydromorphone HCl (Dilaudid Tab*) 2 mg PO Q6H PRN Lorazepam (Ativan Inj*) 0.5 mg IV PUSH Q4H PRN Magnesium Hydroxide (Milk Of Magnesia Liq*) 30 ml PO Q4H PRN Magnesium Oxide (Magox 400 Tab*) 400 mg PO BID VICK Metoprolol Tartrate (Lopressor Tab*) 50 mg PO BID VICK Multivitamins (Theragran W/Minerals Liq*) 15 ml PO DAILY VICK Ondansetron HCl (Zofran Inj*) 4 mg IV Q4H PRN Polyethylene Glycol/Electrolytes (Miralax*) 17 gm PO DAILY PRN Pregabalin (Lyrica Cap(*)) 25 mg PO BID VICK Senna (Senokot Tab*) 1 tab PO DAILY PRN Vital Signs: Temp Pulse Resp BP Pulse Ox 98.7 F 72 22 122/62 100 01/25/18 06:55 01/25/18 06:55 01/25/18 06:55 01/25/18 06:55 01/25/18 06:55 Oxygen Devices in Use Now: None Appearance: Female sitting up in chair in NAD Eyes: No Scleral Icterus Ears/Nose/Mouth/Throat: Mucous Membranes Moist Neck: Trachea Midline Respiratory: Symmetrical Chest Expansion and Respiratory Effort, Clear to Auscultation Cardiovascular: NL Sounds; No Murmurs; No JVD, No Edema Abdominal: NL Sounds; No Tenderness; No Distention Lymphatic: No Cervical Adenopathy Extremities: No Edema Skin: No Rash or Ulcers Neurological: Alert and Oriented x 3, NL Muscle Strength and Tone Nutrition: Taking PO's Result Diagrams: 01/25/18 06:59 01/24/18 06:10 Additional Lab and Data: . Microbiology and Other Data: . Diagnostic Imaging: . Assess/Plan/Problems-Billing Assessment: Ms. Shanta Crews is a 67-year-old female who presented with headache and aphasia. She was found to have diffuse subcortical edema without infarction consistent with reversible posterior leukoencephalopathy in the setting of acute isolated hypertension. - Patient Problems (1) PRES (posterior reversible encephalopathy syndrome) Comment: - Remains unsteady on her feet. - Appreciate neurology recommendations. Maintain BP on target. C3, C4, and dsDNA pending. 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 Repeat MRI brain on 02/02/2018 to evaluate for resolution of edema. Seizure precautions. No AED therapy. - PT/OT and PMRU consult, anticipate need for rehab. (2) Esophageal stricture Comment: - Patient with hx of esophageal cancer s/p esophagectomy with chemo/radiation. Has esophageal stricture dilatation q2 weeks with plan for procedure tomorrow ( previously scheduled outpatient). - Have requested records regarding esophageal dilations and cancer treatment. Dr Joaquin will review and will consider performing procedure inpatient tomorrow. (3) Lung cancer Comment: - Hx of lung cancer, esophageal cancer and COPD. Now with growing left hilar mass and subpleural pulmonary nodule, PET scan recommended by radiology. - Appreciate Dr. Llamas input. Central lesion amenable to EBUS, awaiting IR input on feasibility of biopsying subpleural nodule. Anticipate biopsies outpatient when patient stable. (4) Hypomagnesemia Comment: - Mag 1.6 this AM. - Continue PO supplementation, IV supplementation x 1 today. (5) Anemia Current Visit: No Status: Acute Code(s): D64.9 - ANEMIA, UNSPECIFIED SNOMED Code(s): 021679293 Comment: - Hgb 9.7, normocytic. - Iron studies,vit B12, and folate normal. - Suspect anemia of chronic disease. (6) Chronic pain Comment: - Continue hyrdromorphone and lyrica. (7) DVT prophylaxis Comment: - SQ heparin (8) Full code status Comment: Status and Disposition: Continued inpatient stay. PMRU will admit patient when esophageal stricture issue is resolved.
[2018-01-25] MEDS: HYDROmorphone TAB* 2 MG PO PRN ×3 (10:26→22:52)
[2018-01-25] MEDS: Pregabalin CAP(*) 25 MG PO SCH ×2 (10:27→20:28)
[2018-01-25] MEDS: Metoprolol Tartrate TAB* 50 mg PO SCH ×2 (10:27→20:27)
[2018-01-25] MEDS: Magnesium Oxide TAB* 400 MG PO SCH ×2 (10:27→20:28)
[2018-01-25] MEDS: ESCITALOPRAM 5 MG PO SCH (10:27)
[2018-01-25] MEDS: amLODIPine TAB* 5 MG PO SCH (10:27)
[2018-01-25] MEDS: Enoxaparin(*) 40 MG/0.4 ML SYR SUBCUT SCH (10:28)
[2018-01-25] MEDS: Multivitamins ADULT w/MIN LIQ* 15 ML UDC PO SCH (10:28)
[2018-01-25] MEDS: Acetaminophen TAB* 325 MG PO PRN (16:02)
--- NOTE | 2018-01-25 18:57 | PN ---
Progress Note - Progress Note Date of Service: 01/25/18 SOAP: Subjective: []She is feeling better. LOUIS have stopped. Swallowing is difficult again. Breathing fine. She has been in active and planning PMRU on discharge Acetaminophen (Tylenol Tab*) 650 mg PO Q4H PRN PRN Reason: FEVER/PAIN Last Admin: 01/25/18 16:02 Dose: 650 mg Albuterol (Ventolin 2.5 Mg/3 Ml Neb.Cait*) 2.5 mg INH Q4H PRN PRN Reason: SOB/WHEEZING Last Admin: 01/23/18 23:10 Dose: 2.5 mg Amlodipine Besylate (Norvasc Tab*) 10 mg PO DAILY [facility] Last Admin: 01/25/18 10:27 Dose: 10 mg Clonazepam (Klonopin Tab(*)) 1 mg PO BID PRN PRN Reason: ANXIETY Last Admin: 01/24/18 20:15 Dose: 1 mg Docusate Sodium (Colace Cap*) 100 mg PO BID PRN PRN Reason: CONSTIPATION Last Admin: 01/24/18 04:21 Dose: 100 mg Enoxaparin Sodium (Lovenox(*)) 40 mg SUBCUT Q24H [facility] Last Admin: 01/25/18 10:28 Dose: 40 mg Escitalopram Oxalate (Lexapro (Nf)) 10 mg PO DAILY [facility] Last Admin: 01/25/18 10:27 Dose: 10 mg Hydralazine HCl (Apresoline Iv*) 5 mg IV SLOW PU Q6H PRN PRN Reason: BLOOD PRESSURE Last Admin: 01/21/18 00:20 Dose: 5 mg Hydromorphone HCl (Dilaudid Tab*) 2 mg PO Q6H PRN PRN Reason: PAIN Last Admin: 01/25/18 16:59 Dose: 2 mg Lorazepam (Ativan Inj*) 0.5 mg IV PUSH Q4H PRN PRN Reason: ANXIETY Last Admin: 01/24/18 20:14 Dose: 0.5 mg Magnesium Hydroxide (Milk Of Magnesia Liq*) 30 ml PO Q4H PRN PRN Reason: CONSTIPATION Last Admin: 01/22/18 15:18 Dose: 30 ml Magnesium Oxide (Magox 400 Tab*) 400 mg PO BID [facility] Last Admin: 01/25/18 10:27 Dose: 400 mg Metoprolol Tartrate (Lopressor Tab*) 50 mg PO BID [facility] Last Admin: 01/25/18 10:27 Dose: 50 mg Multivitamins (Theragran W/Minerals Liq*) 15 ml PO DAILY [facility] Last Admin: 01/25/18 10:28 Dose: 15 ml Ondansetron HCl (Zofran Inj*) 4 mg IV Q4H PRN PRN Reason: NAUSEA/VOMITING Polyethylene Glycol/Electrolytes (Miralax*) 17 gm PO DAILY PRN PRN Reason: CONSTIPATION Pregabalin (Lyrica Cap(*)) 25 mg PO BID [facility] Last Admin: 01/25/18 10:27 Dose: 25 mg Senna (Senokot Tab*) 1 tab PO DAILY PRN PRN Reason: CONSTIPATION Objective: [] Vital Signs Temp Pulse Resp BP Pulse Ox 98.2 F 73 18 116/61 100 01/25/18 15:27 01/25/18 15:27 01/25/18 16:59 01/25/18 15:27 01/25/18 15:27 HEENT: OM moist, pale CTA, BS decreased RRR S1S2 +BS NT ND Ext w/o edema CT scans reviewed. Pulmonary nodules stable to slightly increased from December. Increased mediastinal LAD. Assessment: []67 year old with history of lung cancer and esophogeal cancer but has been disease free. Recent CT scans with pulmonary nodules and now mediastinal LAD suspicious for recurrence. She has had a very difficult time since surgery at [facility] in the fall of 2016 with chronic SOB and esophageal stricture. Now admission with malignant HTN. Plan: []1. Blood pressure controlled and plan for follow up MRI in February. 2. Agree with dilation of stricture and PMRU 3. Will plan LN biopsy as out patient with Dr. Llamas. Differential for mediastinal LAD is broad but bx low risk compared CT guided biopsy given COPD.
[2018-01-25] MEDS: LORazepam INJ* 2 MG/ML 1 ML VIAL IV PUSH PRN (20:30)
[2018-01-26] MEDS: ESCITALOPRAM 5 MG PO SCH (09:40)
[2018-01-26] MEDS: Pregabalin CAP(*) 25 MG PO SCH ×2 (09:41→20:57)
[2018-01-26] MEDS: amLODIPine TAB* 5 MG PO SCH (09:41)
[2018-01-26] MEDS: HYDROmorphone TAB* 2 MG PO PRN ×2 (09:42→19:39)
[2018-01-26] MEDS: Magnesium Oxide TAB* 400 MG PO SCH ×2 (09:42→20:57)
[2018-01-26] MEDS: Metoprolol Tartrate TAB* 50 mg PO SCH ×2 (09:42→20:57)
[2018-01-26] MEDS: Multivitamins ADULT w/MIN LIQ* 15 ML UDC PO SCH (09:43)
[2018-01-26] MEDS: Enoxaparin(*) 40 MG/0.4 ML SYR SUBCUT SCH (11:05)
[2018-01-26] MEDS ORDERED: Meperidine Carpuject* 75 MG/ML CARPUJECT SYRINGE IV ONE (12:00)
[2018-01-26] MEDS ORDERED: Midazolam* 1 MG/ML 10 ML VIAL (10 MG) ONE (13:01)
[2018-01-26] MEDS ORDERED: Meperidine Carpuject* 75 MG/ML CARPUJECT SYRINGE ONE (14:24)
--- NOTE | 2018-01-26 16:24 | PN ---
Subjective Date of Service: 01/26/18 Interval History: C/o mild dizziness this AM , denies chest pain or shortness of breath. denies fever or chills, denies abd pain. Planned to have upper endoscopy for stricture dilation today. Family History: Unchanged from Admission Social History: Unchanged from Admission Past Medical History: Unchanged from Admission Objective Active Medications: Acetaminophen (Tylenol Tab*) 650 mg PO Q4H PRN PRN Reason: FEVER/PAIN Last Admin: 01/25/18 16:02 Dose: 650 mg Albuterol (Ventolin 2.5 Mg/3 Ml Neb.Cait*) 2.5 mg INH Q4H PRN PRN Reason: SOB/WHEEZING Last Admin: 01/23/18 23:10 Dose: 2.5 mg Amlodipine Besylate (Norvasc Tab*) 10 mg PO DAILY [facility] Last Admin: 01/26/18 09:41 Dose: 10 mg Docusate Sodium (Colace Cap*) 100 mg PO BID PRN PRN Reason: CONSTIPATION Last Admin: 01/24/18 04:21 Dose: 100 mg Enoxaparin Sodium (Lovenox(*)) 40 mg SUBCUT Q24H [facility] Last Admin: 01/26/18 11:05 Dose: Not Given Escitalopram Oxalate (Lexapro (Nf)) 10 mg PO DAILY [facility] Last Admin: 01/26/18 09:40 Dose: 10 mg Hydralazine HCl (Apresoline Iv*) 5 mg IV SLOW PU Q6H PRN PRN Reason: BLOOD PRESSURE Last Admin: 01/21/18 00:20 Dose: 5 mg Hydromorphone HCl (Dilaudid Tab*) 2 mg PO Q6H PRN PRN Reason: PAIN Last Admin: 01/26/18 09:42 Dose: 2 mg Lorazepam (Ativan Inj*) 0.5 mg IV PUSH Q4H PRN PRN Reason: ANXIETY Last Admin: 01/25/18 20:30 Dose: 0.5 mg Magnesium Hydroxide (Milk Of Magnesia Liq*) 30 ml PO Q4H PRN PRN Reason: CONSTIPATION Last Admin: 01/22/18 15:18 Dose: 30 ml Magnesium Oxide (Magox 400 Tab*) 400 mg PO BID [facility] Last Admin: 01/26/18 09:42 Dose: 400 mg Metoprolol Tartrate (Lopressor Tab*) 50 mg PO BID [facility] Last Admin: 01/26/18 09:42 Dose: 50 mg Multivitamins (Theragran W/Minerals Liq*) 15 ml PO DAILY [facility] Last Admin: 01/26/18 09:43 Dose: Not Given Ondansetron HCl (Zofran Inj*) 4 mg IV Q4H PRN PRN Reason: NAUSEA/VOMITING Polyethylene Glycol/Electrolytes (Miralax*) 17 gm PO DAILY PRN PRN Reason: CONSTIPATION Pregabalin (Lyrica Cap(*)) 25 mg PO BID [facility] Last Admin: 01/26/18 09:41 Dose: 25 mg Senna (Senokot Tab*) 1 tab PO DAILY PRN PRN Reason: CONSTIPATION Vital Signs - 8 hr 01/26/18 01/26/18 01/26/18 09:41 09:42 10:52 Temperature 98.4 F Pulse Rate 58 Respiratory 18 18 24 Rate Blood Pressure 100/43 (mmHg) O2 Sat by Pulse 98 Oximetry 01/26/18 01/26/18 13:14 13:31 Temperature 98.6 F Pulse Rate 70 76 Respiratory 18 18 Rate Blood Pressure 107/61 (mmHg) O2 Sat by Pulse 100 96 Oximetry Oxygen Devices in Use Now: None Appearance: appears comfortabel resting in bed. Eyes: No Scleral Icterus Ears/Nose/Mouth/Throat: NL Teeth, Lips, Gums, Mucous Membranes Moist Neck: NL Appearance and Movements; NL JVP, Trachea Midline Respiratory: Symmetrical Chest Expansion and Respiratory Effort, Clear to Auscultation Cardiovascular: NL Sounds; No Murmurs; No JVD, No Edema Abdominal: NL Sounds; No Tenderness; No Distention Extremities: No Edema, No Clubbing, Cyanosis Skin: No Rash or Ulcers Neurological: Alert and Oriented x 3 Nutrition: Taking PO's Result Diagrams: 01/25/18 06:59 01/24/18 06:10 Additional Lab and Data: . Microbiology and Other Data: . Diagnostic Imaging: . Assess/Plan/Problems-Billing Assessment: Ms. Shanta Crews is a 67-year-old female who presented with headache and aphasia. She was found to have diffuse subcortical edema without infarction consistent with reversible posterior leukoencephalopathy in the setting of acute isolated hypertension. - Patient Problems (1) PRES (posterior reversible encephalopathy syndrome) Current Visit: Yes Status: Acute Priority: High Code(s): I67.83 - POSTERIOR REVERSIBLE ENCEPHALOPATHY SYNDROME SNOMED Code(s): 302143707 Comment: - alert oriented x 3, speech is clear. - Appreciate neurology recommendations. Maintain BP on target. C3, C4, and dsDNA pending. 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 Repeat MRI brain on 02/02/2018 to evaluate for resolution of edema. Seizure precautions. No AED therapy. - PT/OT - Bed at PMRU likely to be discharged to PMRU tomorrow (2) HTN (hypertension) Current Visit: No Status: Acute Priority: Medium Code(s): I10 - ESSENTIAL (PRIMARY) HYPERTENSION SNOMED Code(s): 27161842 Comment: - BP is under good control. Continue metoprolol. (3) Esophageal stricture Current Visit: Yes Status: Acute Code(s): K22.2 - ESOPHAGEAL OBSTRUCTION SNOMED Code(s): 51681133 Comment: - Patient with hx of esophageal cancer s/p esophagectomy with chemo/radiation. - Upper endoscopy completed and stricture dialated- GI recommended crushed pills or liquid pills - will need a repeat EGD next thursday, full liquid diet until . - Have requested records regarding esophageal dilations and cancer treatment. Dr Joaquin will review and will consider performing procedure inpatient tomorrow. (4) Hyponatremia Current Visit: Yes Status: Acute Priority: Medium Code(s): E87.1 - HYPO- OSMOLALITY AND HYPONATREMIA SNOMED Code(s): 21385488 Comment: -hyponatremia mild, will follow BMP (5) Lung cancer Current Visit: Yes Status: Acute Code(s): C34.90 - MALIGNANT NEOPLASM OF UNSP PART OF UNSP BRONCHUS OR LUNG SNOMED Code(s): 047496091 Comment: - Hx of lung cancer, esophageal cancer and COPD. - growth in left hilar mass and subpleural pulmonary nodule - Appreciate Dr. Llamas input. Central lesion amenable to EBUS, awaiting IR input on feasibility of biopsying subpleural nodule. Anticipate biopsies outpatient when patient stable. (6) Pulmonary nodule Current Visit: Yes Status: Acute Priority: Medium Code(s): R91.1 - SOLITARY PULMONARY NODULE SNOMED Code(s): 209396973 Comment: - pulmonary note reviewed and appreciated - former smoker with h/o COPD, lung cancer, esophageal cancer - will plan outpatient lung biopsy when stable (7) Chronic pain Current Visit: No Status: Acute Code(s): G89.29 - OTHER CHRONIC PAIN SNOMED Code(s): 14231972 Comment: - Continue hyrdromorphone and lyrica. (8) DVT prophylaxis Current Visit: No Status: Acute Priority: Low Code(s): PAB9875 - SNOMED Code(s): 766491044 Comment: - SQ heparin (9) Full code status Current Visit: No Status: Acute Code(s): Z78.9 - OTHER SPECIFIED HEALTH STATUS SNOMED Code(s): 459224761 Comment: Status and Disposition: Continued inpatient stay. PMRU will admit patient when esophageal stricture issue is resolved.
[2018-01-26] MEDS ORDERED: Docusate LIQ* 100 MG/10 ML UDC PO PRN (17:00)
[2018-01-26] MEDS: LORazepam INJ* 2 MG/ML 1 ML VIAL IV PUSH PRN (21:00)
--- NOTE | 2018-01-26 22:27 | CONS ---
GASTROENTEROLOGY CONSULT: DATE: 01/26/18 CONSULTING PHYSICIAN: Serafin Muhammad, REASON FOR CONSULTATION: Dysphagia in a woman with a high esophagogastric anastomosis performed at [facility] in [place] in April 2017. HISTORY OF PRESENT ILLNESS: This 67-year-old woman with smoking-related COPD and a history of esophageal cancer in the past had a completion 2/3rds esophagectomy at [facility] in April 2017. 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 The full workup documenting recurring esophageal cancer is not available, but she had the subtotal esophagectomy and high esophageal anastomosis 9 months ago. Since then, she has developed a pattern of dysphagia which she says is more for pills than food though there are limited number of foods she can take ad jagruti ( i.e. avoids steak). She has been getting dilatations every few weeks to a little more than a month performed mostly at [facility] by Dr Eran Camacho. One of the recent dilation reports does give a diameter of 11 mm. Many of her meds she will put in apple sauce, but not all. One, budesonide, is large and she takes sporadically for lymphocytic colitis diagnosed by Dr. Velasquez 5 or 6 years ago. 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 PAST MEDICAL HISTORY: 1. COPD - on oxygen, though amount is uncertain. Her 6-minute walk test a month ago was 300 m without hypoxia. 2. Pulmonary nodules - expanding on CT with a biopsy being considered. 3. History of esophageal cancer - treated with radiation and chemo in 2011 and radiation stricture dilated several times by Drs. Velasquez and Jon over the years , most recently Dr. Webb in spring 2016. She then had subtotal esophagectomy as described above. 4. Esophagogastric anastomotic stricture - dilated recurrently at [facility]. 5. History of right lung cancer - status post right lobectomy in 2013. 6. History of microscopic colitis - treated since [address] Velasquez. MEDICATIONS: At home includin. Clonazepam. 2. Hydromorphone. 3. Lexapro. 4. Lyrica. 5. Metoprolol 25 b.i.d. 6. Cyproheptadine. 7. Albuterol inhaler. SOCIAL HISTORY: She lives in an apartment in her daughter's home. She is . REVIEW OF SYSTEMS: She has a chronic gravelly cough. No history of recent hemoptysis. She has not been having fevers. There has been no rectal bleeding. She has been loosing weight gradually. No history of MS, congestive failure, syncope, valvular heart disease, hepatitis, jaundice or peptic ulcer. PHYSICAL EXAM: She is a frail elderly woman sitting in a chair in no distress. She is accurate with her recall and appears better than as described in the history and physical 5 days ago. HEENT: Exam shows no icterus. She has no adenopathy. Breath sounds are grossly diminished, but relatively maintained in the right upper lobe. There is a right thoracotomy scar. Heart sounds are regular. Breast exam deferred. The abdomen shows a gastrostomy scar at the epigastrium. There is no hernia. The abdomen is soft. Rectal: Deferred. Extremities show no edema. DIAGNOSTIC STUDIES/LAB DATA: Hemoglobin 9.9, hematocrit 29, MCV 88, platelets 292, white count 3.4. INR on admission 1.01, BUN 6, creatinine 0.49, LFTs normal. ALT is 7. Alkaline phosphatase 60. Total bilirubin 0.3, albumin 3.2, B12 1307, TSH 0.65. Erythropoietin this summer10/09/17 was 16.9, on a day when her hemoglobin was 12.0 and MCV 89. IMPRESSION: This 67-year-old woman who has weathered an impressive number of serious illnesses in the last 6 years is having continuing trouble with a high esophagogastric anastomotic stricture. Things have worsened during this hospital stay and that likely relates to recumbency and additional difficulty handling her pills with her altered mental status. It would be useful to review all her pills and see that all of them are converted to crushable forms or ones that can be administered in apple sauce or liquids. Persistent ulceration has been seen at the anastomosis and there is probably a caustic component. Her overall prognosis is cloudy given the lung nodules that are felt to be expanding. Today, her Lovenox will be held and dilation done. [id number]/[facility] #: [id number] [facility]
[2018-01-27] MEDS: Metoprolol Tartrate TAB* 50 mg PO SCH (09:25)
[2018-01-27] MEDS: Pregabalin CAP(*) 25 MG PO SCH (09:25)
[2018-01-27] MEDS: ESCITALOPRAM 5 MG PO SCH (09:26)
[2018-01-27] MEDS: Magnesium Oxide TAB* 400 MG PO SCH (09:26)
[2018-01-27] MEDS: amLODIPine TAB* 5 MG PO SCH (09:26)
[2018-01-27] MEDS: Multivitamins ADULT w/MIN LIQ* 15 ML UDC PO SCH (09:27)
[2018-01-27] MEDS: Enoxaparin(*) 40 MG/0.4 ML SYR SUBCUT SCH (09:27)
--- NOTE | 2018-01-27 10:12 | PRO ---
DATE: 01/26/18 - ROOM #403 REFERRING PHYSICIANS: Daren Chawla, Serafin Vance * PROCEDURE: Upper gastrointestinal endoscopy and balloon dilation, surgical anastomotic stricture at 22 to 23 cm to 12 mm with balloon dilator. INDICATION: This 67-year-old woman had a gastric pull-through after an esophageal resection at [facility], April 2017. She has had a number of anastomotic dilations over the last year mostly under conscious sedation. One Hayden report refers to an 11-mm dilation. She says she has most trouble with pills as opposed to food, which she chooses very carefully. She was in the hospital with a neurologic syndrome, which has largely cleared. It was defined by the appearance on MRI and the differential for the cause of this apparently has been pinned down to hypertension. She has been stable in the hospital improving mentally over the last several days. Informed consent was obtained. The patient was quite anxious to move ahead and get improvement. ENDOSCOPIST: Dr Joaquin MEDICATION: Midazolam 9, meperidine 87.5. FINDINGS: The patient was positioned left side down. She appeared quite comfortable before the conscious sedation with CO2 coming out at 18 to 20. Conscious sedation was administered. A 1.5 mg Versed increments given., her outpatient meds which included clonazepam and her prior experience with these medications. There was a phase few minutes into the procedure where her eyes were open, she was verbally responsive and yet hypoventilatory, but ventilating quite well to direct request. EGD: Larynx - symmetric, slightly narrow. Esophagus - easily entered about 18 and at 20 to 23, there was very tight stricture not admitting the scope. A 10 to 12 balloon dilator was threaded through easily and inflated progressively from 1 to 2 to 3 atmospheres. The stricture had some sutures in its mid portion. There were superficial broad ulcerations. Stricture appeared quite firm and did not crack. The scope would not pass after the 10 mm (3 atmospheres) dilation. Dilation then proceeded to 5 atmospheres for 11 mm and again, there was no passage. The scope almost passed at a 6.5 atmosphere dilation, but finally when a full 8 atmosphere 12 mm dilation was done, the scope passed quite snugly. Beyond the anastomosis with the gastric pull-through, the mucous appeared normal and without erosions or bleeding. The diaphragm could be seen two thirds of the way down the stomach. The antrum appeared normal. Duodenum - normal bulb and second to fourth portions. The scope was easily maneuverable in the distal stomach and duodenum. Photos were taken of the dilated anastomosis during withdrawal. There is no obvious tumor. IMPRESSION: High esophageal stricture - dilated now to 12 mm and this will be repeated in a week. There are ulcerations and it appears that there is a caustic injury component likely from pills or pill fragments layering out. This would have been more likely to occur during her illness and for a few days of her hospital stay. It would be incumbent to switch all of her meds to crushable forms or liquids. Repeat dilation in a week. [id number]/[facility] #: [id number] MARILYNN
[2018-01-27 12:49] VITALS: BP 100/52
--- NOTE | 2018-01-27 13:36 | PN ---
Subjective Date of Service: 01/27/18 Interval History: No complaints, does c/o occasional episode of dizziness. SBP in the 90's. reports that she continues to feel drowsy from the anesthesia she received yesterday. reports that she is feeling better and swallowing has improved since dilation yesterday. denies chest pain or shortness of breath. Denies abd pain n/v/d. denies confusion Family History: Unchanged from Admission Social History: Unchanged from Admission Past Medical History: Unchanged from Admission Objective Vital Signs - 8 hr 01/27/18 01/27/18 01/27/18 07:38 08:00 09:25 Temperature 98.5 F Pulse Rate 73 Respiratory 19 14 14 Rate Blood Pressure 107/42 (mmHg) O2 Sat by Pulse 99 Oximetry 01/27/18 01/27/18 01/27/18 11:02 11:15 12:00 Temperature 98.6 F Pulse Rate 61 Respiratory 18 14 Rate Blood Pressure 93/41 100/52 (mmHg) O2 Sat by Pulse 99 Oximetry Oxygen Devices in Use Now: None Appearance: alert, oreinted x3 appears fatigued, resting in bed, no acute distress Eyes: No Scleral Icterus Ears/Nose/Mouth/Throat: Clear Oropharnyx, Mucous Membranes Moist Neck: NL Appearance and Movements; NL JVP, Trachea Midline Respiratory: Symmetrical Chest Expansion and Respiratory Effort, Clear to Auscultation Cardiovascular: NL Sounds; No Murmurs; No JVD, No Edema Abdominal: NL Sounds; No Tenderness; No Distention Extremities: No Edema Skin: No Rash or Ulcers, No Nodules or Sclerosis Neurological: Alert and Oriented x 3 Nutrition: Taking PO's Result Diagrams: 01/25/18 06:59 01/24/18 06:10 Additional Lab and Data: . Microbiology and Other Data: . Diagnostic Imaging: . Assess/Plan/Problems-Billing Assessment: Ms. Shanta Crews is a 67-year-old female who presented with headache and aphasia. She was found to have diffuse subcortical edema without infarction consistent with reversible posterior leukoencephalopathy in the setting of acute isolated hypertension. - Patient Problems (1) PRES (posterior reversible encephalopathy syndrome) Status: Acute Priority: High Code(s): I67.83 - POSTERIOR REVERSIBLE ENCEPHALOPATHY SYNDROME SNOMED Code(s): 729734630 Comment: - alert oriented x 3, speech is clear. - Appreciate neurology recommendations. Maintain BP 120-150. - will decrease metoprolol to original dose of 25 mg BID - C3, C4, and dsDNA pending. 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 Repeat MRI brain on 02/02/2018 to evaluate for resolution of edema. Seizure precautions. No AED therapy. - PT/OT - Bed at [facility] likely to be discharged to [facility] today (2) HTN (hypertension) Status: Acute Priority: Medium Code(s): I10 - ESSENTIAL (PRIMARY) HYPERTENSION SNOMED Code(s): 35275436 Comment: - BP is under good control. will decrease metoprolol to 25 mg bid and SBP in the 90's . (3) Esophageal stricture Status: Acute Code(s): K22.2 - ESOPHAGEAL OBSTRUCTION SNOMED Code(s): 07619837 Comment: - Patient with hx of esophageal cancer s/p esophagectomy with chemo/radiation. - Upper endoscopy completed and stricture dialated- GI recommended crushed pills or liquid pills - will need a repeat EGD next thursday, full liquid diet until then soft diet. (4) Hyponatremia Status: Acute Priority: Medium Code(s): E87.1 - HYPO-OSMOLALITY AND HYPONATREMIA SNOMED Code(s): 06025321 Comment: -hyponatremia mild, will follow BMP (5) Lung cancer Status: Acute Code(s): C34.90 - MALIGNANT NEOPLASM OF UNSP PART OF UNSP BRONCHUS OR LUNG SNOMED Code(s): 176749510 Comment: - Hx of lung cancer, esophageal cancer and COPD. - growth in left hilar mass and subpleural pulmonary nodule - Appreciate Dr. Llamas input. Central lesion amenable to EBUS, awaiting IR input on feasibility of biopsying subpleural nodule. Anticipate biopsies outpatient when patient stable. (6) Pulmonary nodule Status: Acute Priority: Medium Code(s): R91.1 - SOLITARY PULMONARY NODULE SNOMED Code(s): 181479987 Comment: - pulmonary note reviewed and appreciated - former smoker with h/o COPD, lung cancer, esophageal cancer - will plan outpatient lung biopsy when stable (7) Chronic pain Status: Acute Code(s): G89.29 - OTHER CHRONIC PAIN SNOMED Code(s): 96870393 Comment: - Continue hyrdromorphone and lyrica. (8) DVT prophylaxis Status: Acute Priority: Low Code(s): ZVC6172 - SNOMED Code(s): 205479701 Comment: - SQ heparin (9) Full code status Status: Acute Code(s): Z78.9 - OTHER SPECIFIED HEALTH STATUS SNOMED Code(s) : 414512368 Comment: Status and Disposition: discharge to [facility]
[2018-01-27] MEDS ORDERED: Metoprolol Tartrate TAB* 25 MG PO SCH (21:00)
--- NOTE | 2018-01-28 21:23 | DS ---
CC: Dr. Daren Chawla * DISCHARGE SUMMARY: DATE OF ADMISSION: 01/19/18 DATE OF DISCHARGE: 01/27/18 PROVIDER: Marley Salazar NP ATTENDING PHYSICIAN: Dr. Chetna West * (dictated by Marley Salazar NP) PRIMARY CARE PROVIDER: Dr. Daren Chawla. PRIMARY DIAGNOSES: 1. Posterior reversible encephalopathy syndrome. 2. Esophageal stricture with dilation. 3. Anemia. 4. Hypomagnesemia. 5. New pulmonary nodule with a history of lung cancer. SECONDARY DIAGNOSES: 1. Chronic obstructive pulmonary disease. 2. Hypertension. 3. Chronic pain. 4. History of esophageal cancer. 5. History of lung cancer, status post right lobectomy. 6. History of microscopic colitis. 7. History of esophageal stricture with dilation every 2 weeks. STUDIES COMPLETED WHILE IN THE HOSPITAL: She had a chest x-ray, last chest x- ray was on 01/22/18. Radiologist's impression: Hyperinflated lung shi with scarring in the right lung base. No pneumonia is identified. Healing rib fracture is noted on the right 6th rib. She had an electroencephalogram on 01/19/18. It was an abnormal awake and sleep EEG due to the presence of diffuse semi-arrhythmic slowing that was reactive with no electrographic seizures. These findings are suggestive of mild -to-moderate diffuse encephalopathy, which can be seen in the setting of PRES. She had an MRI of the brain on 01/19/18. Radiologist's impression: There is a pattern of cortical and subcortical abnormal signaling of the cerebral hemispheres and the cerebellum bilaterally suggestive of posterior reversible encephalopathy syndrome in the correct clinical setting. She had a CT of the brain on 01/18/18. Radiologist's impression: No acute findings. She had a CTA of the chest and thorax on 01/18/18. There was no evidence of pulmonary embolic disease. Enlarging left hilar mass and lymph nodes with multiple smaller nodules and lymph nodes following the left upper pulmonary vessel. This was associated with a new pleural base nodule located in the periphery of the left lower lung, suggests further evaluation, consider a PET scan CT study. The patient has a history of cancer and this may represent a progression of the patient's primary cancer. DISCHARGE MEDICATIONS: 1. Acetaminophen 650 mg p.o. q.4 hours. 2. Albuterol 2.5 nebulizer q.4 hours as needed for shortness of breath. 3. Albuterol HFA inhaler 2 puffs q.4 hours as needed for shortness of breath. 4. Klonopin 1 mg p.o. b.i.d. 5. Periactin 4 mg p.o. daily. 6. Lexapro 20 mg p.o. daily. 7. Hydromorphone 2 mg p.o. q.4 hours as needed for pain. 8. Lactase 3000 units p.o. t.i.d. for lactose intolerance. 9. Melatonin 5 mg p.o. at bedtime. 10. Multivitamin 15 mL p.o. daily. 11. Lyrica 50 mg p.o. daily. 12. Mylicon p.o. t.i.d. GI has recommended that all medications be liquid or crushed and placed in apple sauce due to her esophageal stricture. 13. Metoprolol 25 p.o. b.i.d., this was decreased, she was on 50 mg p.o. b.i.d. during her hospitalization. HISTORY OF PRESENT ILLNESS AND HOSPITAL COURSE: Ms. Crews is a 67-year-old female, who carries a past medical history significant for COPD, on oxygen, also with a history of esophageal cancer, status post esophagectomy, who presented to the emergency room with complaints of shortness of breath, chest pain, and complaints of "somebody has been sitting on my chest." The history is limited as the patient clearly has word-finding difficulty. On admission, she was visibly tachypneic. The patient denied being confused. Denied any word finding . She does admit to being short of breath. She denies any fever or chills or nausea or vomiting. Denied having diarrhea. Denied any abdominal pain. She denied any weakness or visual changes. Her history at the time of admission was limited due to the patient's inability to articulate and communicate appropriately. Given her altered mentation and shortness of breath , the ER has asked the hospitalist team to see and evaluate her for admission. She was initially placed in the ICU for close monitoring due to her tachypnea and new found pulmonary nodules in the chest. She was seen in consultation by Neurology. Her exam was consistent with aphagia and encephalopathy and felt that this was consistent with reversible posterior syndrome, which was felt to be seen in abrupt elevation of blood pressure, hypomagnesia, and due to exposure to chemotherapy. The exposure to chemotherapy is less likely as her chemotherapy was more than 5 years ago. Neurology recommended keeping a goal of her blood pressure between 120 and 150 and placing her on seizure precautions throughout her hospitalization. They also recommended a repeat MRI in 14 days to make sure this cerebral edema has resolved. The patient was also seen in consultation from Pulmonology, Dr. Llamas, who reports that the new findings of her pulmonary nodules are concerning for malignancy, either recurrence of her primary malignancy or primary malignancy of the lung. She recommends a nodule biopsy. The patient was also seen in consultation by Dr. Vance, he recommended plan for lung nodule biopsy as an outpatient with Dr. Llamas. Differential diagnosis for mediastinal LAD is broad, but biopsy low risk compared to CT-guided biopsy given the COPD. She was also seen by Dr. Pedroza who did the initial consultation and it was felt that her esophageal cancer was seen more likely the recurrence of the nodules in her chest and again recommended obtaining EBUS or CT-guided biopsy to help differentiate the malignancy if there was a malignancy and the type. She was also seen by Dr. Joaquin during this hospitalization, who had seen and evaluated her for esophageal stricture. He took her for an upper endoscopy and dilated her stricture. He recommended after the stricture dilation that all her pills be crushed and placed in apple sauce or in liquid form. He also recommended a repeat upper endoscopy in 1 week for a stricture dilation again. He also recommended placing her on full liquid diet for Thursday and she could start a soft diet on . Throughout her hospitalization, her mentation improved and returned to baseline. The patient did have her esophageal stricture dilated and is feeling better and able to swallow better after the dilation. At this time, Ms. Crews is stable for discharge to [facility]. Vital signs are as follows: Temperature was 98.6, heart rate was 61, respirations 18, O2 saturation was 99%, blood pressure was 93/41. DISCHARGE PLAN: Ms. Crews will be discharged to [facility]. Activity as tolerated. She should resume a heart-healthy diet that is soft on . 1. Posterior reversible encephalopathy syndrome. She will need a followup MRI on 02/02/18. Neurology has recommended in keeping her blood pressure between 120 and 150. Her metoprolol was increased during this hospitalization to 50 mg b.i.d. I did on the day of discharge decrease her metoprolol back to 25 mg p.o. b.i.d. She may need further adjustment of this medication to maintain her blood pressure between 120 and 150. The patient should also be on seizure precautions. 2. History of esophageal cancer with esophageal stricture. The patient was seen by Dr. Joaquin and had esophageal stricture dilation on 01/26/18. At that time, Dr. Joaquin has recommended that the patient have all of her medications crushed and placed in apple sauce or in liquid form. He also recommended that the patient have a repeat upper endoscopy next Thursday. 3. Hypomagnesium. Her magnesium was replaced during her hospitalization. Her repeat magnesium level was 1.9 on 01/25/18. 4. New pulmonary nodule. She was seen in consultation by Dr. Pedroza/Dr. Vance from Hematology/Oncology and Dr. Llamas. They have recommended that she have the nodule biopsied as an outpatient for further diagnostic or possible metastatic lung cancer versus progression of esophageal cancer. 5. Anemia. I would recommend repeating a CBC in 1 week and continue to monitor for signs of bleeding. The patient does appear to have some underlying chronic anemia. 6. Hyponatremia. I would recommend a repeat BMP in 1 week. The patient should go to [facility] for rehabilitation and strength rebuilding. This is a summarization of a complex hospitalization. For further details, please obtain the entire medical record. TIME SPENT: Time spent on this discharge was 60 minutes, greater than half that time was spent with the patient discussing discharge plans and instructions. CONDITION ON DISCHARGE: Stable. MARLEY ROMONEY, [employer] [id number]/CPS #: [id number] MARILYNN
== END 2018-01-27 13:10 | DRG 70 ==
LOC: ED 21:29 → ICU 01-19 02:01 → MED 01-21 15:51
PROVIDERS: ADMIT Pediatrics; ATTEND Internal Medicine
PROC: 009U3ZX Drainage of Spinal Canal, Percutaneous Approach, Diagnostic (ICD-10-PCS; principal; 2018-01-19)
PROC: 4A00X4Z Measurement of Central Nervous Electrical Activity, External Approach (ICD-10-PCS; 2018-01-19)
PROC: 0D718ZZ Dilation of Upper Esophagus, Via Natural or Artificial Opening Endoscopic (ICD-10-PCS; 2018-01-26)
DX: I67.83 Posterior reversible encephalopathy syndrome (principal); G93.6 Cerebral edema; R47.01 Aphasia; E87.2 Acidosis; E87.1 Hypo-osmolality and hyponatremia; K22.10 Ulcer of esophagus without bleeding; E46 Unspecified protein-calorie malnutrition; E87.3 Alkalosis; I10 Essential (primary) hypertension; R00.0 Tachycardia, unspecified; J44.9 Chronic obstructive pulmonary disease, unspecified; K21.9 Gastro-esophageal reflux disease without esophagitis; F32.9 Major depressive disorder, single episode, unspecified; F41.9 Anxiety disorder, unspecified; R07.9 Chest pain, unspecified; R29.702 NIHSS score 2; R13.10 Dysphagia, unspecified; R91.8 Other nonspecific abnormal finding of lung field; M32.9 Systemic lupus erythematosus, unspecified; G89.4 Chronic pain syndrome; M85.80 Other specified disorders of bone density and structure, unspecified site; I16.0 Hypertensive urgency; E83.42 Hypomagnesemia; I48.91 Unspecified atrial fibrillation; E87.6 Hypokalemia; M19.90 Unspecified osteoarthritis, unspecified site; J38.6 Stenosis of larynx; K22.2 Esophageal obstruction; D64.9 Anemia, unspecified; T17.990A Other foreign object in respiratory tract, part unspecified in causing asphyxiation, initial encounter; X58.XXXA Exposure to other specified factors, initial encounter; Y92.239 Unspecified place in hospital as the place of occurrence of the external cause; Z68.20 Body mass index [BMI] 20.0-20.9, adult; I25.2 Old myocardial infarction; Z82.49 Family history of ischemic heart disease and other diseases of the circulatory system; Z88.4 Allergy status to anesthetic agent; Z88.1 Allergy status to other antibiotic agents; Z91.011 Allergy to milk products; Z87.891 Personal history of nicotine dependence; Z85.01 Personal history of malignant neoplasm of esophagus; Z85.118 Personal history of other malignant neoplasm of bronchus and lung; Z99.81 Dependence on supplemental oxygen; Z92.21 Personal history of antineoplastic chemotherapy; Z92.3 Personal history of irradiation; Z90.49 Acquired absence of other specified parts of digestive tract; Z90.2 Acquired absence of lung [part of]; Z87.01 Personal history of pneumonia (recurrent); Z88.5 Allergy status to narcotic agent; Z88.0 Allergy status to penicillin; Z88.8 Allergy status to other drugs, medicaments and biological substances
CPT/HCPCS: 36415; 36600; 70450; 70553; 71045; 71275; 76604; 80048; 80053; 80076; 80329; 81003; 81015; 82088; 82140; 82533; 82550; 82570; 82607; 82803; 82945; 83605; 83735; 83880; 83930; 83935; 84100; 84134; 84157; 84244; 84300; 84443; 84484; 85025; 85610; 85652; 85730; 86038; 86140; 86160; 86225; 87040; 87070; 87086; 87205; 87641; 88112; 89051; 90686; 93005; 94640; 95816; 99156; 99157; 99232; 99285; A9270-GY; A9579; G0480; G8978-GP-CJ; G8979-GP-CI; G8987-GO-CJ; G8988-GO-CI; J0360; J1170; J1644; J1650; J2060; J2175; J2250; J3475; J3480; J3490; Q9967

== ENCOUNTER 2018-01-27 10:11 | Inpatient (IN) | payer MEDICARE ==
--- OUTSIDE RECORDS SUMMARY | 2018-01-27 13:19 | XMS REPORT ---
:1950 External Reference #:[id number] Author Organization [facility] Address [address] [place] [address] Phone [phone] Care Team Providers Name Role Phone Daren Chawla MD Primary Care Physician Unavailable Payers Type Date Identification Numbers Payment Provider Subscriber Medicare Primary Policy Number: [id number] Medicare Shanta Rocha PayID: [id number] [address] [place] [address] Medigap Part B Policy Number: [id number] [facility] Shanta Rocha PayID: [id number] [place] [address] Medigap Part B Expires: 2014 Policy Number: [facility] Ins Shanta Rocha [id number] Ppo/Epo PayID: [id number] [address] [place] [address] Problems Date Description Provider Status Onset: 03/27/2014 [...] Tablets 20mg 30tab 1 by mouth F41.9 [place] Oxalate s every day Zac Chawla Anoro [...] 0.5-2.5(3 90ml 1 vial in J44.9 Abbey Jenks/Albuterol / )mg/3ML nebulizer Muriel, Sulfate q6 hours [...] Tablets 10mg 30tab 1 by mouth F41.9 Orlando s every day [place] - ElbaDOpal 11/19 Metoprolol 09/30 Hx Tablets 25mg 1 by mouth [place] Tartrate twice a day [place] Crowley M.D. [...] Tablets 10mg 30tab 1 by mouth F32.9 [place] Oxalate s every day [place] Crowley M.D. [...] Hx Capsules 100mg 14cap 1 cab twice [place] Hyclate s a day Pachika - ElbaDOpal 09/12 Doxycycline 09/09 Hx Capsules 100mg 14cap 1 cab twice [place] Hyclate s a day Pachjackie - MOpalDOpal 09/12 Xanax 07/11 Hx Tablets 0.5mg 30tab 1/2 tab F41.9 s twice a day [place]enton - as needed , Zac 10/30 Sertraline HCL 03/02 Hx Tablets 100mg 90tab take 1 s tablet by Denton - mouth every , M.DOpal Remeron 15 Hx Tablets 15mg 30tab 1 tab at F32.9 Jeremy s bedtime [facility] 03/15 Medrol (Parrish) 01/03 Hx Tablets [...] Hx Tablets 5mg 90tab 1 by mouth [place] Besylate /0000 s every day [place] Crowley M.D. 06/[address] 20mg 30tab 2 by mouth Unknown Sodium /0000 s every day - 07/11 Zoloft Hx Tablets 100mg 90tab 1 by mouth [place] /0000 s every day [place] Crowley M.D. 08/17 Clonazepam Hx Tablets 0.25mg 1 by mouth Unknown /0000 Dispers once a day - as needed 10/25 Dilaudid Hx Tablets 2mg 120ta 1 by mouth Orlando / bs every 4-6 Pachikara - hours as , Zac 06/30 needed Macrobid Hx Capsules 100mg 90cap 1 tab by Orlando /0000 s mouth once Pachikara - a day , Zac 07/24 Ventolin HFA Hx Aerosol 108(90Bas 1unit 2 puffs by Orlando /0000 e) s mouth four Pachikara - mcg/Act times a day , Zac 06/30 as needed /2017 Chlordiazepoxide Hx Capsules 5-2.5mg 45cap take 1 Unknown HCL/Clidinium / s capsule by Jenks - mouth up to 04/21 8 times [...] Unknown /0000 every day - prn 06/09 I53-Asetsv Hx Chewtabs 1mg daily Unknown /0000 - [...] - ar every Zenpep Hx Caps DR [id number] 3 times Unknown /0000 Part 0Unit daily [...] 1 Daren Calcium /0000 s tablet at [facility] - bedtime , M.Annette 03/31 Lyrica Hx [...] Hx Tablets 4mg 30tab 1 tab daily Orlando HCL /0000 s with food Denton - [...] Hx Tablets 20mg 30tab 1 by mouth Orlando /0000 s every day [place] Crowley M.D. 08/18 Melatonin ER 00/ Hx Tablets ER 5mg 1 by mouth Unknown / every night - at bedtime 09/30 Metoprolol Hx Tablets 100mg 60tab take 1 [place] Tartrate /0000 s tablet by [place] - mouth twice , M.DOpal 09/30 a /2017 Lyrica Hx Capsules 50mg 90cap 1 by mouth Zsofia /0000 s three times Michael, - a day [employer] 09/28 Quetiapine Hx Tablets 25mg 30tab 1/2 tabs by Daren Fumarate /0000 s mouth every [place] - night at , Zac 08/03 bedtime Sodium Chloride Hx Tablets 1gm 90tab 1 by mouth Daren /0000 s tid with [place] - Zac roy 08/18 Atorvastatin Hx Tablets 80mg 30tab 1 by mouth Orlando Calcium /0000 s every day [place] Crowley M.D. 08/03 Hydromorphone HCL Hx Solution 2mg/ml Unknown / - 07/27 Lexapro 00 Hx Tablets 10mg 1 by mouth Unknown / every day - 10/08 Periactin Hx 4mg 30uni by mouth Orlando /0000 ts every day [place] Crowley M.D. 11/09 Immunizations CPT Code Status Date Vaccine Reaction Lot # [id number] Given 02/18/2017 Influenza Virus Vaccine, no immediate reaction, [id number] Quadrivalent, Split, pt tolerated well Preservative Free [id number] Given 03/04/2016 Influenza Virus Vaccine, [id number] Quadrivalent, Split Virus, Im Use 90941 Given 03/15/2015 Influenza Virus Vaccine, no reaction noted [id number] Quadrivalent, Split, Preservative Free 99309 Given 03/15/2015 Pneumococcal Conjugate no reaction noted [id number] Vaccine 13 Valent For Intramuscular Use Vital [...] Test Date Test Result H/L Range Note Urinalysis Profile 01/19/2018 Urine Color Straw Urine Appearance Clear Urine Specific Stanfield 1.019 1.010-1.030 Urine pH 6.0 5-9 Urine Urobilinogen Negative Negative Urine Ketones 2+ Negative Urine Protein 2+(100 mg/dL) Negative Urine Leukocytes Negative Negative Urine Blood 1+ Negative Urine Nitrite Negative Negative Urine Bilirubin Negative Negative Urine Glucose Negative Negative Urine White Blood Cell Trace(0-5/hpf) Absent Urine Red Blood Cell 1+(3-5/hpf) Absent Urine Bacteria Absent Absent Urine Culture And 01/19/2018 Urine Culture SEE RESULT BELOW 1 Sensitivities CBC Auto Diff 01/18/2018 White Blood Count 6.4 10^3/uL 3.5-10.8 Red Blood Count 4.31 10^6/uL 4.00-5.40 Hemoglobin 13.0 g/dL 12.0-16.0 Hematocrit 38 % 35-47 Mean Corpuscular Volume 88 fL 80-97 Mean Corpuscular Hemoglobin 30 pg 27-31 Mean Corpuscular HGB Conc 34 g/dL 31-36 Red Cell Distribution Width 14 % 10.5-15 Platelet Count 379 10^3/uL 150-450 Mean Platelet Volume 6.6 um3 Low 7.4-10.4 Abs Neutrophils 4.9 10^3/uL 1.5-7.7 Abs Lymphocytes 1.0 10^3/uL 1.0-4.8 Abs Monocytes 0.5 10^3/uL 0-0.8 Abs Eosinophils 0 10^3/uL 0-0.6 Abs Basophils 0 10^3/uL 0-0.2 Abs Nucleated RBC 0 10^3/uL Granulocyte % 75.9 % 38-83 Lymphocyte % 15.1 % Low 25-47 Monocyte % 8.4 % High 0-7 Eosinophil % 0.1 % 0-6 Basophil % 0.5 % 0-2 Nucleated Red Blood Cells % 0.1 Inr/Protime 01/18/2018 Inr 0.92 0.77-1.02 Laboratory test finding 01/18/2018 Partial Thrombo Time 42.0 seconds High 26.0-36.3 PTT Arterial Blood Gas 01/18/2018 PH Arterial 7.51 High 7.35-7.45 Pco2 Arterial 19 mmHg Low 35-45 2 Po2 Arterial 121 mmHg High 80-100 O2 Saturation Arterial 99.5 % High 95-98 Base Excess Arterial -5.6 Low -2.0-2.0 3 Hco3 Arterial 20.6 mmol/L 19-31 Laboratory test finding 01/18/2018 Lactic Acid 1.6 mmol/L 0.5-2.0 4 B-Type Natriuretic Peptide BNP 184 pg/mL High 5 Comp Metabolic Panel 01/18/2018 Sodium 123 mmol/L Low 135-145 Potassium 3.4 mmol/L Low 3.5-5.0 Chloride 90 mmol/L Low 101-111 Co2 Carbon Dioxide 17 mmol/L Low 22-32 Anion Gap 16 mmol/L High 2-11 Glucose 143 mg/dL High 70-100 Blood Urea Nitrogen 8 mg/dL 6-24 Creatinine 0.60 mg/dL 0.51-0.95 BUN/Creatinine Ratio 13.3 8-20 Calcium 9.2 mg/dL 8.6-10.3 Total Protein 7.2 g/dL 6.4-8.9 Albumin 4.2 g/dL 3.2-5.2 Globulin 3.0 g/dL 2-4 Albumin/Globulin Ratio 1.4 1-3 Total Bilirubin 0.50 mg/dL 0.2-1.0 Alkaline Phosphatase 80 U/L 34-104 Alt 9 U/L 7-52 Ast 24 U/L 13-39 Egfr Non- 99.4 >60 Egfr 120.3 >60 6 Laboratory test finding 01/18/2018 Creatine Kinase(CK) 52 U/L 10-223 C Reactive Protein 7.15 mg/L <8.01 Troponin-I (TnI) 0.01 ng/mL <0.04 Blood Culture SEE RESULT BELOW 7 Basic Metabolic Panel 01/13/2018 Sodium 134 mmol/L Low 135-145 Potassium 4.0 mmol/L 3.5-5.0 Chloride 100 mmol/L Low 101-111 Co2 Carbon Dioxide 29 mmol/L 22-32 Anion Gap 5 mmol/L 2-11 Calcium 8.6 mg/dL 8.6-10.3 Glucose 105 mg/dL High 70-100 Blood Urea Nitrogen 5 mg/dL Low 6-24 Creatinine 0.56 mg/dL 0.51-0.95 BUN/Creatinine Ratio 8.9 8-20 Egfr Non- 107.7 >60 Egfr 130.3 >60 8 CBC Auto Diff 10/09/2017 White Blood Count [...] 10/09/2017 Erythropoietin 16.9 mIU/mL 2.6 - 18.5 9 Protein Electrophoresis 10/09/2017 Total Protein(Pep) 6.5 g/dL 6.3 - 7.9 Albumin 3.3 g/dL 3.4-4.7 Alpha-1 Globulin 0.2 g/dL 0.1-0.3 Alpha-2 Globulin 1.2 g/dL 0.6-1.0 Beta Globulin 0.9 g/dL 0.7-1.2 Gamma Globulin 1.0 g/dL 0.6-1.6 Albumin/Globulin Ratio 1.00 Impression See Comment 10 Laboratory test finding 10/09/2017 Methylmalonic Acid Mma 1.24 nmol/mL <= 0.40 11 CBC Auto Diff 09/20/2017 White Blood Count [...] finding 09/20/2017 Lactic Acid 1.4 mmol/L 0.5-2.0 12 Comp Metabolic Panel 09/20/2017 Sodium 131 mmol/L [...] Egfr Non- 90.6 >60 Egfr 116.6 >60 13 Laboratory test finding 09/20/2017 Troponin-I (TnI) 0.01 ng/mL <0.04 C Reactive Protein 9.86 mg/L High < 5.00 14 Blood Culture SEE RESULT BELOW 15 Lipid Profile (Trig/Chol/HDL) 08/04/2017 Triglycerides 125 mg/dL 16, 17 Cholesterol 143 mg/dL 16, 18 HDL Cholesterol 39.3 mg/dL 16, 19 LDL Cholesterol 79 mg/dL 16, 20 CBC Auto Diff 03/30/2017 White Blood Count [...] 11 Activity 69 % 55 - 150 21 Thrombin Time 14 sec 15 - 23 22 Factor 8 Profile 03/30/2017 Coagulation Factor VIII Activi 165 % 55 - 200 23 von Willebrand Factor Antigen 119 % 55 - 200 24 VonWillibrand Factor Activity 120 % 55 - 200 25 von Willebrand Panel Interp See Comment 26 Factor 13 Qualitative/Reflex 03/30/2017 Coagulation Factor No Lysis No Lysis XIII Factor XIII 1:1 Mix Not Applicable 27 Laboratory test finding 01/01/2017 Point of Care Glucose 83 mg/dL 70-100 28 Urinalysis Profile 12/24/2016 Urine Color Nayeli Urine Appearance Cloudy Urine Specific Stanfield 1.017 1.010-1.030 Urine pH 7.0 5-9 Urine Urobilinogen Negative Negative Urine Ketones Trace Negative Urine Protein 1+(30 mg/dL) Negative Urine Leukocytes Trace Negative Urine Blood Negative Negative * * Negative 29 Urine Nitrite Negative Negative Urine Bilirubin Negative Negative Urine Glucose Negative Negative Urine White Blood Cell Trace(0-5/hpf) Absent Urine Red Blood Cell Trace(0-2/hpf) Absent Urine Bacteria 1+ Absent Urine Squamous Epithelial Cell Present Absent Urine Culture And Sensitivities 12/24/2016 Urine Culture SEE RESULT BELOW 30 Lipid Profile (Trig/Chol/HDL) 12/24/2016 Triglycerides 151 mg/dL 31 Cholesterol 194 mg/dL 32 HDL Cholesterol 90.6 mg/dL 33 LDL Cholesterol 73 mg/dL 34 Inr/Protime 12/24/2016 Inr 0.79 Low 0.89-1.11 Laboratory [...] mm/Hr 0-40 Rheumatoid Factor <15 IU/mL <15 35 Anti Nuclear Antibody 5.4 U 36 Laboratory test finding 12/12/2016 Fungal Cult Other SEE RESULT BELOW 37, 38 Sources Laboratory test finding 12/12/2016 Fungal Cult Other SEE RESULT BELOW 37, 39 Sources Laboratory test finding 12/12/2016 Fungal Cult Other SEE RESULT BELOW 37, 40 Sources Laboratory test finding 12/12/2016 Fungal Cult Other SEE RESULT BELOW 37, 41 Sources Laboratory test finding 12/12/2016 Surgical Interface SEE RESULT BELOW 42, 43 Order Laboratory test finding 12/12/2016 Surgical Pathology SEE RESULT BELOW 42, 44 Urinalysis Profile 12/09/2016 Urine Color Yellow 45 Urine Appearance Clear 45 Urine Specific Stanfield 1.005 Low 1.010-1.030 45 Urine pH 7.0 5-9 45 Urine Urobilinogen Negative Negative 45 Urine Ketones Negative Negative 45 Urine Protein Negative Negative 45 Urine Leukocytes Negative Negative 45 Urine Blood Negative Negative 45 Urine Nitrite Negative Negative 45 Urine Bilirubin Negative Negative 45 Urine Glucose Negative Negative 45 Inr/Protime 11/11/2016 Inr 0.81 Low 0.89-1.11 Laboratory [...] Egfr Non- 84.9 >60 Egfr 109.1 >60 46 Inr/Protime 10/03/2016 Inr 0.83 Low 0.89-1.11 Laboratory test finding 10/03/2016 Erythrocyte Sed Rate 24 mm/Hr 0-40 C Reactive Protein 2.46 mg/L < 5.00 47 CBC Auto Diff 09/17/2016 White Blood Count [...] Egfr Non- 77.1 >60 Egfr 99.1 >60 48 Laboratory test finding 09/17/2016 Magnesium 1.8 mg/dL [...] Egfr Non- 83.5 >60 Egfr 107.3 >60 49 Laboratory test finding 05/28/2016 TSH (Thyroid Stim Horm) 1.60 mcIU/mL 0.34-5.60 Urinalysis Profile 05/28/2016 Urine Color Yellow Urine Appearance Clear Urine Specific Stanfield 1.012 1.010-1.030 Urine pH 7.0 5-9 Urine Urobilinogen Negative Negative Urine Ketones Negative Negative Urine Protein Negative Negative Urine Leukocytes Negative Negative Urine Blood Negative Negative * * Negative 50 Urine Nitrite Negative Negative Urine Bilirubin Negative Negative Urine Glucose Negative Negative Laboratory test finding 05/28/2016 Lyme Disease Serology Negative Negative 51 Comp Metabolic Panel 03/01/2016 Sodium 132 mmol/L [...] Egfr Non- 89.6 >60 Egfr 115.2 >60 52 Lipid Profile (Trig/Chol/HDL) 03/01/2016 Triglycerides 74 mg/dL 53 Cholesterol 176 mg/dL 54 HDL Cholesterol 100.2 mg/dL 55 LDL Cholesterol 61 mg/dL 56 Laboratory test 01/10/2016 Surgical Pathology SEE RESULT BELOW 57 finding Laboratory test 01/10/2016 Fungal Cult Other SEE RESULT BELOW 58, 59 finding Sources CBC Auto Diff 11/22/2015 White [...] Egfr Non- 96.3 >60 Egfr 123.9 >60 60 Potassium 3.8 mmol/L 3.5-5.0 Anion Gap 7 mmol/L 2-11 Ast 18 U/L 13-39 Laboratory test finding 11/22/2015 Magnesium 1.7 mg/dL Low 1.9-2.7 Vitamin D, 1,25 Dihydroxy 54 pg/mL 18-78 61 Comp Metabolic Panel 11/07/2015 Sodium 129 mmol/L [...] Egfr Non- 89.6 >60 Egfr 115.2 >60 62 Laboratory test finding 11/07/2015 Magnesium 1.8 mg/dL Low 1.9-2.7 CBC Auto Diff 11/07/2015 White Blood Count [...] 0-2 Nucleated Red Blood Cells % 0.1 Confirm Opiates (GC/MS) 09/10/2015 Urine Codeine Confirmation Negative ng/ mL 63 Urine Hydrocodone Confirm Negative ng/mL 64 Urine Hydromorphone Confirm 4827 ng/mL 65 Urine Morphine Confirm Negative ng/mL 66 Urine Oxymorphone Confirm Negative ng/mL 67 Urine Oxycodone Confirm Negative ng/mL 68 Urine Opiates Interpretation Positive. 69 Drug Abuse 20 Urine 09/10/2015 Urine Amphetamine Negative ng/mL 70 Urine Barbiturates Negative ng/mL 71 Urine Benzodiazepines Negative ng/mL 72 Urine Cocaine Negative ng/mL 73 Urine Methadone Negative ng/mL 74 Urine Opiates Presumptive Posi <SEE NOTE> ng/mL 75 Urine Phencyclidine Negative ng/mL Cutoff: 25 Urine Tetrahydrocannabinol Negative ng/mL Cutoff: 50 76 Urine Oxycodone Negative ng/mL 77 Inr/Protime 08/17/2015 Inr 0.95 0.89-1.11 Comp Metabolic Panel 08/17/2015 Sodium 130 mmol/L [...] Egfr Non- 78.5 >60 Egfr 101.0 >60 78 Laboratory test finding 08/17/2015 Troponin-I (TnI) 0.00 ng/mL <0.03 79 CBC Auto Diff 08/17/2015 White Blood Count [...] Egfr Non- 91.2 >60 Egfr 117.3 >60 80 CBC Auto Diff 01/10/2015 White Blood Count [...] finding 01/10/2015 Vitamin B12 500 pg/mL 180-914 81 Laboratory test finding 10/25/2014 Osmolality Serum 277 [...] Egfr Non- 100.3 >60 Egfr 129.0 >60 82 Laboratory test finding 10/23/2014 Lipase 8 U/L Low 11.0-82.0 C Reactive Protein < 1.00 mg/L < 5.00 83 Lactic Acid 1.4 mmol/L 0.5-2.2 Urinalysis Profile 10/23/2014 Urine Color Yellow Urine Appearance Clear Urine Specific Stanfield 1.012 1.010-1.030 Urine pH 7.0 5-9 Urine [...] Egfr Non- 75.2 >60 Egfr 96.8 >60 84 Laboratory test finding 07/11/2014 C Reactive Protein 1.80 mg/L < 5.00 85 Erythrocyte Sed Rate 18 mm/Hr 0-40 Sharon (Anti-Nuclear AB) Screen Reflexed to FA Negative Cristal Screen Negative Negative 86 Anti Double Stranded Dna Positive Negative Urinalysis Profile 07/11/2014 Urine Color Yellow Urine Appearance Clear Urine Specific Stan[place] 1.014 1.010-1.030 Urine pH 6.0 5-9 Urine Urobilinogen Negative Negative Urine Ketones Negative Negative Urine Protein Negative Negative Urine Leukocytes Negative Negative Urine Blood Negative Negative * * Negative 87 Urine Nitrite Negative Negative Urine Bilirubin Negative Negative Urine Glucose Negative Negative Laboratory test finding 07/11/2014 Reference Lab Test See Comment 88 Sharon Hep-2 07/11/2014 Sharon Pattern Centromere Negative Shraon Titer 1:5120 <1:80 Sharon Reviewed By MD Chioma Valdivia 89 CBC Auto Diff 07/11/2014 White Blood Count [...] Egfr Non- 82.6 >60 Egfr 106.3 >60 90 Ua Routine 06/29/2014 Ua Specific Stanfield 1.030 Ua PH 5.0 Ua Color yellow Ua Appera clear Ua WBC trace Ua Protein 30 Ua Glucose neg Ua Ketones neg Ua Urobilinogen neg Ua Nitrite pos Ua Occult Blood small Urine Culture And Sensitivities 06/27/2014 Urine Culture (SEE NOTE) 91 Urine Culture And Sensitivities 05/31/2014 Urine Culture (SEE NOTE) 92 Ua Routine 05/31/2014 Ua Specific Stan[place] 1.005 Ua PH 5 Ua Color dark yellow/orae Ua Appera clear Ua WBC trace Ua Protein ++ Ua Glucose neg Ua Ketones trace Ua Bilirubin small Ua Urobilinogen normal Ua Nitrite + Ua Occult Blood ++ Surgical Pathology 04/18/2014 S RUN DATE: <SEE NOTE> Laboratory test 04/13/2014 Anti Double Negative Negative finding Stranded Dna Comp Metabolic Panel 04/13/2014 Sodium 135 mmol/L [...] Egfr Non- 87.1 >60 Egfr 112.0 >60 94 Iron & Iron Binding Capacity 04/13/2014 Iron 61 g/dL 50-212 Unsaturated Iron Binding 295 g/dL Total Iron Binding Capacity 356 g/dL 250-450 % Iron Saturation 17 % 15-55 Laboratory test finding 04/13/2014 Ferritin 36.5 ng/mL 11-307 Vitamin B12 963 pg/mL High 180-914 95 CBC Auto Diff 04/13/2014 White Blood Count [...] test finding 04/13/2014 Pathologist Review (SEE NOTE) 96 Erythrocyte Sed Rate 18 mm/Hr 0-30 Sharon (Anti-Nuclear AB) Screen Reflexed to FA Negative Sharon Hep-2 04/13/2014 Sharon Pattern Centromere Negative Sharon Titer 1:2560 <1:80 Sharon Reviewed By MD Chioma Valdivia 97 Comp Metabolic Panel 03/27/2014 Sodium 135 mmol/L 133-145 Potassium 4.2 mmol/L 3.5-5.0 98 Chloride 101 mmol/L 101-111 Co2 Carbon Dioxide [...] Egfr Non- 85.7 >60 Egfr 110.2 >60 99 Laboratory test finding 03/27/2014 TSH (Thyroid 1.25 [...] Serum 03/27/2014 Vitamin B12 683 pg/mL 180-914 100 Folate > 20.00 ng/mL >3.99 Laboratory test finding 12/02/2011 Surgical Pathology SEE RESULT BELOW 101 1 SEE RESULT BELOW Name: AJSHANTA : [address]: Ritchie Serna DO Acct: [id number] Unit: [id number] AGE: 67 Location: ICU [id number] Re01/19/18 SEX: F Status: ADM IN SPEC: [id number] BARB: 01/19/18-[address]: Popeye Ly MD REQ: [id number] RECD: 01/19/180110 STATUS: BERNARDA DE JESUS DR: Daren Chawla MD _ SOURCE: URINE SPDESC: ORDERED: Urine Culture Procedure Result Reported Site Urine Culture Final 01/20/18- 0837 ML No Growth (<1,000 CFU/mL) * ML - Main Lab . END OF REPORT DEPARTMENT OF PATHOLOGY, [address] [place] [address] Martín Garcia M.D. Director [facility] # [id number] 2 Verbal to [id number] by [id number] at 2241 on 01/18/18. Results read back accurately. 3 Reference ranges based on room air. 4 [facility] Severe Sepsis and Septic Shock Management Bundle Measure requires all lactic acids initially measuring >2.0 mmol/L be repeated. 5 >100 to <200 pg/mL: likely compensated congestive heart failure (CHF) 200 to 400 pg/mL: likely moderate CHF >400 pg/mL: likely moderate to severe CHF 6 Because ethnic data is not always readily [...] 15-29 5 Kidney failure <15 (or dialysis) 7 SEE RESULT BELOW Name: SHANTA ROCHA : [address]: Lashanda Morfin MD Acct: [id number] Unit: [id number] AGE: 67 Location: [place] [address]- Re01/19/18 SEX: F Status: ADM IN SPEC: [id number] BARB: 01/18/18-0 [facility] DR: Popeye Ly MD REQ: [id number] RECD: 01/19/18 STATUS: BERNARDA DE JESUS DR: Daren Chawla MD _ SOURCE: BLOOD,VENO SPDESC: ORDERED: Blood Cult Procedure Result Reported Site Aerobic Culture Bottle Final 01/24/18- 0023 ML No Growth Day 5 Anaerobic Culture Bottle Final 01/24/18- 0023 ML No Growth Day 5 * ML - Main Lab . END OF REPORT DEPARTMENT OF PATHOLOGY, [address] [place] [address] Martín Garcia M.D. Director [facility] # [id number] 8 Because ethnic data is not always readily [...] 15-29 5 Kidney failure <15 (or dialysis) 9 Test Performed by: [facility] [address] [place] [address] 10 RESULT: No apparent monoclonal protein on serum electrophoresis. Test Performed by: [facility] - [address] [address] 11 In this sample, the concentration of methylmalonic acid (MMA) was elevated. This finding is likely related to vitamin B12 deficiency. ADDITIONAL INFORMATION This test was developed and its performance characteristics determined by [facility] in a manner consistent with CLIA requirements. This test has not been cleared or approved by the U.S. Food and Drug Administration. Test Performed by: [facility] [place] [id number] 12 [facility] Severe Sepsis and Septic Shock Management Bundle Measure requires all lactic acids initially measuring >2.0 mmol/L be repeated. 13 Because ethnic data is not always readily [...] 15-29 5 Kidney failure <15 (or dialysis) 14 Acute inflammation: >10.00 15 SEE RESULT BELOW Name: SHANTA ROCHA : [address]: Chetna Mohr MD Acct: [id number] Unit: [id number] AGE: 67 Location: [place] [address] Re09/21/17 Dis: 09/25/17 SEX: F Status: DIS IN SPEC: [id number] BARB: 09/20/[address]: Dar Goss MD REQ: [id number] RECD: 09/20/17 STATUS: BERNARDA DE JESUS DR: Daren Chawla MD _ SOURCE: BLOOD,VENO SPDESC: ORDERED: Blood Cult Procedure Result Reported Site Aerobic Culture Bottle Final 09/25/17- 2302 ML No Growth Day 5 Anaerobic Culture Bottle Final 09/25/17- 2302 ML No Growth Day 5 * - [facility] Lab . END OF REPORT DEPARTMENT OF PATHOLOGY, [address] [place] [address] Martín Garcia M.D. Director [facility] # [id number] 16 PT NOT FASTING AND WANTED TESTING TO BE DONE [id number] Desirable: <150 Borderline High: 150-199 High: 200-499 Very High: >500 18 Desirable: <200 Borderline High: 200-239 High: >239 19 Low: <40 Desirable: 40-60 High: >60 20 Desirable: <100 Near Optimal: 100-129 Borderline High: 130-159 High: 160-189 Very High: >189 21 ADDITIONAL INFORMATION This test has been modified from the printed circuit boards beveler's instructions. Its performance characteristics were determined by [facility] in a manner consistent with CLIA requirements. This test has not been cleared or approved by the U.S. Food and Drug Administration. Test Performed by: [facility] [place] - [address] [address] 22 ADDITIONAL INFORMATION This test has been modified from the printed circuit boards beveler's instructions. Its performance characteristics were determined by [facility] in a manner consistent with CLIA requirements. This test has not been cleared or approved by the U.S. Food and Drug Administration. Test Performed by: [facility] - [address] [address] 23 ADDITIONAL INFORMATION This test has been modified from the printed circuit boards beveler's instructions. Its performance characteristics were determined by [facility] in a manner consistent with CLIA requirements. This test has not been cleared or approved by the U.S. Food and Drug Administration. 24 ADDITIONAL INFORMATION This test has been modified from the printed circuit boards beveler's instructions. Its performance characteristics were determined by [facility] in a manner consistent with CLIA requirements. This test has not been cleared or approved by the U.S. Food and Drug Administration. 25 ADDITIONAL INFORMATION This test has been modified from the printed circuit boards beveler's instructions. Its performance characteristics were determined by [facility] in a manner consistent with CLIA requirements. This test has not been cleared or approved by the U.S. Food and Drug Administration. 26 No laboratory evidence of von Willebrand's disease [...] not reviewed by physician. Test Performed by: [address] [address] 27 Clot lysis was not observed in the [...] to a factor XIII antibody). Performed by [facility], [address] [place] [address] [email or web address], Jass Camp MD - Lab. Director Test Performed by: [facility] [address] [place] [address] 28 Cloth Laminating Supervisor: [id number] 29 *Ascorbic acid is present which may interfere with detection of blood. 30 SEE RESULT BELOW Name: SHANTA ROCHA : [address]: Serafin Vance MD Acct: [id number] Unit: [id number] AGE: 66 Location: LAB Re12/24/16 SEX: F Status: REG REF SPEC: [id number] BARB: 12/24/[address]: Daren Chawla MD REQ: [id number] RECD: 12/24/16 STATUS: BERNARDA DE JESUS DR: Serafin Vance MD _ SOURCE: URINE SPDESC: ORDERED: Urine Culture Procedure Result Reported Site Urine Culture Final 12/25/16- 1411 ML Few Enterobacteriacae; possible contamination. * ML - [facility] ([facility]) . END OF REPORT * ML=Testing performed at Main Lab DEPARTMENT OF PATHOLOGY, [address] [place] [address] Martín Garcia M.D. Director [facility] # [id number] 31 Desirable <150 Borderline high 150-199 High 200-499 Very High >500 32 Desirable <200 Borderline high 200-239 High >239 33 Low <40 Desirable: 40-60 High: >60 34 Desirable: <100 mg/dL Near Optimal: 100-129 mg/dL Borderline High: 130-159 mg/dL High: 160-189 mg/dL Very High: >189 mg/dL 35 Test Performed by: [place] [id number] Interpretation: Positive (3.0-5.9) REFERENCE VALUE <=1.0 (Negative) Test Performed by: [place] [id number] 38 SEE RESULT BELOW Name: SHANTA ROCHA : [address]: Damon Webb MD Acct: [id number] Unit: [id number] AGE: 66 Location: ENDOC Re12/12/16 SEX: F Status: DEP REF SPEC: [id number] BARB: 12/12/16-1240 [facility] DR: Damon Webb MD REQ: [id number] RECD: 12/12/16 STATUS: RES DANIEL DR: Daren Chawla MD _ SOURCE: MISC SOURC SPDESC:OTHER ORDERED: Fungal - Other COMMENTS: [id number] Procedure Result Reported Site Fungal Cult - Other Sources Preliminary 12/16/16- 1342 ML Organism 1 JENNIE ALBICANS * ML - MAIN LAB ([facility]) . END OF REPORT * ML=Testing performed at Main Lab DEPARTMENT OF PATHOLOGY, [address] [place] [address] Martín Garcia M.D. Director [facility] # [id number] 39 SEE RESULT BELOW Name: AJSHANTA : [address]: Damon Webb MD Acct: [id number] Unit: [id number] AGE: 66 Location: ENDOCEC Re12/12/16 SEX: F Status: DEP REF SPEC: [id number] BARB: 12/12/16-1240 [facility] DR: Damon Webb MD REQ: [id number] RECD: 12/12/16-160 STATUS: SUHAIL DE JESUS DR: Daren Chawla MD _ SOURCE: [facility] SPDESC:OTHER ORDERED: Fungal - Other COMMENTS: [id number] Procedure Result Reported Site Fungal Cult - Other Sources Preliminary 12/30/16- 134 ML Organism 1 JENNIE ALBICANS * ML - MAIN LAB ([facility]) . END OF REPORT * ML=Testing performed at Main Lab DEPARTMENT OF PATHOLOGY, [address] [place] [address] Martín Garcia M.D. Director [facility] # [id number] 40 SEE RESULT BELOW Name: SHANTA ROCHA : [address]: Damon Webb MD Acct: [id number] Unit: [id number] AGE: 66 Location: ENDOCEC Re/11/17 SEX: F Status: DEP REF SPEC: [id number] BARB: 12/12/16-1240 [facility] DR: Damon Webb MD REQ: [id number] RECD: 12/12/16160 STATUS: RES OTHR DR: Daren Chawla MD _ SOURCE: [facility] [place] [facility] SPDESC:OTHER ORDERED: Fungal - Other COMMENTS: [id number] Procedure Result Reported Site Fungal Cult - Other Sources Preliminary 01/05/17- 1403 ML Organism 1 JENNIE ALBICANS * ML - MAIN LAB ([facility]) . END OF REPORT * ML=Testing performed at Main Lab DEPARTMENT OF PATHOLOGY, [address] [place] [address] Martín Garcia M.D. Director [facility] # [id number] 41 SEE RESULT BELOW Name: SHANTA ROCHA : [address]: Damon Webb MD Acct: [id number] Unit: [id number] AGE: 66 Location: [facility] Re12/12/16 SEX: F Status: DEP REF SPEC: [id number] BARB: 12/12/16-1240 [facility] DR: Damon Webb MD REQ: [id number] RECD: 12/12/16160 STATUS: BERNARDA DE JESUS DR: Daren Chawla MD _ SOURCE: [facility] S[facility] SPDESC:OTHER ORDERED: Fungal - Other COMMENTS: [id number] Procedure Result Reported Site Fungal Cult - Other Sources Final 01/12/17- 1026 ML Organism 1 JENNIE ALBICANS * ML - MAIN LAB ([facility]) . END OF REPORT * ML=Testing performed at Main Lab DEPARTMENT OF PATHOLOGY, [address] [place] [address] Martín Garcia M.D. Director [facility] # [id number] 42 [id number] 43 SEE RESULT BELOW Name: SHANTA ROCHA : [address]: Damon Webb MD Acct: [id number] Unit: [id number] AGE: 66 Location: ENDOCEC Re12/12/16 SEX: F Status: DEP REF SPEC: [id number] BARB: 12/12/16-1238 [facility] DR: Damon Webb MD REQ: [id number] RECD: 12/12/161549 STATUS: AMY DE JESUS DR: Daren Vance MD _ ORDERED: LEVEL 4, SPEC STAIN ORG COMMENTS: [id number] FINAL DIAGNOSIS Esophagus, mid, biopsy: -- Well-differentiated [...] in the patient's original diagnostic material from [facility] from 2012 (please see [facility] [place] S1 7-7 8 2 8). While [...] performed at Main Lab DEPARTMENT OF PATHOLOGY, [address] [place] [address] Martín Garcia M.D. Director [facility] # [id number] RUN DATE: 12/31/16 [facility] LAB LIVE PAGE 2 Patient: SHANTA ROCHA [id number] (Continued) CLINICAL HISTORY (Continued) CLINICAL HISTORY History [...] Signed (signature on file) Martín Garcia MD 7102 END OF REPORT * ML=Testing performed at Main Lab DEPARTMENT OF PATHOLOGY, [address] [place] [address] Martín Garcia M.D. Director [facility] # [id number] 44 SEE RESULT BELOW Name: SHANTA ROCHA : [address]: Damon Webb MD Acct: [id number] Unit: [id number] AGE: 66 Location: [facility] Re12/12/16 SEX: F Status: DEP REF SPEC: [id number] BARB: 12/12/16-1238 [facility] DR: Damon Webb MD REQ: [id number] RECD: 12/12/16-1549 STATUS: AMY DE JESUS DR: Daren Vance MD _ ORDERED: [facility], LEVEL 4, SPEC STAIN ORG COMMENTS: [id number] Addendum: This case was reviewed and outside consultation by [facility] ( see separate report). The reviewers [...] squamous cell carcinoma. The outside material from [facility] as well as the additional intervening biopsies from [facility] were not available to the [facility] pathologists for review. In isolation this [...] performed at Main Lab DEPARTMENT OF PATHOLOGY, [address] [place] [address] Martín Garcia M.D. Director [facility] # [id number] RUN DATE: 01/15/17 [facility] LAB LIVE PAGE 2 Patient: SHANTA ROCHA [id number] (Continued) SPECIMEN COMMENTS (Continued) inflammation in the superficial layers of the tumor with degenerated squamous cells. A fungal stain (GMS) performed with appropriate controls demonstrates some superficial candidiasis also involving the detached fragment of squamous debris. The morphologic features seen here are similar, if not more atypical than that seen in the patient's original diagnostic material from [facility] from 2011 (please see [facility] [place] S1 7-7 8 2 8). While [...] Signed (signature on file) Martín Garcia MD 5355 END OF REPORT * ML=Testing performed at Main Lab DEPARTMENT OF PATHOLOGY, [address] [place] [address] Martín Garcia M.D. Director [facility] # [id number] 45 [id number] 46 Because ethnic data is not always readily [...] 15-29 5 Kidney failure <15 (or dialysis) 47 Acute inflammation: >10.00 48 Because ethnic data is not always [...] 5 Kidney failure <15 (or dialysis) 49 Because ethnic data is not always readily [...] 15-29 5 Kidney failure <15 (or dialysis) 50 *Ascorbic acid is present which may interfere with detection of blood. 51 Serologic response to B. burgdorferi infection is not detected, but cannot rule out early infection during which low or undetectable antibody levels to B. burgdorferi may be present. If clinically indicated, a new serum specimen should be submitted in 7-14 days. Test Performed by: [facility] - [address] [address] Chair Installer: Sixto Barragan II, M.D., Ph.D. 52 Because ethnic data is not always [...] 5 Kidney failure <15 (or dialysis) 53 Desirable <150 Borderline high 150-199 High 200-499 Very High >500 54 Desirable <200 Borderline high 200-239 High >239 55 Low <40 Desirable: 40-60 High: >60 56 Desirable: <100 mg/dL Near Optimal: 100-129 mg/dL Borderline High: 130-159 mg/dL High: 160-189 mg/dL Very High: >189 mg/dL 57 SEE RESULT BELOW Name: SHANTA ROCHA : [address]: Damon Webb MD Acct: [id number] Unit: [id number] AGE: 65 Location: ENDO Re01/10/16 SEX: F Status: REG REF SPEC: [id number] BARB: 01/10/[address]: Damon Webb MD REQ: [id number] RECD: 01/10/166184 STATUS: AMY DE JESUS DR: Daren Vance MD _ ORDERED: GM, LEVEL IV FINAL DIAGNOSIS Esophagus, 32 cm, [...] performed at Main Lab DEPARTMENT OF PATHOLOGY, [address] [place] [address] Martín Garcia M.D. Director [facility] # [id number] 58 Comment: ESOPHAGEAL BRUSHING 59 SEE RESULT BELOW Name: SHANTA ROCHA : [address]: Damon Webb MD Acct: [id number] Unit: [id number] AGE: 65 Location: ENDO Re01/10/16 SEX: F Status: DEP REF SPEC: [id number] BARB: 01/10/16-[address]: Damon Webb MD REQ: [id number] RECD: 01/10/162339 STATUS: BERNARDA DE JESUS DR: Daren Vance MD _ SOURCE: MISC SOURC SPDESC: ORDERED: Fungal - Other COMMENTS: Comment: ESOPHAGEAL BRUSHING Procedure Result Reported Site Fungal Cult - Other Sources Final 02/04/16- 1218 ML Organism 1 JENNIE ALBICANS * ML - MAIN LAB ([facility]) . END OF REPORT * ML=Testing performed at Main Lab DEPARTMENT OF PATHOLOGY, [address] [place] [address] Martín Garcia M.D. Director [facility] # [id number] 60 Because ethnic data is not always readily [...] 15-29 5 Kidney failure <15 (or dialysis) 61 Test Performed by: [address] [address] Chair Installer: Sixto Barragan II, M.D., Ph.D. 62 Because ethnic data is not always readily [...] 15-29 5 Kidney failure <15 (or dialysis) 63 REFERENCE VALUE Cutoff: 100 64 REFERENCE VALUE Cutoff: 100 65 REFERENCE VALUE Cutoff: 100 66 REFERENCE VALUE Cutoff: 100 67 REFERENCE VALUE Cutoff: 100 68 REFERENCE VALUE Cutoff: 100 69 ADDITIONAL INFORMATION This report is intended for use in clinical monitoring and management of patients. It is not intended for use in employment-related testing. Test Performed by: [facility] [address] [place] [address] Chair Installer: Sixto Barragan II, M.D., Ph.D. 70 REFERENCE VALUE Cutoff: 500 71 REFERENCE VALUE Cutoff: 200 72 REFERENCE VALUE Cutoff: 100 73 REFERENCE VALUE Cutoff: 150 74 REFERENCE VALUE Cutoff: 300 75 Presumptive Positive Drug confirmation to follow. Presumptive Positive means that the screening method is positive, but the test needs to be run by a confirmatory method before being finalized. REFERENCE VALUE Cutoff: 300 76 ADDITIONAL INFORMATION This report is intended for use in clinical monitoring or management of patients. It is not intended for use in employment-related testing. 77 REFERENCE VALUE Cutoff: 100 ADDITIONAL INFORMATION This report is intended for use in clinical monitoring or management of patients. It is not intended for use in employment-related testing. Test Performed by: [place] [address] Chair Installer: Sixto Barragan II, M.D., Ph.D. 78 Because ethnic data is not always readily [...] 15-29 5 Kidney failure <15 (or dialysis) 79 Reference Range and Interpretation: TnI (ng/mL) Interpretation Less Than 0.03 ng/mL Not supportive of diagnosis of [place] 0.03 - 0.50 ng/mL Indeterminate: suggest serial studies if clinically indicated. Greater than 0.5 ng/mL Consistent with diagnosis of [place] 80 Because ethnic data is not always [...] 5 Kidney failure <15 (or dialysis) 81 Normal Range 180 to 914 Indeterminate Range 145 to 180 Deficient Range <145 82 Because ethnic data is not always readily [...] 15-29 5 Kidney failure <15 (or dialysis) 83 Acute inflammation: >10.00 84 Because ethnic data is not always readily [...] 15-29 5 Kidney failure <15 (or dialysis) 85 Acute inflammation: >10.00 86 The above CRISTAL screen is designed for the detection of antibodies to extractable nuclear antigen (CRISTAL) in human serum. It is a combination test for the detection of antibodies to RUBBER [employer] TESTER WATER, Sm, SS-A (Ro), and SS-B (La) nuclear antigens. 87 *Ascorbic acid is present which may interfere with detection of blood. 88 Test Result Flag Unit RefValue DNA Double-Stranded Ab, <12.3 IU/mL IgG, S REFERENCE VALUE <30.0 (Negative) Test Performed by: [place] [address] Chair Installer: Sixto Barragan II, M.D., Ph.D. 89 Chioma Valdivia 90 Because ethnic data is not always readily [...] 15-29 5 Kidney failure <15 (or dialysis) 91 RUN DATE: 07/02/14 [facility] LAB LIVE PAGE 1 RUN TIME: 10[address] [place], [place] [address] Specimen Inquiry Name: SHANTA ROCHA Batsheva : [address]: Ronak Pedro NP Acct: [id number] Unit: [id number] AGE: 64 Location: [facility] Re06/27/14 SEX: F Status: REG REF SPEC: [id number] BARB: 06/27/14-[address]: Ronak Pedro NP REQ: [id number] RECD: 06/30/14 STATUS: COMP _ SOURCE: URINE SPDESC: ORDERED: Urine Culture QUERIES: Provider Requisition # [id number] Procedure Result Verified Site Urine Culture Final 07/02/14- 1041 ML No Growth Day 2 (<1,000 CFU/mL) END OF REPORT * ML=Testing performed at Main Lab DEPARTMENT OF PATHOLOGY, [facility] [employer] [place], [place] [address] Martín Garcia M.D. Director [facility] # [id number] 92 RUN DATE: 06/02/14 [facility] LAB LIVE PAGE 1 RUN TIME: 9145 [facility] [address] [place], [place] [address] Specimen Inquiry Name: SHANTA ROCHA : [address]: Daren Chawla MD Acct: [id number] Unit: [id number] AGE: 64 Location: [facility] Re05/31/14 SEX: F Status: REG REF SPEC: [id number] BARB: 05/31/14-1144 [facility] DR: Daren Chawla MD REQ: [id number] RECD: 05/31/14 STATUS: COMP _ SOURCE: URINE SPDESC: ORDERED: Urine Culture QUERIES: Provider Requisition # [id number] Procedure Result Verified Site Urine Culture Final 06/02/14- 1115 ML No Growth Day 2 (<1,000 CFU/mL) END OF REPORT * ML=Testing performed at Main Lab DEPARTMENT OF PATHOLOGY, [address] [place] [address] Martín Garcia M.D. Director [facility] # [id number] 93 RUN DATE: 04/19/14 [facility] LAB LIVE PAGE 1 RUN TIME: 6[address] [place], [place] [address] Specimen Inquiry Name: SHANTA ROCHA : [address]: Joe Velasquez MD Acct: [id number] Unit: [id number] AGE: 63 Location: ENDO Re04/18/14 SEX: F Status: REG REF SPEC: [id number] BARB: 04/18/14-32 [facility] DR: Joe Velasquez MD REQ: [id number] RECD: 04/18/14-1229 STATUS: AMY DE JESUS DR: [...] performed at Main Lab DEPARTMENT OF PATHOLOGY, [facility] [employer] [place], [place] [address] Martín Garcia M.D. Director [facility] # [id number] RUN DATE: 04/19/14 [facility] LAB LIVE PAGE 2 RUN TIME: 1505 [facility] [address] [place], [place] [address] Specimen Inquiry Patient: SHANTA ROCHA [id number] (Continued) POST-OPERATIVE DIAGNOSIS (Continued) POST-OPERATIVE DIAGNOSIS (Continued) [...] performed at Main Lab DEPARTMENT OF PATHOLOGY, [address] [place] [address] Martín Garcia M.D. Director [facility] # [id number] 94 Because ethnic data is not always readily [...] 15-29 5 Kidney failure <15 (or dialysis) 95 Normal Range 180 to 914 Indeterminate Range 145 to 180 Deficient Range <145 96 Reviewed by Bettina Valdivia MD RARE SCHISTOCYTES 97 Chioma Valdivia 98 Potassium reference range changed effective 03/05/14 99 Because ethnic data is not always readily [...] 15-29 5 Kidney failure <15 (or dialysis) 10 Normal Range 180 to 914 0 Indeterminate Range 145 to 180 Deficient Range <145 10 SEE RESULT BELOW 1 Name: SHANTA ROCHA : [address]: Martín Garcia MD Acct: [id number] Unit: [id number] AGE: 66 Location: [facility] Re12/31/16 SEX: F Status: REG REF SPEC: [id number] BARB: 12/02/11- SUBM DR: Martín Garcia MD REQ: [id number] RECD: 12/31/16-1146 STATUS: AMY DE JESUS DR: [...] patient's name. 2 slides are labeled C [id number] (1 Pap stain ThinPrep and 1 H E stain cell block) and 1 labeled S [id number]. Accompanying the slides are pathology reports with corresponding accession number as both from [facility] Department of laboratories, [place] [address] signed by Drs. Jose Rafael Donohue and Fany Llanos respectively. Signed (signature on file) Martín Garcia MD 1604 END OF REPORT * ML=Testing performed at Main Lab DEPARTMENT OF PATHOLOGY, [address] [place] [address] Martín Garcia M.D. Director [facility] # [id number] Procedures Date CPT Code Description Status Comment 12/28/2017 Bone Mineral Density Test Completed 12/24/2017 25492 Diffusing Capacity Completed 12/24/2017 06441 Plethysmography Determination Completed Lung Volumes & Per Airway Resist 12/24/2017 23838 [facility] Completed Measurement Heart Rate, Oximetry 02/18/2016 Diabetic Retinal Eye Exam Completed Document: 02/18/16 - Consult Ophthalmology/[place] 08/19/2015 34821 ECHO Transthorasic Realtime 2D W Completed Doppler & Color Flow Hosp 08/18/2015 79902 EKG, Interpretation Only Completed 06/05/2015 68741 Pulmonary Function><Bronchodil Completed 09/13/2014 Bone Mineral Density Test Completed 04/20/2014 Colonoscopy Completed 04/18/2014 Colonoscopy Completed Encounters Type Date Location Provider CPT E/M Dx Office Visit 01/13/2018 2:40p [facility] Internal Medicine Daren Chawla 90679 R51 Carline Colon M.D. Office Visit 12/22/2017 1:40p [facility] Internal Medicine Daren Chawla 39490 F41.9 - Mercy Nieves M.D. N95.9 Office Visit 11/23/2017 2:00p [facility]ology [facility] Nelda Yang 04568 J44.9 Services [facility] Shelley Z99.81 Office Visit 11/19/2017 1:20p [facility] Internal Medicine Daren Chawla M.D. 34038 I10 - [place]equiel F41.9 J44.9 M51.16 Office Visit 10/23/2017 2:30p [facility] [place] [address] R06.02 Services [facility] J44.9 R09.02 Z85.01 C34.90 Office Visit 10/19/2017 4:20p [facility] Internal Daren Chawla, 03582 K52.832 Medicine - [address] Zac Office Visit 10/08/2017 1:20p [facility] Internal Daren Chawla, 54829 M51.16 Medicine - [address] Zac F41.9 J44.9 Office Visit 09/25/2017 12:11p [facility] Brittany Sanders, N.P. 04214 J69.0 Hospitalists I10 J44.9 Z85.01 Office Visit 09/24/2017 12:11p [facility] Brittany Sanders, N.P. 78385 J69.0 Hospitalists I10 J44.9 Z85.01 Office Visit 09/23/2017 12:10p [facility] Brittany Sanders, N.P. 65886 J69.0 Hospitalists I10 J44.9 Z85.01 Office Visit 09/22/2017 12:08p [facility] Madhuri Gerber, 07678 J44.9 Hospitalists D.O. J69.0 I10 Z85.01 Office Visit 09/21/2017 12:09p [facility] [address] J44.9 Hospitalists J69.0 I10 Z85.01 Office Visit 08/18/2017 3:00p [facility] Internal Daren Chawla M.D. 32476 E87.1 Medicine - [address] E78.2 M51.16 Office Visit 08/04/2017 2:30p [facility] [place] [address] J44.9 Services [facility] R09.02 C34.90 Office Visit 07/07/2017 3:00p [facility] Internal Medicine Daren Chawla M.D. 70598 I10 - [address] G47.00 F33.0 E87.1 Office Visit 03/31/2017 1:00p [facility] Internal Medicine Daren Chawla M.D. 99606 I10 - [address] K21.9 E78.2 Office Visit 02/27/2017 1:20p [facility] Internal Daren Chawla, 40975 J01.10 Medicine - [place] [address] Frank F41.9 F33.0 Office Visit 01/15/2017 1:40p [facility] Internal Daren Chawla M.D. 58519 F32.9 Medicine - [address] Office Visit 12/09/2016 1:20p [facility] Internal Daren Chawla M.D. 53438 F32.9 Medicine - [address] G47.00 E78.2 N39.0 Office Visit 10/03/2016 2:00p [facility] [place] [address] F41.9 [place] R23.3 R51 K08.89 Office Visit 08/05/2016 1:20p [facility] Internal Medicine Daren Chawla M.D. 14705 I10 - [address] K21.9 F41.9 E87.1 Office Visit 07/18/2016 1:00p [facility] [place] [address] J06.9 - [address] Office Visit 06/09/2016 1:40p [facility] Internal Medicine Daren Chawla 93478 I10 - [place] [address] Frank J01.90 E87.1 K21.9 F41.9 Office Visit 05/28/2016 4:00p [facility] Internal Daren Chawla 91684 R53.83 Jazz Colon M.D. R06.02 B00.9 Office Visit 04/07/2016 1:40p [facility] Internal Daren Chawla 29288 M50.10 Medicine - [place]equiel Frank I10 Office Visit 03/04/2016 1:20p [facility] Internal Medicine Daren Chawla M.D. 97689 Z23 - [address] M50.10 R63.4 M51.16 Office Visit 12/31/2015 3:00p [facility] Internal Medicine Daren Chawla M.D. 35323 I10 - [address] M51.16 F41.9 E78.2 Office Visit 10/31/2015 3:40p [facility] Internal Daren Chawla 84607 M51.16 Medicine - [address] Zac M79.671 F41.9 Office Visit 10/17/2015 1:40p [facility] Internal Daren Chawla, 63452 M79.671 Medicine - [address] Zac L98.9 M51.16 Office Visit 09/10/2015 1:40p [facility] Internal Medicine Daren Chawla M.D. 38297 I10 - [address] M51.16 K21.9 R63.4 G45.3 Office Visit 08/19/2015 9:29a [facility], Narayan Ko, 35493 G45.9 Hospitalists M.DOpal C34.90 I10 Office Visit 08/17/2015 3:18p [facility] Zuly Grayson, 50025 G45.3 M.D. Office Visit 08/17/2015 9:28a [facility], Torsten Castano, 28308 G45.9 Hospitalists N.P. C34.90 I10 Office Visit 08/16/2015 3:16p [facility] Zuly Grayson, 76021 G45.3 M.DOpal C34.90 R63.4 Office Visit 05/31/2015 2:40p [facility] Internal Medicine Daren Chawla M.D. 61248 I10 - [address] K21.9 F32.9 M51.16 E87.1 J44.9 Office Visit 03/23/2015 2:50p Orthopedic Services Eran Abernathy 04828 S93.402D Of Silvio Frank Office Visit 03/15/2015 1:00p [facility] Internal Medicine Daren Chawla 19227 F33.0 - [address] Zac Z23 E87.1 Office Visit 03/02/2015 2:20p Orthopedic Services Eran Abernathy 67113 S93.402A Of Silvio Frnak Office Visit 02/15/2015 3:00p [facility] Internal Medicine Daren Chawla, 89112 I10 - [address] Zac K21.9 F32.9 M51.16 Office Visit 01/03/2015 1:00p [facility] [place] [address] 724.3 Isaiah 724.2 Office Visit 10/25/2014 1:40p [facility] Internal Medicine Daren Chawla, 58494 401.1 - Isaiah Frank 530.81 311 276.1 722.93 722.10 Office Visit 08/21/2014 2:00p Rheumatology Services Yousuf Cottrell M.D. 31221 710.0 [facility] 288.50 373.34 722.91 722.93 Office Visit 07/24/2014 2:40p [facility] Internal Daren Chawla M.D. 60301 401.1 Medicine - [address] 722.93 530.81 311 491.0 Office Visit 07/10/2014 1:00p Rheumatology Services Yousuf Cottrell M.D. 62017 710.0 [facility] 288.50 795.79 722.91 722.93 Office Visit 06/29/2014 3:30p [facility] [place] [address] 465.9 [place] 599.70 Office Visit 05/31/2014 11:20a [facility] Internal Medicine Daren Chawla 98208 599.0 - Isaiah Frank 788.1 722.93 Office Visit 04/21/2014 11:00a [facility] Internal Medicine Daren Chawla 72463 401.1 - Isaiah Frank 285.9 288.00 710.0 Office Visit 03/27/2014 1:00p [facility] Internal Medicine Daren Chawla, 63211 401.1 - Isaiah Frank 530.81 300.02 722.93 787.91 285.9 239.1 Plan of Care Future Appointment(s):01/25/2018 1:40 pm - Daren Chawla M.D. at [facility] Internal Medicine - [address]03/29/2018 3:30 pm - Abbey Llamas MD at [facility]01/13/2018 - Daren Chawla M.D.R51 HeadacheComments:Need to rule out brain metsFollow up:1 week/ CT brain stat hold and call
[2018-01-27] MEDS ORDERED: HYDROmorphone TAB* 2 MG ONE (13:56)
[2018-01-27] MEDS ORDERED: Senna TAB PO PRN (14:32)
[2018-01-27] MEDS ORDERED: HYDROmorphone TAB* 2 MG PO PRN (14:44)
[2018-01-27] MEDS ORDERED: LORazepam TAB(*) 0.5 MG PO PRN (14:48)
[2018-01-27] MEDS: HYDROmorphone TAB* 2 MG PO PRN ×2 (18:02→22:08)
[2018-01-27] MEDS: Metoprolol Tartrate TAB* 50 mg PO SCH (20:10)
[2018-01-27] MEDS: Magnesium Oxide TAB* 400 MG PO SCH (20:11)
[2018-01-27] MEDS: Pregabalin CAP(*) 50 MG PO SCH (20:11)
[2018-01-27] MEDS: Docusate CAP* 100 MG PO SCH (20:14)
[2018-01-27] MEDS ORDERED: Pregabalin CAP(*) 25 MG PO SCH (21:00)
--- NOTE | 2018-01-27 23:00 | HP ---
ADMISSION HISTORY AND PHYSICAL: DATE OF ADMISSION: 01/27/18 REASON FOR ADMISSION: Posterior reversible encephalopathy syndrome. HISTORY OF PRESENT ILLNESS: Shanta Crews is a 67-year-old female. She has a medical history significant for COPD. She has a back injury dating back 20 years from an ice-skating fall. She also has a history of esophageal cancer, originally diagnosed 5-1/2 years ago. She was treated at that time with chemotherapy and radiation. The cancer recurred in 2017. She went to the [facility] [place] and had an esophagectomy at that time. The patient was supposed to babysit her grandchildren while their father went to work on . She did not show up in their house, which is next to her where she lives and one of the grandchildren came to find her in her apartment. She was found to have fallen. 911 was called and she was brought to the hospital. She was found to have acute mental status changes. She was also given 2 L of fluid and was short of breath as well. She had a CT angio of her chest, which showed no evidence of pulmonary embolus, but did show an enlarging left hilar mass with lymph nodes present. She also was found to have difficulty finding the right words and was confused. She was admitted to the hospitalist service and had a Neurology consult as well as a Pulmonary consult for her COPD. She had a CAT scan that was negative. She had a spinal tap that showed slightly elevated protein. Glucose was within normal limits. CSF culture was negative. Cytology was negative. She had a few red blood cells likely from a traumatic tap. The patient was able to have an MRI, which showed cortical and subcortical abnormal signals of the cerebral hemisphere and cerebellum bilaterally. It was felt that she was having posterior reversible encephalopathy syndrome. She had a Neurology consult with Dr. Howard. She was put on a nicardipine drip to lower her blood pressure. She had an EEG to look for seizure activity. The EEG was negative. Because of her CTA findings, she did have an Oncology consult with Dr. Pedroza. Dr. Pedroza did feel that the nodules were suspicious for recurrence, by per Dr. Vance, the patient had already discussed these with Dr. Vance and she was not inclined to do further treatment. However, it was thought a biopsy might be needed in the future. By 01/22/18, she had been moved out of the intensive care unit. 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 By 01/22/18, the aphasia had significantly improved. It was felt that the patient may need an MRI of the brain in the week of 02/02/18 to evaluate for resolution of edema. The patient's COPD and her breathing likewise seemed to improve a great deal. Her headache was resolving. She did have an ultrasound for evaluation of the feasibility of a biopsy of a subpleural nodule. She was seen by Dr. Vance on 01/25/18. Dr. Vance felt that the lymph node biopsy should be done as an outpatient. The patient required a dilation of her esophageal stricture, which was done by Dr. Joaquin on the acute service. The patient was felt to have physical therapy and occupational therapy needs because of both inactivity and the disease process itself. She also had speech therapy needs. She is currently on a full liquid diet. The patient is currently being admitted to inpatient rehab, so that she might return to independent living. PAST MEDICAL HISTORY: As noted above. In addition to her esophageal cancer, she has a history of lung cancer as well and she underwent a right lobectomy. She has had esophageal stricture since her esophagectomy in 2017 and requires esophageal dilations every 2 weeks. She has a history of chronic back pain as mentioned and COPD, on oxygen at home. She has a history of hypertension. CURRENT MEDICATIONS: Include: 1. Norvasc. 2. Lovenox. 3. Lexapro. 4. Dilaudid. 5. Ativan. 6. Magnesium oxide. 7. Lopressor. 8. Lyrica. 9. Colace. 10. Senokot. ALLERGIES: She is allergic to DOXYCYCLINE, MARINOL, FENTANYL, LACTOSE, REMERON , and PENICILLIN. SOCIAL HISTORY: She lives in an apartment above her daughter's garage. Her daughter, son-in-law, and two grand-children live in the house next to her. She has another daughter living in the [place], [place] area. The patient no longer smokes and no longer drinks. REVIEW OF SYSTEMS: The patient reports mild difficulty with shortness of breath , especially with exertion. PHYSICAL EXAMINATION VITAL SIGNS: The patient's temperature is 97.3, blood pressure is 110/40, pulse is 78, respirations 24. HEENT: Her extraocular movements are intact. Tongue is midline. NECK: Supple. LUNGS: Lung sounds clear with diminished breath sounds, particularly on the right. HEART: Sounds are regular. S1 and S2 are audible. ABDOMEN: Soft and nontender. EXTREMITIES: Her extremities show normal muscle tone and bulk. Peripheral pulses are intact. NEUROLOGIC: She is awake, alert, oriented. Her speech seemed clear. Her muscle strength was 5/5 on both the right and the left. FUNCTIONAL: She transfers with contact guard to min assist. ASSESSMENT: 1. Posterior reversible encephalopathy syndrome. 2. History of esophageal cancer. PLAN: We are going to integrate her into a comprehensive and therapeutic rehab program on the following goals: 1. Physical Therapy will work with the patient. They are going to work on functional transfer training, ambulation training with a walker. 2. Occupational Therapy will see the patient, work on her activities of daily living including toileting and toilet transfers. 3. Speech Therapy will see the patient. They are going to work on her swallowing difficulties as well as cognitive and linguistic difficulties she is having. 4. Lovenox for DVT prophylaxis. 5. We will continue her Dilaudid for back pain. 6. Continue Norvasc and Lopressor for hypertension. We may have to monitor to see if these doses need to be lowered. 7. Continue Lyrica for her chronic pain syndrome. 8. Continue Lexapro for depression. 9. card services specialist will be closely involved to make sure that any services and equipment the patient requires are in place prior to discharge. 10. Family training as appropriate. 11. Home with appropriate services. ESTIMATED LENGTH OF STAY: 5 to 7 days. [id number]/CPS #: [id number] [facility]
[2018-01-28] MEDS ORDERED: amLODIPine TAB* 5 MG PO SCH (09:00)
[2018-01-28] MEDS: Metoprolol Tartrate TAB* 50 mg PO SCH (09:59)
[2018-01-28] MEDS: Docusate CAP* 100 MG PO SCH ×2 (09:59→20:42)
[2018-01-28] MEDS: Pregabalin CAP(*) 50 MG PO SCH ×2 (10:00→21:13)
[2018-01-28] MEDS ORDERED: Enoxaparin(*) 40 MG/0.4 ML SYR SUBCUT SCH (10:00)
[2018-01-28] MEDS: Vitamin THERAPEUTIC TAB PO SCH (10:51)
[2018-01-28] MEDS: CMC:Escitalopram (NF) 10 MG TAB PO SCH (10:51)
[2018-01-28] MEDS: HYDROmorphone TAB* 2 MG PO PRN ×3 (12:02→21:14)
[2018-01-28] MEDS: Magnesium Oxide TAB* 400 MG PO SCH (18:38)
[2018-01-28] MEDS ORDERED: Ondansetron ODT TAB* 4 MG SL PRN (19:29)
[2018-01-28] MEDS ORDERED: Metoprolol Tartrate TAB* 25 MG PO SCH (21:00)
[2018-01-28] MEDS: Metoprolol Tartrate TAB* 25 MG PO SCH (21:13)
--- NOTE | 2018-01-28 21:14 | PN ---
Progress Note Date of Service: 01/28/18 Note: MARIANNE ROCHA was visited. Therapy notes read and reviewed. She had an episode of low blood pressure this morning while upright. Her BP meds had been increased on the acute hospital stay but she spent most of time in bed. Will lower BP meds and make sure SBP stays under 150. She would like to go back to Klonopin for anxiety instead of ativan Current Medications: Active Medications Generic Name Dose Route Start Last Admin Trade Name Freq PRN Reason Stop Dose Admin Acetaminophen 650 mg 01/27/18 14:32 Tylenol Tab* PO Q6H PRN FEVER/PAIN Amlodipine Besylate 5 mg 01/29/18 09:00 Norvasc Tab* PO DAILY VICK Clonazepam 1 mg 01/28/18 21:05 Klonopin Tab(*) PO BID PRN ANXIETY Docusate Sodium 100 mg 01/27/18 21:00 01/28/18 20:42 Colace Cap* PO Not Given BID VICK Enoxaparin Sodium 40 mg 01/28/18 10:00 01/28/18 10:52 Lovenox(*) SUBCUT 40 mg Q24H VICK Administration Escitalopram Oxalate 10 mg 01/28/18 09:00 01/28/18 10:51 Lexapro (Nf) PO 10 mg DAILY VICK Administration Hydromorphone HCl 2 mg 01/27/18 17:54 01/28/18 16:32 Dilaudid Tab* PO 2 mg Q4H PRN Administration PAIN - MODERATE TO SEVERE Metoprolol Tartrate 25 mg 01/28/18 21:00 Lopressor Tab* PO Q12HR VICK Multivitamins 1 tab 01/28/18 09:00 01/28/18 10:51 Theragran Tab* PO 1 tab DAILY VICK Administration Ondansetron HCl 4 mg 01/28/18 19:29 01/28/18 19:37 Zofran Odt Tab* SL 4 mg Q6H PRN Administration NAUSEA Pregabalin 50 mg 01/27/18 21:00 01/28/18 10:00 Lyrica Cap(*) PO Not Given BID VICK Senna 2 tab 01/27/18 14:32 Senokot Tab* PO BEDTIME PRN CONSTIPATION Vital Signs: Vital Signs Temp Pulse Resp BP Pulse Ox 97.9 F 91 22 138/57 100 01/28/18 18:36 09/27/18 20:25 01/28/18 20:25 01/28/18 20:25 01/28/18 18:36 Exam: GENERAL: alert, looks older than stated age LUNGS: clear bilaterally HEART: regular rhythm ABDOMEN: Soft, +BS EXTREMITIES: no edema NEUROLOGIC: Alert. Muscle strength 5/5. Assessment/Plan: 1. Posterior Reversible Encephalopathy Syndrome: Presumed to be from HTN. 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 2. Episode of hypotension: Norvasc lowered to 5 mg, Lopressor to 25 mg BID. 3. Esophageal Cancer: S/P Esophagectomy. Soft Diet. Dilation Q 2 weeks. Will need work up, LN biopsy with oncology/pulm after discharge 4. Anxiety: D/C Ativan. Will go back to Klonopin. 5. Back Pain: Dilaudid. Lyrica. 6. DVT Prophylaxis: Lovenox S/Q 7. Advanced Directives: full code 8. Nausea: Zofran ODT 01/28/18 21:10 01/28/18 21:16 01/28/18 21:18
[2018-01-28] MEDS: clonazePAM TAB(*) 1 MG PO PRN (21:15)
[2018-01-28] MEDS ORDERED: Polyethylene Glycol 3350* 17 GM PACKET PO PRN (21:20)
[2018-01-28] MEDS: Acetaminophen TAB* 325 MG PO PRN (23:14)
[2018-01-29] MEDS: HYDROmorphone TAB* 2 MG PO PRN ×4 (01:15→21:21)
[2018-01-29 06:44] LABS: ABS Basophils 0 10^3/ul (0-0.2); ABS Eosinophils 0.1 10^3/ul (0-0.6); ABS Lymphocytes 1.1 10^3/ul (1.0-4.8); ABS Monocytes 0.5 10^3/ul (0-0.8); ABS Neutrophils 1.2 10^3/ul (1.5-7.7); ABS Nucleated RBC 0 10^3/ul; Eosinophil % 2.1 % (0-6); Hematocrit 29 % (35-47); Hemoglobin 9.9 g/dl (12.0-16.0); Lymphocyte % 37.8 % (25-47); Mean Corpuscular HGB Conc 34 g/dl (31-36); Mean Corpuscular Hemoglobin 30 pg (27-31); Mean Corpuscular Volume 89 fL (80-97); Mean Platelet Volume 6.4 um3 (7.4-10.4); Nucleated Red Blood Cells % 0.2; Platelet Count 269 10^3/ul (150-450); Red Blood Count 3.26 10^6/ul (4.00-5.40); Red Cell Distribution Width 14 % (10.5-15); White Blood Count 2.9 10^3/ul (3.5-10.8)
[2018-01-29 07:07] LABS: EGFR Non-African American 97.5 (>60)
[2018-01-29] MEDS ORDERED: amLODIPine TAB* 5 MG PO SCH ×3 (09:00)
--- NOTE | 2018-01-29 09:34 | PN ---
Progress Note Date of Service: 01/29/18 Note: MARIANNE ROCHA was visited. Nursing and therapy notes read and reviewed. She is less lightheaded today. No vertigo. She only received metoprolol 25mg as HS yesterday. After OT her SBP is 90, so meds being held. No chest pain, shortness of breath or abdominal pain. She is eating a soft diet. She had some nausea last night that was better with zofran. Current Medications: Active Medications Generic Name Dose Route Start Last Admin Trade Name Freq PRN Reason Stop Dose Admin Acetaminophen 650 mg 01/27/18 14:32 01/28/18 23:14 Tylenol Tab* PO 650 mg Q6H PRN Administration FEVER/PAIN Clonazepam 1 mg 01/28/18 21:05 01/28/18 21:15 Klonopin Tab(*) PO 1 mg BID PRN Administration ANXIETY Enoxaparin Sodium 40 mg 01/29/18 09:00 Lovenox(*) SUBCUT DAILY@0900 VICK Escitalopram Oxalate 10 mg 01/28/18 09:00 01/28/18 10:51 Lexapro (Nf) PO 10 mg DAILY VICK Administration Hydromorphone HCl 2 mg 01/27/18 17:54 01/29/18 01:15 Dilaudid Tab* PO 2 mg Q4H PRN Administration PAIN - MODERATE TO SEVERE Metoprolol Tartrate 25 mg 01/28/18 21:00 01/28/18 21:13 Lopressor Tab* PO 25 mg Q12HR VICK Administration Multivitamins 1 tab 01/28/18 09:00 01/28/18 10:51 Theragran Tab* PO 1 tab DAILY VICK Administration Ondansetron HCl 4 mg 01/28/18 19:29 01/28/18 19:37 Zofran Odt Tab* SL 4 mg Q6H PRN Administration NAUSEA Polyethylene Glycol/Electrolytes 17 gm 01/28/18 21:20 Miralax* PO DAILY PRN CONSTIPATION Pregabalin 50 mg 01/27/18 21:00 01/28/18 21:13 Lyrica Cap(*) PO 50 mg BID VICK Administration Senna 2 tab 01/27/18 14:32 Senokot Tab* PO BEDTIME PRN CONSTIPATION Vital Signs: Vital Signs Temp Pulse Resp BP Pulse Ox 97.9 F 65 20 90/37 98 01/29/18 05:22 01/29/18 09:21 01/29/18 05:22 01/29/18 09:21 01/29/18 09:21 Lab Results: Laboratory Results - last 24 hr 01/29/18 01/29/18 06:35 06:35 WBC 2.9 L RBC 3.26 L Hgb 9.9 L Hct 29 L MCV 89 MCH 30 MCHC 34 RDW 14 Plt Count 269 MPV 6.4 L Neut % (Auto) 40.4 Lymph % (Auto) 37.8 [place] % (Auto) 18.4 H Eos % (Auto) 2.1 Baso % (Auto) 1.3 Absolute Neuts (auto) 1.2 L Absolute Lymphs (auto) 1.1 Absolute Monos (auto) 0.5 Absolute Eos (auto) 0.1 Absolute Basos (auto) 0 Absolute Nucleated RBC 0 Nucleated RBC % 0.2 Sodium 132 L Potassium 3.5 Chloride 102 Carbon Dioxide 25 Anion Gap 5 BUN 6 Creatinine 0.61 Est GFR ( Amer) 118.0 Est GFR (Non-Af Amer) 97.5 BUN/Creatinine Ratio 9.8 Glucose 93 Calcium 8.6 Total Bilirubin 0.30 AST 14 ALT 6 L Alkaline Phosphatase 62 Total Protein 5.4 L Albumin 3.2 Globulin 2.2 Albumin/Globulin Ratio 1.5 Exam: GENERAL: alert and appropriate LUNGS: clear to auscultation bilaterally HEART: regular rate and rhythm ABDOMEN: Soft, +BS, non-tender, non-distended EXTREMITIES: no edema NEUROLOGIC: motor 5/5 bue/ble with intact sensation. Assessment/Plan: 1. 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 Continue lopressor with parameters but discontinue amlodipine. 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 2. Episode of hypotension: Lopressor to 25 mg BID with parameters and d/c amlodipine. 3. Esophageal Cancer/lung cancer s/p right lobectomy with new nodules on CT: S/ P Esophagectomy. Soft Diet. Dilation Q 2 weeks. Will need work up, LN biopsy with oncology/pulm after discharge. 4. Leukopenia: WBCs trending down. I spoke to Dr. Vance who will monitor. 5. Anxiety: Klonopin. 6. Back Pain: Dilaudid. Lyrica. 7. COPD: stable. 8. DVT Prophylaxis: Lovenox S/Q 9. Advanced Directives: full code 10. Nausea: Zofran ODT prn 01/29/18 09:31
[2018-01-29] MEDS: Enoxaparin(*) 40 MG/0.4 ML SYR SUBCUT SCH (09:44)
[2018-01-29] MEDS: Vitamin THERAPEUTIC TAB PO SCH (09:46)
[2018-01-29] MEDS: Pregabalin CAP(*) 50 MG PO SCH ×2 (09:46→21:01)
[2018-01-29] MEDS: CMC:Escitalopram (NF) 10 MG TAB PO SCH (09:46)
[2018-01-29] MEDS: Metoprolol Tartrate TAB* 25 MG PO SCH ×2 (09:46→21:03)
--- NOTE | 2018-01-29 12:47 | PMRUTEAM ---
PMRU: Team Meeting Current Status: Nursing: Current Status Skin Deviations [Left Arm] Skin Tear Skin Deviations [Right Ankle] Abrasion Skin Deviations [Bilateral Arm Bruise,Skin Tear ] Skin Deviation Description [ optifoam intact Left Arm] Skin Deviation Description [ healing Right Ankle] Skin Deviation Description [ left forearm Bilateral Arm] Physical Therapy: Current Status Bed Mobility Assistance Supervision Transfer Moblility Assistance Contact Guard Assist Transfer/Bed Mobility None,Rolling Walker Recommended Devices Ambulation Assistance Contact Guard Assist Ambulation Assistive Devices Rolling Walker Number of Feet Patient 200' Ambulated Stairs Assistance Supervision,Contact Guard Assist Stairs Recommended Devices Two Rails Number of Stairs 15 Curb Not Tested Manual Wheelchair Control/ Bilateral UE's Technique Wheelchair Propulsion Ability Standby Assistance Wheelchair Distance (ft) 150' Occupational Therapy: Current Status Upper Body Dressing Contact Guard Assist Lower Body Dressing Contact Guard Assist Bathing Supervision,Contact Guard Assist Toileting Supervision,Contact Guard Assist Toilet Transfer Supervision,Contact Guard Assist Shower Transfer Contact Guard Assist Eating Independent Rec Therapy: Current Status Summary of Assessment and Pt. was open to conversation - pleasant and Clinical Impression cooperative. Pt. identified with interests and enjoyment in her life. Pt. declined leisure activities but was open to regularly visits. Treatment Goals Pt. will engage in leisure activities while on the unit. Treatment Plan Provide RT services and encourage involvement. Social Work: Current Status Discharge Plan return home with home care svs and family support Potential for Family Training TBD (patient's daughter works fulltime and has two small children to care for) Anticipated Discharge Home Destination Anticipated Discharge 20 stairs to reach apartment Destination Comment Discharge With home care svs and family support Speech: Current Status Assessment Patient is progressing as expected. Speech Current Status Goal 1 Mild impairment Speech Goal 2 Current Status Moderate impairment Speech Goal 3 Current Status Moderate impairment Goals: Physical Therapy: Initial Goals Bed Mobility Assistance Independent Transfer Mobility Assistance Independent Transfer/Bed Mobility Rolling Walker Recommended Devices Ambulation Independent Ambulation Recommended Devices Rolling Walker Ambulation Distance 150 Wheelchair Propulsion Ability Independent Stairs Assistance Independent Stair Recommended Devices One Rail,Two Rails Number of Stairs 20 Occupational Therapy: Initial Goals Goals to be Completed in (Days 3-5 days ) Upper Body Bathing Routine Modified Independent with Lower Body Bathing Routine Modified Independent with Upper Body Dressing Routine Independent Lower Body Dressing Routine Independent Toilet Hygeine and Clothing Modified Independent with Management Routine Toilet Transfer Routine Modified Independent with Step-In Shower Transfer Modified Independent with Routine Functional Transfers for ADL Modified Independent with Grooming Routine Independent Feeding Routine Independent Prepare simple meals - modified independent. Nutrition: Goals Intervention Goals 1) pt will tolerate least-restrictive diet texture without s/sx aspiration 2) adequate po intake to support lean body mass, hydration status, and stable wt 3) achieve and maintain serum electrolytes WNL w/ adequate po intake and repletion 4) achieve bowel regularity w/adequate po intake without constipation (or diarrhea) Speech: Goals Speech Goal 1 Receptive Language Speech Evaluation Status Goal Mild impairment 1 Speech Current Status Goal 1 Mild impairment Goal 1 Comments Verbal Comprehension Goals: Long-Term Goal: Pt will use compensatory strategies to demonstrate comprehension of complex , 2-3 part verbal and written information of moderate complexity, 100% accuracy, Independent. Short-Term Goal: Pt will use compensatory strategies to demonstrate comprehension of complex , 2-part verbal and written information, 80% accuracy, given moderate extra time, and Moderate skilled instruction and cueing. Status: Progressing as expected. Patient summarized longer paragraphs of complex information using previously instructed Constrained Summarization Method with minimal cueing. Patient acknowledged minor addition of opinion in her summary. Patient demonstrated difficulty responding to 4 part verbal instructions, given minimal verbal cueing patient effectively use repair strategy of requesting shorter units. Speech Goal 2 Problem Solving Speech Goal 2 Evaluation Moderate impairment Status Speech Goal 2 Current Status Moderate impairment Speech Goal 2 Comments Problem Solving: Long-Term Goal: Pt will use compensatory language- based strategies to solve moderately complex routine problems, with 100% accuracy, Independently, for ADLs such as shopping, time and money management. Short-Term Goal: Pt will use compensatory strategies to solve moderately complex routine problems, with 80% accuracy, given Moderate skilled instruction and cueing. Status: progressing as expected CLIENT EXPERIENCE ADMINISTRATOR administered the Matthew Cognitive Assessment .Patient scored 24/30, indicating mild cognitive impairment. Note that patient accurately completed the alternating trail task this day, after not a similar task completing accuraiely one jher first day; also that patient recalled 4/5 words after delay, whereas patient recalled Speech Goal 3 Attention and Memory Speech Goal 3 Evaluation Moderate impairment Status Speech Goal 3 Current Status Moderate impairment Speech Goal 3 Comments Long-Term Goal: Pt will use compensatory strategies to encode and retrieve 4/4 items after delay of 30 minutes, Independently, for independence in mobility safety, ADLs and community access. Short-term Goal: Pt will use compensatory strategies to encode and retrieve 3/4 new items after delay of 5 minutes, given Moderate skilled instruction and cueing. Status: Progressing as expected Patient recalled 2/4 complex directions, improved to 3/3 when simplified. Social Work: Goals Discharge Plan return home with home care svs and family support Potential for Family Training TBD (patient's daughter works fulltime and has two small children to care for) Anticipated Discharge Home Destination Anticipated Discharge 20 stairs to reach apartment Destination Comment Discharge With home care svs and family support Care Plan: Care Plan ADL's - Improve/Maintain Start: 01/28/18 13:49 Freq: DAILY Status: Active Target: Protocol: Activity Type Activity Date Activity User E-Sign Co-Sign Detail Recorded Client Recorded Date Recorded By Document 01/28/18 13:49 [id number] 01/28/18 13:50 [id number] 01/28/18 13:49 PMRU Outcome: ADL's/ADL Transfers Device Yes Address Deficits Secondary To: posterior reversal encephalopathy syndrome Patient to receive OT 5x/wk for 60-120 Therex min/day Self Care Management Group Therapy Neuromuscular ReEducation UE/LE ADL's with Assist Yes ADL Transfers with Assist Yes Toileting: Transfers,Clothing Management Yes ,Hygeine w/Assist Light Kitchen/Laundry w/Assist Yes Progression Toward Outcome/Goals Progressing Cardiovascular- Improve/Maintain Start: 01/27/18 19:16 Freq: QSHIFT Status: Active Target: Protocol: Activity Type Activity Date Activity User E-Sign Co-Sign Detail Recorded Client Recorded Date Recorded By Document 01/29/18 10:11 [id number] 01/29/18 10:17 [id number] 01/29/18 10:11 PMRU Outcome: Cardiovascular Vital Signs q Shift for 48hrs Then BID Yes Daily Weight Ordered No Current Cardiovascular Outcome/Goal Maintain/ Achieve Baseline HR, BP , Perfusion Progression Toward Outcome/Goal Progressing Outcome/Goals Met Comment BP 90/37, HR 67 this am. nakia iqbal. lopressor given . Communication-Improve/Maintain Start: 01/28/18 12:39 Freq: DAILY Status: Active Target: Protocol: Activity Type Activity Date Activity User E-Sign Co-Sign Detail Recorded Client Recorded Date Recorded By Document 01/28/18 17:08 [id number] 01/28/18 17:08 [id number] 01/28/18 17:08 PMRU Outcome: Communication/Cognitive Status Other Outcomes/Goals Verbal Comprehension Goals: Long-Term Goal: Pt will use compensatory strategies to demonstrate comprehension of complex, 2-3 part verbal and written information of moderate complexity, 100 % accuracy, Independent. Short-Term Goal : Pt will use compensatory strategies to demonstrate comprehension of complex, 2- part verbal and written information, 80 % accuracy, given moderate extra time, and Moderate skilled instruction and cueing. Problem Solving : Long-Term Goal: Pt will use compensatory language-based strategies to solve moderately complex routine problems, with 100% accuracy, Independently, for ADLs such as shopping, time and money management. Short-Term Goal : Pt will use compensatory strategies to solve moderately complex routine problems, with 80% accuracy, given Moderate skilled instruction and cueing. Status: progressing as expected Long-Term Goal: Pt will use compensatory strategies to encode and retrieve 4/4 items after delay of 30 minutes, Independently, for independence in mobility safety, ADLs and community access. Short-term Goal : Pt will use compensatory strategies to encode and retrieve 3/4 new items after delay of 5 minutes, given Moderate skilled instruction and cueing. Status: Progressing as expected Progression Toward Outcomes/Goals Progressing Outcome/Goals Met Comment Patient is progressing as expected. Patient accurately read and verbally summarized a one page article given moderate cueing . DVT Prophylaxis- Improve/Maintain Start: 01/27/18 19:16 Freq: QSHIFT Status: Active Target: Protocol: Activity Type Activity Date Activity User E-Sign Co-Sign Detail Recorded Client Recorded Date Recorded By Document 01/29/18 10:11 [id number] [id number] 01/29/18 10:17 [id number] 01/29/18 10:11 PMRU Outcome: DVT Prophylaxis Outcome/Goals Remains Free of DVT Complies with DVT Prophylaxis /Treatment TEDS Stockings on Every AM, Off at HS Progression Toward Outcome/Goals Progressing Discharge Planning - Improve/Maintain Start: 01/27/18 14:24 Freq: DAILY Status: Active Target: Protocol: Activity Type Activity Date Activity User E-Sign Co-Sign Detail Recorded Client Recorded Date Recorded By Document 01/28/18 23:41 [id number] 01/28/18 23:42 [id number] 01/28/18 23:41 PMRU Outcome: Discharge Planning Update Patient Family No Outcome/Goals Demonstrates Understanding of Discharge Plan Education-Improve/Maintain Start: 01/27/18 14:24 Freq: QSHIFT Status: Active Target: Protocol: Activity Type Activity Date Activity User E-Sign Co-Sign Detail Recorded Client Recorded Date Recorded By Document 01/29/18 10:11 [email or web address] 01/29/18 10:17 01/29/18 10:11 PMRU Outcome: Education Outcome/Goals Demonstrate/ Verbalize Understanding of Written Discharge Instructions Demonstrates Skills Encourage Questions Progression Toward Outcome/Goals Progressing /GI-Improve/Maintain Start: 01/27/18 19:16 Freq: QSHIFT Status: Active Target: Protocol: Activity Type Activity Date Activity User E-Sign Co-Sign Detail Recorded Client Recorded Date Recorded By Document 01/29/18 10:11 [email or web address] 01/29/18 10:17 01/29/18 10:11 PMRU Outcome: Genitourinary/ Gastrointestinal Genitourinary- Outcome/Goals Maintain/ Achieve Urinary Continence Gastrointestinal-Outcome/Goals Maintain/ Achieve Bowel Regularity in Accordance with Pt's Baseline Remain Free of Emesis Prevent Constipation Progression Toward Outcome/Goals - Progressing Progression Toward Outcome/Goals - GI Progressing Medication Administration Start: 01/27/18 14:24 Freq: QSHIFT Status: Active Target: Protocol: Activity Type Activity Date Activity User E-Sign Co-Sign Detail Recorded Client Recorded Date Recorded By Document 01/29/18 10:11 [id number] 01/29/18 10:17 [id number] 01/29/18 10:11 PMRU Outcome: Medication Administration Assess Patient Knowledge/Teach Med Yes Education for all Meds Outcome/Goals Patient Independent with Medication Administration at Home Demonstrates Understanding Progression Towards Outcome/Goals Progressing Is Patient Going Home on Lovenox? No Neurological- Improve/Maintain Start: 01/27/18 14:24 Freq: QSHIFT Status: Active Target: Protocol: Activity Type Activity Date Activity User E-Sign Co-Sign Detail Recorded Client Recorded Date Recorded By Document 01/29/18 10:11 [id number] [id number] 01/29/18 10:17 [id number] 01/29/18 10:11 PMRU Outcome: Neurological Weakness/Aphasia Weakness Outcome/Goals Maintain/ Achieve Baseline Neurological Status Improve Neurological Status Prevent Avoidable Neurological Decline Maintain/ Improve Strength/ROM Progression Toward Outcome/Goals Progressing Nutrition/Swallowing- Improve/Maintain Start: 01/27/18 19:16 Freq: QSHIFT Status: Active Target: Protocol: Activity Type Activity Date Activity User E-Sign Co-Sign Detail Recorded Client Recorded Date Recorded By Document 01/28/18 23:43 [id number] [id number] 01/28/18 23:45 [id number] 01/28/18 23:43 PMRU Outcome: Nutrition/Swallowing Outcome/Goals Demonstrates Adequate Hydration/ Prevents Dehydration Maintain/ Improve Nutritional Status Progression Toward Outcome/Goals Progressing Pain/Comfort- Improve/Maintain Start: 01/27/18 14:24 Freq: QSHIFT Status: Active Target: Protocol: Activity Type Activity Date Activity User E-Sign Co-Sign Detail Recorded Client Recorded Date Recorded By Document 01/29/18 10:11 [id number] [email or web address] 01/29/18 10:17 [id number] 01/29/18 10:11 PMRU Outcome: Pain/Comfort Outcome/Goals Demonstrates Knowledge and Use of Available Comfort Measures Maintain Comfort Level Allowing Patient to Fully Participate in Rehab Progression Toward Outcome/Goals Progressing Outcome/Goals Met Comment denies pain. routine lyrica given. Respiratory - Improve/Maintain Start: 01/27/18 14:24 Freq: QSHIFT Status: Active Target: Protocol: Activity Type Activity Date Activity User E-Sign Co-Sign Detail Recorded Client Recorded Date Recorded By Document 01/29/18 10:11 [email or web address] 01/29/18 10:17 [id number] 01/29/18 10:11 PMRU Outcome: Respiratory Does Patient Have a Trach No Outcome/Goals Maintain/ Improve O2 Sat per MD Order Maintain/ Improve Activity Tolerance Remain Aspiration Free Other Outcome/Goals O2 nc used intermittently Progression Toward Outcome/Goals Progressing Safety- Improve/Maintain Start: 01/27/18 14:24 Freq: QSHIFT Status: Active Target: Protocol: Activity Type Activity Date Activity User E-Sign Co-Sign Detail Recorded Client Recorded Date Recorded By Document 01/29/18 10:11 [id number] 01/29/18 10:17 [id number] 01/29/18 10:11 PMRU Outcome: Safety Outcome/Goals Remain Free of Injury or Harm Cooperates with Safety Measures for Least Restrictive Environment Prevent Falls/ Injury Progression Toward Outcome/Goals Progressing Outcome/Goals Met Comment BA and PA on when in bed. PA on when in chair Skin- Improve/Maintain Start: 01/27/18 14:24 Freq: QSHIFT Status: Active Target: Protocol: Activity Type Activity Date Activity User E-Sign Co-Sign Detail Recorded Client Recorded Date Recorded By Document 01/29/18 10:11 [id number] 01/29/18 10:17 [id number] 01/29/18 10:11 PMRU Outcome: Skin Skin Risk Level Medium Outcome/Goals Maintain/ Improve Skin Intergrity Progression Toward Outcome/Goals Progressing Medicine Note: Length of Stay: [5 days] Anticipated Discharge Destination: Home Tentative Discharge Date: [02/03/18] Discharged to: [home]
[2018-01-29] MEDS: clonazePAM TAB(*) 1 MG PO PRN (21:00)
[2018-01-30] MEDS: HYDROmorphone TAB* 2 MG PO PRN ×4 (01:21→21:36)
--- NOTE | 2018-01-30 09:26 | PN ---
Progress Note Date of Service: 01/30/18 Note: MARIANNE ROCHA was visited. Nursing and therapy notes read and reviewed. Yesterday afternoon she was not bothered by lightheadedness/dizziness. No chest pain, shortness of breath or abdominal pain. Current Medications: Active Medications Generic Name Dose Route Start Last Admin Trade Name Freq PRN Reason Stop Dose Admin Acetaminophen 650 mg 01/27/18 14:32 01/28/18 23:14 Tylenol Tab* PO 650 mg Q6H PRN Administration FEVER/PAIN Clonazepam 1 mg 01/28/18 21:05 01/29/18 21:00 Klonopin Tab(*) PO 1 mg BID PRN Administration ANXIETY Enoxaparin Sodium 40 mg 01/29/18 09:00 01/29/18 09:44 Lovenox(*) SUBCUT 40 mg DAILY@0900 VICK Administration Escitalopram Oxalate 10 mg 01/28/18 09:00 01/29/18 09:46 Lexapro (Nf) PO 10 mg DAILY VICK Administration Hydromorphone HCl 2 mg 01/27/18 17:54 01/30/18 01:21 Dilaudid Tab* PO 2 mg Q4H PRN Administration PAIN - MODERATE TO SEVERE Metoprolol Tartrate 25 mg 01/28/18 21:00 01/29/18 21:03 Lopressor Tab* PO 25 mg Q12HR VICK Administration Multivitamins 1 tab 01/28/18 09:00 01/29/18 09:46 Theragran Tab* PO 1 tab DAILY VICK Administration Ondansetron HCl 4 mg 01/28/18 19:29 01/28/18 19:37 Zofran Odt Tab* SL 4 mg Q6H PRN Administration NAUSEA Polyethylene Glycol/Electrolytes 17 gm 01/28/18 21:20 Miralax* PO DAILY PRN CONSTIPATION Pregabalin 50 mg 01/27/18 21:00 01/29/18 21:01 Lyrica Cap(*) PO 50 mg BID VICK Administration Senna 2 tab 01/27/18 14:32 Senokot Tab* PO BEDTIME PRN CONSTIPATION Vital Signs: Vital Signs Temp Pulse Resp BP Pulse Ox 98.4 F 66 20 124/60 100 01/30/18 04:24 01/30/18 04:24 01/30/18 04:24 01/30/18 05:40 01/30/18 04:24 Exam: GENERAL: alert and appropriate LUNGS: clear to auscultation bilaterally HEART: regular rate and rhythm ABDOMEN: Soft, +BS, non-tender, non-distended EXTREMITIES: no edema NEUROLOGIC: motor 5/5 bue/ble with intact sensation. Assessment/Plan: 1. 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 Continue lopressor with parameters. Amlodipine d/c'd. 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 2. Episode of hypotension: Lopressor 25 mg BID with parameters and d/c'd amlodipine. 3. Esophageal Cancer/lung cancer s/p right lobectomy with new nodules on CT: S/ P Esophagectomy. Soft Diet. Dilation Q 2 weeks. Will need work up as outpatient (LN biopsy with oncology/pulm). 4. Leukopenia: WBCs trending down. I spoke to Dr. Vance on 01/29 who will monitor. 5. Anxiety: Klonopin. 6. Back Pain: Dilaudid. Lyrica. 7. COPD: stable. 8. DVT Prophylaxis: Lovenox S/Q 9. Advanced Directives: full code 10. Nausea: Zofran ODT prn 11. Estimated LOS: anticipate d/c on 02/03. 01/30/18 09:24
[2018-01-30] MEDS: Enoxaparin(*) 40 MG/0.4 ML SYR SUBCUT SCH (10:21)
[2018-01-30] MEDS: CMC:Escitalopram (NF) 10 MG TAB PO SCH (10:21)
[2018-01-30] MEDS: Pregabalin CAP(*) 50 MG PO SCH ×2 (10:22→21:37)
[2018-01-30] MEDS: Metoprolol Tartrate TAB* 25 MG PO SCH ×2 (10:25→21:37)
[2018-01-30] MEDS: Vitamin THERAPEUTIC TAB PO SCH (10:25)
[2018-01-30] MEDS: clonazePAM TAB(*) 1 MG PO PRN (21:36)
--- NOTE | 2018-01-31 10:07 | PN ---
Progress Note Date of Service: 01/31/18 Note: MARIANNE ROCHA was visited. Nursing notes read and reviewed. No chest pain, shortness of breath or abdominal pain. Only received metoprolol 12.5mg in the evening yesterday. Denies significant dizziness, but she is still in bed. She thought she had a good day yesterday. Current Medications: Active Medications Generic Name Dose Route Start Last Admin Trade Name Freq PRN Reason Stop Dose Admin Acetaminophen 650 mg 01/27/18 14:32 01/28/18 23:14 Tylenol Tab* PO 650 mg Q6H PRN Administration FEVER/PAIN Clonazepam 1 mg 01/28/18 21:05 01/30/18 21:36 Klonopin Tab(*) PO 1 mg BID PRN Administration ANXIETY Enoxaparin Sodium 40 mg 01/29/18 09:00 01/30/18 10:21 Lovenox(*) SUBCUT 40 mg DAILY@0900 VICK Administration Escitalopram Oxalate 10 mg 01/28/18 09:00 01/30/18 10:21 Lexapro (Nf) PO 10 mg DAILY VICK Administration Hydromorphone HCl 2 mg 01/27/18 17:54 01/30/18 21:36 Dilaudid Tab* PO 2 mg Q4H PRN Administration PAIN - MODERATE TO SEVERE Metoprolol Tartrate 12.5 mg 01/30/18 21:00 01/30/18 21:37 Lopressor Tab* PO 12.5 mg Q12HR VICK Administration Multivitamins 1 tab 01/28/18 09:00 01/30/18 10:25 Theragran Tab* PO Not Given DAILY VICK Ondansetron HCl 4 mg 01/28/18 19:29 01/28/18 19:37 Zofran Odt Tab* SL 4 mg Q6H PRN Administration NAUSEA Polyethylene Glycol/Electrolytes 17 gm 01/28/18 21:20 Miralax* PO DAILY PRN CONSTIPATION Pregabalin 50 mg 01/27/18 21:00 01/30/18 21:37 Lyrica Cap(*) PO 50 mg BID VICK Administration Senna 2 tab 01/27/18 14:32 Senokot Tab* PO BEDTIME PRN CONSTIPATION Vital Signs: Vital Signs Temp Pulse Resp BP Pulse Ox 97.6 F 65 20 102/51 100 01/31/18 06:35 01/31/18 06:35 01/31/18 06:35 01/31/18 06:35 01/31/18 06:35 Exam: GENERAL: alert and appropriate LUNGS: clear to auscultation bilaterally HEART: regular rate and rhythm ABDOMEN: Soft, +BS, non-tender, non-distended EXTREMITIES: no edema NEUROLOGIC: motor 5/5 bue/ble with intact sensation. Assessment/Plan: 1. 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 Continue low dose lopressor with parameters. Amlodipine d/c'd. 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 2. Hypotension: Lopressor 12.5 mg BID with parameters and d/c'd amlodipine. She may only tolerate lopressor once per day. 3. Esophageal Cancer/lung cancer s/p right lobectomy with new nodules on CT: S/ P Esophagectomy. Soft Diet. Dilation Q 2 weeks. Will need work up as outpatient (LN biopsy with oncology/pulm). 4. Leukopenia: WBCs trending down. I spoke to Dr. Vance on 01/29 who will monitor. CBC tomorrow. 5. Anxiety: Klonopin. 6. Back Pain: Dilaudid. Lyrica. 7. COPD: stable. 8. DVT Prophylaxis: Lovenox S/Q 9. Advanced Directives: full code 10. Nausea: Zofran ODT prn 11. Estimated LOS: anticipate d/c on 02/03. 01/31/18 10:05
[2018-01-31] MEDS: CMC:Escitalopram (NF) 10 MG TAB PO SCH (10:52)
[2018-01-31] MEDS: Enoxaparin(*) 40 MG/0.4 ML SYR SUBCUT SCH (10:52)
[2018-01-31] MEDS: Metoprolol Tartrate TAB* 25 MG PO SCH ×2 (10:53→21:09)
[2018-01-31] MEDS: Pregabalin CAP(*) 50 MG PO SCH ×2 (10:53→21:07)
[2018-01-31] MEDS: Vitamin THERAPEUTIC TAB PO SCH (10:53)
[2018-01-31] MEDS: HYDROmorphone TAB* 2 MG PO PRN ×3 (12:39→21:08)
[2018-01-31] MEDS: clonazePAM TAB(*) 1 MG PO PRN (21:08)
[2018-02-01] MEDS: HYDROmorphone TAB* 2 MG PO PRN ×4 (01:04→20:53)
[2018-02-01 05:55] LABS: Hematocrit 30 % (35-47); Mean Corpuscular HGB Conc 33 g/dl (31-36); Mean Corpuscular Hemoglobin 30 pg (27-31); Mean Corpuscular Volume 90 fL (80-97); Platelet Count 228 10^3/ul (150-450); Red Blood Count 3.33 10^6/ul (4.00-5.40); Red Cell Distribution Width 14 % (10.5-15); White Blood Count 2.8 10^3/ul (3.5-10.8)
[2018-02-01 06:05] LABS: ABS Basophils 0 10^3/ul (0-0.2); ABS Eosinophils 0.1 10^3/ul (0-0.6); ABS Lymphocytes 1.3 10^3/ul (1.0-4.8); ABS Monocytes 0.5 10^3/ul (0-0.8); ABS Neutrophils 0.9 10^3/ul (1.5-7.7); ABS Nucleated RBC 0 10^3/ul; Eosinophil % 2.3 % (0-6); Lymphocyte % 46.9 % (25-47); Nucleated Red Blood Cells % 0.4
[2018-02-01] MEDS: Acetaminophen TAB* 325 MG PO PRN ×2 (09:39→20:15)
[2018-02-01] MEDS: Pregabalin CAP(*) 50 MG PO SCH ×2 (09:40→20:14)
[2018-02-01] MEDS: Metoprolol Tartrate TAB* 25 MG PO SCH ×2 (09:41→20:53)
[2018-02-01] MEDS: Enoxaparin(*) 40 MG/0.4 ML SYR SUBCUT SCH (09:41)
[2018-02-01] MEDS: Vitamin THERAPEUTIC TAB PO SCH (09:47)
[2018-02-01] MEDS: CMC:Escitalopram (NF) 10 MG TAB PO SCH (12:09)
--- NOTE | 2018-02-01 17:47 | PN ---
Progress Note Date of Service: 02/01/18 Note: MARIANNE ROCHA was visited. Therapy notes read and reviewed. On routine blood draw, ANC less than 1000. Now on Neutropenic precautions. She is moving pretty well. Still has back pain. Current Medications: Active Medications Generic Name Dose Route Start Last Admin Trade Name Freq PRN Reason Stop Dose Admin Acetaminophen 650 mg 01/27/18 14:32 02/01/18 09:39 Tylenol Tab* PO 650 mg Q6H PRN Administration FEVER/PAIN Clonazepam 1 mg 01/28/18 21:05 01/31/18 21:08 Klonopin Tab(*) PO 1 mg BID PRN Administration ANXIETY Enoxaparin Sodium 40 mg 02/03/18 09:00 Lovenox(*) SUBCUT DAILY [facility]ICK Escitalopram Oxalate 10 mg 01/28/18 09:00 02/01/18 12:09 Lexapro (Nf) PO 10 mg DAILY VICK Administration Hydromorphone HCl 2 mg 01/27/18 17:54 02/01/18 16:08 Dilaudid Tab* PO 2 mg Q4H PRN Administration PAIN - MODERATE TO SEVERE Metoprolol Tartrate 12.5 mg 01/30/18 21:00 02/01/18 09:41 Lopressor Tab* PO 12.5 mg Q12HR VICK Administration Multivitamins 1 tab 01/28/18 09:00 02/01/18 09:47 Theragran Tab* PO Not Given DAILY VICK Ondansetron HCl 4 mg 01/28/18 19:29 01/28/18 19:37 Zofran Odt Tab* SL 4 mg Q6H PRN Administration NAUSEA Polyethylene Glycol/Electrolytes 17 gm 01/28/18 21:20 Miralax* PO DAILY PRN CONSTIPATION Pregabalin 50 mg 01/27/18 21:00 02/01/18 09:40 Lyrica Cap(*) PO 50 mg BID VICK Administration Senna 2 tab 01/27/18 14:32 Senokot Tab* PO BEDTIME PRN CONSTIPATION Vital Signs: Vital Signs Temp Pulse Resp BP Pulse Ox 97.8 F 72 20 118/62 100 02/01/18 15:21 02/01/18 15:21 02/01/18 16:21 02/01/18 15:24 02/01/18 16:21 Lab Results: Laboratory Results - last 24 hr 10/01/18 05:34 WBC 2.8 L RBC 3.33 L Hgb 10.0 L Hct 30 L MCV 90 MCH 30 MCHC 33 RDW 14 Plt Count 228 MPV 7.0 L Neut % (Auto) 32.8 L Lymph % (Auto) 46.9 [place] % (Auto) 16.6 H Eos % (Auto) 2.3 Baso % (Auto) 1.4 Absolute Neuts (auto) 0.9 L* Absolute Lymphs (auto) 1.3 Absolute Monos (auto) 0.5 Absolute Eos (auto) 0.1 Absolute Basos (auto) 0 Absolute Nucleated RBC 0 Nucleated RBC % 0.4 Exam: GENERAL: alert and appropriate LUNGS: clear to auscultation bilaterally HEART: regular rate and rhythm ABDOMEN: Soft, +BS, non-tender, non-distended EXTREMITIES: no edema NEUROLOGIC: motor 5/5 bue/ble with intact sensation. Assessment/Plan: 1. Posterior Reversible Encephalopathy Syndrome: Thought to be from HTN, but BP now too low. Continue low dose lopressor with parameters. 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 2. Hypotension: Lopressor 12.5 mg BID with parameters; d/c'd amlodipine. She may only tolerate lopressor once per day. 3. Esophageal Cancer with new nodules on CT: S/P Esophagectomy. Soft Diet. Dilation Q 2 weeks. Will need w/u as outpatient (LN biopsy with oncology/pulm). 4. Leukopenia: WBCs trending down. I spoke to Dr. Vance on 01/29 who will monitor. CBC tomorrow. 5. Anxiety: Klonopin. 6. Back Pain: Dilaudid. Lyrica. 7. COPD: stable. 8. DVT Prophylaxis: Lovenox S/Q 9. Advanced Directives: full code 10. Nausea: Zofran ODT prn 11. Estimated LOS: anticipate d/c on 02/03. 02/01/18 17:47
[2018-02-01] MEDS: clonazePAM TAB(*) 1 MG PO PRN (20:52)
--- NOTE | 2018-02-02 08:20 | PN ---
Progress Note - Progress Note Date of Service: 02/02/18 SOAP: Subjective: []Feeling better, getting stronger. EGD today and discharge tomorrow. Using Oxygen at night, not during day. Acetaminophen (Tylenol Tab*) 650 mg PO Q6H PRN PRN Reason: FEVER/PAIN Last Admin: 02/01/18 20:15 Dose: 650 mg Clonazepam (Klonopin Tab(*)) 1 mg PO BID PRN PRN Reason: ANXIETY Last Admin: 02/01/18 20:52 Dose: 1 mg Enoxaparin Sodium (Lovenox(*)) 40 mg SUBCUT DAILY [facility] Escitalopram Oxalate (Lexapro (Nf)) 10 mg PO DAILY [facility] Last Admin: 02/01/18 12:09 Dose: 10 mg Hydromorphone HCl (Dilaudid Tab*) 2 mg PO Q4H PRN PRN Reason: PAIN - MODERATE TO SEVERE Last Admin: 02/01/18 20:53 Dose: 2 mg Metoprolol Tartrate (Lopressor Tab*) 12.5 mg PO Q12HR [facility] Last Admin: 02/01/18 20:53 Dose: 12.5 mg Multivitamins (Theragran Tab*) 1 tab PO DAILY [facility] Last Admin: 02/01/18 09:47 Dose: Not Given Ondansetron HCl (Zofran Odt Tab*) 4 mg SL Q6H PRN PRN Reason: NAUSEA Last Admin: 01/28/18 19:37 Dose: 4 mg Polyethylene Glycol/Electrolytes (Miralax*) 17 gm PO DAILY PRN PRN Reason: CONSTIPATION Pregabalin (Lyrica Cap(*)) 50 mg PO BID [facility] Last Admin: 02/01/18 20:14 Dose: 50 mg Senna (Senokot Tab*) 2 tab PO BEDTIME PRN PRN Reason: CONSTIPATION Objective: [] Vital Signs Temp Pulse Resp BP Pulse Ox 97.4 F 80 24 120/43 100 02/02/18 04:17 02/02/18 04:17 02/02/18 04:17 02/02/18 04:17 02/02/18 04:17 HEENT: OM moist, pale Decreased BS, no wheezing RRR S1S2 no m/r/g +BS NT Ext w/o C/C/E Assessment: []67 year old with history of esophageal cancer. Admission for malignant HTN now resolved and will go home from [facility] over next 48 hrs. Plan: []1. Neutropnia. Suspect medication induced. Based on review of medications from November, Lopressor is most likely agent. - Stop Lopressor - GCSF for fever - Will follow up with CBC in one week. 2. Anemia. Re-check Iron studies. Low Iron will also contribute to leukopenia. 3. Esophageal cancer. Will need Bx of medistinal LN as out patient. 4. MRI brain after discharge 5. Oxygen on discharge as needed. 6. HTN. Check BP at home once per day 7. After discharge will call my office with any concerns. Will plan RTC to clinic in one week.
[2018-02-02] MEDS: CMC:Escitalopram (NF) 10 MG TAB PO SCH (10:09)
[2018-02-02] MEDS: Pregabalin CAP(*) 50 MG PO SCH ×2 (10:10→21:50)
[2018-02-02] MEDS: Vitamin THERAPEUTIC TAB PO SCH (10:10)
[2018-02-02] MEDS: HYDROmorphone TAB* 2 MG PO PRN ×2 (11:50→21:53)
--- NOTE | 2018-02-02 12:28 | PMRUTEAM ---
PMRU: Team Meeting Current Status: Nursing: Current Status Skin Deviations [Left Arm] Skin Tear Skin Deviations [Right Ankle] Abrasion Skin Deviations [Bilateral Arm Bruise,Skin Tear ] Skin Deviation Description [ Mepilex inplace Left Arm] Skin Deviation Description [ healing Right Ankle] Skin Deviation Description [ left forearm Bilateral Arm] Physical Therapy: Current Status Bed Mobility Assistance Supervision Transfer Moblility Assistance Supervision Transfer/Bed Mobility None Recommended Devices Ambulation Assistance Supervision Ambulation Assistive Devices None Number of Feet Patient 200 Ambulated Stairs Assistance Supervision Stairs Recommended Devices One Rail Number of Stairs 12 Curb Not Tested Manual Wheelchair Control/ Bilateral UE's Technique Wheelchair Propulsion Ability Standby Assistance Wheelchair Distance (ft) 150' Objective Comments core activities: seated/ supine pelvic tilts, heel slides with abdominal brace, clam shells hamstring stretch manual x30 sec each side, hip flex stretch x 30 sec manual each side, gentle nerge glides B ankles x 20 Occupational Therapy: Current Status Upper Body Dressing Independent Lower Body Dressing Independent Bathing Ind with Adaptive Equip Toileting Independent Toilet Transfer Independent Shower Transfer Independent Eating Independent Rec Therapy: Current Status Summary of Assessment and RT assessment completed. Patient presents euthymic Clinical Impression with congruent affect. Patient was very social during our leisure session. Patient is open to continued leisure visits. Has had a visitor meeting with her. Treatment Goals Patient will engage in recreation and leisure activities on the unit. Treatment Plan Provide and encourage involvement in RT services. Social Work: Current Status Discharge Plan return home with home care svs and family support Potential for Family Training pt's daughter is attending family training 02/02 @ 9:30 Anticipated Discharge Home Destination Anticipated Discharge 20 stairs to reach apartment Destination Comment Discharge With home care svs and family support Nutrition: Current Status Monitoring po intake remains variable; question adequacy. Pt has declined offered snacks/supplements. No new labs to follow. Skin remains intact. Plan d/c tomorrow w/follow up per Dr Vance. Wts to be followed as outpt at [facility]; RDN can consult there as needed. Speech: Current Status Assessment Patient is progressing as expected. Patiet met initial comprehension goal, and criteria were revised. Speech Current Status Goal 1 Mild impairment Speech Goal 2 Current Status Moderate impairment Speech Goal 3 Current Status Moderate impairment Goals: Physical Therapy: Initial Goals Bed Mobility Assistance Independent Transfer Mobility Assistance Independent Transfer/Bed Mobility Rolling Walker Recommended Devices Ambulation Independent Ambulation Recommended Devices Rolling Walker Ambulation Distance 150 Wheelchair Propulsion Ability Independent Stairs Assistance Independent Stair Recommended Devices One Rail,Two Rails Number of Stairs 20 Physical Therapy: Updated Goals Bed Mobility Assistance Independent Transfer Mobility Assistance Independent Transfer/Bed Mobility Rolling Walker Recommended Devices Ambulation Assistance Independent Ambulation Assistive Devices Rolling Walker Wheelchair Propulsion Ability Independent Wheelchair Distance (ft) 150 Stairs Assistance Independent Stairs Recommended Devices One Rail,Two Rails Number of Stairs 20 Occupational Therapy: Initial Goals Goals to be Completed in (Days 3-5 days ) Upper Body Bathing Routine Modified Independent with Lower Body Bathing Routine Modified Independent with Upper Body Dressing Routine Independent Lower Body Dressing Routine Independent Toilet Hygeine and Clothing Modified Independent with Management Routine Toilet Transfer Routine Modified Independent with Step-In Shower Transfer Modified Independent with Routine Functional Transfers for ADL Modified Independent with Grooming Routine Independent Feeding Routine Independent Light Housekeeping Tasks Modified Independent with Nutrition: Goals Intervention Goals 1) pt will tolerate least-restrictive diet texture without s/sx aspiration 2) adequate po intake to support lean body mass, hydration status, and stable wt 3) achieve and maintain serum electrolytes WNL w/ adequate po intake and repletion 4) achieve bowel regularity w/adequate po intake without constipation (or diarrhea) Speech: Goals Speech Goal 1 Receptive Language Speech Evaluation Status Goal Mild impairment 1 Speech Current Status Goal 1 Mild impairment Goal 1 Comments Verbal Comprehension Goals: Long-Term Goal: Pt will use compensatory strategies to demonstrate comprehension of complex , 2-3 part verbal and written information of moderate complexity, 100% accuracy, Independent. Short-Term Goal: Pt will use compensatory strategies to demonstrate comprehension of complex , 2-part verbal and written information, 90% accuracy, given extra time, and minimal skilled instruction and cueing. Status: Progressing as expected toward revised criteria Patient followed 3-pat, complex directions accurately, and 3 /4 of 4-part complex directions. DIRECTOR OF GROUP COUNSELING PROGRAM reviewed previously instructed strategy of asking for simplification and breaking up complex directions, and given moderate cueing, patient asked DIRECTOR OF GROUP COUNSELING PROGRAM to give no mr chace 3 directions at a time. Speech Goal 2 Problem Solving Speech Goal 2 Evaluation Moderate impairment Status Speech Goal 2 Current Status Moderate impairment Speech Goal 2 Comments Problem Solving: Long-Term Goal: Pt will use compensatory language- based strategies to solve moderately complex routine problems, with 100% accuracy, Independently, for ADLs such as shopping, time and money management. Short-Term Goal: Pt will use compensatory strategies to solve moderately complex routine problems, with 80% accuracy, given Moderate skilled instruction and cueing. Status: Progressing as expected DIRECTOR OF GROUP COUNSELING PROGRAM presented a Deduction puzzle, and instructed patient to extract information form 4 narrative clues and ngozi the 4x4 chart to solve the puzzle. After demonstrating marking a box with X is it can be ruled out, patient required moderate cueing to continue to ngozi Xs by process of elimination. For example, given the clue that a female attended an event, patient required cueing to ngozi X beside each male name for that activity. Speech Goal 3 Attention and Memory Speech Goal 3 Evaluation Moderate impairment Status Speech Goal 3 Current Status Moderate impairment Speech Goal 3 Comments Long-Term Goal: Pt will use compensatory strategies to encode and retrieve 4/4 items after delay of 30 minutes, Independently, for independence in mobility safety, ADLs and community access. Short-term Goal: Pt will use compensatory strategies to encode and retrieve 3/4 new items after delay of 5 minutes, given Moderate skilled instruction and cueing. Status: Progressing as expected Social Work: Goals Discharge Plan return home with home care svs and family support Potential for Family Training pt's daughter is attending family training 02/02 @ 9:30 Anticipated Discharge Home Destination Anticipated Discharge 20 stairs to reach apartment Destination Comment Discharge With home care svs and family support Care Plan: Care Plan ADL's - Improve/Maintain Start: 01/28/18 13:49 Freq: DAILY Status: Active Target: Protocol: Activity Type Activity Date Activity User E-Sign Co-Sign Detail Recorded Client Recorded Date Recorded By Document 02/01/18 15:21 [id number] [email or web address] 02/01/18 15:21 [id number] 02/01/18 15:21 PM Outcome: ADL's/ADL Transfers Device Yes Address Deficits Secondary To: posterior reversal encephalopathy syndrome Patient to receive OT 5x/wk for 60-120 Therex min/day Self Care Management Group Therapy Neuromuscular ReEducation UE/LE ADL's with Assist Yes ADL Transfers with Assist Yes Toileting: Transfers,Clothing Management Yes ,Hygeine w/Assist Light Kitchen/Laundry w/Assist Yes Progression Toward Outcome/Goals Progressing Outcome/Goals Met Pt demonstrates increased independence and improved dynamic standing balance this date. Cardiovascular- Improve/Maintain Start: 01/27/18 19:16 Freq: QSHIFT Status: Active Target: Protocol: Activity Type Activity Date Activity User E-Sign Co-Sign Detail Recorded Client Recorded Date Recorded By Document 02/01/18 23:50 [id number] 02/01/18 23:51 [id number] 02/01/18 23:50 PMRU Outcome: Cardiovascular Vital Signs q Shift for 48hrs Then BID Yes Daily Weight Ordered No Current Cardiovascular Outcome/Goal Maintain/ Achieve Baseline HR, BP , Perfusion Maintain/ Achieve Hemodynamic Stability Free of Abnormal Cardiac Symptoms Progression Toward Outcome/Goal Progressing Communication-Improve/Maintain Start: 01/28/18 12:39 Freq: DAILY Status: Active Target: Protocol: Activity Type Activity Date Activity User E-Sign Co-Sign Detail Recorded Client Recorded Date Recorded By Document 02/01/18 19:24 [id number] 02/01/18 19:25 [id number] 02/01/18 19:24 PMRU Outcome: Communication/Cognitive Status Other Outcomes/Goals Verbal Comprehension Goals: Long-Term Goal: Pt will use compensatory strategies to demonstrate comprehension of complex, 2-3 part verbal and written information of moderate complexity, 100 % accuracy, Independent. Short-Term Goal : Pt will use compensatory strategies to demonstrate comprehension of complex, 2- part verbal and written information, 90 % accuracy, given extra time, and minimal skilled instruction and cueing. Status: Progressing as expected toward revised criteria Problem Solving : Long-Term Goal: Pt will use compensatory language-based strategies to solve moderately complex routine problems, with 100% accuracy, Independently, for ADLs such as shopping, time and money management. Short-Term Goal : Pt will use compensatory strategies to solve moderately complex routine problems, with 80% accuracy, given Moderate skilled instruction and cueing. Status: Progressing as expected Long-Term Goal: Pt will use compensatory strategies to encode and retrieve 4/4 items after delay of 30 minutes, Independently, for independence in mobility safety, ADLs and community access. Short-term Goal : Pt will use compensatory strategies to encode and retrieve 3/4 new items after delay of 5 minutes, given Moderate skilled instruction and cueing. Status: Progressing as expected Progression Toward Outcomes/Goals Progressing Outcome/Goals Met Comment Patient is progressing as expected. Patiet met initial comprehension goal, and criteria were revised. DVT Prophylaxis- Improve/Maintain Start: 01/27/18 19:16 Freq: QSHIFT Status: Active Target: Protocol: Activity Type Activity Date Activity User E-Sign Co-Sign Detail Recorded Client Recorded Date Recorded By Document 02/01/18 23:51 [id number] 02/01/18 23:53 [id number] 02/01/18 23:51 PMRU Outcome: DVT Prophylaxis Outcome/Goals Remains Free of DVT Complies with DVT Prophylaxis /Treatment TEDS Stockings on Every AM, Off at HS Progression Toward Outcome/Goals Progressing Discharge Planning - Improve/Maintain Start: 01/27/18 14:24 Freq: DAILY Status: Active Target: Protocol: Activity Type Activity Date Activity User E-Sign Co-Sign Detail Recorded Client Recorded Date Recorded By Document 02/01/18 23:51 [id number] 02/01/18 23:51 [id number] 02/01/18 23:51 PMRU Outcome: Discharge Planning Update Patient Family No Outcome/Goals Demonstrates Understanding of Discharge Plan Progression Toward Outcome/Goals Progressing Education-Improve/Maintain Start: 01/27/18 14:24 Freq: QSHIFT Status: Active Target: Protocol: Activity Type Activity Date Activity User E-Sign Co-Sign Detail Recorded Client Recorded Date Recorded By Document 02/01/18 23:51 [id number] 02/01/18 23:53 [id number] 02/01/18 23:51 PMRU Outcome: Education Outcome/Goals Encourage Questions Progression Toward Outcome/Goals Progressing /GI-Improve/Maintain Start: 01/27/18 19:16 Freq: QSHIFT Status: Active Target: Protocol: Activity Type Activity Date Activity User E-Sign Co-Sign Detail Recorded Client Recorded Date Recorded By Document 02/01/18 23:51 [id number] 02/01/18 23:53 [id number] 02/01/18 23:51 PMRU Outcome: Genitourinary/ Gastrointestinal Genitourinary- Outcome/Goals Maintain/ Achieve Urinary Continence Gastrointestinal-Outcome/Goals Maintain/ Achieve Bowel Regularity in Accordance with Pt's Baseline Remain Free of Emesis Prevent Constipation Progression Toward Outcome/Goals - Progressing Progression Toward Outcome/Goals - GI Progressing Medication Administration Start: 01/27/18 14:24 Freq: QSHIFT Status: Active Target: Protocol: Activity Type Activity Date Activity User E-Sign Co-Sign Detail Recorded Client Recorded Date Recorded By Document 02/01/18 23:51 [id number] 02/01/18 23:53 [id number] 02/01/18 23:51 PMRU Outcome: Medication Administration Assess Patient Knowledge/Teach Med Yes Education for all Meds Outcome/Goals Patient Independent with Medication Administration at Home Demonstrates Understanding Progression Towards Outcome/Goals Progressing Is Patient Going Home on Lovenox? No Neurological- Improve/Maintain Start: 01/27/18 14:24 Freq: QSHIFT Status: Active Target: Protocol: Activity Type Activity Date Activity User E-Sign Co-Sign Detail Recorded Client Recorded Date Recorded By Document 02/01/18 23:51 [id number] 02/01/18 23:53 [id number] 02/01/18 23:51 PMRU Outcome: Neurological Weakness/Aphasia Weakness Outcome/Goals Maintain/ Achieve Baseline Neurological Status Prevent Avoidable Neurological Decline Maintain/ Improve Strength/ROM Progression Toward Outcome/Goals Progressing Nutrition/Swallowing- Improve/Maintain Start: 01/27/18 19:16 Freq: QSHIFT Status: Active Target: Protocol: Activity Type Activity Date Activity User E-Sign Co-Sign Detail Recorded Client Recorded Date Recorded By Document 02/01/18 23:50 [id number] 02/01/18 23:51 [id number] 02/01/18 23:50 PMRU Outcome: Nutrition/Swallowing Outcome/Goals Demonstrates Adequate Hydration/ Prevents Dehydration Progression Toward Outcome/Goals Progressing Pain/Comfort- Improve/Maintain Start: 01/27/18 14:24 Freq: QSHIFT Status: Active Target: Protocol: Activity Type Activity Date Activity User E-Sign Co-Sign Detail Recorded Client Recorded Date Recorded By Document 02/01/18 23:51 [id number] 02/01/18 23:53 [id number] 02/01/18 23:51 PMRU Outcome: Pain/Comfort Outcome/Goals Demonstrates Knowledge and Use of Available Comfort Measures Achieves Acceptable Comfort/Pain Level as Determined by Patient/Condit Maintain Comfort Level Allowing Patient to Fully Participate in Rehab Progression Toward Outcome/Goals Progressing Outcome/Goals Met Comment pain medication was given at HS Respiratory - Improve/Maintain Start: 01/27/18 14:24 Freq: QSHIFT Status: Active Target: Protocol: Activity Type Activity Date Activity User E-Sign Co-Sign Detail Recorded Client Recorded Date Recorded By Document 02/01/18 23:51 [id number] 02/01/18 23:53 [id number] 02/01/18 23:51 PMRU Outcome: Respiratory Does Patient Have a Trach No Outcome/Goals Maintain/ Improve O2 Sat per MD Order Maintain/ Improve Activity Tolerance Prevent Pneumonia/ Atelectasis Remain Aspiration Free Progression Toward Outcome/Goals Progressing Outcome/Goals Met Comment O2 used at hs PRN Safety- Improve/Maintain Start: 01/27/18 14:24 Freq: QSHIFT Status: Active Target: Protocol: Activity Type Activity Date Activity User E-Sign Co-Sign Detail Recorded Client Recorded Date Recorded By Document 02/01/18 23:51 [id number] 02/01/18 23:53 [id number] 02/01/18 23:51 PMRU Outcome: Safety Outcome/Goals Remain Free of Injury or Harm Cooperates with Safety Measures for Least Restrictive Environment Prevent Falls/ Injury Progression Toward Outcome/Goals Progressing Outcome/Goals Met Comment BA armed - can be impulsive Skin- Improve/Maintain Start: 01/27/18 14:24 Freq: QSHIFT Status: Active Target: Protocol: Activity Type Activity Date Activity User E-Sign Co-Sign Detail Recorded Client Recorded Date Recorded By Document 02/01/18 23:51 [id number] 02/01/18 23:53 [id number] 02/01/18 23:51 PMRU Outcome: Skin Skin Risk Level Medium Outcome/Goals Maintain/ Improve Skin Intergrity Free from Decubitus Progression Toward Outcome/Goals Progressing Medicine Note: Length of Stay: 1 day Anticipated Discharge Destination: Home Tentative Discharge Date: 02/03/18 Discharged to: Home
[2018-02-02] MEDS ORDERED: Midazolam* 1 MG/ML 10 ML VIAL (10 MG) ONE (16:25)
[2018-02-02] MEDS ORDERED: fentaNYL* 50 MCG/ML 2 ML VIAL (100 MCG VIAL) ONE (16:25)
--- NOTE | 2018-02-02 16:35 | PN ---
Progress Note Date of Service: 02/02/18 Note: MARIANNE ROCHA was visited. Therapy notes read and reviewed. Appreciate Dr. Vance' s note. She is now off all anti-hypertensives. Her BP is stable. She was discussed in interdisciplinary team rounds. She will have an esophageal dilation tonight and go home in the morning. Current Medications: Active Medications Generic Name Dose Route Start Last Admin Trade Name Freq PRN Reason Stop Dose Admin Acetaminophen 650 mg 01/27/18 14:32 02/01/18 20:15 Tylenol Tab* PO 650 mg Q6H PRN Administration FEVER/PAIN Clonazepam 1 mg 01/28/18 21:05 02/01/18 20:52 Klonopin Tab(*) PO 1 mg BID PRN Administration ANXIETY Enoxaparin Sodium 40 mg 02/03/18 09:00 Lovenox(*) SUBCUT DAILY VICK Escitalopram Oxalate 10 mg 01/28/18 09:00 02/02/18 10:09 Lexapro (Nf) PO 10 mg DAILY VICK Administration Hydromorphone HCl 2 mg 01/27/18 17:54 02/02/18 11:50 Dilaudid Tab* PO 2 mg Q4H PRN Administration PAIN - MODERATE TO SEVERE Multivitamins 1 tab 01/28/18 09:00 02/02/18 10:10 Theragran Tab* PO Not Given DAILY VICK Ondansetron HCl 4 mg 01/28/18 19:29 01/28/18 19:37 Zofran Odt Tab* SL 4 mg Q6H PRN Administration NAUSEA Polyethylene Glycol/Electrolytes 17 gm 01/28/18 21:20 Miralax* PO DAILY PRN CONSTIPATION Pregabalin 50 mg 01/27/18 21:00 02/02/18 10:10 Lyrica Cap(*) PO 50 mg BID VICK Administration Senna 2 tab 01/27/18 14:32 Senokot Tab* PO BEDTIME PRN CONSTIPATION Vital Signs: Vital Signs Temp Pulse Resp BP Pulse Ox 98.0 F 96 24 146/78 86 02/02/18 15:52 02/02/18 15:52 02/02/18 15:52 02/02/18 15:52 02/02/18 15:52 Exam: GENERAL: alert and appropriate LUNGS: clear to auscultation bilaterally HEART: regular rate and rhythm ABDOMEN: Soft, +BS, non-tender, non-distended EXTREMITIES: no edema NEUROLOGIC: motor 5/5 bue/ble with intact sensation. Assessment/Plan: 1. 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 Off lopressor. May need amlodipine, 2.5 mg. 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 2. Hypotension: Off Lopressor. 3. Esophageal Cancer with new nodules on CT: S/P Esophagectomy. Soft Diet. Dilation Q 2 weeks. Will need w/u as outpatient (LN biopsy with oncology/pulm). 4. Leukopenia: WBCs trending down. I spoke to Dr. Vance on 01/29 who will monitor. CBC tomorrow. 5. Anxiety: Klonopin. 6. Back Pain: Dilaudid. Lyrica. 7. COPD: stable. 8. DVT Prophylaxis: Lovenox S/Q 9. Advanced Directives: full code 10. Nausea: Zofran ODT prn 11. Estimated LOS: anticipate d/c on 02/03. 02/02/18 16:35 02/02/18 16:36
[2018-02-02] MEDS ORDERED: Meperidine Carpuject* 75 MG/ML CARPUJECT SYRINGE IV ONE (17:00)
[2018-02-02] MEDS: clonazePAM TAB(*) 1 MG PO PRN (21:53)
[2018-02-03 06:16] VITALS: BP 124/65
[2018-02-03] MEDS ORDERED: Enoxaparin(*) 40 MG/0.4 ML SYR SUBCUT SCH (09:00)
[2018-02-03] MEDS: Vitamin THERAPEUTIC TAB PO SCH (09:11)
[2018-02-03] MEDS: Pregabalin CAP(*) 50 MG PO SCH (09:20)
[2018-02-03] MEDS: CMC:Escitalopram (NF) 10 MG TAB PO SCH (09:20)
[2018-02-03] MEDS: HYDROmorphone TAB* 2 MG PO PRN (10:53)
--- NOTE | 2018-02-04 03:51 | PRO ---
DATE: 02/02/18 - ROOM #[id number] REFERRING PHYSICIANS: Dr. Mayur Vance, Dr. Daren Chawla.* PROCEDURE: Upper gastrointestinal endoscopy and balloon dilation, high esophageal esophagogastric anastomotic stricture to estimated 13 mm. INDICATION: This 67-year-old woman has been having repetitive dilations of an anastomosis created April 2017. A week ago, she had a dilation to 12 mm. She is in the rehabilitation unit and feeling better. An attempt to consolidate the improvement, possibly extend the interval to 2 weeks, she is brought back at a 1-week interval. Informed consent was obtained. ENDOSCOPIST: Dr. Joaquin FINDINGS: She was positioned on her side. Moderate sedation was induced with Versed and fentanyl 10 mg and 125 in increments. EGD: Larynx - narrow. Esophagus - easily entered and after 3 or 4 cm, the anastomosis was again seen to be narrow. This seemed to be less exudate and mucosal abrasion than noted before. She has been on a more careful medication regime with liquefied or crushed medication. The 12 to 15 dilator was inserted into the stomach through the anastomosis. It was inflated to 1, 2, 3 and then 4 atmospheres. The scope could pass into the stomach at the 3 atmosphere inflation level, but was snug. It was slightly looser after 4 atmospheres. The area was circumferentially a little bloody and macerated, but there was no major split. The stomach appeared as before normal with normal rugal fold. IMPRESSION: High anastomotic stricture - now dilated to estimated 13 mm (4 atmospheres) and she will return in 2 weeks to maintain the improvement. [id number]/[facility] #: [id number] [facility]
--- NOTE | 2018-02-04 15:25 | DS ---
CC: Dr. Rishabh Banda; Dr. Serafin Vance; Dr. Chawla * DISCHARGE SUMMARY: DATE OF ADMISSION: 01/27/18 DATE OF DISCHARGE: 02/03/18 DISCHARGE DIAGNOSES: 1. Posterior reversible encephalopathy syndrome. 2. Esophageal cancer. 3. Hypotension. 4. Neutropenia. 5. Back pain. 6. Chronic obstructive pulmonary disease. 7. Status post esophagectomy. HISTORY OF ILLNESS AND HOSPITAL COURSE: For complete history of the events leading up to her rehab stay, please see the history and physical dictated by me on 01/27/18. Shortly after arriving and getting the patient out of bed, it was noted that the patient's blood pressure was dropping as she became upright. Her amlodipine was cut back and later stopped. Her Lopressor was cut back and later stopped. She wished to go back on Klonopin for her anxiety instead of Ativan and this was done. In addition, her Lyrica dose was put back up to 50 mg twice a day, which was her home dose and she continued to receive Dilaudid for back pain. She was noted to be neutropenic with an absolute neutrophil count of less than [address] Vance, her oncologist, saw the patient and felt that this may be secondary to Lopressor, which was a new drug and he stopped the Lopressor. The patient's blood pressure still remained under 130 systolic and so it was felt that she likely did not need any antihypertensives to go home with. It is not clear what caused the hypertension, which was thought to be responsible for her posterior reversible encephalopathy syndrome. The patient did have 2 episodes of esophageal dilatation while on the rehab unit for her strictures because of her surgery for her esophageal cancer. It was noted that the patient did have positive lymph nodes on her CAT scan on the acute service and it was felt that she might likely have a recurrence of her esophageal cancer. This would be worked up as an outpatient with a lymph node biopsy done and arranged by Oncology and Pulmonology. The patient otherwise was stable. She was seen by Physical Therapy and Occupational Therapy as well as Speech Therapy and made good gains with all 3 disciplines. With physical therapy at the time of admission, the patient required contact guard to do a transfer. She was able to walk min assist to 100 feet. With occupational therapy at the time of admission, the patient required supervision for upper body dressing, contact guard for lower body dressing, contact guard for bathing, contact guard for toileting and toilet transfers. By the time of discharge, she was independent in all activities. It was recommended that she have supervision when using the stove because of some cognitive difficulties or to simply use the microwave. The patient's daughter came in for family training prior to discharge and she agreed to bring meals the patient could microwave and avoid using the stove. The patient was felt to be ready for discharge and was discharged to home, 02/03/18. DISCHARGE DIET: Soft. DISCHARGE MEDICATIONS: 1. Klonopin 1 mg twice a day as needed. 2. Lexapro 10 mg daily. 3. Dilaudid 2 mg every 4 hours as needed with a maximum daily dose of 3. 4. MiraLAX 17 g every day as needed. 5. Lyrica 50 mg twice daily or as needed. 6. Albuterol HFA inhaler 2 puffs every 4 hours as needed. SERVICES AFTER DISCHARGE: Through the visiting nurse service. She will have home nursing, home physical therapy, and a home health aide. FOLLOWUP: Follow up with Dr. Rishabh Banda in 1 to 2 weeks. She will need a followup MRI of her brain to be arranged by [facility]. She will follow up with Dr. Vance in 1 to 2 weeks for a lymph node biopsy and she will also follow up with Dr. Chawla, her primary care doctor. TIME SPENT: Time for this discharge was approximately 55 minutes. Greater than half of that was spent with the patient discussing post-rehab discharge plans, therapies, and tests to be arranged. [id number]/[facility] #: [id number] MARILYNN
== END 2018-02-03 13:30 | disposition home health service (06) | DRG 71 ==
LOC: PMRU 13:13
PROVIDERS: ADMIT Physical Medicine & Rehabilitation; ATTEND Physical Medicine & Rehabilitation
PROC: F07Z5ZZ Bed Mobility Treatment (ICD-10-PCS; principal; 2018-01-27)
PROC: F07Z9ZZ Gait Training/Functional Ambulation Treatment (ICD-10-PCS; 2018-01-27)
PROC: F07Z8ZZ Transfer Training Treatment (ICD-10-PCS; 2018-01-27)
PROC: F07Z4ZZ Wheelchair Mobility Treatment (ICD-10-PCS; 2018-01-27)
PROC: F08Z0ZZ Bathing/Showering Techniques Treatment (ICD-10-PCS; 2018-01-27)
PROC: F08Z1ZZ Dressing Techniques Treatment (ICD-10-PCS; 2018-01-27)
PROC: F08Z3ZZ Feeding/Eating Treatment (ICD-10-PCS; 2018-01-27)
PROC: 0D748ZZ Dilation of Esophagogastric Junction, Via Natural or Artificial Opening Endoscopic (ICD-10-PCS; 2018-02-02)
DX: I67.83 Posterior reversible encephalopathy syndrome (principal); R47.01 Aphasia; F33.9 Major depressive disorder, recurrent, unspecified; D70.2 Other drug-induced agranulocytosis; I95.9 Hypotension, unspecified; Z99.81 Dependence on supplemental oxygen; K22.2 Esophageal obstruction; J44.9 Chronic obstructive pulmonary disease, unspecified; T44.7X5A Adverse effect of beta-adrenoreceptor antagonists, initial encounter; Y92.230 Patient room in hospital as the place of occurrence of the external cause; R53.1 Weakness; R41.89 Other symptoms and signs involving cognitive functions and awareness; G89.4 Chronic pain syndrome; I10 Essential (primary) hypertension; M54.9 Dorsalgia, unspecified; R22.2 Localized swelling, mass and lump, trunk; F41.9 Anxiety disorder, unspecified; D64.9 Anemia, unspecified; L93.0 Discoid lupus erythematosus; Z85.01 Personal history of malignant neoplasm of esophagus; Z85.118 Personal history of other malignant neoplasm of bronchus and lung; Z79.899 Other long term (current) drug therapy; Z88.0 Allergy status to penicillin; Z88.8 Allergy status to other drugs, medicaments and biological substances; Z91.011 Allergy to milk products; Z87.891 Personal history of nicotine dependence
CPT/HCPCS: 36415; 80053; 82728; 83540; 83550; 83921; 85025; 90686; 99156; 99157; 99232; A9270-GY; J1650; J2175; J2250; J3010

== ENCOUNTER 2018-02-17 12:14 | Day surgery (SDC) | payer MEDICARE ==
[~2018-02-17 12:14] MED LIST: Buffered Lidocaine 0.9% SYRIN* 5 ML/SYR SYRINGE INTRADERM ONE
[2018-02-17] MEDS ORDERED: Levalbuterol 0.63MG/3ML NEB* UNIT OF USE INH ONE (13:02)
[2018-02-17] MEDS ORDERED: HYDROmorphone INJ1* 1 MG/ML SYRINGE ONE (13:33)
[2018-02-17] MEDS ORDERED: Midazolam* 1 MG/ML 2 ML VIAL (2 MG) ONE (13:33)
[2018-02-17] MEDS ORDERED: Propofol* 10 MG/ML 20 ML BTL IV PUSH ONE (13:47)
[2018-02-17] MEDS ORDERED: Lidocaine 2% PF * 5 ML VIAL ONE (13:47)
[2018-02-17] MEDS ORDERED: Succinylcholine* 20 MG/ML 10 ML VIAL ONE (13:47)
[2018-02-17] MEDS ORDERED: EPHEDrine (Pressors)* 50 MG/ML VIAL ONE (13:47)
[2018-02-17] MEDS ORDERED: Ondansetron INJ* 2 MG/ML VIAL ONE (13:47)
[2018-02-17] MEDS ORDERED: Dexamethasone IV* 4 MG/ML 1 ML (4 MG) ONE (13:47)
[2018-02-17] MEDS ORDERED: Naloxone* 0.4 MG/ML 1 ML VIAL IV PRN (14:54)
[2018-02-17 15:50] VITALS: BP 110/64
--- NOTE | 2018-02-18 08:13 | PRO ---
BRONCHOSCOPY REPORT: DATE OF PROCEDURE: 02/17/18 - LOCATED WITHIN [facility] LEARNING SPECIALIST: Abbey Llamas MD PROCEDURE PERFORMED: Bronchoscopy with endobronchial ultrasound-guided fine- needle aspiration from mediastinal and hilar nodes. PREPROCEDURAL DIAGNOSIS: Esophageal cancer with recurrence, on treatment. ANESTHESIA: General anesthesia. ANESTHESIOLOGIST: Dr. Sanders. DESCRIPTION OF PROCEDURE: Informed consent was obtained from the patient prior to the procedure after all the risks and benefits were thoroughly explained. The patient with a history of lung cancer and esophageal cancer, has been having lung nodules that have been gradually increasing and lymph nodes that are prominent. Bronchoscopy and EBUS was scheduled for lymph node evaluation. The patient was intubated with size 8.0 endotracheal tube. The patient was lying supine on the operating room bed, Venodynes and SCDs were placed. Flexible bronchoscope was inserted for airway inspection. Thick white secretions were noted on both sides and were suctioned. No endobronchial lesions were noted. Bronchoscope was then withdrawn and EBUS bronchoscope was inserted. Bronchoscope was then advanced to station 7 lymph node level, which was accessed with 3 passes. Rapid on-site evaluation revealed lymphatic tissue in one of the passes. No malignant cells were noted. Bronchoscope was then withdrawn to the R4 level, which was accessed with 4 passes. Rapid on-site evaluation revealed lymphatic tissue in one of the passes. No malignant cells were noted. The patient had minimal lymphadenopathy, not significantly enlarged for further sampling. No other lymph nodes were found to be enlarged. Procedure was terminated. The patient was extubated and seen in Recovery in optimal condition. [id number]/[facility] #: [id number] MTDD
== END 2018-02-17 16:05 | disposition home or self-care (01) ==
LOC: OR 12:14
PROVIDERS: ATTEND Internal Medicine
DX: R59.0 Localized enlarged lymph nodes (principal); J44.9 Chronic obstructive pulmonary disease, unspecified; C34.90 Malignant neoplasm of unspecified part of unspecified bronchus or lung; Z85.01 Personal history of malignant neoplasm of esophagus; R09.02 Hypoxemia; Z87.891 Personal history of nicotine dependence; I10 Essential (primary) hypertension; E78.2 Mixed hyperlipidemia
CPT/HCPCS: 88172; 88173; 88177; 88305; J0330; J1100; J1170; J2250; J2405; J2704